=== PATIENT | female | born 1960 | race Caucasian/White ===

== ENCOUNTER 2019-09-18 07:55 | Outpatient (CLI) | payer OTHER, SELFPAY ==
--- NOTE | 2019-09-18 | EST_ITS ---
Patient Info Name: Cristine Armstrong Age: 59 years : 1960 Gender: Female Ht: 63 in Wt: 210 lbs BSA: 2.10 m2 Exam Date: 09/18/2019 9:27 AM Exam Location: [facility] Stress Patient Status: Outpatient Admit Date: 09/18/2019 Staff Ordering Physician: PHYSICIAN NOT ON STAFF, NONSTAFF Attending Provider: PHYSICIAN NOT ON STAFF, NONSTAFF Exercise Technologist: Krishna Cai, RDCS, RT Nurse: Sheeba Devlin ANP, ACNP-BC Exam Type: CA stress maria esther w NM Study Info A regadenoson stress test was performed. Summary 1. Normal sinus rhythm - normal ECG. 2. No ST segment changes noted following Lexiscan injection. 3. Myocardial perfusion imaging exam to be dictated by the Radiology Department. Protocol: Lexiscan Stress ECG Details Stage: REST Duration (min): 5 min : 56 sec HR (bpm): 89 SBP (mmHg): 153 DBP (mmHg): 100 Stage: REST Duration (min): 8 min : 53 sec HR (bpm): 81 SBP (mmHg): 153 DBP (mmHg): 100 Stage: STAGE 1 Duration (min): 0 min : 59 sec HR (bpm): 97 SBP (mmHg): 147 DBP (mmHg): 87 Stage: RECOVERY Duration (min): 1 min : 0 sec HR (bpm): 103 SBP (mmHg): 147 DBP (mmHg): 87 Stage: RECOVERY Duration (min): 2 min : 0 sec HR (bpm): 101 SBP (mmHg): 147 DBP (mmHg): 87 Stage: RECOVERY Duration (min): 3 min : 0 sec HR (bpm): 98 SBP (mmHg): 139 DBP (mmHg): 86 Stage: RECOVERY Duration (min): 4 min : 0 sec HR (bpm): 95 SBP (mmHg): 139 DBP (mmHg): 86 Stage: RECOVERY Duration (min): 5 min : 0 sec HR (bpm): 92 SBP (mmHg): 143 DBP (mmHg): 87 Stage: RECOVERY Duration (min): 6 min : 0 sec HR (bpm): 94 SBP (mmHg): 143 DBP (mmHg): 87 Stage: RECOVERY Duration (min): 7 min : 0 sec HR (bpm): --- SBP (mmHg): 143 DBP (mmHg): 87 Stage: RECOVERY Duration (min): 7 min : 24 sec HR (bpm): --- SBP (mmHg): 143 DBP (mmHg): 87 Rest HR: 81 bpm Peak HR: 103 bpm Rest Sys BP: 153 mmHg Peak Sys BP: 147 mmHg Max Pred HR: 162 bpm % Max Pred HR: 64 % Target HR: 138 bpm Max RPP: 15,141 bpm*mmHg BP Response: Normal blood pressure response Termination Reason: Completed protocol Cardiac Symptoms: Shortness of breath Total Time: 1 min : 0 sec Rest Smith BP: 100 mmHg Peak Smith BP: 87 mmHg Total Dose: 0.4 mg Resting ECG Normal sinus rhythm - normal ECG. Stress ECG No abnormal ST/T wave changes with exercise. Arrhythmias None. Report Signatures
--- NOTE | ~2019-09-18 | NM_ITS ---
EXAMINATION: NM maria esther stress w perfusion DATE: 09/18/2019 10:52 INDICATION: Precordial chest pain. TECHNIQUE: Rest images were obtained following intravenous administration of 10 mCi Tc99m tetrofosmin (Myoview). The patient was infused intravenously with Lexiscan (regadenoson). Then, 31.7 mCi Tc99m t etrofosmin (Myoview) was administered intravenously, and stress images were obtained. Data was recons tructed into short axis and horizontal and vertical long axis SPECT images. Gated SPECT images were a lso obtained. COMPARISON: Myocardial perfusion imaging 06/18/2014 FINDINGS: There is a small, mild, fixed perfusion defect involving mid inferior segment of left ventr icle, consistent with infarct. No reversible component to cysts ischemia. There is no segmental wall motion abnormality. Left ventricular ejection fraction measures >70%. IMPRESSION: 1. Small area of mild infarct involving mid inferior segment of left ventricle. 2. Normal left ventricular ejection fraction measuring >70%. Reviewed, dictated and finalized at location A. 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
== END 2019-09-18 07:56 | disposition home or self-care (01) ==
PROVIDERS: PCP Family Medicine
DX: R07.2 Precordial pain (principal); I21.9 Acute myocardial infarction, unspecified
CPT/HCPCS: 78452; 93017; A9502; J2785

== ENCOUNTER 2019-09-27 09:42 | Outpatient (CLI) | payer OTHER, SELFPAY ==
--- NOTE | ~2019-09-27 | MM_ITS ---
EXAMINATION: MM screening asa BI w chasity HISTORY: Screening mammogram TECHNIQUE: Craniocaudal and mediolateral oblique 3-D tomosynthesis images were obtained and synthetic 2-D images were generated. CAD analysis was submitted and interpreted. COMPARISON: 07/13/2018, 03/09/2016, 04/02/2014 bilateral digital screening mammogram examinations BREAST PARENCHYMAL COMPOSITION: The breasts are almost entirely fatty. FINDINGS: There is no evidence of suspicious mass, calcification, or architectural distortion to sugg est malignancy in either breast. There has been no suspicious interval change. IMPRESSION: 1. No mammographic evidence of malignancy. 2. Recommend routine screening mammography in one year. BI-RADS Category 1: Negative Reviewed, dictated and finalized at location A.
== END 2019-09-27 09:43 | disposition home or self-care (01) ==
LOC: ANHIMG 09:45
PROVIDERS: PCP Family Medicine; Visit Provider Advanced Practice Midwife
DX: Z12.31 Encounter for screening mammogram for malignant neoplasm of breast (principal)
CPT/HCPCS: 77063; 77067; 93923

== ENCOUNTER 2019-10-15 06:35 | Emergency (ER) | payer OTHER, SELFPAY ==
--- NOTE | ~2019-10-15 | XR_ITS ---
EXAMINATION: XR ribs RT 2V w CXR 2V DATE: 10/15/2019 07:20 INDICATION: Right-sided chest wall pain and tenderness to palpation post fall TECHNIQUE: A frontal inspiratory view of the chest and 3 views of the right ribs were obtained. COMPARISON: Chest radiograph dated 12/01/2018 FINDINGS: Suggestion of a nondisplaced fracture at the anterior right seventh rib with minimal overlying bulgin g of the pleura suggesting associated small chest wall hematoma. Calcified nodule at the lateral lef t midlung zone consistent with old granulomatous disease. Lungs remain otherwise clear with no focal airspace opacities, pulmonary edema, pleural effusion or pneumothorax. Heart size and mediastinal estrella houette are normal. Unchanged small left paracardial fat pad.. IMPRESSION: 1. Likely nondisplaced anterior right seventh rib fracture. Correlate for point tenderness at this lo cation. 2. No acute cardiopulmonary disease. Reviewed, dictated and finalized at location A. IMPRESSION: 1. Likely nondisplaced anterior right seventh rib fracture. Correlate for point tenderness at this location. 2. No acute cardiopulmonary disease.
[2019-10-15 06:37] VITALS: BP 152/101; PULSE 96; RESP 22; TEMP 37; O2SAT 98
[2019-10-15] MEDS: MORPHINE SULFATE 4 MG/ML INJ IV PUSH (06:53)
--- NOTE | 2019-10-15 07:03 | ED.ABDPAIN ---
HPI - Abdominal Pain General Chief Complaint: Abdominal Pain Stated Complaint: flank/back pain History of Present Illness HPI narrative: Patient is a 59-year-old female who presents the ER with right-sided flank pain. Ongoing for 1 week. Worse with different types of movement. She is attempted topical analgesics as well as oral pain medication without relief. Patient has had occasional nausea with this but no vomiting or diarrhea. Pain is worse with direct palpation over the right side of her chest wall. She is concerned she might have a kidney stone. Denies urinary frequency/urgency/dysuria. Prior to symptom onset patient does report she did have a fall where she had slipped and fallen onto the ground. No additional injuries related to that fall. Related Data Home Medications Medication Instructions Recorded Confirmed albuterol sulfate 10/15/19 albuterol sulfate INHALATION 10/15/19 alprazolam 10/15/19 amlodipine 10/15/19 furosemide 10/15/19 hydrocodone-acetaminophen tablet 10/15/19 isosorbide mononitrate mg PO 10/15/19 losartan 10/15/19 metoprolol succinate PO 10/15/19 omeprazole 10/15/19 potassium chloride meq PO 10/15/19 ranitidine HCl 10/15/19 ranitidine HCl 10/15/19 rosuvastatin mg 10/15/19 trazodone 10/15/19 Allergies Allergy/AdvReac Type Severity Reaction Status Date / Time haloperidol Allergy Unknown Other Verified 10/15/19 06:54 Penicillins Allergy Unknown Flushing Verified 10/15/19 06:54 risperidone Allergy Unknown MY MOUTH Verified 03/10/19 06:42 TIGHTENS UP -TD simvastatin Allergy Unknown Other Verified 03/10/19 06:42 codeine AdvReac Unknown NAUSEA AND Verified 03/10/19 06:42 VOMITING triazolam AdvReac Unknown N/V Verified 03/10/19 06:42 Wasp Allergy Unknown WASP Uncoded 03/10/19 06:42 STING- CLOSES MY THROAT Review of Systems Constitutional: Constitutional: Denies chills, Denies fever(s) and Denies weakness ENT: Denies nasal congestion and Denies sore throat Respiratory: Respiratory: Reports cough (Chronic cough that is unchanged and related to smoking.) and Denies wheezing Gastrointestinal: Gastrointestinal: Denies abdominal pain, Denies nausea and Denies vomiting Genitourinary: Genitourinary: Denies hematuria, Denies nocturia, Denies dysuria and Reports flank pain PMFSH Past Medical History Medical History (Updated 10/15/19 @ 08:21 by Riley Martinez MD) Anxiety Bipolar disorder COPD (chronic obstructive pulmonary disease) Coronary artery disease CVA (cerebral vascular accident) Diabetes type 2, controlled GERD (gastroesophageal reflux disease) Hyperlipidemia Macular degeneration Sleep apnea Surgical History Surgical History (Updated 10/15/19 @ 08:21 by Riley Martinez MD) H/O cardiac catheterization H/O section History of carpal tunnel release History of cholecystectomy History of colonoscopy History of esophagogastroduodenoscopy (EGD) History of left-sided carotid endarterectomy S/P insertion of iliac artery stent Social History Social History Smoking status: Smoker, status unknown Alcohol intake: never Gender identity (if verbalized by the patient): Female Exam Narrative: Exam Narrative: GENERAL: Uncomfortable-appearing, well-nourished, and in no acute distress. Tearful when laying down flat due to discomfort. HEAD: Normocephalic, atraumatic. ENT: Mucous membranes moist. CHEST: Clear to auscultation. No respiratory distress. Tender palpation in the right lateral chest wall in the midaxillary line. HEART: Regular rate and rhythm. Normal peripheral pulses. ABDOMEN: Soft, nontender, nondistended. EXTREMITIES: Normal range of motion. No edema. NEURO: Alert and oriented x3. Course Course Emergency Course: Patient informed of results. Discharge home. Patient has [place] she can take at home. Vital Signs Vital signs: Vital Sign
[2019-10-15 07:08] LABS: Basophils Absolute Auto 0.1 K/mm3 (0.0-0.1); Basophils Percent Auto 0.6 % (0.2-1.2); Eosinophils Absolute Auto 0.3 K/mm3 (0-0.3); Eosinophils Percent Auto 3.2 % (0-4.4); Hematocrit 44.9 % (37.0-47.0); Hemoglobin 14.9 g/dL (12.0-15.0); Immature Granulocyte Absolute 0.04 K/mm3 (0.00-0.031); Immature Granulocyte Percent A 0.4 % (0-0.5); Lymphocytes Absolute Auto 2.73 K/mm3 (0.9-3.2); Lymphocytes Percent Auto 29.5 % (18.3-44.2); Mean Corpuscular HGB Conc 33.2 g/dl (32-36); Mean Corpuscular Hemoglobin 28.8 pg (26-34); Mean Corpuscular Volume 86.8 fl (80-100); Mean Platelet Volume 10.9 fl (7.4-10.4); Monocytes Absolute Auto 0.7 K/mm3 (0.1-0.6); Monocytes Percent Auto 7.7 % (2.6-8.5); Neutrophils Absolute Auto 5.4 K/mm3 (1.3-6.7); Neutrophils Percent Auto 58.6 % (45.5-73.1); Platelet Count Result 208 k/mm3 (150-375); Red Blood Count 5.17 M/mm3 (4.2-5.4); Red Cell Distribution Width 13.2 % (11.5-14.5); White Blood Count 9.2 K/mm3 (4.5-10.0)
[2019-10-15 07:18] LABS: Add Urine Microscopic? YES; Appearance Urine Clear (Clear); Bacteria Urine Trace /hpf; Bilirubin Urine Negative (Negative); Blood Urine Negative (Negative); Color Urine Yellow (Yellow); Glucose Urine UA Negative (Negative); Ketones Urine Negative (Negative); Leukocyte Esterase Ur Trace LEU/UL (Negative); Mucus Urine Rare /lpf; Nitrate Urine Negative (Negative); Protein Urine 1+ mg/dL (Negative); RBC Urine 0-2 /hpf (0-2); Specific Grav Ur 1.015 (1.001-1.035); Squamous Epithelial Cell Urine Many /hpf (Few); Urobilinogen Urine Negative mg/dL (<2.0)
[2019-10-15 07:43] LABS: Alanine Aminotransferase 18 U/L (4-35); Albumin Level 4.2 g/dL (3.5-5.1); Alkaline Phosphatase 114 U/L (38-126); Aspartate Amino Transferase 23 U/L (14-36); Bilirubin,Total 0.4 mg/dL (0.2-1.3); Blood Urea Nitrogen 17 mg/dL (7-17); Calcium 8.9 mg/dL (8.4-10.2); Carbon Dioxide 23 mmol/L (22-30); Chloride 105 mmol/L (98-107); Estimated CRCL calculation 83 ml/min; Estimated Glomerular Filt Rate > 60; Glucose 152 mg/dL (65-105); Potassium 3.8 mmol/L (3.4-5.0); Sodium 138 mmol/L (137-145)
[2019-10-15 08:49] VITALS: BP 152/102; PULSE 89; RESP 16; O2SAT 98
== END 2019-10-15 08:50 | disposition home or self-care (01) ==
LOC: ANHED 08:10
PROVIDERS: Emergency Provider Emergency Medicine; PCP Family Medicine
DX: S22.31XA Fracture of one rib, right side, initial encounter for closed fracture (principal); W01.0XXA Fall on same level from slipping, tripping and stumbling without subsequent striking against object, initial encounter; F41.9 Anxiety disorder, unspecified; J44.9 Chronic obstructive pulmonary disease, unspecified; I25.10 Atherosclerotic heart disease of native coronary artery without angina pectoris; Z86.73 Personal history of transient ischemic attack (TIA), and cerebral infarction without residual deficits; E11.9 Type 2 diabetes mellitus without complications; K21.9 Gastro-esophageal reflux disease without esophagitis; E78.5 Hyperlipidemia, unspecified; G47.30 Sleep apnea, unspecified; H35.30 Unspecified macular degeneration
CPT/HCPCS: 36415; 71045; 71101; 80053; 81001; 85025; 87086; 96374; 99284; J2270

== ENCOUNTER 2020-01-31 11:15 | Emergency (ER) | payer OTHER, SELFPAY ==
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
[2020-01-31 11:23] VITALS: BP 130/93; PULSE 110; RESP 16; TEMP 36.7; O2SAT 98
[2020-01-31 11:44] VITALS: BP 130/93; PULSE 110; RESP 20; TEMP 36.7; O2SAT 99
[2020-01-31] MEDS: ACETAMINOPHEN 500 MG TABLET 1000 MG PO (12:43)
[2020-01-31 12:51] LABS: Add Urine Microscopic? YES; Appearance Urine Clear (Clear); Bacteria Urine Trace /hpf; Bilirubin Urine Negative (Negative); Blood Urine 2+ (Negative); Color Urine Yellow (Yellow); Glucose Urine UA 3+ mg/dL (Negative); Ketones Urine Trace mg/dL (Negative); Leukocyte Esterase Ur 1+ LEU/UL (Negative); Mucus Urine Few /lpf; Nitrate Urine Negative (Negative); Protein Urine 2+ mg/dL (Negative); RBC Urine 21-50 /hpf (0-2); Specific Grav Ur 1.025 (1.001-1.035); Squamous Epithelial Cell Urine Few /hpf (Few); Urobilinogen Urine Negative mg/dL (<2.0); WBC Urine 21-30 /hpf
[2020-01-31] MEDS: ORPHENADRINE CITRATE 100 MG TABLET.ER PO (12:53)
[2020-01-31] MEDS: KETOROLAC 30 MG/ML VIAL (*BKC) IV PUSH (12:55)
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
[2020-01-31 13:44] VITALS: TEMP 36.7
== END 2020-01-31 13:47 | disposition home or self-care (01) ==
PROVIDERS: Emergency Medicine Emergency Medical Services; Emergency Provider Emergency Medicine; PCP Family Medicine
DX: M51.16 Intervertebral disc disorders with radiculopathy, lumbar region (principal); N39.0 Urinary tract infection, site not specified; F41.9 Anxiety disorder, unspecified; F31.9 Bipolar disorder, unspecified; J44.9 Chronic obstructive pulmonary disease, unspecified; I25.10 Atherosclerotic heart disease of native coronary artery without angina pectoris; Z86.73 Personal history of transient ischemic attack (TIA), and cerebral infarction without residual deficits; K21.9 Gastro-esophageal reflux disease without esophagitis; E11.9 Type 2 diabetes mellitus without complications; E78.5 Hyperlipidemia, unspecified; H35.30 Unspecified macular degeneration; G47.30 Sleep apnea, unspecified
CPT/HCPCS: 72110; 81001; 87086; 87088; 96374; 99284; A9270; J1885

== ENCOUNTER 2020-05-14 14:20 | Emergency (ER) | payer OTHER, SELFPAY ==
[2020-05-14] VITALS (9 sets, daily range): BP systolic 139–161; BP diastolic 88–106; PULSE 76–108; RESP 12–22; TEMP 36.8–37.4; O2SAT 94–100
--- NOTE | ~2020-05-14 | CT_ITS ---
EXAMINATION: CT abdomen pelvis w con DATE: 05/14/2020 17:21 INDICATION: Abdominal pain, nausea and vomiting. History of diverticulitis. TECHNIQUE: Computed tomography (CT) of the abdomen and pelvis was performed with 100 cc Omnipaque 350 intravenous contrast. The dose-length product was 1270.13 mGy-cm. Automated exposure control and ite rative reconstruction technique were employed. COMPARISON: CT dated 03/10/2019 FINDINGS: Lingular atelectasis. Heart size is normal. No significant pleural or pericardial effusion. Fatty infiltration of the liver. Status post cholecystectomy. Calcified granulomas of the spleen. The re are accessory splenules. Status post cholecystectomy. There is atherosclerosis of the aorta. There is an endoluminal stent in the distal abdominal aorta extending into the iliac arteries. There are calcifications of the left adrenal gland with nodular thickening, likely related to chronic granulomatous disease. No free air. No lymphadenopathy. Colonic diverticulosis without evidence for diverticulitis. No acute osseous abnormality. IMPRESSION: 1. No acute abdominal abnormality. Reviewed, dictated and finalized at location A.
[2020-05-14 15:07] LABS: Basophils Absolute Auto 0.1 K/mm3 (0.0-0.1); Basophils Percent Auto 0.4 % (0.2-1.2); Eosinophils Absolute Auto 0.3 K/mm3 (0-0.3); Eosinophils Percent Auto 1.9 % (0-4.4); Hematocrit 46.5 % (37.0-47.0); Hemoglobin 15.9 g/dL (12.0-15.0); Immature Granulocyte Percent A 0.7 % (0-0.5); Lymphocytes Absolute Auto 2.58 K/mm3 (0.9-3.2); Lymphocytes Percent Auto 16.9 % (18.3-44.2); Mean Corpuscular HGB Conc 34.2 g/dl (32-36); Mean Corpuscular Volume 84.9 fl (80-100); Mean Platelet Volume 9.4 fl (7.4-10.4); Monocytes Percent Auto 6.2 % (2.6-8.5); Neutrophils Absolute Auto 11.3 K/mm3 (1.3-6.7); Neutrophils Percent Auto 73.9 % (45.5-73.1); Platelet Count Result 307 k/mm3 (150-375); Red Blood Count 5.48 M/mm3 (4.2-5.4); Red Cell Distribution Width 13.3 % (11.5-14.5); White Blood Count 15.3 K/mm3 (4.5-10.0)
[2020-05-14 15:17] LABS: Add Urine Microscopic? YES; Appearance Urine Cloudy (Clear); Bilirubin Urine Negative (Negative); Blood Urine Negative (Negative); Color Urine Yellow (Yellow); Glucose Urine UA Negative (Negative); Ketones Urine Trace mg/dL (Negative); Leukocyte Esterase Ur Negative LEU/UL (Negative); Mucus Urine Few /lpf; Nitrate Urine Negative (Negative); Protein Urine 2+ mg/dL (Negative); Specific Grav Ur 1.024 (1.001-1.035); Squamous Epithelial Cell Urine Moderate /hpf (Few); Urobilinogen Urine Negative mg/dL (<2.0)
[2020-05-14 15:18] LABS: Alanine Aminotransferase 21 U/L (4-35); Albumin Level 4.5 g/dL (3.5-5.1); Alkaline Phosphatase 113 U/L (38-126); Anion Gap 15 mmol/L (8-16); Aspartate Amino Transferase 30 U/L (14-36); Bilirubin,Total 0.7 mg/dL (0.2-1.3); Blood Urea Nitrogen 38 mg/dL (7-17); Calcium 9.4 mg/dL (8.4-10.2); Carbon Dioxide 23 mmol/L (22-30); Chloride 98 mmol/L (98-107); Estimated CRCL calculation 60 ml/min; Estimated Glomerular Filt Rate 57; Glucose 219 mg/dL (65-105); Lipase 81 U/L (23-300); Potassium 3.7 mmol/L (3.4-5.0); Sodium 136 mmol/L (137-145)
--- NOTE | 2020-05-14 15:56 | ED.ABDPAIN ---
HPI - Abdominal Pain General Chief Complaint: Abdominal Pain Stated Complaint: N/V Time Seen by Provider: 05/14/20 14:32 Source: patient Mode of arrival: EMS Limitations: no limitations History of Present Illness HPI narrative: 59-year-old female Numerous medical comorbidities including diabetes peripheral vascular disease history of diverticulitis COPD hypertension Complains of several days of nausea and vomiting then abdominal pain which is primarily located on the left side and has slowly worsened Has some occasional diarrhea as well which is nonbloody No fever No urinary symptoms She has had a previous cholecystectomy as well [facility] elicited complaint: abdominal pain Onset (ago): day(s) Severity: similar to previous episodes Related Data Home Medications Medication Instructions Recorded Confirmed albuterol sulfate 10/15/19 albuterol sulfate INHALATION 05/14/20 alprazolam 05/14/20 amlodipine 05/14/20 budesonide-formoterol [Symbicort] INHALATION 05/14/20 cromolyn drp 05/14/20 ergocalciferol (vitamin D2) 05/14/20 ezetimibe mg 05/14/20 fluoxetine mg 05/14/20 fluticasone propionate INTRANASAL 05/14/20 hydrocodone-acetaminophen tablet 05/14/20 hydrocortisone 05/14/20 isosorbide mononitrate mg PO 05/14/20 losartan 05/14/20 metformin mg 05/14/20 metoprolol succinate PO 05/14/20 omeprazole 05/14/20 ondansetron HCl 05/14/20 prednisone 05/14/20 rosuvastatin mg 05/14/20 trazodone 05/14/20 Allergies Allergy/AdvReac Type Severity Reaction Status Date / Time haloperidol Allergy Unknown Other Verified 05/14/20 15:07 Penicillins Allergy Unknown Flushing Verified 05/14/20 15:07 risperidone Allergy Unknown MY MOUTH Verified 05/14/20 15:07 TIGHTENS UP -TD simvastatin Allergy Unknown Other Verified 05/14/20 15:07 codeine AdvReac Unknown NAUSEA AND Verified 05/14/20 15:07 VOMITING triazolam AdvReac Unknown N/V Verified 05/14/20 15:07 Wasp Allergy Unknown WASP Uncoded 05/14/20 15:07 STING- CLOSES MY THROAT Review of Systems Review of Systems: All systems reviewed & are unremarkable except as noted in HPI and below Constitutional: Constitutional: Denies chills, Denies fatigue, Denies fever(s), Denies headache(s) and Denies weakness Eyes: Eyes: Denies change in vision and Denies other visual disturbances ENT: Denies headache(s), Denies epistaxis, Denies nasal congestion and Denies sore throat Cardiovascular: Cardiovascular: Denies chest pain, Denies leg edema, Denies palpitations and Denies dyspnea Respiratory: Respiratory: Denies cough, Denies dyspnea and Denies wheezing Gastrointestinal: Gastrointestinal: Reports abdominal pain, Reports diarrhea, Reports nausea and Reports vomiting Genitourinary: Genitourinary: Denies hematuria, Denies urinary frequency, Denies nocturia and Denies dysuria Musculoskeletal: Musculoskeletal: Denies deformity, Denies arthralgias, Denies joint swelling, Denies muscle weakness and Denies numbness Integumentary/Breasts: Skin/Breast: Denies rash, Denies unusual bruising and Denies wounds Neurologic: Denies Abnormal speech present, Denies headache(s), Denies focal weakness, Denies numbness and Denies weakness Psychiatric: Psychiatric: Reports no additional psychiatric complaints Endocrine: Endocrine: Denies fatigue and Denies palpitations Hematologic/Lymphatic: Hematologic/Lymphatic: Denies easy bleeding and Denies easy bruising Allergic/Immunologic: Allergic/Immunologic: Denies wheezing PMFSH Past Medical History Medical History (Updated 05/14/20 @ 19:31 by Abdirahman Pena MD) Anxiety Bipolar disorder COPD (chronic obstructive pulmonary disease) Coronary artery disease CVA (cerebral vascular accident) Diabetes type 2, controlled GERD (gastroesophageal reflux disease) Hyperlipidemia Macular degeneration Sleep apnea Surgical History Surgical History (Reviewed
[2020-05-14] MEDS: LACTATED RINGERS 1,000 ML 999 ML IV CONT ×2 (16:21→19:28)
[2020-05-14] MEDS: diphenhydrAMINE HCl INJ 50 MG/ML VIAL IV PUSH (16:23)
[2020-05-14] MEDS: PROCHLORPERAZINE EDISYLATE 10 MG/2 ML VIAL IV PUSH (16:24)
[2020-05-14] MEDS: MORPHINE SULFATE (*CRX) 4 MG/ML INJ IV PUSH (16:26)
[2020-05-14] MEDS: DICYCLOMINE HCL INJ 20 MG/2 ML VIAL IM (19:28)
--- NOTE | 2020-05-14 20:07 | PC.NURSE ---
Patient to be discharged once lactated ringer infuse.
== END 2020-05-14 20:45 | disposition home or self-care (01) ==
PROVIDERS: Emergency Provider Emergency Medicine; PCP Family Medicine
DX: R10.9 Unspecified abdominal pain (principal); R11.2 Nausea with vomiting, unspecified; R19.7 Diarrhea, unspecified; F41.9 Anxiety disorder, unspecified; F31.9 Bipolar disorder, unspecified; J44.9 Chronic obstructive pulmonary disease, unspecified; I25.10 Atherosclerotic heart disease of native coronary artery without angina pectoris; E11.9 Type 2 diabetes mellitus without complications; K21.9 Gastro-esophageal reflux disease without esophagitis; E78.5 Hyperlipidemia, unspecified; G47.30 Sleep apnea, unspecified; Z79.84 Long term (current) use of oral hypoglycemic drugs; I10 Essential (primary) hypertension
CPT/HCPCS: 36415; 74177; 80053; 81001; 83690; 85025; 96361; 96372; 96374; 96375; 99284; J0500; J0780; J1200; J2270; J7120; Q9967

== ENCOUNTER 2021-01-19 16:26 | Emergency (ER) | payer OTHER, SELFPAY ==
[2021-01-19 16:31] VITALS: BP 110/72; PULSE 87; RESP 18; O2SAT 98
--- NOTE | 2021-01-19 16:59 | ED.SKABFB ---
HPI - Skin/Abscess/Foreign Bdy General Chief complaint: Skin/Abscess/Foreign Body Stated complaint: Rash on Back Time Seen by Provider: 01/19/21 16:59 Source: patient and RN notes reviewed Mode of arrival: ambulatory Limitations: no limitations History of Present Illness HPI narrative: 60-year-old presents to the [facility] with complaints of multiple insect bites to her right arm, left lateral leg. Patient states she noticed it over the weekend had some of the same approximately 4 months ago. Areas are red, warm to touch. No fluctuance noted to any of the red areas noted. Denies fevers. Wanting to know what type of bug bit her. MD complaint: rash Related Data Home Medications Medication Instructions Recorded Confirmed albuterol sulfate 10/15/19 albuterol sulfate INHALATION 05/14/20 alprazolam 05/14/20 budesonide-formoterol [Symbicort] INHALATION 05/14/20 cromolyn drp 05/14/20 ergocalciferol (vitamin D2) 05/14/20 ezetimibe mg 05/14/20 fluoxetine mg 05/14/20 fluticasone propionate INTRANASAL 05/14/20 hydrocodone-acetaminophen tablet 05/14/20 hydrocortisone 05/14/20 isosorbide mononitrate mg PO 05/14/20 losartan 05/14/20 metformin mg 05/14/20 metoprolol succinate PO 05/14/20 omeprazole 05/14/20 nitroglycerin 0.4 mg sublingual 0.4 mg SUBLINGUAL Q5M PRN 07/27/20 tablet clopidogrel 01/19/21 evolocumab [Repatha SureClick] mg SUBCUT 01/19/21 Allergies Allergy/AdvReac Type Severity Reaction Status Date / Time haloperidol Allergy Unknown Other Verified 09/09/20 09:10 Penicillins Allergy Unknown Flushing Verified 09/09/20 09:10 risperidone Allergy Unknown MY MOUTH Verified 09/09/20 09:10 TIGHTENS UP -TD simvastatin Allergy Unknown Other Verified 09/09/20 09:10 codeine AdvReac Unknown NAUSEA AND Verified 09/09/20 09:10 VOMITING triazolam AdvReac Unknown N/V Verified 09/09/20 09:10 Wasp Allergy Unknown WASP Uncoded 05/14/20 15:07 STING- CLOSES MY THROAT Review of Systems Review of Systems: All systems reviewed & are unremarkable except as noted in HPI and below Constitutional: Constitutional: Reports no additional constitutional complaints, Denies chills and Denies fever(s) Eyes: Eyes: Reports no additional eye complaints ENT: Reports system reviewed and no additional complaints, except as documented and Denies sore throat Cardiovascular: Cardiovascular: Reports no additional cardiovascular complaints and Denies chest pain Respiratory: Respiratory: Reports no additional respiratory complaints, Denies cough and Denies dyspnea Musculoskeletal: Musculoskeletal: Reports no additional musculoskeletal complaints, Denies myalgias, Denies arthralgias and Denies joint swelling Integumentary/Breasts: Skin/Breast: Reports as per HPI, Reports pruritus, Reports erythema and Denies rash Comments: Multiple red raised insect bites to the right lateral arm, left lateral leg-calf area. Neurologic: Reports system reviewed and no additional complaints, except as documented Psychiatric: Psychiatric: Reports no additional psychiatric complaints Allergic/Immunologic: Allergic/Immunologic: Reports no additional allergic/immunologic complaints, Denies lip swelling, Denies throat swelling, Denies tongue swelling and Denies wheezing [facility] Past Medical History Medical History (Updated 01/22/21 @ 14:05 by Arlen Voss) Anxiety Bipolar disorder COPD (chronic obstructive pulmonary disease) Coronary artery disease CVA (cerebral vascular accident) Diabetes type 2, controlled GERD (gastroesophageal reflux disease) Hyperlipidemia Macular degeneration Sleep apnea Surgical History Surgical History H/O cardiac catheterization H/O section History of carpal tunnel release History of cholecystectomy History of colonoscopy History of esophagogastroduodenoscopy (EGD) History of left-sided carotid endarterectomy S/P
== END 2021-01-19 17:10 | disposition home or self-care (01) ==
PROVIDERS: Emergency Provider Nurse Practitioner; PCP Family Medicine
DX: L03.113 Cellulitis of right upper limb (principal); L03.116 Cellulitis of left lower limb; S40.861A Insect bite (nonvenomous) of right upper arm, initial encounter; S80.862A Insect bite (nonvenomous), left lower leg, initial encounter; W57.XXXA Bitten or stung by nonvenomous insect and other nonvenomous arthropods, initial encounter; J44.9 Chronic obstructive pulmonary disease, unspecified; I25.10 Atherosclerotic heart disease of native coronary artery without angina pectoris; Z86.73 Personal history of transient ischemic attack (TIA), and cerebral infarction without residual deficits; E11.9 Type 2 diabetes mellitus without complications; K21.9 Gastro-esophageal reflux disease without esophagitis; E78.5 Hyperlipidemia, unspecified; H35.30 Unspecified macular degeneration; Z95.820 Peripheral vascular angioplasty status with implants and grafts; F17.210 Nicotine dependence, cigarettes, uncomplicated
CPT/HCPCS: 99213; G0463

== ENCOUNTER 2021-01-22 16:43 | Outpatient (CLI) | payer OTHER, SELFPAY ==
--- NOTE | ~2021-01-22 | CT_ITS ---
EXAMINATION: CT lung screening DATE: 01/22/2021 17:45 INDICATION: History of tobacco dependence TECHNIQUE: Computed tomography (CT) of the chest was performed without intravenous contrast. The dose -length product was 211.05 mGy-cm. Automated exposure control and iterative reconstruction technique were employed. COMPARISON: None FINDINGS: No significant pleural or pericardial effusion. No thoracic lymphadenopathy. Mild atheroscl erosis of the aorta and coronary arteries. There are calcified granulomas of the liver and spleen. Mi ld thoracic spondylosis. No pneumothorax. No endobronchial lesions. Calcified granuloma left upper lo be laterally. Calcified hilar lymph nodes, consistent with chronic granulomatous disease. There is li ngular atelectasis/scarring. There is right lower lobe atelectasis. No suspicious pulmonary nodules o r masses. No significant bone or joint abnormality. IMPRESSION: 1. Lung-RADS category 1: Negative. Continue annual screening with noncontrast low-dose chest CT in 12 months. Reviewed, dictated and finalized at location A. IMPRESSION: 1. Lung-RADS category 1: Negative. Continue annual screening with noncontrast l ow-dose chest CT in 12 months.
== END 2021-01-22 16:44 | disposition home or self-care (01) ==
PROVIDERS: PCP Family Medicine; Visit Provider Family Medicine
DX: Z12.2 Encounter for screening for malignant neoplasm of respiratory organs (principal); Z87.891 Personal history of nicotine dependence
CPT/HCPCS: 71271

== ENCOUNTER 2021-01-26 12:46 | Emergency (ER) | payer OTHER, SELFPAY ==
[2021-01-26 12:52] VITALS: BP 149/88; PULSE 102; RESP 16; TEMP 36.3; O2SAT 100
[2021-01-26] MEDS: TETANUS,DIPHTHERIA,AC PERTUSSIS ADULT (0.5 ML) BOOSTRIX IM (14:11)
--- NOTE | 2021-01-26 14:16 | ED.GENADULT ---
HPI - General Adult General Chief complaint: Wound/Laceration Stated complaint: wounds Time Seen by Provider: 01/26/21 13:06 Source: patient and RN notes reviewed Mode of arrival: ambulatory Limitations: no limitations History of Present Illness HPI narrative: Patient is a 60-year-old female who presents to emergency department for wound to the upper back patient had a tick bite remove the tick but now has erythema and irritation of the back patient denies any fever chills nausea vomiting or other complaints did go to an urgent care was given topical cream but notes that she continues to have irritation on arrival patient in no distress resting comfortably in the room patient notes that her tetanus is not up-to-date Related Data Home Medications Medication Instructions Recorded Confirmed albuterol sulfate 10/15/19 01/25/21 albuterol sulfate INHALATION 05/14/20 01/25/21 alprazolam 05/14/20 01/25/21 budesonide-formoterol [Symbicort] INHALATION 05/14/20 01/25/21 cromolyn drp 05/14/20 01/25/21 ergocalciferol (vitamin D2) 05/14/20 01/25/21 ezetimibe mg 05/14/20 01/25/21 fluoxetine mg 05/14/20 01/25/21 fluticasone propionate INTRANASAL 05/14/20 01/25/21 hydrocodone-acetaminophen tablet 05/14/20 01/25/21 hydrocortisone 05/14/20 01/25/21 losartan 05/14/20 01/25/21 metoprolol succinate PO 05/14/20 01/25/21 nitroglycerin 0.4 mg sublingual 0.4 mg SUBLINGUAL Q5M PRN 07/27/20 01/25/21 tablet clopidogrel 01/19/21 01/25/21 evolocumab [Repatha SureClick] mg SUBCUT 01/19/21 01/25/21 Allergies Allergy/AdvReac Type Severity Reaction Status Date / Time haloperidol Allergy Unknown Other Verified 01/26/21 14:10 Penicillins Allergy Unknown Flushing Verified 01/26/21 14:10 risperidone Allergy Unknown MY MOUTH Verified 01/26/21 14:10 TIGHTENS UP -TD simvastatin Allergy Unknown Other Verified 01/26/21 14:10 codeine AdvReac Unknown NAUSEA AND Verified 01/26/21 14:10 VOMITING triazolam AdvReac Unknown N/V Verified 01/26/21 14:10 Wasp Allergy Unknown WASP Uncoded 01/26/21 14:10 STING- CLOSES MY THROAT Review of Systems Review of Systems: All systems reviewed & are unremarkable except as noted in HPI and below PMFSH Past Medical History Medical History Anxiety Bipolar disorder COPD (chronic obstructive pulmonary disease) Coronary artery disease CVA (cerebral vascular accident) Diabetes type 2, controlled GERD (gastroesophageal reflux disease) Hyperlipidemia Macular degeneration Sleep apnea Surgical History Surgical History H/O cardiac catheterization H/O section History of carpal tunnel release History of cholecystectomy History of colonoscopy History of esophagogastroduodenoscopy (EGD) History of left-sided carotid endarterectomy S/P insertion of iliac artery stent Family History Family History Sibling Diabetes mellitus Family history of malignant neoplasm Social History Social History Smoking status: Current every day smoker Tobacco type: cigarettes Second hand tobacco smoke exposure: No Alcohol intake: never Substance use: current Substance use type: marijuana Gender identity (if verbalized by the patient): Female Exam Narrative: Exam Narrative: GENERAL: Well-appearing, obese, and in no acute distress. HEAD: Normocephalic, atraumatic. EYES: PERRLA and EOMI. ENT: Nares clear, no rhinorrhea or epistaxis. Mucous membranes moist. CHEST: Clear to auscultation. No respiratory distress. No wheezes rales or rhonchi HEART: Regular rate and rhythm. No murmur heard. Normal peripheral pulses. EXTREMITIES: Normal range of motion. No edema. SKIN: Warm, dry, no rash. Patient with wound to the left mid upper back with central scabbing with slight
[2021-01-26 15:50] VITALS: BP 152/86; PULSE 96; RESP 20; TEMP 36.7; O2SAT 100
== END 2021-01-26 15:50 | disposition home or self-care (01) ==
PROVIDERS: Emergency Provider Emergency Medicine; PCP Family Medicine
DX: L03.312 Cellulitis of back [any part except buttock and flank] (principal); F17.210 Nicotine dependence, cigarettes, uncomplicated; F41.9 Anxiety disorder, unspecified; F31.9 Bipolar disorder, unspecified; J44.9 Chronic obstructive pulmonary disease, unspecified; I25.10 Atherosclerotic heart disease of native coronary artery without angina pectoris; E11.9 Type 2 diabetes mellitus without complications; E78.5 Hyperlipidemia, unspecified; Z23 Encounter for immunization
CPT/HCPCS: 90471; 90715; 99283

== ENCOUNTER 2021-03-03 11:58 | Emergency (ER) | payer OTHER, SELFPAY ==
[2021-03-03] VITALS (9 sets, daily range): BP systolic 105–144; BP diastolic 73–96; PULSE 94–105; RESP 11–28; TEMP 35.6–36.8; O2SAT 95–99
--- NOTE | ~2021-03-03 | CT_ITS ---
EXAMINATION: CTA chest PE protocol DATE: 03/03/2021 14:50 INDICATION: Chest pain and shortness of breath TECHNIQUE: Computed tomography (CT) pulmonary angiogram of the chest was performed with 100 mL Omnipa que-350 intravenous contrast. Additional 3D reconstructions utilizing coronal maximum intensity proje ction (MIP) were performed. Automated exposure control and iterative reconstruction technique were em ployed. The dose-length product was 874.98 mGy-cm. COMPARISON: None FINDINGS: Good contrast opacification of the pulmonary arteries. There is mild streak artifact from dense contr ast in the superior vena cava and right atrium. Minimal scattered respiratory motion artifact which d oes not significantly limit evaluation. No pulmonary motion. Diffuse mild bronchial wall thickening. Small region of tree-in-bud opacity in the posterior inferior left upper lobe consistent with endobro nchial spread of disease. A a few scattered small calcified pulmonary nodules, calcified left hilar l ymph nodes, multiple small splenic and a few small hepatic calcifications, all consistent with old gr anulomatous disease. No pulmonary edema, pleural effusion or pneumothorax. Heart size is normal. No p ericardial effusion. Thoracic aorta is normal in caliber with no dissection. No pathologically enlarg ed thoracic lymphadenopathy. 1.8 x 1.2 cm low-attenuation left adrenal adenoma. Cholecystectomy clips at the gallbladder fossa. Mild thoracic spondylosis. Moderate right glenohumeral osteoarthritis with prominent subarticular cystic change at the inferior glenoid. IMPRESSION: 1. No pulmonary motion. 2. Mild bronchial wall thickening with small region of tree-in-bud opacity in the left upper lobe con sistent with bronchitis and likely early pneumonia. Differential includes less likely aspiration or p ulmonary hemorrhage. Reviewed, dictated and finalized at location A. IMPRESSION: 1. No pulmonary motion. 2. Mild bronchial wall thickening with small region of tree-in-bud opacity in t he left upper lobe consistent with bronchitis and likely early pneumonia. Diffe rential includes less likely aspiration or pulmonary hemorrhage.
--- NOTE | ~2021-03-03 | XR_ITS ---
EXAMINATION: XR chest 2V 03/03/2021 13:10 INDICATION: Chest tightness. Shortness of breath. PROCEDURE: 2 view chest COMPARISON: Comparison to multiple prior studies sequentially, with oldest reviewed study dated 03/2019. FINDINGS: The lungs are clear. The cardiomediastinal silhouette is within normal limits. There are no pleural effusions. There is no pneumothorax suspected. Calcified granuloma left mid thorax later ally. IMPRESSION: 1: NO ACUTE CARDIOPULMONARY DISEASE. Reviewed, dictated and finalized at location A.
--- NOTE | 2021-03-03 12:03 | ECG_ITS ---
Measurements Intervals [place] Rate: 95 P: 69 AR: 130 QRS: 35 QRSD: 86 T: 20 QT: 338 QTc: 425 Interpretive Statements SINUS RHYTHM LOW QRS VOLTAGE IN PRECORDIAL LEADS BASELINE WANDER- II, III, V4-V6 BORDERLINE ECG Electronically Signed On 03-03-2021 13:12:35 CDT by Sonido Henry D.O.
[2021-03-03 13:24] LABS: Basophils Percent Auto 0.5 % (0.2-1.2); Eosinophils Absolute Auto 0.1 K/mm3 (0-0.3); Eosinophils Percent Auto 1.4 % (0-4.4); Hematocrit 40.9 % (37.0-47.0); Hemoglobin 13.7 g/dL (12.0-15.0); Immature Granulocyte Absolute 0.02 K/mm3 (0.00-0.031); Immature Granulocyte Percent A 0.3 % (0-0.5); Lymphocytes Percent Auto 14.9 % (18.3-44.2); Mean Corpuscular HGB Conc 33.5 g/dl (32-36); Mean Corpuscular Hemoglobin 28.6 pg (26-34); Mean Corpuscular Volume 85.4 fl (80-100); Mean Platelet Volume 9.5 fl (7.4-10.4); Monocytes Absolute Auto 0.7 K/mm3 (0.1-0.6); Monocytes Percent Auto 9.1 % (2.6-8.5); Neutrophils Absolute Auto 5.4 K/mm3 (1.3-6.7); Neutrophils Percent Auto 73.8 % (45.5-73.1); Platelet Count Result 175 k/mm3 (150-375); Red Blood Count 4.79 M/mm3 (4.2-5.4); Red Cell Distribution Width 13.1 % (11.5-14.5); White Blood Count 7.4 K/mm3 (4.5-10.0)
[2021-03-03] MEDS: predniSONE 20 MG TABLET 60 MG PO (13:26)
[2021-03-03 13:36] LABS: Anion Gap 8 mmol/L (8-16); Blood Urea Nitrogen 10 mg/dL (7-17); Calcium 9.2 mg/dL (8.4-10.2); Carbon Dioxide 24 mmol/L (22-30); Chloride 102 mmol/L (98-107); Estimated CRCL calculation 80 ml/min; Estimated Glomerular Filt Rate > 60; Glucose 169 mg/dL (65-110); Potassium 3.6 mmol/L (3.4-5.0); Sodium 134 mmol/L (137-145)
[2021-03-03] MEDS: ALBUTEROL SULFATE NEB 2.5 MG/0.5 ML INH 5 MG INHALATION (13:48)
[2021-03-03] MEDS: IPRATROPIUM BR 0.02% INH SOLN 0.5 MG/2.5 ML VIAL INHALATION (13:49)
--- NOTE | 2021-03-03 13:51 | ED.SOB ---
HPI - SOB/Dyspnea General Chief Complaint: Shortness of Breath/Dyspnea Stated Complaint: DIFF BREATHING Time Seen by Provider: 03/03/21 13:00 Source: patient, RN notes reviewed and old records reviewed Mode of arrival: ambulatory Limitations: no limitations History of Present Illness HPI Narrative: This is 60 year old female smoker with history of COPD, asthma, PAD who presents for evaluation of shortness of breath and cough. She reports having a nonproductive cough for 3 days. She also reports left chest wheezing and shortness of breath. She reports subjective fever and chills. She denies nausea or vomiting. She has intermittent left chest pain but denies having current pain. She is unsure what makes her chest pain worse. She has been using albuterol inhaler without relief of her symptoms. Related Data Home Medications Medication Instructions Recorded Confirmed albuterol sulfate 10/15/19 01/25/21 albuterol sulfate INHALATION 05/14/20 01/25/21 alprazolam 05/14/20 01/25/21 budesonide-formoterol [Symbicort] INHALATION 05/14/20 01/25/21 cromolyn drp 05/14/20 01/25/21 ergocalciferol (vitamin D2) 05/14/20 01/25/21 ezetimibe mg 05/14/20 01/25/21 fluoxetine mg 05/14/20 01/25/21 fluticasone propionate INTRANASAL 05/14/20 01/25/21 hydrocodone-acetaminophen tablet 05/14/20 01/25/21 hydrocortisone 05/14/20 01/25/21 losartan 05/14/20 01/25/21 metoprolol succinate PO 05/14/20 01/25/21 nitroglycerin 0.4 mg sublingual 0.4 mg SUBLINGUAL Q5M PRN 07/27/20 01/25/21 tablet clopidogrel 01/19/21 01/25/21 evolocumab [Repatha SureClick] mg SUBCUT 01/19/21 01/25/21 Allergies Allergy/AdvReac Type Severity Reaction Status Date / Time haloperidol Allergy Unknown Other Verified 03/03/21 14:44 Penicillins Allergy Unknown Flushing Verified 03/03/21 14:44 risperidone Allergy Unknown MY MOUTH Verified 03/03/21 14:44 TIGHTENS UP -TD simvastatin Allergy Unknown Other Verified 03/03/21 14:44 codeine AdvReac Unknown NAUSEA AND Verified 03/03/21 14:44 VOMITING triazolam AdvReac Unknown N/V Verified 03/03/21 14:44 Wasp Allergy Unknown WASP Uncoded 03/03/21 14:44 STING- CLOSES MY THROAT Review of Systems Review of Systems: All systems reviewed & are unremarkable except as noted in HPI and below PMFSH Past Medical History Medical History Anxiety Bipolar disorder COPD (chronic obstructive pulmonary disease) Coronary artery disease CVA (cerebral vascular accident) Diabetes type 2, controlled GERD (gastroesophageal reflux disease) Hyperlipidemia Macular degeneration Sleep apnea Surgical History Surgical History H/O cardiac catheterization H/O section History of carpal tunnel release History of cholecystectomy History of colonoscopy History of esophagogastroduodenoscopy (EGD) History of left-sided carotid endarterectomy S/P insertion of iliac artery stent Family History Family History Sibling Diabetes mellitus Family history of malignant neoplasm Social History Social History Smoking status: Current every day smoker Tobacco type: cigarettes Second hand tobacco smoke exposure: No Alcohol intake: never Substance use: current Substance use type: marijuana Gender identity (if verbalized by the patient): Female Exam Const: General: no acute distress and alert Nutritional Appearance: obese Orientation/consciousness: patient oriented x3 Eyes: EOM: EOMs intact bilaterally Resp: Effort & Inspection: normal respiratory effort, not labored, no retractions, not tachypneic and no use of accessory muscles Auscultation: wheezes expiratory wheezes and left upper Cardio: Rate: regular rate Rhythm: regular rhythm Heart sounds: no murmurs GI: GI Palp:
[2021-03-03 13:55] LABS: Alveolar/Arterial O2 Gradient 32.9 mmHg; Base Excess ABG -0.6 mEq/l (+/-2.0); Carboxyhemoglobin 1.2 % THb (0-2.0); Fractional Inspired Oxygen 21 %; Methemoglobin ABG 0.3 %THb (0-1.5); Oxygen Content ABG 18.6 %vol (16.0-22.0); Oxygen Saturation ABG 95.7 % (95.0-100.0); Oxyhemoglobin 93.5 % THb (90.0-100.0); PCO2 ABG 34.5 mmHg (35.0-45.0); PO2 ABG 75.5 mmHg (80.0-100.0); Total Hemoglobin 14.1 g/dL (12.0-18.0); pH ABG 7.441 (7.350-7.450)
[2021-03-03 13:56] LABS: Device ROOM AIR; Site Drawn RIGHT BRACHIAL
[2021-03-03 13:57] LABS: Alanine Aminotransferase 20 U/L (4-35); Albumin Level 4.3 g/dL (3.5-5.1); Alkaline Phosphatase 102 U/L (38-126); Aspartate Amino Transferase 27 U/L (14-36); Bilirubin,Total 0.3 mg/dL (0.2-1.3)
[2021-03-03 14:09] LABS: Troponin I < 0.012 ng/mL (0.000-0.034)
[2021-03-03 14:14] LABS: Prothrombin Time 12.6 Seconds (11.1-14.7)
[2021-03-03 14:15] LABS: Partial Thromboplastin Time 29.2 SECONDS (22.3-36.8)
[2021-03-03 14:17] LABS: D Dimer 0.71 ug/mL (<0.48)
--- NOTE | 2021-03-03 14:32 | PC.NURSE ---
Dr. Beatty notified pt requesting pain medication for left chest discomfort as well as cough medication.
[2021-03-03] MEDS: DOXYCYCLINE HYCLATE 100 MG TABLET PO (15:48)
[2021-03-03 16:15] LABS: Troponin I < 0.012 ng/mL (0.000-0.034)
== END 2021-03-03 17:06 | disposition home or self-care (01) ==
PROVIDERS: Emergency Provider General Practice; PCP Family Medicine
DX: J18.9 Pneumonia, unspecified organism (principal); J44.1 Chronic obstructive pulmonary disease with (acute) exacerbation; I25.10 Atherosclerotic heart disease of native coronary artery without angina pectoris; E11.9 Type 2 diabetes mellitus without complications; K21.9 Gastro-esophageal reflux disease without esophagitis; E78.5 Hyperlipidemia, unspecified; G47.30 Sleep apnea, unspecified; H35.30 Unspecified macular degeneration; F31.9 Bipolar disorder, unspecified; F41.9 Anxiety disorder, unspecified; Z86.73 Personal history of transient ischemic attack (TIA), and cerebral infarction without residual deficits; Z95.5 Presence of coronary angioplasty implant and graft; F17.210 Nicotine dependence, cigarettes, uncomplicated; R94.31 Abnormal electrocardiogram [ECG] [EKG]
CPT/HCPCS: 36415; 36600; 71046; 71275; 80048; 80076; 82375; 82805; 83050; 84484; 85025; 85380; 85610; 85730; 93005; 94640; 96365; 96367; 99284; A9270; J0131; J0696; J7512; Q9967

== ENCOUNTER → 2021-06-19 00:35 | Outpatient (CLI) | payer OTHER, SELFPAY ==
[2021-06-19 18:55] LABS: SARS-CoV-2 RNA PCR Negative
== END ==
PROVIDERS: PCP Family Medicine
DX: R68.89 Other general symptoms and signs (principal); Z20.822 Contact with and (suspected) exposure to COVID-19
CPT/HCPCS: C9803; U0003; U0005

== ENCOUNTER 2021-06-23 15:27 | Outpatient (CLI) | payer OTHER, SELFPAY ==
--- NOTE | ~2021-06-23 | MM_ITS ---
EXAMINATION: MM screening asa BI w chasity HISTORY: Screening TECHNIQUE: Craniocaudal and mediolateral oblique 3-D tomosynthesis images were obtained and synthetic 2-D images were generated. CAD analysis was submitted and interpreted. COMPARISON: Comparison to multiple prior studies sequentially, with oldest reviewed study dated 12/11. BREAST PARENCHYMAL COMPOSITION: There are scattered areas of fibroglandular density. FINDINGS: There is no evidence of suspicious mass, calcification, or architectural distortion to sugg est malignancy in either breast. There has been no suspicious interval change. IMPRESSION: 1. No mammographic evidence of malignancy. 2. Recommend routine screening mammography in one year. BI-RADS Category 1: Negative Reviewed, dictated and finalized at location A. 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
== END 2021-06-23 15:28 | disposition home or self-care (01) ==
LOC: ANHIMG 15:29
PROVIDERS: PCP Family Medicine; Visit Provider Advanced Practice Midwife
DX: Z12.31 Encounter for screening mammogram for malignant neoplasm of breast (principal)
CPT/HCPCS: 77063; 77067

== ENCOUNTER 2021-07-02 10:16 | Emergency (ER) | payer OTHER, SELFPAY ==
--- NOTE | ~2021-07-02 | XR_ITS ---
EXAMINATION: XR chest 1V portable INDICATION: Cough TECHNIQUE: Portable AP chest at 1231 hours COMPARISON: 03/03/2021 FINDINGS: The lungs are free of acute opacities. There is no pleural effusion or pneumothorax. The ca rdiomediastinal silhouette is normal. A calcified nodule of the left midlung zone is consistent with old granulomatous disease. IMPRESSION: 1. No acute cardiopulmonary abnormality. Reviewed, dictated and finalized at location A. S ANALYSIS MANAGER
[2021-07-02 10:19] VITALS: BP 163/86; PULSE 108; RESP 20; TEMP 36.2; O2SAT 99
[2021-07-02 11:37] VITALS: O2SAT 98
--- NOTE | 2021-07-02 12:17 | ED.GENADULT ---
HPI - General Adult General Chief complaint: Upper Respiratory Infection Stated complaint: I DONT FEEL GOOD I HAVE A COUGH X 1 MONTH Time Seen by Provider: 07/02/21 11:48 History of Present Illness HPI narrative: 60-year-old female with history of COPD presenting to the emergency department for evaluation of 1 month of persistent cough and not feeling well. Patient states she was seen in the beginning of June and started on Levaquin and prednisone for the same symptoms. Patient states she felt that the steroids did help. Patient states over the last 2 weeks she has continued to have persistent symptoms including generalized fatigue and cough. Patient is still a smoker. Patient is not on oxygen at home. Related Data Home Medications Medication Instructions Recorded Confirmed alprazolam 05/14/20 05/26/21 budesonide-formoterol [Symbicort] INHALATION 05/14/20 05/26/21 cromolyn 4 drp 05/14/20 05/26/21 ergocalciferol (vitamin D2) 1,250 mcg PO 05/14/20 05/26/21 ezetimibe 10 mg PO 05/14/20 05/26/21 fluticasone propionate 50 mcg INTRANASAL 05/14/20 05/26/21 hydrocodone-acetaminophen tablet 05/14/20 05/26/21 hydrocortisone 05/14/20 05/26/21 losartan 100 mg PO DAILY 05/14/20 05/26/21 metoprolol succinate 50 mg PO 05/14/20 05/26/21 nitroglycerin 0.4 mg sublingual 0.4 mg SUBLINGUAL Q5M PRN 07/27/20 05/26/21 tablet clopidogrel 75 mg PO 01/19/21 05/26/21 evolocumab [Repatha SureClick] mg SUBCUT 01/19/21 05/26/21 fluoxetine 40 mg capsule 60 mg PO DAILY cap 05/05/21 05/26/21 Allergies Allergy/AdvReac Type Severity Reaction Status Date / Time haloperidol Allergy Unknown Other Verified 07/02/21 11:33 Penicillins Allergy Unknown Flushing Verified 07/02/21 11:33 risperidone Allergy Unknown MY MOUTH Verified 07/02/21 11:33 TIGHTENS UP -TD simvastatin Allergy Unknown Other Verified 07/02/21 11:33 [id number] Reductase Allergy Other Verified 07/02/21 11:33 Inhibitor codeine AdvReac Unknown NAUSEA AND Verified 07/02/21 11:33 VOMITING triazolam AdvReac Unknown N/V Verified 07/02/21 11:33 Wasp Allergy Unknown WASP Uncoded 07/02/21 11:33 STING- CLOSES MY THROAT Review of Systems Review of Systems: CONSTITUTIONAL: Denies fever, chills, or sweats. Does report generalized fatigue EYES: Denies visual changes, redness, or discharge. ENT: Does report cough sore throat and congestion CARDIOVASCULAR: Denies chest pain, palpitations, or edema. RESPIRATORY: Cough. GASTROINTESTINAL: Denies abdominal pain, nausea, vomiting, or diarrhea. GENITOURINARY: Denies dysuria or hematuria. SKIN: Denies rash or itching. MUSCULOSKELETAL: Denies back pain, joint pain, or myalgia. NEUROLOGIC: Denies headache, numbness, or weakness. PSYCHIATRIC: Denies anxiety or depression. [facility] Past Medical History Medical History Anxiety Bipolar disorder COPD (chronic obstructive pulmonary disease) Coronary artery disease CVA (cerebral vascular accident) Diabetes type 2, controlled GERD (gastroesophageal reflux disease) Hyperlipidemia Macular degeneration Sleep apnea Surgical History Surgical History H/O cardiac catheterization H/O section History of carpal tunnel release History of cholecystectomy History of colonoscopy History of esophagogastroduodenoscopy (EGD) History of left-sided carotid endarterectomy S/P insertion of iliac artery stent Family History Family History Sibling Diabetes mellitus Family history of malignant neoplasm Social History Social History Smoking status: Current every day smoker Tobacco type: cigarettes Second hand tobacco smoke exposure: No Alcohol intake: never Substance use: current Substance use type: marijuana Gender identity (if verbalized by the alan
[2021-07-02 13:14] VITALS: BP 131/97; PULSE 65; RESP 18; O2SAT 96
[2021-07-05 20:16] LABS: SARS-CoV-2 RNA PCR Negative
== END 2021-07-02 13:39 | disposition home or self-care (01) ==
PROVIDERS: Emergency Provider Emergency Medicine; PCP Family Medicine
DX: R05.9 Cough, unspecified (principal); R09.81 Nasal congestion; Z20.822 Contact with and (suspected) exposure to COVID-19; I25.10 Atherosclerotic heart disease of native coronary artery without angina pectoris; J44.9 Chronic obstructive pulmonary disease, unspecified; Z86.73 Personal history of transient ischemic attack (TIA), and cerebral infarction without residual deficits; E11.9 Type 2 diabetes mellitus without complications; K21.9 Gastro-esophageal reflux disease without esophagitis; E78.5 Hyperlipidemia, unspecified; H35.30 Unspecified macular degeneration; G47.30 Sleep apnea, unspecified; F41.9 Anxiety disorder, unspecified; F31.9 Bipolar disorder, unspecified; F17.210 Nicotine dependence, cigarettes, uncomplicated
CPT/HCPCS: 71045; 99283; C9803; U0003; U0005

== ENCOUNTER 2021-09-14 12:39 | Emergency (ER) | payer OTHER, SELFPAY ==
--- NOTE | ~2021-09-14 | CT_ITS ---
EXAMINATION: CT abdomen pelvis w con DATE: 09/14/2021 17:52 INDICATION: Lower abdominal pain, pressure when voiding. Decreased urine output. Urinary tract infect ion. TECHNIQUE: Computed tomography (CT) of the abdomen and pelvis was performed with 100 CC Omnipaque 350 intravenous contrast. Automated exposure control and iterative reconstruction technique were employe d. Exam dose: 1090.06 mGy-cm total exam DLP. COMPARISON: 05/14/2020 CT abdomen pelvis FINDINGS: There is focal discoid atelectasis or scarring in the posterior lingular area. No infiltrat e or consolidation at the lung bases. Normal heart size. Coronary calcifications. No pericardial or p leural effusion. Diffuse hepatic steatosis. There is stable mild heterogeneous density of the liver since 05/14/2020. Status post cholecystectomy. No bile duct or pancreatic duct dilatation. No pancreatic mass lesion or calcification. Calcified splenic granulomas. Splenic size is within normal range. There are some adrenal calcifications. Probable small left adrenal adenoma, stable in appearance sinc e 05/14/2020. There is an enhancing mass along the posterolateral left urinary bladder including trigone area with at least partial obstruction of the distal left ureter and mildly prominent left hydroureteronephrosi s. 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 Urologic consultation and cystoscopy examinati on biopsy are recommended. The uterus and adnexal areas are unremarkable. There is extensive calcification of the abdominal aorta. There is aortic biiliac endovascular stent. No intraperitoneal or retroperitoneal or pelvic mass lesion or adenopathy or ascites. There is diverticulosis of the colon; no CT evidence of diverticulitis. No bowel obstruction, bowel w all thickening, pneumatosis or intraperitoneal free air. Healing fracture of the anterior aspect of the right sixth rib. IMPRESSION: Enhancing mass along the wall of the posterolateral aspect of the urinary bladder includ ing the trigone, suspicious for urothelial carcinoma, with at least partial obstruction of the left u reter and moderately prominent left hydroureteronephrosis Hepatic steatosis Status post cholecystectomy Stable left adrenal calcifications possible small adenoma Diverticulosis of the colon Healing anterior right sixth rib fracture Reviewed, dictated and finalized at [facility]. Reviewed, dictated and finalized at location A. ADING MACHINE OPERATOR IMPRESSION: Enhancing mass along the wall of the posterolateral aspect of the urinary bladder including the trigone, suspicious for urothelial carcinoma, wit h at least partial obstruction of the left ureter and moderately prominent left hydroureteronephrosis Hepatic steatosis Status post cholecystectomy Stable left adrenal calcifications possible small adenoma Diverticulosis of the colon Healing anterior right sixth rib fracture
[2021-09-14 12:49] VITALS: BP 100/87; PULSE 90; RESP 14; TEMP 36.2; O2SAT 98
[2021-09-14 14:35] VITALS: BP 123/76; PULSE 92; RESP 16; O2SAT 97
[2021-09-14 16:46] LABS: Basophils Absolute Auto 0.1 K/mm3 (0.0-0.1); Basophils Percent Auto 0.5 % (0.2-1.2); Eosinophils Absolute Auto 0.3 K/mm3 (0-0.3); Eosinophils Percent Auto 1.5 % (0-4.4); Hematocrit 48.1 % (37.0-47.0); Hemoglobin 15.6 g/dL (12.0-15.0); Immature Granulocyte Absolute 0.09 K/mm3 (0.00-0.031); Immature Granulocyte Percent A 0.5 % (0-0.5); Lymphocytes Absolute Auto 3.74 K/mm3 (0.9-3.2); Lymphocytes Percent Auto 21.4 % (18.3-44.2); Mean Corpuscular HGB Conc 32.4 g/dl (32-36); Mean Corpuscular Hemoglobin 28.8 pg (26-34); Mean Corpuscular Volume 88.9 fl (80-100); Mean Platelet Volume 9.6 fl (7.4-10.4); Monocytes Absolute Auto 1.1 K/mm3 (0.1-0.6); Monocytes Percent Auto 6.4 % (2.6-8.5); Neutrophils Absolute Auto 12.2 K/mm3 (1.3-6.7); Neutrophils Percent Auto 69.7 % (45.5-73.1); Platelet Count Result 281 k/mm3 (150-375); Red Blood Count 5.41 M/mm3 (4.2-5.4); Red Cell Distribution Width 13.2 % (11.5-14.5); White Blood Count 17.4 K/mm3 (4.5-10.0)
[2021-09-14 16:54] LABS: Alanine Aminotransferase 24 U/L (4-35); Albumin Level 4.1 g/dL (3.5-5.1); Alkaline Phosphatase 111 U/L (38-126); Anion Gap 9 mmol/L (8-16); Aspartate Amino Transferase 25 U/L (14-36); Bilirubin,Total 0.4 mg/dL (0.2-1.3); Blood Urea Nitrogen 26 mg/dL (7-17); Carbon Dioxide 22 mmol/L (22-30); Chloride 108 mmol/L (98-107); Estimated CRCL calculation 62 ml/min; Estimated Glomerular Filt Rate > 60; Glucose 156 mg/dL (65-110); Lipase 131 U/L (23-300); Potassium 4.2 mmol/L (3.4-5.0); Sodium 139 mmol/L (137-145)
[2021-09-14 16:59] LABS: Add Urine Microscopic? YES; Appearance Urine Cloudy (Clear); Bilirubin Urine Negative (Negative); Blood Urine 3+ (Negative); Color Urine Yellow (Yellow); Glucose Urine UA Negative (Negative); Ketones Urine Negative (Negative); Leukocyte Esterase Ur Trace LEU/UL (Negative); Mucus Urine Rare /lpf; Nitrate Urine Negative (Negative); Protein Urine 1+ mg/dL (Negative); RBC Urine >75 /hpf (0-2); Specific Grav Ur 1.019 (1.001-1.035); Squamous Epithelial Cell Urine Many /hpf (Few); Urobilinogen Urine Negative mg/dL (<2.0); WBC Urine 21-30 /hpf
--- NOTE | 2021-09-14 17:29 | ED.FEMALEGU ---
HPI - Female Genitourinary General Chief complaint: Urogenital-Female <Leslie Good PA-C - Last Filed: 09/14/21 20:43> Stated complaint: Urinary Pain and Nausea <Leslie Good PA-C - Last Filed: 09/14/21 20:43> Time Seen by Provider: 09/14/21 16:14 <Leslie Good PA-C - Last Filed: 09/14/21 20:43> Source: patient <SHEILA Chong Last Filed: 09/14/21 20:43> Mode of arrival: ambulatory <Leslie Good PA-C - Last Filed: 09/14/21 20:43> Limitations: no limitations <Leslie Good PA-C - Last Filed: 09/14/21 20:43> History of Present Illness HPI Narrative: This is a 61-year-old female that presents to the emergency department for dysuria. Ongoing over the last week and a half. She was started on doxycycline by her primary doctor for urinary tract infection with little relief. Reports ongoing nausea and chills. Also reports lower abdominal discomfort and left-sided abdominal discomfort. Denies fever, vomiting, or hematuria. <Leslie Good PA-C - Last Filed: 09/14/21 20:43> Related Data Home medications: Home Medications Medication Instructions Recorded Confirmed alprazolam 05/14/20 05/26/21 budesonide-formoterol [Symbicort] INHALATION 05/14/20 05/26/21 cromolyn 4 drp 05/14/20 05/26/21 ergocalciferol (vitamin D2) 1,250 mcg PO 05/14/20 05/26/21 ezetimibe 10 mg PO 05/14/20 05/26/21 fluticasone propionate 50 mcg INTRANASAL 05/14/20 05/26/21 hydrocodone-acetaminophen tablet 05/14/20 05/26/21 hydrocortisone 05/14/20 05/26/21 losartan 100 mg PO DAILY 05/14/20 05/26/21 metoprolol succinate 50 mg PO 05/14/20 05/26/21 nitroglycerin 0.4 mg sublingual 0.4 mg SUBLINGUAL Q5M PRN 07/27/20 05/26/21 tablet clopidogrel 75 mg PO 01/19/21 05/26/21 evolocumab [Repatha SureClick] mg SUBCUT 01/19/21 05/26/21 fluoxetine 40 mg capsule 60 mg PO DAILY cap 05/05/21 05/26/21 <Leslie Good PA-C - Last Filed: 09/14/21 20:43> Allergies/Adverse reactions: Allergies Allergy/AdvReac Type Severity Reaction Status Date / Time haloperidol Allergy Unknown Other Verified 07/02/21 11:33 Penicillins Allergy Unknown Flushing Verified 07/02/21 11:33 risperidone Allergy Unknown MY MOUTH Verified 07/02/21 11:33 TIGHTENS UP -TD simvastatin Allergy Unknown Other Verified 07/02/21 11:33 [id number]-PmT Reductase Allergy Other Verified 07/02/21 11:33 Inhibitor codeine AdvReac Unknown NAUSEA AND Verified 07/02/21 11:33 VOMITING triazolam AdvReac Unknown N/V Verified 07/02/21 11:33 Wasp Allergy Unknown WASP Uncoded 07/02/21 11:33 STING- CLOSES MY THROAT <Leslie Good PA-C - Last Filed: 09/14/21 20:43> Review of Systems Review of Systems: CONSTITUTIONAL: Denies fever GASTROINTESTINAL: Reports abdominal pain, nausea. Denies vomiting, or diarrhea. GENITOURINARY: Reports dysuria. Denies hematuria. <Leslie Good PA-C - Last Filed: 09/14/21 20:43> All systems reviewed & are unremarkable except as noted in HPI and below <Leslie Good PA-C - Last Filed: 09/14/21 20:43> [facility] Past Medical History Medical History: Medical History Anxiety Bipolar disorder COPD (chronic obstructive pulmonary disease) Coronary artery disease CVA (cerebral vascular accident) Diabetes type 2, controlled GERD (gastroesophageal reflux disease) Hyperlipidemia Macular degeneration Sleep apnea <Leslie Good PA-C - Last Filed: 09/14/21 20:43> Surgical History Surgical History: Surgical History H/O cardiac catheterization H/O section History of carpal tunnel release History of cholecystectomy History of colonoscopy History of esophagogastroduodenoscopy (EGD) History of left-sided carotid endarterectomy S/P insertion of iliac artery stent <Leslie Good PA-C - Last Filed: 09/14/21 20:43> Family History Family History
[2021-09-14] MEDS: ONDANSETRON INJ 4 MG/2 ML VIAL IV PUSH (17:35)
[2021-09-14] MEDS: SODIUM CHLORIDE 0.9% IV 1,000 ML 999 ML IV CONT (17:52)
[2021-09-14 21:12] VITALS: BP 126/67; PULSE 80; RESP 18; O2SAT 99
== END 2021-09-14 21:14 | disposition home or self-care (01) ==
PROVIDERS: Physician Assistant; Emergency Provider Emergency Medicine; PCP Nurse Practitioner Family
DX: N32.89 Other specified disorders of bladder (principal); N30.00 Acute cystitis without hematuria; J44.9 Chronic obstructive pulmonary disease, unspecified; I25.10 Atherosclerotic heart disease of native coronary artery without angina pectoris; E11.9 Type 2 diabetes mellitus without complications; E78.5 Hyperlipidemia, unspecified; H35.30 Unspecified macular degeneration; K21.9 Gastro-esophageal reflux disease without esophagitis; G47.30 Sleep apnea, unspecified; F31.9 Bipolar disorder, unspecified; F41.9 Anxiety disorder, unspecified; Z86.73 Personal history of transient ischemic attack (TIA), and cerebral infarction without residual deficits; F17.210 Nicotine dependence, cigarettes, uncomplicated; K76.0 Fatty (change of) liver, not elsewhere classified; K57.90 Diverticulosis of intestine, part unspecified, without perforation or abscess without bleeding
CPT/HCPCS: 36415; 51701; 74177; 80053; 81001; 83690; 85025; 87086; 87088; 96361; 96365; 96367; 96375; 99284; J0131; J0696; J2405; J7030; Q9967

== ENCOUNTER 2021-11-07 17:19 | Emergency (ER) | payer OTHER, SELFPAY ==
--- NOTE | ~2021-11-07 | CT_ITS ---
EXAMINATION: CT abdomen pelvis w con INDICATION: Abdominal pain TECHNIQUE: Computed tomographic images of the abdomen and pelvis were obtained after the administrati on of 100 cc of Omnipaque 350 intravenous contrast. The dose-length product (DLP) was 972.69 mGy-cm. Automated exposure control and iterative reconstruction technique were employed. COMPARISON: 09/14/2021 FINDINGS: Minimal dependent atelectasis is present in the lung bases. The heart size is normal. There is a small sliding hiatal hernia. The liver is diffusely low in attenuation when compared with the s pleen, consistent with hepatic steatosis. The gallbladder is surgically absent. There is mild enlarge ment of the common bile duct and central intrahepatic ducts which is likely due to post cholecystecto my state. Punctate calcifications in an otherwise normal spleen likely represent healed granulomatous disease. The pancreas and right adrenal gland are normal. Calcifications in the left adrenal gland a re consistent with prior trauma or infection. There is calcified atherosclerosis of the aorta and man y of the other arteries. There are stents in the distal abdominal aorta extending into the common david ac arteries. A left internal ureteral stent is in expected position. No pathologically enlarged abdom inal or pelvic lymph nodes are identified. The appendix is normal. Colonic diverticulosis is present without evidence of diverticulitis. There is mild lumbar spondylosis. IMPRESSION: 1. No CT correlate for the patient's symptoms. Reviewed, dictated and finalized at location F.
[2021-11-07 17:22] VITALS: BP 156/99; PULSE 98; RESP 20; TEMP 36.7; O2SAT 98
[2021-11-07 18:47] LABS: Basophils Absolute Auto 0.1 K/mm3 (0.0-0.1); Basophils Percent Auto 0.6 % (0.2-1.2); Eosinophils Absolute Auto 0.2 K/mm3 (0-0.3); Eosinophils Percent Auto 1.4 % (0-4.4); Hematocrit 43.9 % (37.0-47.0); Hemoglobin 14.7 g/dL (12.0-15.0); Immature Granulocyte Absolute 0.04 K/mm3 (0.00-0.031); Immature Granulocyte Percent A 0.3 % (0-0.5); Lymphocytes Absolute Auto 2.84 K/mm3 (0.9-3.2); Lymphocytes Percent Auto 23.4 % (18.3-44.2); Mean Corpuscular HGB Conc 33.5 g/dl (32-36); Mean Corpuscular Hemoglobin 28.3 pg (26-34); Mean Corpuscular Volume 84.6 fl (80-100); Mean Platelet Volume 9.5 fl (7.4-10.4); Monocytes Percent Auto 7.9 % (2.6-8.5); Neutrophils Absolute Auto 8.1 K/mm3 (1.3-6.7); Neutrophils Percent Auto 66.4 % (45.5-73.1); Platelet Count Result 228 k/mm3 (150-375); Red Blood Count 5.19 M/mm3 (4.2-5.4); Red Cell Distribution Width 12.8 % (11.5-14.5); White Blood Count 12.2 K/mm3 (4.5-10.0)
[2021-11-07 18:57] LABS: Alanine Aminotransferase 21 U/L (4-35); Albumin Level 4.5 g/dL (3.5-5.1); Alkaline Phosphatase 111 U/L (38-126); Anion Gap 9 mmol/L (8-16); Aspartate Amino Transferase 37 U/L (14-36); Bilirubin,Total 0.7 mg/dL (0.2-1.3); Blood Urea Nitrogen 15 mg/dL (7-17); Calcium 8.8 mg/dL (8.4-10.2); Carbon Dioxide 27 mmol/L (22-30); Chloride 98 mmol/L (98-107); Estimated CRCL calculation 69 ml/min; Estimated Glomerular Filt Rate > 60; Glucose 199 mg/dL (65-110); Lipase 57 U/L (23-300); Potassium 4.1 mmol/L (3.4-5.0); Sodium 134 mmol/L (137-145)
--- NOTE | 2021-11-07 19:00 | ED.NAVMDI ---
HPI - Nausea/Vomiting/Diarrhea General Chief complaint: Nausea/Vomiting/Diarrhea Stated complaint: nausea and vomiting x 4 days Time Seen by Provider: 11/07/21 18:54 Source: patient Mode of arrival: ambulatory Limitations: no limitations History of Present Illness HPI Narrative: Patient is a 61-year-old female complaining of nausea, vomiting accompanied by lower abdominal discomfort that started 4 days ago. Patient denies any chest pain, shortness of breath, diarrhea, urinary symptoms, fever or chills. Related Data Home Medications Medication Instructions Recorded Confirmed alprazolam 05/14/20 05/26/21 budesonide-formoterol [Symbicort] INHALATION 05/14/20 05/26/21 cromolyn 4 drp 05/14/20 05/26/21 ergocalciferol (vitamin D2) 1,250 mcg PO 05/14/20 05/26/21 ezetimibe 10 mg PO 05/14/20 05/26/21 fluticasone propionate 50 mcg INTRANASAL 05/14/20 05/26/21 hydrocodone-acetaminophen tablet 05/14/20 05/26/21 hydrocortisone 05/14/20 05/26/21 losartan 100 mg PO DAILY 05/14/20 05/26/21 metoprolol succinate 50 mg PO 05/14/20 05/26/21 nitroglycerin 0.4 mg sublingual 0.4 mg SUBLINGUAL Q5M PRN 07/27/20 05/26/21 tablet clopidogrel 75 mg PO 01/19/21 05/26/21 evolocumab [Repatha SureClick] mg SUBCUT 01/19/21 05/26/21 fluoxetine 40 mg capsule 60 mg PO DAILY cap 05/05/21 05/26/21 Allergies Allergy/AdvReac Type Severity Reaction Status Date / Time haloperidol Allergy Unknown Other Verified 07/02/21 11:33 Penicillins Allergy Unknown Flushing Verified 07/02/21 11:33 risperidone Allergy Unknown MY MOUTH Verified 07/02/21 11:33 TIGHTENS UP -TD simvastatin Allergy Unknown Other Verified 07/02/21 11:33 Mzrhlcz-[id number]-XpE Reductase Allergy Other Verified 07/02/21 11:33 Inhibitor codeine AdvReac Unknown NAUSEA AND Verified 07/02/21 11:33 VOMITING triazolam AdvReac Unknown N/V Verified 07/02/21 11:33 Wasp Allergy Unknown WASP Uncoded 07/02/21 11:33 STING- CLOSES MY THROAT Review of Systems Review of Systems: All systems reviewed & are unremarkable except as noted in HPI and below Constitutional: Constitutional: Denies body ache(s), Denies chills, Denies excessive sweating, Denies fatigue, Denies fever(s), Denies headache(s), Denies lethargy, Denies malaise, Denies weakness and Denies weight loss Eyes: Eyes: Denies blurry vision, Denies change in vision and Denies loss of vision ENT: Denies dizziness, Denies ear discharge, Denies headache(s), Denies lip swelling, Denies epistaxis, Denies nasal congestion, Denies neck pain, Denies throat swelling and Denies tongue swelling Cardiovascular: Cardiovascular: Denies chest pain, Denies chest pain at rest, Denies chest pain with activity, Denies diaphoresis, Denies rapid heart rate, Denies edema, Denies irregular heart rhythm, Denies lightheadedness, Denies palpitations, Denies dyspnea and Denies dyspnea on exertion Respiratory: Respiratory: Denies chest congestion, Denies cough, Denies hemoptysis, Denies dyspnea and Denies dyspnea on exertion Gastrointestinal: Gastrointestinal: Denies melena, Denies hematochezia, Denies diarrhea and Denies hematemesis Musculoskeletal: Musculoskeletal: Denies abnormal gait, Denies deformity, Denies joint swelling, Denies limited range of motion, Denies neck pain and Denies numbness Neurologic: Denies Abnormal speech present, Denies abnormal gait, Denies confusion, Denies dizziness, Denies headache(s), Denies focal weakness, Denies loss of vision, Denies numbness, Denies Other visual disturbances, Denies Sensory deficit (Neuro) and Denies weakness Psychiatric: Psychiatric: Denies confusion, Denies depression, Denies auditory hallucinations, Denies homicidal ideation and Denies suicidal ideation Endocrine: Endocrine: Denies cold intolerance, Denies excessive sweating, Denies fatigue, Denies heat intolerance and Denies palpitations Hematologic/Lymphatic: Hematologic/Lymphatic: Denies easy bleeding and Denies easy bruising Allergic/Immunologi
[2021-11-07 19:45] LABS: Add Urine Microscopic? YES; Appearance Urine Cloudy (Clear); Bilirubin Urine Negative (Negative); Blood Urine 3+ (Negative); Budding Yeast Urine Present /hpf; Color Urine Yellow (Yellow); Glucose Urine UA Negative (Negative); Ketones Urine Negative (Negative); Leukocyte Esterase Ur 2+ LEU/UL (Negative); Mucus Urine Rare /lpf; Nitrate Urine Negative (Negative); Protein Urine 2+ mg/dL (Negative); RBC Urine >75 /hpf (0-2); Specific Grav Ur 1.021 (1.001-1.035); Squamous Epithelial Cell Urine Occasional /hpf (Few); WBC Urine 51-75 /hpf
[2021-11-07 19:47] VITALS: BP 169/103; PULSE 93; RESP 11; O2SAT 97
[2021-11-07] MEDS: ONDANSETRON INJ 4 MG/2 ML VIAL IV PUSH (19:56)
[2021-11-07] MEDS: MORPHINE SULFATE (*CRX) 2 MG/ML INJ IV PUSH (19:56)
[2021-11-07 20:01] VITALS: BP 179/91; PULSE 94; RESP 20; O2SAT 96
[2021-11-07 20:30] VITALS: PULSE 99; RESP 27; O2SAT 98
== END 2021-11-07 21:31 | disposition home or self-care (01) ==
PROVIDERS: Emergency Medicine; Emergency Provider Emergency Medicine; PCP Nurse Practitioner Family
DX: N30.01 Acute cystitis with hematuria (principal); R11.2 Nausea with vomiting, unspecified; J44.9 Chronic obstructive pulmonary disease, unspecified; I25.10 Atherosclerotic heart disease of native coronary artery without angina pectoris; Z86.73 Personal history of transient ischemic attack (TIA), and cerebral infarction without residual deficits; E11.9 Type 2 diabetes mellitus without complications; K21.9 Gastro-esophageal reflux disease without esophagitis; E78.5 Hyperlipidemia, unspecified; G47.30 Sleep apnea, unspecified; H35.30 Unspecified macular degeneration; F41.9 Anxiety disorder, unspecified; F31.9 Bipolar disorder, unspecified; F17.210 Nicotine dependence, cigarettes, uncomplicated
CPT/HCPCS: 36415; 74177; 80053; 81001; 83690; 85025; 87086; 87088; 96365; 96375; 99284; J0696; J2270; J2405; Q9967

== ENCOUNTER 2022-02-23 19:23 | Observation (INO) | payer OTHER, SELFPAY ==
[2022-02-23] VITALS (10 sets, daily range): BP systolic 80–186; BP diastolic 40–99; PULSE 112–141; RESP 16–20; TEMP 36.7; O2SAT 96–99
--- NOTE | ~2022-02-23 | XR_ITS ---
EXAMINATION: XR chest 1V portable DATE: 02/25/2022 12:25 INDICATION: Chest pain. TECHNIQUE: A single frontal view of the chest was obtained. COMPARISON: Chest single view 02/24/2022 FINDINGS: A calcified left lung nodule is consistent with old granulomatous disease. No pleural effus ion or pneumothorax. The heart size is normal. There is a chronic sclerotic lesion in left humerus, l ikely an enchondroma or osteonecrosis. IMPRESSION: 1. No acute cardiopulmonary disease. Reviewed, dictated and finalized at location A.
--- NOTE | ~2022-02-23 | XR_ITS ---
EXAMINATION: XR chest 1V portable DATE: 02/24/2022 00:42 INDICATION: Wheezing. TECHNIQUE: A single frontal view of the chest was obtained. COMPARISON: Chest single view 07/02/2021, chest 2 views 03/03/2021, 12/01/18 FINDINGS: A calcified left lung nodule is consistent with old granulomatous disease. No pleural effus ion or pneumothorax. The heart size is normal. There is a chronic sclerotic lesion in proximal left h umerus, likely an enchondroma or osteonecrosis. IMPRESSION: 1. No acute cardiopulmonary disease. Reviewed, dictated and finalized at location A.
--- NOTE | ~2022-02-23 | CT_ITS ---
EXAMINATION: CT abdomen pelvis w con DATE: 02/23/2022 21:32 INDICATION: abdominal pain TECHNIQUE: Computed tomography (CT) of the abdomen and pelvis was performed with 100 mL Omnipaque-350 intravenous contrast. Automated exposure control and iterative reconstruction technique were employe d. The dose-length product was 1150.99 mGy-cm. COMPARISON: 11/07/2021. FINDINGS: Lower thorax: Bibasilar scar/atelectasis. Coronary and valvular calcifications. Liver: Hepatomegaly, with diffuse and focal deposition. Cyst or hemangioma near the liver tip. Biliary/Gallbladder: Gallbladder is absent. No bile duct dilation. Pancreas: No mass or duct dilation. Spleen: Normal. Adrenals:Chronic calcification of the left adrenal, left adrenal adenoma. Kidneys: No mass, stone, or hydronephrosis. GI tract: No small or large bowel dilation. Normal appendix. Distal esophageal and gastric wall edema . Diverticulosis without diverticulitis. Mesentery/Peritoneum: No ascites, mass, or free air. Retroperitoneum: No mass. Atherosclerotic abdominal aortic and/or arterial calcifications. Bilateral iliac stents. Pelvis: 1.4 cm exophytic hypodense lesion associated with the right ovary, otherwise the pelvic organ s are within normal limits. Soft Tissues: Soft tissues and body wall unremarkable. Bones: No acute osseous finding. IMPRESSION: No acute abdominal pelvic process detected. Persistent hepatomegaly and steatosis. New 1.4 cm hypoden se right ovarian lesion, possibly representing a cyst, but incompletely characterized. Consider nonem ergent, outpatient pelvic ultrasound for further evaluation. Reviewed, dictated and finalized at location K. IMPRESSION: No acute abdominal pelvic process detected. Persistent hepatomegaly and steatos is. New 1.4 cm hypodense right ovarian lesion, possibly representing a cyst, bu t incompletely characterized. Consider nonemergent, outpatient pelvic ultrasoun d for further evaluation.
--- NOTE | 2022-02-23 19:33 | ECG_ITS ---
Measurements Intervals [place] Rate: 141 P: ME: 0 QRS: 43 QRSD: 86 T: 34 QT: 305 QTc: 467 Interpretive Statements ATRIAL FIBRILLATION WITH RAPID VENTRICULAR RESPONSE NONSPECIFIC ST & T-WAVE ABNORMALITY, CONSIDER ISCHEMIA ABNORMAL RHYTHM ECG COMPARED TO ECG 03/03/2021 12:06:49 ATRIAL FIBRILLATION NOW PRESENT T-WAVE ABNORMALITY NOW PRESENT Electronically Signed On 02-24-2022 18:11:30 CDT by Frances Nuñez M.D.
--- NOTE | 2022-02-23 19:40 | ED.GENADULT ---
HPI - General Adult General Chief complaint: Nausea/Vomiting/Diarrhea Stated complaint: N/V; CP, SYNCOPE Time Seen by Provider: 02/23/22 19:25 History of Present Illness HPI narrative: 61-year-old female history of bladder cancer presented to the emergency department for evaluation of nausea vomiting and diarrhea with associated abdominal pain. Patient states on Monday she began developing the nausea vomiting and diarrhea. Patient describes epigastric and left lower abdominal pain with this. On arrival emergency room patient had a heart rate ranging from the 140s to 170s. Patient was found to be in atrial fibrillation. Patient denies any prior history of atrial fibrillation. Related Data Home Medications Medication Instructions Recorded Confirmed alprazolam 1 mg tablet 0.5 mg PO DAILY 05/14/20 02/24/22 budesonide-formoterol HFA 160 2 puff inhalation BID 05/14/20 02/24/22 mcg-4.5 mcg/actuation aerosol inhaler (Symbicort) cromolyn 4 % eye drops 1 drp EACH EYE TID 05/14/20 02/24/22 ergocalciferol (vitamin D2) 1,250 1,250 mcg PO WEEKLY 05/14/20 02/24/22 mcg (50,000 unit) capsule ezetimibe 10 mg tablet 10 mg PO DAILY 05/14/20 02/24/22 losartan 100 mg tablet 100 mg PO DAILY 05/14/20 02/24/22 metoprolol succinate 50 mg 50 mg PO DAILY 05/14/20 02/24/22 tablet,extended release 24 hr nitroglycerin 0.4 mg sublingual 0.4 mg sublingual Q5M PRN Chest 07/27/20 02/24/22 tablet Pain clopidogrel 75 mg tablet 75 mg PO DAILY 01/19/21 02/24/22 evolocumab 140 mg/mL subcutaneous 140 mg subcut DIRECTED 01/19/21 02/24/22 pen injector (Sheng Ceballos) fluoxetine 60 mg tablet 60 mg PO DAILY 11/19/21 02/24/22 acetaminophen 650 mg tablet 650 mg PO Q6H PRN Pain (Scale 02/24/22 02/24/22 Score 1-3) albuterol sulfate 2.5 mg/0.5 mL 2.5 mg inhalation Q4H PRN 02/24/22 02/24/22 solution for nebulization shortness of breath or wheezing albuterol sulfate 90 mcg/actuation 2 puff inhalation Q4H PRN 02/24/22 02/24/22 aerosol inhaler Shortness Of Breath Or Wheezing aspirin 325 mg tablet,delayed 325 mg PO DAILY 02/24/22 02/24/22 release cetirizine 10 mg tablet 10 mg PO DAILY PRN Allergy Symptoms 02/24/22 02/24/22 famotidine 40 mg tablet 40 mg PO DAILY 02/24/22 02/24/22 isosorbide mononitrate 60 mg 60 mg PO DAILY 02/24/22 02/24/22 tablet,extended release 24 hr metformin 500 mg tablet 500 mg PO BID 02/24/22 02/24/22 mirtazapine 7.5 mg tablet 7.5 mg PO QHS 02/24/22 02/24/22 qgbvfams-eoawbitxn-wsvhwnaz 3.5 1 drp EACH EYE Q4H 02/24/22 02/24/22 mg/mL-10,000 unit/mL-0.1% eye drops nicotine 21 mg/24 hr daily 1 patch transdermal DAILY 02/24/22 02/24/22 transdermal patch pantoprazole 40 mg tablet,delayed 40 mg PO DAILY 02/24/22 02/24/22 release polyethylene glycol 3350 17 225 g PO DAILY 02/24/22 02/24/22 gram/dose oral powder potassium chloride 10 mEq 10 meq PO DAILY 02/24/22 02/24/22 tablet,extended release tiotropium bromide 18 mcg capsule 1 cap inhalation DAILY 02/24/22 02/24/22 with inhalation device Allergies Allergy/AdvReac Type Severity Reaction Status Date / Time haloperidol Allergy Unknown Other Verified 07/02/21 11:33 Penicillins Allergy Unknown Flushing Verified 07/02/21 11:33 risperidone Allergy Unknown MY MOUTH Verified 07/02/21 11:33 TIGHTENS UP -TD simvastatin Allergy Unknown Other Verified 07/02/21 11:33 Kotgpsx-KSY-PgP Reductase Allergy Other Verified 07/02/21 11:33 Inhibitor codeine AdvReac Unknown NAUSEA AND Verified 07/02/21 11:33 VOMITING triazolam AdvReac Unknown N/V Verified 07/02/21 11:33 Wasp Allergy Unknown WASP Uncoded 07/02/21 11:33 STING- CLOSES MY THROAT Review of Systems Review of Systems: CONSTITUTIONAL: Denies fever, chills, or sweats. EYES: Denies visual changes, redness, or discharge. ENT: Denies rhinorrhea, congestion, sore throat, or otalgia. CARDIOVASCULAR: Rapid heart rate RESPIRATORY: Denies cough or dyspnea. GASTROINTESTINAL: See HPI GENITOU
[2022-02-23] MEDS: SODIUM CHLORIDE 0.9% IV 1,000 ML 999 ML IV CONT ×2 (19:42→21:07)
[2022-02-23] MEDS: HYDROmorphone HCL INJ (*CRX) 1 MG/ML SYR IV PUSH (19:42)
[2022-02-23] MEDS: ONDANSETRON INJ 4 MG/2 ML VIAL IV PUSH (19:43)
[2022-02-23] MEDS: dilTIAZem HCl INJ 25 MG/5 ML VIAL 10 MG IV PUSH (19:58)
[2022-02-23] MEDS: dilTIAZem 100 MG/100 ML 100 MG/100 ML BAG IV CONT (20:09)
[2022-02-23 20:53] LABS: Basophils Absolute Auto 0.1 K/mm3 (0.0-0.1); Basophils Percent Auto 0.5 % (0.2-1.2); Eosinophils Absolute Auto 0.3 K/mm3 (0-0.3); Eosinophils Percent Auto 1.9 % (0-4.4); Hematocrit 47.2 % (37.0-47.0); Hemoglobin 15.5 g/dL (12.0-15.0); Immature Granulocyte Absolute 0.06 K/mm3 (0.00-0.031); Immature Granulocyte Percent A 0.4 % (0-0.5); Lymphocytes Absolute Auto 3.12 K/mm3 (0.9-3.2); Lymphocytes Percent Auto 21.5 % (18.3-44.2); Mean Corpuscular HGB Conc 32.8 g/dl (32-36); Mean Corpuscular Hemoglobin 28.4 pg (26-34); Mean Corpuscular Volume 86.6 fl (80-100); Mean Platelet Volume 9.7 fl (7.4-10.4); Monocytes Absolute Auto 1.2 K/mm3 (0.1-0.6); Monocytes Percent Auto 8.4 % (2.6-8.5); Neutrophils Absolute Auto 9.8 K/mm3 (1.3-6.7); Neutrophils Percent Auto 67.3 % (45.5-73.1); Platelet Count Result 271 k/mm3 (150-375); Red Blood Count 5.45 M/mm3 (4.2-5.4); Red Cell Distribution Width 13.8 % (11.5-14.5); White Blood Count 14.5 K/mm3 (4.5-10.0)
[2022-02-23 21:02] LABS: Alanine Aminotransferase 18 U/L (6-35); Albumin Level 4.3 g/dL (3.5-5.1); Alkaline Phosphatase 106 U/L (38-126); Anion Gap 12 mmol/L (8-16); Aspartate Amino Transferase 26 U/L (14-36); Bilirubin,Total 0.4 mg/dL (0.2-1.3); Blood Urea Nitrogen 22 mg/dL (7-17); Carbon Dioxide 26 mmol/L (22-30); Chloride 96 mmol/L (98-107); Estimated CRCL calculation 46 ml/min; Estimated Glomerular Filt Rate 46; Glucose 260 mg/dL (65-110); Lipase 132 U/L (23-300); Potassium 3.7 mmol/L (3.4-5.0); Sodium 134 mmol/L (137-145)
[2022-02-23 21:03] LABS: Lactic Acid Reflex 3.2 mmol/L (0.7-2.0)
[2022-02-23 21:13] LABS: Appearance Urine Clear (Clear); Bilirubin Urine 1+ (Negative); Blood Urine Negative (Negative); Color Urine Yellow (Yellow); Glucose Urine UA Negative (Negative); Ketones Urine Trace mg/dL (Negative); Leukocyte Esterase Ur Negative LEU/UL (Negative); Nitrate Urine Negative (Negative); Protein Urine 2+ mg/dL (Negative); Urobilinogen Urine 0.2 mg/dL (<2.0); pH Urine 5.5 (5.0-9.0)
[2022-02-23 21:14] LABS: Troponin I 0.028 ng/mL (0.000-0.034)
[2022-02-23 21:23] LABS: Mucus Urine Moderate /lpf; RBC Urine 0-2 /hpf (0-2); Squamous Epithelial Cell Urine Occasional /hpf (Few)
[2022-02-23 21:25] LABS: Add Urine Microscopic? YES
--- NOTE | 2022-02-23 22:10 | PM.IMHP ---
H&P: HPI History of Present Illness Date/Time: 02/23/22 22:10 Chief Complaint: chest pain Narrative: This is a 61-year-old female with past medical history significant for COPD/ emphysema, patient is a current everyday smoker she states that she is down to 10 cigarettes daily, type 2 diabetes mellitus, gastroesophageal reflux disease, coronary artery disease, dyslipidemia, sleep apnea. Patient presents to the emergency room due to nausea and vomiting for the last 2 days tonight she had precordial chest pain nonradiating 7/10 in intensity it was a dull achy pain, has had some wheezing and shortness of breath, no leg swelling no pedal swelling, no lightheadedness, no fevers, no rigors, no chills however patient has a productive cough of yellowish to greenish sputum. patient denies any PND or orthopnea. preliminary workup was significant for electrocardiogram shows atrial fibrillation with rapid ventricular response. CT of abdomen and pelvis was reported as no significant abdominopelvic abnormality, bibasilar atelectasis. Patient was placed on Cardizem drip S been admitted for further evaluation, management and treatment. Review of Systems Review of Systems: Nausea, vomiting, chest pain, wheezing. Constitutional: Constitutional: Denies chills, Denies fever(s), Denies malaise, Denies night sweats, Reports poor appetite and Denies weakness Eyes: Eyes: Denies change in vision ENT: Denies dysphagia, Denies vertigo, Denies dizziness and Denies odynophagia Cardiovascular: Cardiovascular: Reports chest pain, Denies syncope, Denies pedal edema, Denies leg edema, Denies lightheadedness, Denies palpitations and Reports dyspnea Respiratory: Respiratory: Reports chest congestion, Reports cough, Reports excessive phlegm production and Reports wheezing Gastrointestinal: Gastrointestinal: Denies abdominal pain, Denies dyspepsia, Denies heartburn, Reports nausea and Reports vomiting Genitourinary: Genitourinary: Denies dysuria Musculoskeletal: Musculoskeletal: Denies back pain, Denies myalgias and Denies joint swelling Integumentary/Breasts: Skin/Breast: Denies rash Neurologic: Denies vertigo, Denies dizziness, Denies focal weakness and Denies Sensory deficit (Neuro) Psychiatric: Psychiatric: Reports no additional psychiatric complaints and Reports as per HPI Endocrine: Endocrine: Denies cold intolerance, Denies fatigue, Denies flushing, Denies heat intolerance, Denies polyphagia, Denies polydipsia and Denies palpitations Hematologic/Lymphatic: Hematologic/Lymphatic: Reports no additional hematologic/lymphatic complaints and Reports as per HPI Allergic/Immunologic: Allergic/Immunologic: Reports no additional allergic/immunologic complaints and Reports as per HPI PMFSH Past Medical History Medical History (Updated 02/24/22 @ 00:32 by Summer Coronel MD) Anxiety Bipolar disorder COPD (chronic obstructive pulmonary disease) Coronary artery disease CVA (cerebral vascular accident) Diabetes type 2, controlled GERD (gastroesophageal reflux disease) Hyperlipidemia Macular degeneration Sleep apnea Surgical History Surgical History H/O cardiac catheterization H/O section History of carpal tunnel release History of cholecystectomy History of colonoscopy History of esophagogastroduodenoscopy (EGD) History of left-sided carotid endarterectomy S/P insertion of iliac artery stent Family History Family History Sibling Diabetes mellitus Family history of malignant neoplasm Social History Social History Tobacco type: cigarettes Second hand tobacco smoke exposure: No Alcohol intake: never Substance use: current Substance use type: marijuana Gender identity (if verbalized by the patient): Female Meds Home Medications and Allergies Ho
[2022-02-23 23:14] LABS: SARS-CoV-2 RNA PCR Negative
[2022-02-23 23:51] LABS: Reflex Lactic Acid Yes or No Add Lactic
[2022-02-24] VITALS (17 sets, daily range): BP systolic 95–135; BP diastolic 54–96; PULSE 80–126; RESP 12–22; TEMP 36.1–36.9; O2SAT 98–99; BMI 35.2
--- NOTE | 2022-02-24 | ECHO_ITS ---
Patient Info Name: Cristine Armstrong Age: 61 years : 1960 Gender: Female Ht: 63 in Wt: 191 lbs BSA: 2.00 m2 HR: 84 bpm BP: 103 / 54 mmHg Heart Rhythm: Sinus Rhythm Exam Date: 02/24/2022 9:01 AM Exam Location: [facility] Pul[facility] Patient Status: Outpatient Admit Date: 02/23/2022 Staff Ordering Physician: Summer Coronel MD Crust Sorter: Krishna Cai, ISAAC, RT Attending Provider: Edward Ronquillo MD Referring Physician: Berna BROWN; Exam Type: CA echo doppler color flow Study Info Indications I48.1 - Persistent atrial fibrillation Complete two-dimensional, color flow and Doppler transthoracic echocardiogram is performed. Strain analysis performed. Summary 1. Complete two-dimensional, color flow and Doppler transthoracic echocardiogram is performed. 2. Normal left ventricular size and thickness with good contractility of all segments. Ejection fraction is 60%. Grade 2 diastolic dysfunction is present. 3. Global longitudinal strain is-13%, moderately decreased, consistent with a degree of systolic dysfunction. 4. Left atrial chamber dimension is mildly enlarged. 5. No significant valve disease. 6. Normal sinus rhythm. Left Ventricle Left ventricular chamber dimension is normal. Left ventricular systolic function is normal, estimated at 60-65%. There is no increased left ventricular wall thickness. Left ventricular septal wall motion is normal. The left ventricular diastolic function is grade II diastolic dysfunction. Global longitudinal strain is moderately elevated at -13 %. Right Ventricle Right ventricular chamber dimension is normal. Right ventricular systolic function is normal. Left Atria Left atrial chamber dimension is mildly enlarged. Right Atria Right atrial chamber dimension is normal. Aortic Valve The aortic valve is trileaflet. There is no aortic valve sclerosis. There is no aortic valve stenosis. There is no aortic valve regurgitation. Pulmonic Valve The pulmonic valve is normal. There is no pulmonic valve stenosis. There is no pulmonic regurgitation. Mitral Valve The mitral valve has normal leaflets. There is no mitral valve stenosis. There is no mitral valve regurgitation. Tricuspid Valve The tricuspid valve leaflets are normal. There is no significant tricuspid valve stenosis. There is trace tricuspid valve regurgitation. No pulmonary hypertension, estimated pulmonary arterial systolic pressure is Empty. Pericardium/Pleural The pericardium appears normal. There is no pericardial effusion. Inferior Vena Cava Normal inferior vena cava with >50% collapse upon inspiration consistent with Empty right atrial pressure, Empty. Aorta The aortic root size at the sinus of Valsalva is normal. The prox ascending aorta size is normal. Left Ventricular Outflow Tract Name Value Normal LVOT 2D LVOT Diameter 2.0 cm LVOT Doppler LVOT Peak Gradient 8 mmHg LVOT Mean Gradient 5 mmHg LVOT VTI 26 cm LVOT VTI/AV VTI Ratio 0.8
[2022-02-24] MEDS: SODIUM CHLORIDE 0.9% IV 1,000 ML 100 ML IV CONT ×3 (00:11→18:06)
[2022-02-24 00:25] LABS: Lactic Acid 2.2 mmol/L (0.7-2.0)
[2022-02-24 00:37] LABS: Troponin I 0.031 ng/mL (0.000-0.034)
--- NOTE | 2022-02-24 02:47 | ADMGEN ---
This patient, Cristine Armstrong, was admitted to IMU Room 214-01. Patient/family oriented to hospital policies and general routines including ID bracelet, bed and alarms, visiting hours, pain management, procedures, bathroom and other care routines, personal items, smoking policy, room service/diet, and visiting hours. Information on how to activate the Rapid Response Team has been discussed. Patient/Family are encouraged to report perceived risks to care and to ask questions if they do not understand what they are told or what they should do.
[2022-02-24] MEDS: ENOXAPARIN 100 MG/ML SYRINGE 86 MG SUB-Q ×2 (02:51→20:39)
--- NOTE | 2022-02-24 04:09 | PCRCNOTE ---
Pt does not wear her home CPAP and does not want to use ours here
--- NOTE | 2022-02-24 07:14 | ECG_ITS ---
Measurements Intervals [place] Rate: 87 P: 64 [place]: 140 QRS: 40 QRSD: 90 T: 38 QT: 386 QTc: 465 Interpretive Statements SINUS RHYTHM NONSPECIFIC T-WAVE ABNORMALITY COMPARED TO ECG 02/23/2022 19:43:04 SINUS RHYTHM HAS BEEN RESTORED Electronically Signed On 02-24-2022 18:25:44 CDT by Frances Nuñez M.D.
[2022-02-24 09:16] LABS: Glucose Point of Care 164 mg/dl (65-105)
--- NOTE | 2022-02-24 11:54 | PM.IMPN ---
Progress Note: A&P Assessment and Plan (1) COPD (chronic obstructive pulmonary disease): Code(s): J44.9 - Chronic obstructive pulmonary disease, unspecified Status: Acute (2) Diabetes type 2, controlled: Code(s): E11.9 - Type 2 diabetes mellitus without complications Status: Acute (3) Atrial fibrillation with rapid ventricular response: Code(s): I48.91 - Unspecified atrial fibrillation Status: Acute (4) GERD (gastroesophageal reflux disease): Code(s): K21.9 - Gastro-esophageal reflux disease without esophagitis Status: Acute (5) N&V (nausea and vomiting): Qualifiers: Vomiting type: unspecified Qualified Code(s): R11.2 - Nausea with vomiting, unspecified Code(s): R11.2 - Nausea with vomiting, unspecified Status: Acute Plan Nausea vomiting delete CT abdomen pelvis with no significant abdominal pelvic abnormality. Currently symptoms resolved with supportive treatment. Likely some IBS related Chest pain EKG with atrial fibrillation with rapid ventricular rate. Chest x-ray/CT with bibasilar atelectasis. Troponins negative echocardiogram ordered cardiology consult. COVID test negative Atrial fibrillation with rapid ventricular rate new onset started on Cardizem drip however led to hypotension and now stopped. Back to sinus rhythm now. Cardiology consult. Lovenox Lactic acidosis improving unclear etiology also has mild leukocytosis Nicotine dependence GERD Type 2 diabetes mellitus on metformin at home Accu-Cheks AC and HS. Coronary artery disease troponins negative she is on dual antiplatelet therapy at home. Sleep apnea Dyslipidemia on a will a Silvio have Hepatic steatosis 1.4 cm hypodense right ovarian lesion possibly a cyst but incompletely characterized. Outpatient pelvic ultrasound for evaluation needed Anxiety disorder History of CVA Hypertension Peripheral vascular disease next status post insertion of iliac artery stent and left-sided carotid endarterectomy COPD DVT prophylaxis Lovenox Code status full code Subjective Date/time seen: 02/24/22 11:54 Interval history: HPI:?This is a 61-year-old female with past medical history significant for COPD/ emphysema, patient is a current everyday smoker she states that she is down to 10 cigarettes daily, type 2 diabetes mellitus, gastroesophageal reflux disease, coronary artery disease, dyslipidemia, sleep apnea.? Patient presents to the emergency room due to nausea and vomiting for the last 2 days tonight she had precordial chest pain nonradiating 7/10 in intensity it was a dull achy pain, has had some wheezing and shortness of breath, no leg swelling no pedal swelling, no lightheadedness, no fevers, no rigors, no chills however patient has a productive cough of yellowish to greenish sputum. ? patient denies any PND or orthopnea. preliminary workup was significant for electrocardiogram shows atrial fibrillation with rapid ventricular response. CT of abdomen and pelvis was? reported as no significant abdominopelvic abnormality,? bibasilar atelectasis.? Patient was placed on Cardizem drip S been admitted for further evaluation, management and treatment. 02/24/2022 had several days of nausea vomiting and started having some precordial chest pain brought him to the she was found to be with RVR. Currently back to sinus rhythm. Denies any other complaints. Review of Systems Review of Systems: All systems reviewed & are unremarkable except as noted in HPI and below Exam Narrative: GENERAL: The patient is well developed, not in acute distress HEENT: Nonicteric sclerae, PERRLA, EOMI. Oropharynx clear. Moist mucous membranes. Conjunctivae appear well perfused. CHEST: Chest wall is nontender. HEART: Regular rate and rhythm without murmur, rubs, or gallops LUNGS: Clear to auscultation bilaterally. no respiratory distress ABDOMEN: Soft, positive bowel sounds, non-tender, no organomegaly. SKIN: No rash, no excessive
[2022-02-24 12:40] LABS: Glucose Point of Care 152 mg/dl (65-105)
[2022-02-24 13:05] LABS: Lactic Acid Reflex 1.5 mmol/L (0.7-2.0)
[2022-02-24] MEDS: ACETAMINOPHEN 325 MG TABLET 650 MG PO ×3 (13:06→23:49)
[2022-02-24] MEDS: ALPRAZolam (*CRX) 0.5 MG TABLET PO ×2 (13:08→22:08)
[2022-02-24] MEDS: FLUoxetine HCL 20 MG CAPSULE 60 MG PO (13:09)
[2022-02-24] MEDS: POTASSIUM CHLORIDE 10 MEQ TABLET.ER PO (13:10)
[2022-02-24] MEDS: ISOSORBIDE MONONITRATE 60 MG TAB.ER.24H PO (13:11)
[2022-02-24] MEDS: LORATADINE 10 MG TABLET PO (13:11)
[2022-02-24] MEDS: METOPROLOL SUCCINATE EXT REL 50 MG TABCR PO (13:11)
[2022-02-24] MEDS: CLOPIDOGREL BISULFATE 75 MG TABLET PO (13:12)
[2022-02-24] MEDS: EZETIMIBE 10 MG TABLET PO (13:12)
[2022-02-24] MEDS: ASPIRIN 325 MG ENTERIC TABLET PO (13:13)
[2022-02-24] MEDS: FAMOTIDINE 20 MG TABLET 40 MG PO (13:13)
[2022-02-24] MEDS: NICOTINE (*PBKC) 21 MG PATCH 1 PATCH TRANSDERM (13:15)
[2022-02-24] MEDS: PANTOPRAZOLE 40 MG TABLET PO (13:15)
[2022-02-24] MEDS: LOSARTAN POTASSIUM 100 MG TABLET PO (13:17)
--- NOTE | 2022-02-24 14:20 | PM.CNCAR ---
Assessment and Plan Assessment and plan (1) Atrial fibrillation with rapid ventricular response: Code(s): I48.91 - Unspecified atrial fibrillation <ANTOINE Schneider - Last Filed: 02/24/22 15:40> Status: Acute <ANTOINE Schneider - Last Filed: 02/24/22 15:40> Assessment and Plan: Found to be in atrial fibrillation by EKG in emergency department. Onset unknown. No known history of atrial fibrillation. Back in sinus rhythm at this point. Her [id number] score is at least 4, systemic anticoagulation would be indicated with recurrence of atrial fibrillation. Will continue to monitor on telemetry for now, if recurrence can consider adding DOAC and discontinuing ASA Can consider outpatient branch account manager Check TSH Check echo Encouraged compliance with CPAP <ANTOINE Schneider - Last Filed: 02/24/22 15:40> (2) Sleep apnea: Code(s): G47.30 - Sleep apnea, unspecified <ANTOINE Schneider - Last Filed: 02/24/22 15:40> Status: Acute <ANTOINE Schneider - Last Filed: 02/24/22 15:40> Assessment and Plan: Noncompliant with CPAP. Encouraged her to wear CPAP. <ANTOINE Schneider - Last Filed: 02/24/22 15:40> (3) Tobacco abuse: Code(s): Z72.0 - Tobacco use <ANTOINE Schneider - Last Filed: 02/24/22 15:40> Status: Acute <ANTOINE Schneider - Last Filed: 02/24/22 15:40> Assessment and Plan: Smoking cessation counseling performed. <ANTOINE Schneider - Last Filed: 02/24/22 15:40> Assessment and Plan: ADDENDUM: Patient seen and examined, chart reviewed. Nausea, vomiting and some diarrhea for 3 or 4 days, unable to keep food down, then the patient's chest felt to odd and she had some discomfort and came to the emergency room. She was found to be in AFib RVR. Has converted back to sinus rhythm w/ IV CArdizem. Tolerating p.o. fluids now. Patient carries a history of CAD but she is unaware of any CAD. Does have vascular disease with history of stroke, left carotid endarterectomy, and iliac stent. Also tobacco use, diabetes, hyperlipidemia and sleep apnea, intolerant to CPAP. Physical exam: General: Obese female, Sitting in bed, no distress SHEENT: Extraocular muscles intact Cardiac: Regular rate and rhythm, no murmurs or gallops Lungs: Scattered wheezes, no respiratory distress Abdomen: Soft and nontender Extremities: Mild lower extremity edema, pedal pulses intact Skin: No lesions noted. Musculoskeletal: No chest wall tenderness Neurologic: Alert and oriented, moved all extremities Psychiatric: Normal affect Labs: Troponin 0.028 and 0.031 EKG 02/24/2020 at 7:43 p.m.: AFib RVR rate 141, slight ST depression inferiorly and in V 3, V4, V5 and V6. EKG 02/25/2020 at 9:13 a.m.: NSR rate 87, nonspecific ST changes Both EKGs personally reviewed Echo pending 09/2019 Lexiscan: Small fixed inferior defect, EF greater than 70%, normal perfusion Impression: New onset AFib RVR, associated with some chest discomfort, no troponin spill. Occurring in the setting of illness and nausea and vomiting but patient has several risk factors for recurrence. Reviewed w/ pt; reviewed risk of embolic events. Vascular disease Diabetes Hyperlipidemia, intolerant to statin therapy. Takes Repatha. Possible CAD??? per EMR. Some CP and borderline EKG changes when in RVR, but trop basically OK and neg stress test 2019. Recommend: DC aspirin Add Xarelto 20 mg daily (GFR was 46 but usually runs higher; will recheck tomorrow as she may have been dehydrated.) Continue metoprolol, Repatha, Zetia, losartan etc. Discussed tobacco cessation, strongly advised Discussed REFUGIO and CPAP intolerance, and encouraged follow-up and treatment. 30 minutes were spent evaluating the patient, reviewing the chart, documentation etc. Onelia Nuñez MD . <Frances Nuñez MD - Last Filed: 02/24/22 17:27> History of Present Illness History of Prespraveen
[2022-02-24 17:46] LABS: Glucose Point of Care 152 mg/dl (65-105)
[2022-02-24] MEDS: NEOMYCIN/POLYMYXIN/DEXAMETH OP SUSP 5 ML BTL 1 DROP EACH EYE ×2 (18:05→20:39)
[2022-02-24] MEDS: metFORMIN HCL 500 MG TABLET PO (18:05)
[2022-02-24 20:31] LABS: Glucose Point of Care 169 mg/dl (65-105)
[2022-02-24] MEDS: MIRTAZAPINE 7.5 MG TABLET PO (20:38)
[2022-02-24] MEDS: FLUTICASONE/SALMETEROL 115-21 MCG INHALER 1 PUFF 2 PUFF INHALATION (23:04)
[2022-02-25] VITALS (13 sets, daily range): BP systolic 120–162; BP diastolic 60–93; PULSE 66–88; RESP 12–20; TEMP 35.9–36.8; O2SAT 95–99
--- NOTE | 2022-02-25 02:20 | PCRCNOTE ---
Pt refuses to wear cpap machine x's 2 tonight. She is always agreeable when asked earlier in the day but when RT services come to place pt on auto pap unit pt is not ready and feels anxious . She has not worn a unit in many years she states due to hers being broken. Advised pt on proper steps to get hers at home fixed. Order discontinued at this time due to pt compliance.
[2022-02-25] MEDS: SODIUM CHLORIDE 0.9% IV 1,000 ML 100 ML IV CONT (03:38)
[2022-02-25 05:03] LABS: Basophils Percent Auto 0.7 % (0.2-1.2); Eosinophils Absolute Auto 0.2 K/mm3 (0-0.3); Hematocrit 33.9 % (37.0-47.0); Immature Granulocyte Absolute 0.04 K/mm3 (0.00-0.031); Immature Granulocyte Percent A 0.7 % (0-0.5); Lymphocytes Absolute Auto 1.74 K/mm3 (0.9-3.2); Lymphocytes Percent Auto 31.4 % (18.3-44.2); Mean Corpuscular HGB Conc 32.4 g/dl (32-36); Mean Corpuscular Hemoglobin 28.7 pg (26-34); Mean Corpuscular Volume 88.5 fl (80-100); Mean Platelet Volume 9.6 fl (7.4-10.4); Monocytes Absolute Auto 0.5 K/mm3 (0.1-0.6); Neutrophils Percent Auto 54.2 % (45.5-73.1); Platelet Count Result 121 k/mm3 (150-375); Red Blood Count 3.83 M/mm3 (4.2-5.4); Red Cell Distribution Width 13.2 % (11.5-14.5); White Blood Count 5.6 K/mm3 (4.5-10.0)
[2022-02-25 05:21] LABS: Alanine Aminotransferase 14 U/L (6-35); Albumin Level 3.1 g/dL (3.5-5.1); Alkaline Phosphatase 78 U/L (38-126); Anion Gap 6 mmol/L (8-16); Aspartate Amino Transferase 18 U/L (14-36); Bilirubin,Total 0.1 mg/dL (0.2-1.3); Blood Urea Nitrogen 13 mg/dL (7-17); Calcium 7.7 mg/dL (8.4-10.2); Carbon Dioxide 25 mmol/L (22-30); Chloride 108 mmol/L (98-107); Estimated CRCL calculation 69 ml/min; Estimated Glomerular Filt Rate > 60; Glucose 134 mg/dL (65-110); Magnesium 1.5 mg/dL (1.6-2.3); Potassium 3.5 mmol/L (3.4-5.0); Sodium 139 mmol/L (137-145)
[2022-02-25 08:29] LABS: Glucose Point of Care 148 mg/dl (65-105)
[2022-02-25] MEDS: FLUoxetine HCL 20 MG CAPSULE 60 MG PO (08:50)
[2022-02-25] MEDS: MAGNESIUM SULF 2 GM/WATER 50ML 2 GM/50 ML BAG IVPB (08:50)
[2022-02-25] MEDS: METOPROLOL SUCCINATE EXT REL 50 MG TABCR PO (08:51)
[2022-02-25] MEDS: ISOSORBIDE MONONITRATE 60 MG TAB.ER.24H PO (08:51)
[2022-02-25] MEDS: metFORMIN HCL 500 MG TABLET PO ×2 (08:51→16:55)
[2022-02-25] MEDS: POTASSIUM CHLORIDE 10 MEQ TABLET.ER PO (08:51)
[2022-02-25] MEDS: CLOPIDOGREL BISULFATE 75 MG TABLET PO (08:51)
[2022-02-25] MEDS: FAMOTIDINE 20 MG TABLET 40 MG PO (08:51)
[2022-02-25] MEDS: EZETIMIBE 10 MG TABLET PO (08:52)
[2022-02-25] MEDS: NEOMYCIN/POLYMYXIN/DEXAMETH OP SUSP 5 ML BTL 1 DROP EACH EYE ×4 (08:52→20:19)
--- NOTE | 2022-02-25 08:53 | PM.PNCARD ---
Progress Note: A&P Assessment and Plan (1) Atrial fibrillation with rapid ventricular response: Code(s): I48.91 - Unspecified atrial fibrillation Status: Acute Assessment and Plan: Found to be in atrial fibrillation by EKG in emergency department. Onset unknown. No known history of atrial fibrillation. Back in sinus rhythm at this point. Her [id number] score is at least 4, systemic anticoagulation recommended. Will continue to monitor on telemetry Systemic a/c with Xarelto TSH normal Echo showed normal LV systolic function, grade II diastolic dysfunction. Encouraged compliance with CPAP Cardiology will sign off. Please do not hesitate to contact us with any questions. (2) Sleep apnea: Code(s): G47.30 - Sleep apnea, unspecified Status: Acute Assessment and Plan: Noncompliant with CPAP. Encouraged her to wear CPAP. (3) Tobacco abuse: Code(s): Z72.0 - Tobacco use Status: Acute Assessment and Plan: Smoking cessation counseling performed. Subjective Date/time seen: 02/25/22 08:53 Cardiology follow up for atrial fibrillation Complaining of some back and shoulder pain as well as some pain in the area of her ribs on the left side. Also complaining that she did not sleep well. No nausea this morning. Remains in sinus rhythm. Review of Systems Constitutional: Constitutional: Denies chills, Denies fever(s), Denies headache(s) and Denies malaise Eyes: Eyes: Denies change in vision ENT: Reports Normal hearing present, Denies dizziness, Denies headache(s) and Denies hearing loss Cardiovascular: Cardiovascular: Reports chest pain, Denies chest pain at rest, Denies chest pain with activity, Denies syncope, Reports pedal edema, Denies leg edema, Denies palpitations, Reports dyspnea and Reports dyspnea on exertion Respiratory: Respiratory: Denies cough, Reports dyspnea, Reports dyspnea on exertion and Denies wheezing Gastrointestinal: Gastrointestinal: Denies abdominal pain, Denies constipation and Denies diarrhea Genitourinary: Genitourinary: Denies hematuria and Denies dysuria Musculoskeletal: Musculoskeletal: Denies myalgias, Denies arthralgias and Denies muscle cramps Integumentary/Breasts: Skin/Breast: Denies wounds Neurologic: Reports Normal hearing present, Denies confusion, Denies dizziness, Denies syncope and Denies headache(s) Psychiatric: Psychiatric: Denies anxiety, Denies confusion and Denies depression Endocrine: Endocrine: Denies cold intolerance, Denies flushing, Denies heat intolerance and Denies palpitations Hematologic/Lymphatic: Hematologic/Lymphatic: Denies easy bleeding and Denies easy bruising Allergic/Immunologic: Allergic/Immunologic: Denies wheezing Exam Const: General: comfortable, no acute distress, alert and awake; No confusion Orientation/consciousness: patient oriented x3 and No confusion Other: Obese female resting comfortably in bed. HENMT: Head: normal to inspection Eyes: General: appearance normal, both eyes and all related structures Pupils: Equal, round and reactive pupils present Neck: Neck: normal visual inspection, supple and no JVD Carotids: normal carotid upstroke Other: L CEA scar noted Resp: Effort & Inspection: normal respiratory effort Auscultation: clear to auscultation bilaterally Cardio: Rate: regular rate Rhythm: regular rhythm Heart sounds: S1 normal heart sound present, S2 normal heart sound present and no murmurs Other: Distant heart sounds GI: Auscultation: normal bowel sounds Skin: General skin exam: normal color Neuro: General: patient oriented x3 and No confusion Cranial nerves: Yes Equal, round and reactive pupils present and Yes Normal hearing present Extrem: General: normal to inspection Other: No edema Psych: Appearance: grossly normal Mental Status: mental status grossly normal Objective Data Vital Signs Vital Signs: Vital Signs - 24 hr 02/24
[2022-02-25] MEDS: NICOTINE (*PBKC) 21 MG PATCH 1 PATCH TRANSDERM (08:54)
[2022-02-25] MEDS: ALPRAZolam (*CRX) 0.5 MG TABLET PO ×2 (09:04→20:27)
[2022-02-25] MEDS: ACETAMINOPHEN 325 MG TABLET 650 MG PO ×2 (09:04→20:27)
[2022-02-25] MEDS: UMECLIDINIUM BROMIDE 62.5 MCG ELLIPTA 1 PUFF INHALATION (09:30)
[2022-02-25] MEDS: FLUTICASONE/SALMETEROL 115-21 MCG INHALER 1 PUFF 2 PUFF INHALATION ×2 (09:30→20:40)
--- NOTE | 2022-02-25 11:15 | PM.IMPN ---
Progress Note: A&P Assessment and Plan (1) COPD (chronic obstructive pulmonary disease): Code(s): J44.9 - Chronic obstructive pulmonary disease, unspecified Status: Acute (2) Diabetes type 2, controlled: Code(s): E11.9 - Type 2 diabetes mellitus without complications Status: Acute (3) Atrial fibrillation with rapid ventricular response: Code(s): I48.91 - Unspecified atrial fibrillation Status: Acute (4) GERD (gastroesophageal reflux disease): Code(s): K21.9 - Gastro-esophageal reflux disease without esophagitis Status: Acute (5) N&V (nausea and vomiting): Qualifiers: Vomiting type: unspecified Qualified Code(s): R11.2 - Nausea with vomiting, unspecified Code(s): R11.2 - Nausea with vomiting, unspecified Status: Acute Plan #Nausea vomiting CT abdomen pelvis with no significant abdominal pelvic abnormality. Currently symptoms resolved with supportive treatment. Likely some IBS related #Chest pain EKG with atrial fibrillation with rapid ventricular rate. Chest x-ray/CT with bibasilar atelectasis. Troponins negative echocardiogram ordered cardiology consult. COVID test negative. Recheck chest x-ray today. Cardiology consult reviewed. Appreciate their recommendations. Echo 02/24/2022 EF 60% grade 2 diastolic dysfunction Atrial fibrillation with rapid ventricular rate new onset started on Cardizem drip however led to hypotension and now stopped. Back to sinus rhythm now. Cardiology consult. Lovenox Lactic acidosis improving unclear etiology also has mild leukocytosis. This has resolved likely related to dehydration. Nicotine dependence GERD Type 2 diabetes mellitus on metformin at home Accu-Cheks AC and HS. Coronary artery disease troponins negative she is on dual antiplatelet therapy at home. Sleep apnea Dyslipidemia Hepatic steatosis 1.4 cm hypodense right ovarian lesion possibly a cyst but incompletely characterized. Outpatient pelvic ultrasound for evaluation needed Thrombocytopenia worsened and today will recheck in the morning to ensure stability Anxiety disorder History of CVA Hypertension Peripheral vascular disease next status post insertion of iliac artery stent and left-sided carotid endarterectomy COPD DVT prophylaxis Lovenox Now switched to Eliquis aspirin has been stopped Code status full code Subjective Date/time seen: 02/25/22 11:15 Interval history: HPI:?This is a 61-year-old female with past medical history significant for COPD/ emphysema, patient is a current everyday smoker she states that she is down to 10 cigarettes daily, type 2 diabetes mellitus, gastroesophageal reflux disease, coronary artery disease, dyslipidemia, sleep apnea.? Patient presents to the emergency room due to nausea and vomiting for the last 2 days tonight she had precordial chest pain nonradiating 7/10 in intensity it was a dull achy pain, has had some wheezing and shortness of breath, no leg swelling no pedal swelling, no lightheadedness, no fevers, no rigors, no chills however patient has a productive cough of yellowish to greenish sputum. ? patient denies any PND or orthopnea. preliminary workup was significant for electrocardiogram shows atrial fibrillation with rapid ventricular response. CT of abdomen and pelvis was? reported as no significant abdominopelvic abnormality,? bibasilar atelectasis.? Patient was placed on Cardizem drip S been admitted for further evaluation, management and treatment. 02/24/2022 had several days of nausea vomiting and started having some precordial chest pain brought him to the she was found to be with RVR. Currently back to sinus rhythm. Denies any other complaints. 02/25/2022 not feeling so well. Has some pain in her left lateral side of the chest feel little short of breath. Remains in sinus rhythm on telemetry. Review of Systems Review of Systems: All systems reviewed & are unremarkable except as noted in HPI and bel
[2022-02-25 12:21] LABS: Glucose Point of Care 177 mg/dl (65-105)
[2022-02-25] MEDS: HYDROcodone/acetaminophen (*CRX) 10-325 MG TABLET 1 TAB PO (14:01)
--- NOTE | 2022-02-25 15:26 | PC.NURSE ---
This patient, Cristine Armstrong, was transferred to [facility] on 02/25/22 at 1526. Personal belongings sent with patient. Report given to Radha ART. Appropriate documentation sent with patient.
--- NOTE | 2022-02-25 15:30 | PC.NURSE ---
Received from [facility]/ via wheelchair.
[2022-02-25] MEDS: RIVAROXABAN 20 MG TABLET PO (16:55)
[2022-02-25 16:58] LABS: Glucose Point of Care 156 mg/dl (65-105)
[2022-02-25 20:52] LABS: Glucose Point of Care 164 mg/dl (65-105)
[2022-02-26] VITALS: BP 138/70; PULSE 81; RESP 18; TEMP 35.9; O2SAT 96
--- NOTE | 2022-02-26 02:45 | PCRCNOTE ---
RT FOUND CPAP MASK ON FLOOR AT 0235. RT ASKED PT IF SHE HAD REMOVED IT. PT STATED SHE REMOVED IT DUE TO NOT BEING ABLE TO TOLERATE. RT ADVISED PT TO CALL IF SHE CHANGED HER MIND. SHANNON URIBE RN INFORMED OF REMOVAL OF CPAP.
[2022-02-26 04:00] VITALS: BP 155/81; PULSE 82; RESP 20; TEMP 37; O2SAT 96
[2022-02-26] MEDS: HYDROcodone/acetaminophen (*CRX) 10-325 MG TABLET 1 TAB PO (04:50)
[2022-02-26] MEDS: NEOMYCIN/POLYMYXIN/DEXAMETH OP SUSP 5 ML BTL 1 DROP EACH EYE ×2 (04:51→09:08)
[2022-02-26 06:23] LABS: Basophils Absolute Auto 0.1 K/mm3 (0.0-0.1); Basophils Percent Auto 0.6 % (0.2-1.2); Eosinophils Absolute Auto 0.2 K/mm3 (0-0.3); Eosinophils Percent Auto 3.1 % (0-4.4); Hematocrit 36.2 % (37.0-47.0); Hemoglobin 11.7 g/dL (12.0-15.0); Immature Granulocyte Absolute 0.04 K/mm3 (0.00-0.031); Immature Granulocyte Percent A 0.5 % (0-0.5); Lymphocytes Absolute Auto 1.65 K/mm3 (0.9-3.2); Lymphocytes Percent Auto 21.1 % (18.3-44.2); Mean Corpuscular HGB Conc 32.3 g/dl (32-36); Mean Corpuscular Hemoglobin 28.5 pg (26-34); Mean Corpuscular Volume 88.3 fl (80-100); Mean Platelet Volume 10.1 fl (7.4-10.4); Monocytes Absolute Auto 0.6 K/mm3 (0.1-0.6); Monocytes Percent Auto 8.2 % (2.6-8.5); Neutrophils Absolute Auto 5.2 K/mm3 (1.3-6.7); Neutrophils Percent Auto 66.5 % (45.5-73.1); Platelet Count Result 155 k/mm3 (150-375); Red Cell Distribution Width 13.2 % (11.5-14.5); White Blood Count 7.8 K/mm3 (4.5-10.0)
[2022-02-26 06:35] LABS: Alanine Aminotransferase 14 U/L (6-35); Albumin Level 3.5 g/dL (3.5-5.1); Alkaline Phosphatase 74 U/L (38-126); Anion Gap 8 mmol/L (8-16); Aspartate Amino Transferase 23 U/L (14-36); Bilirubin,Total 0.4 mg/dL (0.2-1.3); Blood Urea Nitrogen 10 mg/dL (7-17); Calcium 8.6 mg/dL (8.4-10.2); Carbon Dioxide 23 mmol/L (22-30); Chloride 104 mmol/L (98-107); Estimated CRCL calculation 80 ml/min; Estimated Glomerular Filt Rate > 60; Glucose 143 mg/dL (65-110); Magnesium 1.9 mg/dL (1.6-2.3); Potassium 3.9 mmol/L (3.4-5.0); Sodium 135 mmol/L (137-145)
[2022-02-26 07:36] LABS: Glucose Point of Care 159 mg/dl (65-105)
[2022-02-26 08:00] VITALS: BP 174/105; PULSE 76; RESP 18; TEMP 35.8; O2SAT 99
--- NOTE | 2022-02-26 08:14 | PM.DS ---
DS: Admitting Diagnosis Discharge Date 02/26/2022 Admitting Diagnosis AFib RVR COPD Diabetes mellitus type 2 GERD DS: Discharge Diagnosis Discharge Diagnosis (1) COPD (chronic obstructive pulmonary disease): Code(s): J44.9 - Chronic obstructive pulmonary disease, unspecified Status: Acute (2) Diabetes type 2, controlled: Code(s): E11.9 - Type 2 diabetes mellitus without complications Status: Acute (3) Atrial fibrillation with rapid ventricular response: Code(s): I48.91 - Unspecified atrial fibrillation Status: Acute (4) GERD (gastroesophageal reflux disease): Code(s): K21.9 - Gastro-esophageal reflux disease without esophagitis Status: Acute (5) N&V (nausea and vomiting): Qualifiers: Vomiting type: unspecified Qualified Code(s): R11.2 - Nausea with vomiting, unspecified Code(s): R11.2 - Nausea with vomiting, unspecified Status: Acute Plan #Nausea vomiting CT abdomen pelvis with no significant abdominal pelvic abnormality. Currently symptoms resolved with supportive treatment. Likely some IBS related #Chest pain EKG with atrial fibrillation with rapid ventricular rate. Chest x-ray/CT with bibasilar atelectasis. Troponins negative echocardiogram ordered cardiology consult. COVID test negative. Recheck chest x-ray today. Cardiology consult reviewed. Appreciate their recommendations. Echo 02/24/2022 EF 60% grade 2 diastolic dysfunction Atrial fibrillation with rapid ventricular rate new onset started on Cardizem drip however led to hypotension and now stopped. Back to sinus rhythm now. Cardiology consult. Lovenox Lactic acidosis improving unclear etiology also has mild leukocytosis. This has resolved likely related to dehydration. Nicotine dependence GERD Type 2 diabetes mellitus on metformin at home Accu-Cheks AC and HS. Coronary artery disease troponins negative she is on dual antiplatelet therapy at home. Sleep apnea Dyslipidemia Hepatic steatosis 1.4 cm hypodense right ovarian lesion possibly a cyst but incompletely characterized. Outpatient pelvic ultrasound for evaluation needed Thrombocytopenia worsened and today will recheck in the morning to ensure stability Anxiety disorder History of CVA Hypertension Peripheral vascular disease next status post insertion of iliac artery stent and left-sided carotid endarterectomy COPD DVT prophylaxis Lovenox Now switched to Eliquis aspirin has been stopped Code status full code DS: Summary Hospital Course Reason for hospitalization: GERD AFib with RVR Diabetes mellitus type 2 COPD Hospital Course: patient id patient is a 61-year-old female with past medical history of COPD/emphysema, bipolar disorder, anxiety, diabetes mellitus type 2, controlled, hyperlipidemia, REFUGIO. She presented to [facility] due to intractable nausea and vomiting for 48 hours prior to admission. Patient reported pericardial chest pain nonradiating 7 and 10 in intensity with a dull achy pain that was associated with wheezing and shortness of breath. Patient denies any lower limb extremity edema her pedal swelling or redness noted any lightheadedness, headache fever, rigors, chills. However the patient does endorse a productive cough of yellowish or greenish sputum. Patient denies any orthopnea. Preliminary workup in the emergency department were as follows. WBC 14.5, hemoglobin 15.5, hematocrit 47.2, platelet 271, sodium 134, potassium 3.7, BUN 22, creatinine 1.2, glucose 260, negative troponin negative LFTs UA WNL. Patient was noted to be in AFib RVR and therefore admitted to IMU and started on Cardizem drip with Lovenox therapeutic. She was scheduled for an echocardiogram which revealed a grade 1 diastolic failure with an LVEF of 55%. Patient's nausea and vomiting subsided with supportive care. CT of the abdomen and pelvis did not reveal acute findings however did reveal a 1.4 cm cyst that shou
[2022-02-26] MEDS: FLUTICASONE/SALMETEROL 115-21 MCG INHALER 1 PUFF 2 PUFF INHALATION (08:28)
[2022-02-26 08:29] VITALS: PULSE 92; RESP 12
[2022-02-26] MEDS: EZETIMIBE 10 MG TABLET PO (09:04)
[2022-02-26] MEDS: CLOPIDOGREL BISULFATE 75 MG TABLET PO (09:04)
[2022-02-26] MEDS: FAMOTIDINE 20 MG TABLET 40 MG PO (09:05)
[2022-02-26] MEDS: FLUoxetine HCL 20 MG CAPSULE 60 MG PO (09:06)
[2022-02-26] MEDS: metFORMIN HCL 500 MG TABLET PO (09:07)
[2022-02-26] MEDS: ISOSORBIDE MONONITRATE 60 MG TAB.ER.24H PO (09:07)
[2022-02-26] MEDS: LOSARTAN POTASSIUM 100 MG TABLET PO (09:07)
[2022-02-26 09:08] VITALS: PULSE 76
[2022-02-26] MEDS: METOPROLOL SUCCINATE EXT REL 50 MG TABCR PO (09:08)
[2022-02-26] MEDS: NICOTINE (*PBKC) 21 MG PATCH 1 PATCH TRANSDERM (09:09)
[2022-02-26] MEDS: POTASSIUM CHLORIDE 10 MEQ TABLET.ER PO (09:10)
[2022-02-26] MEDS: PANTOPRAZOLE 40 MG TABLET PO (09:10)
== END 2022-02-26 12:08 | disposition home or self-care (01) ==
LOC: ANHED 22:17 → ANHIMU 02-24 02:22 → ANH2MED 02-25 15:27
PROVIDERS: Nurse Practitioner; Admitting Provider Internal Medicine; Emergency Provider Emergency Medicine; PCP Nurse Practitioner Family; Visit Provider Internal Medicine
DX: I48.91 Unspecified atrial fibrillation (principal); J44.9 Chronic obstructive pulmonary disease, unspecified; E11.9 Type 2 diabetes mellitus without complications; K21.9 Gastro-esophageal reflux disease without esophagitis; R11.2 Nausea with vomiting, unspecified; R19.7 Diarrhea, unspecified; R10.13 Epigastric pain; R10.32 Left lower quadrant pain; F41.9 Anxiety disorder, unspecified; F31.9 Bipolar disorder, unspecified; H35.30 Unspecified macular degeneration; G47.30 Sleep apnea, unspecified; G47.33 Obstructive sleep apnea (adult) (pediatric); Z99.89 Dependence on other enabling machines and devices; Z90.49 Acquired absence of other specified parts of digestive tract; F12.90 Cannabis use, unspecified, uncomplicated; R16.0 Hepatomegaly, not elsewhere classified; K76.0 Fatty (change of) liver, not elsewhere classified; N83.9 Noninflammatory disorder of ovary, fallopian tube and broad ligament, unspecified; R00.0 Tachycardia, unspecified; Z20.822 Contact with and (suspected) exposure to COVID-19; E78.5 Hyperlipidemia, unspecified; I73.9 Peripheral vascular disease, unspecified; I51.89 Other ill-defined heart diseases; R94.31 Abnormal electrocardiogram [ECG] [EKG]; Z95.828 Presence of other vascular implants and grafts; F17.210 Nicotine dependence, cigarettes, uncomplicated; Z86.73 Personal history of transient ischemic attack (TIA), and cerebral infarction without residual deficits; Z79.891 Long term (current) use of opiate analgesic; Z79.01 Long term (current) use of anticoagulants; Z79.51 Long term (current) use of inhaled steroids; Z79.02 Long term (current) use of antithrombotics/antiplatelets; Z79.82 Long term (current) use of aspirin; Z79.1 Long term (current) use of non-steroidal anti-inflammatories (NSAID); Z79.84 Long term (current) use of oral hypoglycemic drugs; Z79.899 Other long term (current) drug therapy; Z83.3 Family history of diabetes mellitus
CPT/HCPCS: 36415; 71045; 74177; 80053; 81001; 82948; 83605; 83690; 83735; 84443; 84484; 85025; 93005; 93306; 94640; 94660; 96360; 96361; 96365; 96366; 96372; 96374; 96375; 96376; 99285; A9270; C9803; G0378; G0379; J1170; J1650; J2405; J3475; J7030; Q9967; U0003; U0005

== ENCOUNTER 2022-03-17 13:20 | Emergency (ER) | payer OTHER, SELFPAY ==
--- NOTE | ~2022-03-17 | XR_ITS ---
EXAMINATION: XR chest 2V DATE: 03/17/2022 14:31 INDICATION: Shortness of breath and congestion TECHNIQUE: Frontal and lateral views of the chest are obtained COMPARISON: 02/25/2022 FINDINGS: The lungs are free of acute opacities. No pleural effusion or pneumothorax. The cardiomedia stinal silhouette is normal. There is moderate thoracic spondylosis. IMPRESSION: 1. No acute cardiopulmonary abnormality. Reviewed, dictated and finalized at location A.
[2022-03-17 13:49] VITALS: BP 122/74; PULSE 96; RESP 16; TEMP 36.6; O2SAT 97
--- NOTE | 2022-03-17 13:52 | ECG_ITS ---
Measurements Intervals [place] Rate: 92 P: 23 TN: 114 QRS: 27 QRSD: 93 T: 5 QT: 360 QTc: 446 Interpretive Statements SINUS RHYTHM WITH SHORT TN INTERVAL LOW QRS VOLTAGE IN PRECORDIAL LEADS [QRS DEFLECTION < 1.0 mV IN CHEST LEADS] NONSPECIFIC ST & T-WAVE ABNORMALITY- INFERIOR LEADS BASELINE ARTIFACT- I, II, AVR BORDERLINE ECG COMPARED TO ECG 02/24/2022 09:13:46 NO SIGNIFICANT CHANGES Electronically Signed On 03-17-2022 14:11:52 CDT by Soindo Henry D.O.
[2022-03-17 14:17] LABS: Basophils Percent Auto 0.3 % (0.2-1.2); Eosinophils Absolute Auto 0.2 K/mm3 (0-0.3); Eosinophils Percent Auto 1.7 % (0-4.4); Hematocrit 41.6 % (37.0-47.0); Hemoglobin 13.7 g/dL (12.0-15.0); Immature Granulocyte Percent A 0.7 % (0-0.5); Lymphocytes Absolute Auto 1.65 K/mm3 (0.9-3.2); Lymphocytes Percent Auto 11.6 % (18.3-44.2); Mean Corpuscular HGB Conc 32.9 g/dl (32-36); Mean Corpuscular Volume 87.9 fl (80-100); Mean Platelet Volume 9.7 fl (7.4-10.4); Monocytes Absolute Auto 1.2 K/mm3 (0.1-0.6); Monocytes Percent Auto 8.4 % (2.6-8.5); Neutrophils Percent Auto 77.3 % (45.5-73.1); Platelet Count Result 189 k/mm3 (150-375); Red Blood Count 4.73 M/mm3 (4.2-5.4); Red Cell Distribution Width 13.1 % (11.5-14.5); White Blood Count 14.2 K/mm3 (4.5-10.0)
[2022-03-17 14:26] LABS: Alanine Aminotransferase 16 U/L (6-35); Albumin Level 4.4 g/dL (3.5-5.1); Alkaline Phosphatase 119 U/L (38-126); Anion Gap 6 mmol/L (8-16); Aspartate Amino Transferase 20 U/L (14-36); Bilirubin,Total 0.5 mg/dL (0.2-1.3); Blood Urea Nitrogen 9 mg/dL (7-17); Calcium 8.6 mg/dL (8.4-10.2); Carbon Dioxide 26 mmol/L (22-30); Chloride 103 mmol/L (98-107); Estimated CRCL calculation 77 ml/min; Estimated Glomerular Filt Rate > 60; Glucose 196 mg/dL (65-110); Potassium 3.4 mmol/L (3.4-5.0); Sodium 135 mmol/L (137-145)
[2022-03-17 15:56] VITALS: BP 161/99; PULSE 95; RESP 18; O2SAT 96
[2022-03-17 15:58] VITALS: PULSE 98
--- NOTE | 2022-03-17 16:03 | ED.GENADULT ---
HPI - General Adult General Chief complaint: Shortness of Breath/Dyspnea Stated complaint: shortness of breath, ears hurt, coughing Time Seen by Provider: 03/17/22 15:52 History of Present Illness HPI narrative: 61-year-old female presenting the emergency department for evaluation of bilateral ear burning. Patient states left is worse than right. Patient does have a history of COPD, bladder cancer and chronic ear issues. Patient does have a tympanostomy tube still present in her left ear, this was placed approximately 8 to 10 years ago per patient. Patient does not have current ENT follow-up but states she is attempting to seek follow-up with [facility]. Patient states she has been having some increased cough but denies any current shortness of breath. Patient denies any chest pain. Patient denies any associated nausea vomiting diarrhea. Patient did take multiple COVID tests at home that were negative. Patient reports she did initially get vaccinated for COVID and has not yet had COVID. Related Data Home Medications Medication Instructions Recorded Confirmed alprazolam 1 mg tablet 0.5 mg PO DAILY 05/14/20 02/24/22 budesonide-formoterol HFA 160 2 puff inhalation BID 05/14/20 02/24/22 mcg-4.5 mcg/actuation aerosol inhaler (Symbicort) cromolyn 4 % eye drops 1 drp EACH EYE TID 05/14/20 02/24/22 ergocalciferol (vitamin D2) 1,250 1,250 mcg PO WEEKLY 05/14/20 02/24/22 mcg (50,000 unit) capsule ezetimibe 10 mg tablet 10 mg PO DAILY 05/14/20 02/24/22 losartan 100 mg tablet 100 mg PO DAILY 05/14/20 02/24/22 metoprolol succinate 50 mg 50 mg PO DAILY 05/14/20 02/24/22 tablet,extended release 24 hr nitroglycerin 0.4 mg sublingual 0.4 mg sublingual Q5M PRN Chest 07/27/20 02/24/22 tablet Pain clopidogrel 75 mg tablet 75 mg PO DAILY 01/19/21 02/24/22 evolocumab 140 mg/mL subcutaneous 140 mg subcut DIRECTED 01/19/21 02/24/22 pen injector (Sheng Ceballos) fluoxetine 60 mg tablet 60 mg PO DAILY 11/19/21 02/24/22 acetaminophen 650 mg tablet 650 mg PO Q6H PRN Pain (Scale 02/24/22 02/24/22 Score 1-3) albuterol sulfate 2.5 mg/0.5 mL 2.5 mg inhalation Q4H PRN 02/24/22 02/24/22 solution for nebulization shortness of breath or wheezing albuterol sulfate 90 mcg/actuation 2 puff inhalation Q4H PRN 02/24/22 02/24/22 aerosol inhaler Shortness Of Breath Or Wheezing cetirizine 10 mg tablet 10 mg PO DAILY PRN Allergy Symptoms 02/24/22 02/24/22 famotidine 40 mg tablet 40 mg PO DAILY 02/24/22 02/24/22 isosorbide mononitrate 60 mg 60 mg PO DAILY 02/24/22 02/24/22 tablet,extended release 24 hr metformin 500 mg tablet 500 mg PO BID 02/24/22 02/24/22 mirtazapine 7.5 mg tablet 7.5 mg PO QHS 02/24/22 02/24/22 [id number]-[id number]-lrzdxmec 3.5 1 drp EACH EYE Q4H 02/24/22 02/24/22 mg/mL-10,000 unit/mL-0.1% eye drops nicotine 21 mg/24 hr daily 1 patch transdermal DAILY 02/24/22 02/24/22 transdermal patch pantoprazole 40 mg tablet,delayed 40 mg PO DAILY 02/24/22 02/24/22 release polyethylene glycol 3350 17 225 g PO DAILY 02/24/22 02/24/22 gram/dose oral powder potassium chloride 10 mEq 10 meq PO DAILY 02/24/22 02/24/22 tablet,extended release tiotropium bromide 18 mcg capsule 1 cap inhalation DAILY 02/24/22 02/24/22 with inhalation device hydrocodone 10 mg-acetaminophen 1 tablet PO BID PRN Pain 02/25/22 02/25/22 325 mg tablet Allergies Allergy/AdvReac Type Severity Reaction Status Date / Time haloperidol Allergy Unknown Other Verified 03/17/22 15:58 Penicillins Allergy Unknown Flushing Verified 03/17/22 15:58 risperidone Allergy Unknown MY MOUTH Verified 03/17/22 15:58 TIGHTENS UP -TD simvastatin Allergy Unknown Other Verified 03/17/22 15:58 amoxicillin Allergy Confusion Verified 03/17/22 16:20 [id number]-TYQ-PzO Reductase Allergy Other Verified 03/17/22 15:58 Inhibitor codeine AdvReac Unknown NAUSEA AND Verified 03/17/22 15:58 VOMITING triazolam AdvReac Unknown N/V Verified 03/17/22 15:58 Wasp Allergy Unknown W
[2022-03-17] MEDS: ALBUTEROL SULFATE NEB 2.5 MG/3 ML INH 5 MG INHALATION (16:14)
[2022-03-17 16:15] VITALS: PULSE 89; RESP 13
[2022-03-17] MEDS: AZITHROMYCIN 250 MG TABLET 500 MG PO (16:16)
[2022-03-17] MEDS: AMOXICILLIN/CLAVULANATE K 875-125 MG TAB 1 TABLET PO (16:16)
[2022-03-17 16:23] VITALS: PULSE 93; RESP 14
[2022-03-17] MEDS: DOXYCYCLINE HYCLATE 100 MG TABLET PO (16:25)
[2022-03-17] MEDS: HYDROcodone/acetaminophen (*CRX) 5-325 MG TABLET 1 TAB PO (16:30)
[2022-03-17 17:59] VITALS: BP 119/60; PULSE 96; RESP 16; O2SAT 97
== END 2022-03-17 18:01 | disposition home or self-care (01) ==
LOC: ANHED 16:08
PROVIDERS: Emergency Medicine; Emergency Provider Emergency Medicine; PCP Nurse Practitioner Family
DX: H66.92 Otitis media, unspecified, left ear (principal); J44.1 Chronic obstructive pulmonary disease with (acute) exacerbation; I25.10 Atherosclerotic heart disease of native coronary artery without angina pectoris; E11.9 Type 2 diabetes mellitus without complications; E78.5 Hyperlipidemia, unspecified; G47.30 Sleep apnea, unspecified; H35.30 Unspecified macular degeneration; F41.9 Anxiety disorder, unspecified; F32.A Depression, unspecified; Z86.73 Personal history of transient ischemic attack (TIA), and cerebral infarction without residual deficits; Z79.84 Long term (current) use of oral hypoglycemic drugs; F17.210 Nicotine dependence, cigarettes, uncomplicated; H66.90 Otitis media, unspecified, unspecified ear; H72.91 Unspecified perforation of tympanic membrane, right ear
CPT/HCPCS: 36415; 71046; 80053; 85025; 93005; 94640; 99284; A9270

== ENCOUNTER 2022-09-05 11:41 | Observation (INO) | payer OTHER, SELFPAY ==
--- NOTE | ~2022-09-05 | CT_ITS ---
EXAMINATION: CT abdomen pelvis w con DATE: 09/05/2022 17:11 INDICATION: Generalized abdominal pain. Nausea and vomiting. TECHNIQUE: Computed tomography (CT) of the abdomen and pelvis was performed with 100 mL Omnipaque 350 intravenous contrast. Automated exposure control and iterative reconstruction technique were employe d. The dose-length product was 897.86 mGy-cm. COMPARISON: CT abdomen and pelvis 02/23/2022 FINDINGS: The visualized portions of the lung bases demonstrate mild atelectasis. No pleural effusion . The heart size is normal. There are coronary artery calcifications. No pericardial effusion. There is diffuse hepatic steatosis. There are changes of cholecystectomy. Calcifications in the spleen are consistent with old granulomatous disease. The pancreas is normal. There is dystrophic calcifications in the adrenal glands. There is chronic thickening of left adrenal gland, likely benign. The kidneys are normal. There are patent stents in the common iliac arteries. There is diverticulosis of the col on. There is mild fat stranding adjacent to the sigmoid colon, consistent with diverticulitis. There are no dilated loops of bowel. The appendix is normal. There are no pathologically enlarged lymph nod es. There is no free intraperitoneal fluid. There are old healed fractures of the right ribs. There i s moderate thoracic spondylosis and mild lumbar spondylosis. IMPRESSION: 1. Mild sigmoid diverticulitis. No perforation or abscess. Reviewed, dictated and finalized at location A. TERY KEEPER
--- NOTE | ~2022-09-05 | XR_ITS ---
EXAMINATION: XR chest 1V portable 09/06/2022 12:39 INDICATION: Chest pain PROCEDURE: AP portable chest COMPARISON: Comparison to multiple prior studies sequentially, with oldest reviewed study dated 06/16. FINDINGS: The lungs are clear. The cardiomediastinal silhouette is within normal limits. There are no pleural effusions. There is no pneumothorax suspected. There is calcified granuloma in the left mid thorax. IMPRESSION: 1: NO ACUTE CARDIOPULMONARY DISEASE. Reviewed, dictated and finalized at location L. OSIVE ORDNANCE DISPOSAL MANAGER
[2022-09-05 12:06] VITALS: BP 109/71; PULSE 90; RESP 16; TEMP 36.4; O2SAT 98
[2022-09-05 12:42] LABS: Appearance Urine Clear (Clear); Bilirubin Urine 2+ (Negative); Blood Urine 2+ (Negative); Color Urine Yellow (Yellow); Glucose Urine UA Trace mg/dL (Negative); Ketones Urine Negative (Negative); Leukocyte Esterase Ur Negative LEU/UL (Negative); Nitrate Urine Negative (Negative); Protein Urine 3+ mg/dL (Negative); Specific Grav Ur >= 1.030 (1.001-1.035); Urobilinogen Urine 0.2 mg/dL (<2.0); pH Urine 5.5 (5.0-9.0)
[2022-09-05 12:42] LABS: Basophils Percent Auto 0.3 % (0.2-1.2); Eosinophils Percent Auto 0.1 % (0-4.4); Hematocrit 42.2 % (37.0-47.0); Hemoglobin 14.4 g/dL (12.0-15.0); Immature Granulocyte Absolute 0.08 K/mm3 (0.00-0.031); Immature Granulocyte Percent A 0.6 % (0-0.5); Lymphocytes Absolute Auto 1.67 K/mm3 (0.9-3.2); Lymphocytes Percent Auto 12.3 % (18.3-44.2); Mean Corpuscular HGB Conc 34.1 g/dl (32-36); Mean Corpuscular Hemoglobin 28.8 pg (26-34); Mean Corpuscular Volume 84.4 fl (80-100); Mean Platelet Volume 9.4 fl (7.4-10.4); Monocytes Absolute Auto 0.7 K/mm3 (0.1-0.6); Monocytes Percent Auto 5.4 % (2.6-8.5); Neutrophils Absolute Auto 11.1 K/mm3 (1.3-6.7); Neutrophils Percent Auto 81.3 % (45.5-73.1); Platelet Count Result 235 k/mm3 (150-375); Red Cell Distribution Width 13.2 % (11.5-14.5); White Blood Count 13.6 K/mm3 (4.5-10.0)
[2022-09-05 12:48] LABS: Bacteria Urine Trace /hpf; Hyaline Casts Urine 30-49 /lpf; Mucus Urine Heavy /lpf; RBC Urine >75 /hpf (0-2); Squamous Epithelial Cell Urine Few /hpf (Few); WBC Urine >75 /hpf
[2022-09-05 12:50] LABS: Alanine Aminotransferase 22 U/L (6-35); Albumin Level 4.5 g/dL (3.5-5.1); Alkaline Phosphatase 104 U/L (38-126); Anion Gap 10 mmol/L (8-16); Aspartate Amino Transferase 22 U/L (14-36); Bilirubin,Total 0.7 mg/dL (0.2-1.3); Blood Urea Nitrogen 18 mg/dL (7-17); Calcium 8.7 mg/dL (8.4-10.2); Carbon Dioxide 22 mmol/L (22-30); Chloride 100 mmol/L (98-107); Estimated CRCL calculation 77 ml/min; Estimated Glomerular Filt Rate > 60; Glucose 236 mg/dL (65-110); Lipase 112 U/L (23-300); Potassium 3.7 mmol/L (3.4-5.0); Sodium 132 mmol/L (137-145)
[2022-09-05 13:41] LABS: Add Urine Microscopic? YES
--- NOTE | 2022-09-05 16:36 | ED.ABDPAIN ---
HPI - Abdominal Pain General Chief Complaint: Abdominal Pain Stated Complaint: abdominal pain Time Seen by Provider: 09/05/22 16:34 Source: patient and EMS Mode of arrival: EMS History of Present Illness HPI narrative: Patient is 62 years old white female came to the emergency room by ambulance from home complaining of nausea for the last 10 days, vomiting a lot since yesterday and today. Also complaining of left lower quadrant pain. History of diabetes, hypertension, hyperlipidemia, stroke, bilateral tubal ligation. Patient lives alone. Related Data Home Medications Medication Instructions Recorded Confirmed alprazolam 1 mg tablet 0.5 mg PO DAILY 05/14/20 08/29/22 budesonide-formoterol HFA 160 2 puff inhalation BID 05/14/20 08/29/22 mcg-4.5 mcg/actuation aerosol inhaler (Symbicort) cromolyn 4 % eye drops 1 drp EACH EYE TID 05/14/20 08/29/22 ergocalciferol (vitamin D2) 1,250 1,250 mcg PO WEEKLY 05/14/20 08/29/22 mcg (50,000 unit) capsule ezetimibe 10 mg tablet 10 mg PO DAILY 05/14/20 08/29/22 losartan 100 mg tablet 100 mg PO DAILY 05/14/20 08/29/22 metoprolol succinate 50 mg 50 mg PO DAILY 05/14/20 08/29/22 tablet,extended release 24 hr nitroglycerin 0.4 mg sublingual 0.4 mg sublingual Q5M PRN Chest 07/27/20 08/29/22 tablet Pain clopidogrel 75 mg tablet 75 mg PO DAILY 01/19/21 08/29/22 evolocumab 140 mg/mL subcutaneous 140 mg subcut DIRECTED 01/19/21 08/29/22 pen injector (hSeng Ceballos) fluoxetine 60 mg tablet 60 mg PO DAILY 11/19/21 08/29/22 albuterol sulfate 2.5 mg/0.5 mL 2.5 mg inhalation Q4H PRN 02/24/22 08/29/22 solution for nebulization shortness of breath or wheezing albuterol sulfate 90 mcg/actuation 2 puff inhalation Q4H PRN 02/24/22 08/29/22 aerosol inhaler Shortness Of Breath Or Wheezing cetirizine 10 mg tablet 10 mg PO DAILY PRN Allergy Symptoms 02/24/22 08/29/22 isosorbide mononitrate 60 mg 60 mg PO DAILY 02/24/22 08/29/22 tablet,extended release 24 hr metformin 500 mg tablet 500 mg PO BID 02/24/22 08/29/22 mirtazapine 7.5 mg tablet 7.5 mg PO QHS 02/24/22 08/29/22 fabgbacj-raufktzoc-bafudhab 3.5 1 drp EACH EYE Q4H 02/24/22 08/29/22 mg/mL-10,000 unit/mL-0.1% eye drops nicotine 21 mg/24 hr daily 1 patch transdermal DAILY 02/24/22 08/29/22 transdermal patch pantoprazole 40 mg tablet,delayed 40 mg PO DAILY 02/24/22 08/29/22 release polyethylene glycol 3350 17 225 g PO DAILY 02/24/22 08/29/22 gram/dose oral powder potassium chloride 10 mEq 10 meq PO DAILY 02/24/22 08/29/22 tablet,extended release tiotropium bromide 18 mcg capsule 1 cap inhalation DAILY 02/24/22 08/29/22 with inhalation device Allergies Allergy/AdvReac Type Severity Reaction Status Date / Time haloperidol Allergy Unknown Other Verified 08/29/22 09:04 Penicillins Allergy Unknown Flushing Verified 08/29/22 09:04 risperidone Allergy Unknown MY MOUTH Verified 08/29/22 09:04 TIGHTENS UP -TD simvastatin Allergy Unknown Other Verified 08/29/22 09:04 amoxicillin Allergy Confusion Verified 08/29/22 09:04 Peusspk-PWE-HqT Reductase Allergy Other Verified 08/29/22 09:04 Inhibitor codeine AdvReac Unknown NAUSEA AND Verified 08/29/22 09:04 VOMITING triazolam AdvReac Unknown N/V Verified 08/29/22 09:04 Wasp Allergy Unknown WASP Uncoded 03/17/22 15:58 STING- CLOSES MY THROAT Review of Systems Review of Systems: All systems reviewed & are unremarkable except as noted in HPI and below PMFSH Past Medical History Medical History Anxiety Bipolar disorder COPD (chronic obstructive pulmonary disease) Coronary artery disease CVA (cerebral vascular accident) Diabetes type 2, controlled GERD (gastroesophageal reflux disease) Hyperlipidemia Macular degeneration Sleep apnea Surgical History Surgical History H/O cardiac catheterization H/O section History of
[2022-09-05] MEDS: SODIUM CHLORIDE 0.9% IV 1,000 ML 999 ML IV CONT (16:49)
[2022-09-05] MEDS: ONDANSETRON INJ 4 MG/2 ML VIAL IV PUSH ×2 (18:20→21:44)
[2022-09-05] MEDS: metroNIDAZOLE 500 MG/ISO 100ML 500 MG/100 ML BAG 100 MG IVPB (18:42)
[2022-09-05] MEDS: HYDROmorphone HCL INJ (*CRX) 1 MG/ML SYR 0.5 MG IV PUSH (18:42)
[2022-09-05 18:43] VITALS: BP 110/82; PULSE 97; RESP 18; O2SAT 97
--- NOTE | 2022-09-05 19:45 | PM.IMHP ---
H&P: HPI History of Present Illness Date/Time: 09/05/22 19:45 Chief Complaint: Abdominal pain, nausea, and vomiting. Narrative: This is a 62-year-old female smoker with multiple medical problems including history of diverticulitis, GERD, bladder cancer, COPD, hypertension, hyperlipidemia, diabetes, peripheral arterial disease, and stroke who presented to the emergency department from home for evaluation of abdominal pain, nausea, and vomiting. Patient provides the following history. For the last 10 to 14 days she has had intermittent episodes of left lower quadrant discomfort and nausea. Over last 24 hours she has had multiple episodes of emesis and her left lower quadrant abdominal pain has intensified. The pain does not radiate and she has not noticed any significant aggravating or alleviating factors. She is unable to describe the pain accurately. Over the past 5 days she has also had diarrhea for which she has been taking Pepto-Bismol. She has not noticed any blood or mucus in the stool. She also denies fever, chills, and sweats. She was afebrile on arrival to the emergency department. Labs were significant for a WBC of 13.6, BUN 18, creatinine 0.70, normal LFTs. CT of the abdomen and pelvis showed mild diverticulitis with no abscess or perforation. She was treated with IV fluids, antiemetics, and analgesics in the ED but did not feel well enough to be discharged home and she is being admitted in this setting. Review of Systems Review of Systems: Twelve systems were reviewed. No cold or flu symptoms. No chest pain or shortness of breath. She had a cystoscopy done several weeks ago and she has had issues with intermittent nausea since that time. She is scheduled for another cystoscopy in the next couple of weeks to evaluate her bladder cancer. Except as documented, all other systems were reviewed and are negative. [facility] Past Medical History Medical History (Updated 09/06/22 @ 00:03 by Bobbi Garcia PA-C) Anxiety Bipolar disorder Bladder cancer Cerebrovascular accident Chronic obstructive pulmonary disease Coronary artery disease Gastroesophageal reflux disease Hyperlipidemia Hypertension Macular degeneration Obstructive sleep apnea Osteoarthritis Peripheral arterial disease Tobacco dependence Type 2 diabetes mellitus Surgical History Surgical History (Updated 09/06/22 @ 00:00 by Bobbi Garcia PA-C) History of cardiac catheterization History of carpal tunnel release History of section History of cholecystectomy History of colonoscopy History of esophagogastroduodenoscopy (EGD) History of left-sided carotid endarterectomy History of transurethral resection of bladder tumor (TURBT) History of vascular surgery Bilateral iliac stent. Family History Family History Sibling Diabetes mellitus Family history of malignant neoplasm Social History Social History (Updated 09/06/22 @ 00:01 by Bobbi Garcia PA-C) Social History: Surrogate medical decision maker: Fartun Narayanan (sister) or Christina Goodman (daughter). Code status: Full code. Smoking packs per day: 1 Smoking cigarettes per day: 20.0 Years smoked: 40 Smoking pack-years: 40.00 Smoking status: Current every day smoker Tobacco type: cigarettes Second hand tobacco smoke exposure: No Additional smoking assessment comments: pt. was smoking 3 packs a day and has cut down to half a pack daily Alcohol intake: never Substance use: current Substance use type: marijuana Lack of Transportation: No Lack of Food: Never True Current Housing: I Have Housing Concerned About Future Housing: No Difficulty Paying Gas/Electric Bills: No Difficulty Paying for Meds: No Currently Unemployed: No Education: High School Diploma/GED Difficulty w/ Childcare or Family Care: No Additional living arrangements comments: Lives alone in [place]. Additional occupation/
--- NOTE | 2022-09-05 19:47 | PC.NURSE ---
Pt. ambulatory to restroom, gait steady
[2022-09-05 20:10] VITALS: BP 123/55; PULSE 93; RESP 20; O2SAT 97
--- NOTE | 2022-09-05 21:10 | ADMGEN ---
This patient, Cristine Armstrong, was admitted to 2 Medical Room 254-01. Patient/family oriented to hospital policies and general routines including ID bracelet, bed and alarms, visiting hours, pain management, procedures, bathroom and other care routines, personal items, smoking policy, room service/diet, and visiting hours. Information on how to activate the Rapid Response Team has been discussed. Patient/Family are encouraged to report perceived risks to care and to ask questions if they do not understand what they are told or what they should do.
[2022-09-05 21:11] VITALS: BP 113/64; PULSE 87; RESP 14; TEMP 37.1; O2SAT 97
[2022-09-05 21:16] VITALS: BMI 34.7
[2022-09-05] MEDS: SODIUM CHLORIDE 0.9% IV 1,000 ML 125 ML IV CONT (21:42)
[2022-09-06] MEDS: HYDROmorphone HCL INJ (*CRX) 1 MG/ML SYR 0.5 MG IV PUSH ×3 (00:10→13:43)
[2022-09-06 00:16] LABS: Glucose Point of Care 140 mg/dl (65-105)
[2022-09-06] MEDS: metroNIDAZOLE 500 MG/ISO 100ML 500 MG/100 ML BAG 100 MG IVPB ×3 (02:34→18:19)
[2022-09-06] MEDS: ONDANSETRON INJ 4 MG/2 ML VIAL IV PUSH (05:04)
[2022-09-06 05:07] VITALS: BP 120/66; PULSE 74; RESP 14; TEMP 36.8; O2SAT 97
[2022-09-06 05:39] LABS: Hematocrit 39.6 % (37.0-47.0); Hemoglobin 13.2 g/dL (12.0-15.0); Mean Corpuscular HGB Conc 33.3 g/dl (32-36); Mean Corpuscular Hemoglobin 28.6 pg (26-34); Mean Corpuscular Volume 85.7 fl (80-100); Mean Platelet Volume 9.4 fl (7.4-10.4); Platelet Count Result 195 k/mm3 (150-375); Red Blood Count 4.62 M/mm3 (4.2-5.4); Red Cell Distribution Width 13.5 % (11.5-14.5); White Blood Count 10.2 K/mm3 (4.5-10.0)
[2022-09-06 05:54] LABS: Alanine Aminotransferase 18 U/L (6-35); Albumin Level 3.9 g/dL (3.5-5.1); Alkaline Phosphatase 84 U/L (38-126); Anion Gap 6 mmol/L (8-16); Aspartate Amino Transferase 21 U/L (14-36); Bilirubin,Total 0.6 mg/dL (0.2-1.3); Blood Urea Nitrogen 17 mg/dL (7-17); Calcium 8.1 mg/dL (8.4-10.2); Carbon Dioxide 23 mmol/L (22-30); Chloride 108 mmol/L (98-107); Estimated CRCL calculation 76 ml/min; Estimated Glomerular Filt Rate > 60; Glucose 126 mg/dL (65-110); Magnesium 1.8 mg/dL (1.6-2.3); Potassium 3.7 mmol/L (3.4-5.0); Sodium 137 mmol/L (137-145)
[2022-09-06 05:59] LABS: Hemoglobin A1C 7.9 % (<5.7)
[2022-09-06 08:33] LABS: Glucose Point of Care 137 mg/dl (65-105)
[2022-09-06] MEDS: EZETIMIBE 10 MG TABLET PO (08:34)
[2022-09-06] MEDS: LOSARTAN POTASSIUM 100 MG TABLET PO (08:34)
[2022-09-06] MEDS: CLOPIDOGREL BISULFATE 75 MG TABLET PO (08:34)
[2022-09-06] MEDS: MIRTAZAPINE 7.5 MG TABLET PO ×2 (08:34→21:27)
[2022-09-06] MEDS: FLUoxetine HCL 20 MG CAPSULE 60 MG PO (08:34)
[2022-09-06] MEDS: PANTOPRAZOLE 40 MG TABLET PO (08:34)
[2022-09-06] MEDS: NICOTINE (*PBKC) 21 MG PATCH 1 PATCH TRANSDERM (08:35)
[2022-09-06] MEDS: ALPRAZolam (*CRX) 0.5 MG TABLET PO ×2 (08:40→21:27)
[2022-09-06] MEDS: SODIUM CHLORIDE 0.9% IV 1,000 ML 100 ML IV CONT ×2 (08:41→23:52)
[2022-09-06 08:45] VITALS: PULSE 74; RESP 18
[2022-09-06 08:46] VITALS: O2SAT 96
[2022-09-06 11:32] LABS: Glucose Point of Care 119 mg/dl (65-105)
--- NOTE | 2022-09-06 11:45 | P.PNIM_ITS ---
Progress Note: A&P Assessment and Plan (1) Sigmoid diverticulitis: Code(s): K57.32 - Diverticulitis of large intestine without perforation or abscess without bleeding Status: Acute Assessment and Plan: * complaints of left lower quadrant pain, nausea, vomiting * CT shows mild sigmoid diverticulitis * continue Flagyl and Levaquin * Zofran on board * pain medicines on board * give 1 dose of Toradol 15 mg * Trend pain (2) Abnormal urinalysis: Code(s): R82.90 - Unspecified abnormal findings in urine Status: Acute Assessment and Plan: * UA did appear infectious * currently on Levaquin * await urine culture * adjust therapy to sensitivities (3) Bladder cancer: Code(s): C67.9 - Malignant neoplasm of bladder, unspecified Status: Acute Assessment and Plan: * stable at this time * continue with outpatient follow-up (4) Hypertension: Code(s): I10 - Essential (primary) hypertension Status: Acute Assessment and Plan: * current blood pressure 120/66 * continue home losartan 100 mg p.o. daily * trend blood pressure * adjust therapy as indicated (5) Type 2 diabetes mellitus: Code(s): E11.9 - Type 2 diabetes mellitus without complications Status: Acute Assessment and Plan: * current glucose 126 * A1c 7.9 * hold metformin for now * insulin sliding scale * Accu-Cheks AC and HS * hypoglycemia protocol * trend glucose and adjust therapy as indicated (6) Gastroesophageal reflux disease: Code(s): K21.9 - Gastro-esophageal reflux disease without esophagitis Status: Acute Assessment and Plan: * continue 40 mg Protonix (7) Tobacco dependence: Code(s): F17.200 - Nicotine dependence, unspecified, uncomplicated Status: Acute Assessment and Plan: * nicotine patch * smoking cessation education given for 6 minutes (8) Chronic obstructive pulmonary disease: Code(s): J44.9 - Chronic obstructive pulmonary disease, unspecified Status: Acute Assessment and Plan: * no evidence of exacerbation * continue albuterol, Symbicort * on room air * stable Plan complaints of chest pain will check a troponin, chest x-ray, EKG. Time Spent With Patient Time: 58 minutes Time with patient: Greater than 35 minutes Subjective Date/time seen: 09/06/22 12:03 Interval history: 09/06/22 1145 patient states that she still having a lot of pain expression left-sided goes down to her leg. She also stated that she has been having some nausea and she did have Zofran which did help. She also stated that she is having some chest pain and felt like an animal sent on her chest. Accompanied with shortness of breath. She denies any other issues including urinary issues, diarrhea constipation. 09/05/22? 19:45 This is a 62-year-old female smoker with multiple medical problems including history of diverticulitis, GERD, bladder cancer, COPD, hypertension, hyperlipidemia, diabetes, peripheral arterial disease, and stroke who presented to the emergency department from home for evaluation of abdominal pain, nausea, and vomiting. P
--- NOTE | 2022-09-06 11:45 | PM.IMPN ---
Progress Note: A&P Assessment and Plan (1) Sigmoid diverticulitis: Code(s): K57.32 - Diverticulitis of large intestine without perforation or abscess without bleeding Status: Acute Assessment and Plan: complaints of left lower quadrant pain, nausea, vomiting CT shows mild sigmoid diverticulitis continue Flagyl and Levaquin Zofran on board pain medicines on board give 1 dose of Toradol 15 mg Trend pain (2) Abnormal urinalysis: Code(s): R82.90 - Unspecified abnormal findings in urine Status: Acute Assessment and Plan: UA did appear infectious currently on Levaquin await urine culture adjust therapy to sensitivities (3) Bladder cancer: Code(s): C67.9 - Malignant neoplasm of bladder, unspecified Status: Acute Assessment and Plan: stable at this time continue with outpatient follow-up (4) Hypertension: Code(s): I10 - Essential (primary) hypertension Status: Acute Assessment and Plan: current blood pressure 120/66 continue home losartan 100 mg p.o. daily trend blood pressure adjust therapy as indicated (5) Type 2 diabetes mellitus: Code(s): E11.9 - Type 2 diabetes mellitus without complications Status: Acute Assessment and Plan: current glucose 126 A1c 7.9 hold metformin for now insulin sliding scale Accu-Cheks AC and HS hypoglycemia protocol trend glucose and adjust therapy as indicated (6) Gastroesophageal reflux disease: Code(s): K21.9 - Gastro-esophageal reflux disease without esophagitis Status: Acute Assessment and Plan: continue 40 mg Protonix (7) Tobacco dependence: Code(s): F17.200 - Nicotine dependence, unspecified, uncomplicated Status: Acute Assessment and Plan: nicotine patch smoking cessation education given for 6 minutes (8) Chronic obstructive pulmonary disease: Code(s): J44.9 - Chronic obstructive pulmonary disease, unspecified Status: Acute Assessment and Plan: no evidence of exacerbation continue albuterol, Symbicort on room air stable Plan complaints of chest pain will check a troponin, chest x-ray, EKG. Time Spent With Patient Time: 58 minutes Time with patient: Greater than 35 minutes Subjective Date/time seen: 09/06/22 12:03 Interval history: 09/06/22 1145 patient states that she still having a lot of pain expression left-sided goes down to her leg. She also stated that she has been having some nausea and she did have Zofran which did help. She also stated that she is having some chest pain and felt like an animal sent on her chest. Accompanied with shortness of breath. She denies any other issues including urinary issues, diarrhea constipation. 09/05/22? 19:45 This is a 62-year-old female smoker with multiple medical problems including history of diverticulitis, GERD, bladder cancer, COPD, hypertension, hyperlipidemia, diabetes, peripheral arterial disease, and stroke who presented to the emergency department from home for evaluation of abdominal pain, nausea, and vomiting. Patient provides the following history. For the last 10 to 14 days she has had intermittent episodes of left lower quadrant discomfort and nausea. Over last 24 hours she has had multiple episodes of emesis and her left lower quadrant abdominal pain has intensified. The pain does not radiate and she has not noticed any significant aggravating or alleviating factors. She is unable to describe the pain accurately. Over the past 5 days she has also had diarrhea for which she has been taking Pepto-Bismol. She has not noticed any blood or mucus in the stool. She also denies fever, chills, and sweats. She was afebrile on arrival to the emergency department. Labs were significant for a
--- NOTE | 2022-09-06 12:04 | ECG_ITS ---
Measurements Intervals [place] Rate: 71 P: 48 MI: 140 QRS: 46 QRSD: 94 T: 44 QT: 422 QTc: 461 Interpretive Statements SINUS RHYTHM NONSPECIFIC T-WAVE ABNORMALITY ABNORMAL ECG COMPARED TO ECG 03/17/2022 13:56:18 T-WAVE ABNORMALITY NOW PRESENT Electronically Signed On 09-06-2022 14:16:23 LOCKSTITCH FRONT [employer] SEWER by Chaparro Osullivan M.D.
[2022-09-06 12:33] LABS: Glucose Point of Care 133 mg/dl (65-105)
[2022-09-06 13:03] LABS: Troponin I < 0.012 ng/mL (0.000-0.034)
[2022-09-06] MEDS: KETOROLAC 15 MG/ML VIAL (*BKC) IV PUSH (14:00)
[2022-09-06 15:17] VITALS: BP 129/69; PULSE 68; RESP 18; TEMP 36.4; O2SAT 100
[2022-09-06 16:02] LABS: Troponin I < 0.012 ng/mL (0.000-0.034)
[2022-09-06 17:19] LABS: Glucose Point of Care 143 mg/dl (65-105)
[2022-09-06 19:58] VITALS: BP 133/77; PULSE 70; RESP 16; TEMP 37.1; O2SAT 98
[2022-09-06] MEDS: FLUTICASONE/SALMETEROL 115-21 MCG INHALER 1 PUFF 2 PUFF INHALATION (21:00)
[2022-09-06 21:02] VITALS: PULSE 77; RESP 18
[2022-09-06] MEDS: ACETAMINOPHEN 325 MG TABLET 650 MG PO (21:36)
[2022-09-06 22:12] LABS: Glucose Point of Care 125 mg/dl (65-105)
--- NOTE | 2022-09-07 | ECHO_ITS ---
Patient Info Name: Cristine Armstrong Age: 62 years : 1960 Gender: Female Ht: 63 in Wt: 194 lbs BSA: 2.02 m2 HR: 74 bpm BP: 120 / 66 mmHg Heart Rhythm: Sinus Rhythm Technical Quality: Fair Exam Date: 09/07/2022 7:47 AM Exam Location: [facility] Pulmonary Patient Status: Inpatient Admit Date: 09/05/2022 Staff Ordering Physician: Zurdo Ramsey Bankman: Iris Singh RDCS Attending Provider: Garett Sorto MD Referring Physician: Braulio FLOOD; Exam Type: CA echo doppler color flow Study Info Indications - edema R07.9 - Chest pain, unspecified Complete two-dimensional, color flow and Doppler transthoracic echocardiogram is performed. Strain analysis performed. Summary 1. Complete two-dimensional, color flow and Doppler transthoracic echocardiogram is performed. 2. Strain analysis performed. 3. Left ventricular chamber dimension is normal. 4. Left ventricular systolic function is normal, estimated at 65-70%. 5. There is mildly increased left ventricular wall thickness. 6. The left ventricular diastolic function is grade I diastolic dysfunction. 7. Global longitudinal strain is borderline at -17 %. 8. Left atrial chamber dimension is mildly enlarged. 9. There is mild aortic valve stenosis with a peak velocity of 200 cm/s, mean gradient of 8 mmHg, and aortic valve area of 1.9 cm2. 10. There is mild mitral valve regurgitation. 11. There is mild tricuspid valve regurgitation. Left Ventricle Left ventricular chamber dimension is normal. Left ventricular systolic function is normal, estimated at 65-70%. There is mildly increased left ventricular wall thickness. The left ventricular diastolic function is grade I diastolic dysfunction. Global longitudinal strain is borderline at -17 %. Right Ventricle Right ventricular chamber dimension is normal. Right ventricular systolic function is normal. Left Atria Left atrial chamber dimension is mildly enlarged. Right Atria Right atrial chamber dimension is normal. Atrial Septum Intact interatrial septum visualized by color flow imaging. Aortic Valve The aortic valve is probable trileaflet. There is mild aortic valve sclerosis. There is mild aortic valve stenosis with a peak velocity of 200 cm/s, mean gradient of 8 mmHg, and aortic valve area of 1.9 cm2. There is trace aortic valve regurgitation. Pulmonic Valve The pulmonic valve is normal. There is no pulmonic valve stenosis. There is trace pulmonic regurgitation. Mitral Valve There is no mitral valve stenosis. There is mild mitral valve regurgitation. The mitral valve annulus is mildly calcified. Tricuspid Valve The tricuspid valve leaflets are normal. There is no significant tricuspid valve stenosis. There is mild tricuspid valve regurgitation. No pulmonary hypertension, estimated pulmonary arterial systolic pressure is 33 mmHg. Pericardium/Pleural The pericardium appears normal. There is no pericardial effusion. Inferior Vena Cava Normal inferior vena cava with >50% collapse upon inspiration consistent with normal right atrial pressure, 10 mmHg. Aorta The aortic root size at the sinus of Valsalva is normal. The prox ascending aorta size is normal. Left Ventricular Outflow Tract Name Value Normal LVOT 2D ---
[2022-09-07] MEDS: metroNIDAZOLE 500 MG/ISO 100ML 500 MG/100 ML BAG 100 MG IVPB ×3 (02:24→18:43)
[2022-09-07 05:15] VITALS: BP 145/67; PULSE 88; RESP 14; TEMP 36.8; O2SAT 98
[2022-09-07 05:51] LABS: Basophils Percent Auto 0.5 % (0.2-1.2); Eosinophils Absolute Auto 0.1 K/mm3 (0-0.3); Eosinophils Percent Auto 2.4 % (0-4.4); Hematocrit 40.6 % (37.0-47.0); Hemoglobin 13.2 g/dL (12.0-15.0); Immature Granulocyte Absolute 0.02 K/mm3 (0.00-0.031); Immature Granulocyte Percent A 0.3 % (0-0.5); Lymphocytes Absolute Auto 1.51 K/mm3 (0.9-3.2); Lymphocytes Percent Auto 25.4 % (18.3-44.2); Mean Corpuscular HGB Conc 32.5 g/dl (32-36); Mean Corpuscular Hemoglobin 28.3 pg (26-34); Mean Corpuscular Volume 86.9 fl (80-100); Mean Platelet Volume 9.2 fl (7.4-10.4); Monocytes Absolute Auto 0.5 K/mm3 (0.1-0.6); Monocytes Percent Auto 7.7 % (2.6-8.5); Neutrophils Absolute Auto 3.8 K/mm3 (1.3-6.7); Neutrophils Percent Auto 63.7 % (45.5-73.1); Platelet Count Result 165 k/mm3 (150-375); Red Blood Count 4.67 M/mm3 (4.2-5.4); Red Cell Distribution Width 13.3 % (11.5-14.5); White Blood Count 5.9 K/mm3 (4.5-10.0)
[2022-09-07 06:16] LABS: Alanine Aminotransferase 19 U/L (6-35); Albumin Level 3.9 g/dL (3.5-5.1); Alkaline Phosphatase 88 U/L (38-126); Anion Gap 6 mmol/L (8-16); Aspartate Amino Transferase 21 U/L (14-36); Bilirubin,Total 0.5 mg/dL (0.2-1.3); Blood Urea Nitrogen 11 mg/dL (7-17); Carbon Dioxide 25 mmol/L (22-30); Chloride 109 mmol/L (98-107); Estimated CRCL calculation 77 ml/min; Estimated Glomerular Filt Rate > 60; Glucose 151 mg/dL (65-110); Magnesium 1.9 mg/dL (1.6-2.3); Potassium 3.7 mmol/L (3.4-5.0); Sodium 140 mmol/L (137-145)
[2022-09-07 08:22] LABS: Glucose Point of Care 180 mg/dl (65-105)
[2022-09-07] MEDS: ALPRAZolam (*CRX) 0.5 MG TABLET PO ×3 (09:07→21:43)
[2022-09-07] MEDS: CLOPIDOGREL BISULFATE 75 MG TABLET PO (09:07)
[2022-09-07] MEDS: FLUoxetine HCL 20 MG CAPSULE 60 MG PO (09:08)
[2022-09-07] MEDS: LOSARTAN POTASSIUM 100 MG TABLET PO (09:08)
[2022-09-07] MEDS: EZETIMIBE 10 MG TABLET PO (09:08)
[2022-09-07] MEDS: PANTOPRAZOLE 40 MG TABLET PO (09:08)
[2022-09-07] MEDS: ENOXAPARIN 40 MG/0.4 ML SYRINGE SUB-Q (09:08)
--- NOTE | 2022-09-07 09:15 | PM.IMPN ---
Progress Note: A&P Assessment and Plan (1) Sigmoid diverticulitis: Code(s): K57.32 - Diverticulitis of large intestine without perforation or abscess without bleeding Status: Acute Assessment and Plan: complaints of left lower quadrant pain, nausea, vomiting CT shows mild sigmoid diverticulitis continue Flagyl and Levaquin Zofran on board pain medicines on board Toradol 15 mg IV for pain Trend pain (2) Abnormal urinalysis: Code(s): R82.90 - Unspecified abnormal findings in urine Status: Acute Assessment and Plan: UA did appear infectious currently on Levaquin await urine culture adjust therapy to sensitivities (3) Bladder cancer: Code(s): C67.9 - Malignant neoplasm of bladder, unspecified Status: Acute Assessment and Plan: stable at this time continue with outpatient follow-up (4) Hypertension: Code(s): I10 - Essential (primary) hypertension Status: Acute Assessment and Plan: current blood pressure 145/67 continue home losartan 100 mg p.o. daily trend blood pressure adjust therapy as indicated (5) Type 2 diabetes mellitus: Code(s): E11.9 - Type 2 diabetes mellitus without complications Status: Acute Assessment and Plan: current glucose 151 A1c 7.9 hold metformin for now insulin sliding scale Accu-Cheks AC and HS hypoglycemia protocol trend glucose and adjust therapy as indicated (6) Gastroesophageal reflux disease: Code(s): K21.9 - Gastro-esophageal reflux disease without esophagitis Status: Acute Assessment and Plan: continue 40 mg Protonix (7) Tobacco dependence: Code(s): F17.200 - Nicotine dependence, unspecified, uncomplicated Status: Acute Assessment and Plan: nicotine patch smoking cessation education given for 6 minutes (8) Chronic obstructive pulmonary disease: Code(s): J44.9 - Chronic obstructive pulmonary disease, unspecified Status: Acute Assessment and Plan: no evidence of exacerbation continue albuterol, Symbicort on room air stable Plan Chest pain Trops negative EKG stable Most likely from cough and vomiting. Time Spent With Patient Time: 53 minutes Time with patient: Greater than 35 minutes Subjective Date/time seen: 09/07/22 09:25 Interval history: 09/07/22 0915 Patient is doing ok today. She stated that she is feeling better. She also stated that she feels hungry, and would like to advance diet. She did state that she is still having some left side pain, which she stated is moving more midline. She did state that she is having some slowness with walking. Will get PT/OT. 09/06/22 1145 patient states that she still having a lot of pain expression left-sided goes down to her leg. She also stated that she has been having some nausea and she did have Zofran which did help. She also stated that she is having some chest pain and felt like an animal sent on her chest. Accompanied with shortness of breath. She denies any other issues including urinary issues, diarrhea constipation. 09/05/22? 19:45 This is a 62-year-old female smoker with multiple medical problems including history of diverticulitis, GERD, bladder cancer, COPD, hypertension, hyperlipidemia, diabetes, peripheral arterial disease, and stroke who presented to the emergency department from home for evaluation of abdominal pain, nausea, and vomiting. Patient provides the following history. For the last 10 to 14 days she has had intermittent episodes of left lower quadrant discomfort and nausea. Over last 24 hours she has had multiple episodes of emesis and her left lower quadrant abdominal pain has intensified. The pain does not radiate and she has not noticed any significant aggravatin
--- NOTE | 2022-09-07 09:15 | P.PNIM_ITS ---
Progress Note: A&P Assessment and Plan (1) Sigmoid diverticulitis: Code(s): K57.32 - Diverticulitis of large intestine without perforation or abscess without bleeding Status: Acute Assessment and Plan: * complaints of left lower quadrant pain, nausea, vomiting * CT shows mild sigmoid diverticulitis * continue Flagyl and Levaquin * Zofran on board * pain medicines on board * Toradol 15 mg IV for pain * Trend pain (2) Abnormal urinalysis: Code(s): R82.90 - Unspecified abnormal findings in urine Status: Acute Assessment and Plan: * UA did appear infectious * currently on Levaquin * await urine culture * adjust therapy to sensitivities (3) Bladder cancer: Code(s): C67.9 - Malignant neoplasm of bladder, unspecified Status: Acute Assessment and Plan: * stable at this time * continue with outpatient follow-up (4) Hypertension: Code(s): I10 - Essential (primary) hypertension Status: Acute Assessment and Plan: * current blood pressure 145/67 * continue home losartan 100 mg p.o. daily * trend blood pressure * adjust therapy as indicated (5) Type 2 diabetes mellitus: Code(s): E11.9 - Type 2 diabetes mellitus without complications Status: Acute Assessment and Plan: * current glucose 151 * A1c 7.9 * hold metformin for now * insulin sliding scale * Accu-Cheks AC and HS * hypoglycemia protocol * trend glucose and adjust therapy as indicated (6) Gastroesophageal reflux disease: Code(s): K21.9 - Gastro-esophageal reflux disease without esophagitis Status: Acute Assessment and Plan: * continue 40 mg Protonix (7) Tobacco dependence: Code(s): F17.200 - Nicotine dependence, unspecified, uncomplicated Status: Acute Assessment and Plan: * nicotine patch * smoking cessation education given for 6 minutes (8) Chronic obstructive pulmonary disease: Code(s): J44.9 - Chronic obstructive pulmonary disease, unspecified Status: Acute Assessment and Plan: * no evidence of exacerbation * continue albuterol, Symbicort * on room air * stable Plan Chest pain Trops negative EKG stable Most likely from cough and vomiting. Time Spent With Patient Time: 53 minutes Time with patient: Greater than 35 minutes Subjective Date/time seen: 09/07/22 09:25 Interval history: 09/07/2215 Patient is doing ok today. She stated that she is feeling better. She also stated that she feels hungry, and would like to advance diet. She did state that she is still having some left side pain, which she stated is moving more midline. She did state that she is having some slowness with walking. Will get PT/OT. 09/06/22 1162 patient states that she still having a lot of pain expression left-sided goes down to her leg. She also stated that she has been having some nausea and she did have Zofran which did help. She also stated that she is having some chest pain and felt like an animal sent on her chest. Accompanied with shortness of breath. She denies any other issues including urinary issues, diarrhea
[2022-09-07 10:06] VITALS: PULSE 63; RESP 18; O2SAT 98
[2022-09-07] MEDS: FLUTICASONE/SALMETEROL 115-21 MCG INHALER 1 PUFF 2 PUFF INHALATION ×2 (10:06→20:30)
[2022-09-07] MEDS: ALBUTEROL SULFATE (*SP) AEROSOL 1 PUFF 2 PUFF INHALATION ×2 (10:18→20:30)
[2022-09-07 10:20] VITALS: PULSE 86; RESP 18
[2022-09-07] MEDS: ACETAMINOPHEN 325 MG TABLET 650 MG PO (11:28)
[2022-09-07 11:46] LABS: Glucose Point of Care 239 mg/dl (65-105)
[2022-09-07] MEDS: INSULIN ASPART (*BKC) 100 UNITS/ML SUB-Q (12:18)
[2022-09-07 12:25] LABS: Glucose Point of Care 206 mg/dl (65-105)
--- NOTE | 2022-09-07 14:53 | PCOTNOTE ---
Attempted to see pt. for occupational therapy evaluation. Per nursing, pt. is Independent in room. Spoke with hospitalist, Christopher Ramsey, who agreed to cancel orders for evaluation. Nursing aware.
[2022-09-07 14:54] VITALS: BP 127/61; PULSE 88; RESP 18; TEMP 36.8; O2SAT 99
[2022-09-07 17:18] LABS: Glucose Point of Care 133 mg/dl (65-105)
[2022-09-07 19:45] VITALS: BP 162/84; PULSE 86; RESP 16; TEMP 37; O2SAT 98
[2022-09-07 20:30] VITALS: PULSE 77; O2SAT 97
[2022-09-07] MEDS: MIRTAZAPINE 7.5 MG TABLET PO (21:23)
[2022-09-07 21:55] LABS: Glucose Point of Care 193 mg/dl (65-105)
[2022-09-08] MEDS: metroNIDAZOLE 500 MG/ISO 100ML 500 MG/100 ML BAG 100 MG IVPB (03:03)
[2022-09-08] MEDS: ACETAMINOPHEN 325 MG TABLET 650 MG PO (03:10)
[2022-09-08 04:59] VITALS: BP 144/79; PULSE 65; RESP 18; TEMP 36.6; O2SAT 99
[2022-09-08 06:01] LABS: Basophils Percent Auto 0.6 % (0.2-1.2); Eosinophils Absolute Auto 0.2 K/mm3 (0-0.3); Eosinophils Percent Auto 2.7 % (0-4.4); Hematocrit 36.9 % (37.0-47.0); Hemoglobin 12.4 g/dL (12.0-15.0); Immature Granulocyte Absolute 0.03 K/mm3 (0.00-0.031); Immature Granulocyte Percent A 0.4 % (0-0.5); Lymphocytes Absolute Auto 1.48 K/mm3 (0.9-3.2); Mean Corpuscular HGB Conc 33.6 g/dl (32-36); Mean Corpuscular Hemoglobin 28.2 pg (26-34); Mean Corpuscular Volume 83.9 fl (80-100); Mean Platelet Volume 9.6 fl (7.4-10.4); Monocytes Absolute Auto 0.6 K/mm3 (0.1-0.6); Monocytes Percent Auto 9.1 % (2.6-8.5); Neutrophils Absolute Auto 4.7 K/mm3 (1.3-6.7); Neutrophils Percent Auto 66.2 % (45.5-73.1); Platelet Count Result 169 k/mm3 (150-375); White Blood Count 7.1 K/mm3 (4.5-10.0)
[2022-09-08 06:13] LABS: Alanine Aminotransferase 19 U/L (6-35); Albumin Level 3.6 g/dL (3.5-5.1); Alkaline Phosphatase 78 U/L (38-126); Anion Gap 6 mmol/L (8-16); Aspartate Amino Transferase 21 U/L (14-36); Bilirubin,Total 0.5 mg/dL (0.2-1.3); Blood Urea Nitrogen 9 mg/dL (7-17); Calcium 8.2 mg/dL (8.4-10.2); Carbon Dioxide 25 mmol/L (22-30); Chloride 105 mmol/L (98-107); Estimated CRCL calculation 68 ml/min; Estimated Glomerular Filt Rate > 60; Glucose 161 mg/dL (65-110); Magnesium 1.7 mg/dL (1.6-2.3); Potassium 3.3 mmol/L (3.4-5.0); Sodium 136 mmol/L (137-145)
[2022-09-08 08:20] LABS: Glucose Point of Care 160 mg/dl (65-105)
[2022-09-08] MEDS: FLUTICASONE/SALMETEROL 115-21 MCG INHALER 1 PUFF 2 PUFF INHALATION (09:00)
[2022-09-08] MEDS: ALPRAZolam (*CRX) 0.5 MG TABLET PO (09:31)
[2022-09-08] MEDS: CLOPIDOGREL BISULFATE 75 MG TABLET PO (09:31)
[2022-09-08] MEDS: ENOXAPARIN 40 MG/0.4 ML SYRINGE SUB-Q (09:31)
[2022-09-08] MEDS: EZETIMIBE 10 MG TABLET PO (09:32)
[2022-09-08] MEDS: FLUoxetine HCL 20 MG CAPSULE 60 MG PO (09:32)
[2022-09-08] MEDS: NICOTINE (*PBKC) 21 MG PATCH 1 PATCH TRANSDERM (09:32)
[2022-09-08] MEDS: LOSARTAN POTASSIUM 100 MG TABLET PO (09:32)
[2022-09-08] MEDS: MAGNESIUM SULF 4 GM/WATER100ML 4 GM/100 ML BAG IVPB (09:33)
[2022-09-08] MEDS: PANTOPRAZOLE 40 MG TABLET PO (09:33)
--- NOTE | 2022-09-08 11:00 | P.DS_ITS ---
DS: Admitting Diagnosis Discharge Date 09/08/22 1100 Admitting Diagnosis Acute sigmoid diverticulitis DS: Discharge Diagnosis Discharge Diagnosis (1) Sigmoid diverticulitis: Code(s): K57.32 - Diverticulitis of large intestine without perforation or abscess without bleeding Status: Acute Assessment and Plan: * complaints of left lower quadrant pain, nausea, vomiting * CT shows mild sigmoid diverticulitis * continue Flagyl and Levaquin * Zofran on board * pain medicines on board * Toradol 15 mg IV for pain * Trend pain (2) Abnormal urinalysis: Code(s): R82.90 - Unspecified abnormal findings in urine Status: Acute Assessment and Plan: * UA did appear infectious * currently on Levaquin * Urine culture showed contamination * adjust therapy to sensitivities (3) Bladder cancer: Code(s): C67.9 - Malignant neoplasm of bladder, unspecified Status: Acute Assessment and Plan: * stable at this time * continue with outpatient follow-up (4) Hypertension: Code(s): I10 - Essential (primary) hypertension Status: Acute Assessment and Plan: * current blood pressure 144/79 * continue home losartan 100 mg p.o. daily * trend blood pressure * adjust therapy as indicated (5) Type 2 diabetes mellitus: Code(s): E11.9 - Type 2 diabetes mellitus without complications Status: Acute Assessment and Plan: * current glucose 161 * A1c 7.9 * hold metformin for now * insulin sliding scale * Accu-Cheks AC and HS * hypoglycemia protocol * trend glucose and adjust therapy as indicated (6) Gastroesophageal reflux disease: Code(s): K21.9 - Gastro-esophageal reflux disease without esophagitis Status: Acute Assessment and Plan: * continue 40 mg Protonix (7) Tobacco dependence: Code(s): F17.200 - Nicotine dependence, unspecified, uncomplicated Status: Acute Assessment and Plan: * nicotine patch * smoking cessation education given for 6 minutes (8) Chronic obstructive pulmonary disease: Code(s): J44.9 - Chronic obstructive pulmonary disease, unspecified Status: Acute Assessment and Plan: * no evidence of exacerbation * continue albuterol, Symbicort * on room air * stable Plan Chest pain Trops negative EKG stable Most likely from cough and vomiting. DS: Summary Hospital Course Hospital Course: Patient is 62-year-old female with a past medical history diverticulitis, GERD, bladder cancer, COPD, hypertension, hyperlipidemia, diabetes who presented to the ED with complaints of abdominal pain, nausea and vomiting. Patient stated for the last 10-14 days prior to admission she was having intermittent episodes of left lower quadrant pain and nausea. Patient also had multiple episodes of emesis. Upon arrival to the ED CT showed diverticulitis with no abscess or perforation. Patient was given IV fluids and started on IV antibiotics. Pain medications has also been ordered. Toradol was added for further comfort. UA did appear infectious however came back contaminated. Blood pressure has been stable along with her glu
--- NOTE | 2022-09-08 11:00 | PM.DS ---
DS: Admitting Diagnosis Discharge Date 09/08/22 1100 Admitting Diagnosis Acute sigmoid diverticulitis DS: Discharge Diagnosis Discharge Diagnosis (1) Sigmoid diverticulitis: Code(s): K57.32 - Diverticulitis of large intestine without perforation or abscess without bleeding Status: Acute Assessment and Plan: complaints of left lower quadrant pain, nausea, vomiting CT shows mild sigmoid diverticulitis continue Flagyl and Levaquin Zofran on board pain medicines on board Toradol 15 mg IV for pain Trend pain (2) Abnormal urinalysis: Code(s): R82.90 - Unspecified abnormal findings in urine Status: Acute Assessment and Plan: UA did appear infectious currently on Levaquin Urine culture showed contamination adjust therapy to sensitivities (3) Bladder cancer: Code(s): C67.9 - Malignant neoplasm of bladder, unspecified Status: Acute Assessment and Plan: stable at this time continue with outpatient follow-up (4) Hypertension: Code(s): I10 - Essential (primary) hypertension Status: Acute Assessment and Plan: current blood pressure 144/79 continue home losartan 100 mg p.o. daily trend blood pressure adjust therapy as indicated (5) Type 2 diabetes mellitus: Code(s): E11.9 - Type 2 diabetes mellitus without complications Status: Acute Assessment and Plan: current glucose 161 A1c 7.9 hold metformin for now insulin sliding scale Accu-Cheks AC and HS hypoglycemia protocol trend glucose and adjust therapy as indicated (6) Gastroesophageal reflux disease: Code(s): K21.9 - Gastro-esophageal reflux disease without esophagitis Status: Acute Assessment and Plan: continue 40 mg Protonix (7) Tobacco dependence: Code(s): F17.200 - Nicotine dependence, unspecified, uncomplicated Status: Acute Assessment and Plan: nicotine patch smoking cessation education given for 6 minutes (8) Chronic obstructive pulmonary disease: Code(s): J44.9 - Chronic obstructive pulmonary disease, unspecified Status: Acute Assessment and Plan: no evidence of exacerbation continue albuterol, Symbicort on room air stable Plan Chest pain Trops negative EKG stable Most likely from cough and vomiting. DS: Summary Hospital Course Hospital Course: Patient is 62-year-old female with a past medical history diverticulitis, GERD, bladder cancer, COPD, hypertension, hyperlipidemia, diabetes who presented to the ED with complaints of abdominal pain, nausea and vomiting. Patient stated for the last 10-14 days prior to admission she was having intermittent episodes of left lower quadrant pain and nausea. Patient also had multiple episodes of emesis. Upon arrival to the ED CT showed diverticulitis with no abscess or perforation. Patient was given IV fluids and started on IV antibiotics. Pain medications has also been ordered. Toradol was added for further comfort. UA did appear infectious however came back contaminated. Blood pressure has been stable along with her glucose. Patient has been able to tolerate a low-fiber diet. She currently denies any current chest pain, shortness a breath, nausea, vomiting, diarrhea or constipation. Patient still does have some residual pain however patient states tolerable. Patient is stable for discharge per labs vital signs of this time. Status at Discharge Functional status at discharge: independent ambulation Overall status at discharge: patient is progressing back to baseline Time Spent with Patient Time attestation: Total time spent providing and/or coordinating discharge services: 52 minutes Time spent: Greater than 30 minutes Specific discharge activities: Diagnostic testing, chart
[2022-09-08 11:59] LABS: Glucose Point of Care 178 mg/dl (65-105)
== END 2022-09-08 12:49 | disposition home or self-care (01) ==
LOC: ANHED 18:28 → ANH2MED 20:39
PROVIDERS: Emergency Medicine; Nurse Practitioner; Physician Assistant; Admitting Provider Internal Medicine; Emergency Provider Emergency Medicine; PCP Nurse Practitioner Family; Visit Provider Chiropractor
DX: K57.32 Diverticulitis of large intestine without perforation or abscess without bleeding (principal); R82.90 Unspecified abnormal findings in urine; C67.9 Malignant neoplasm of bladder, unspecified; I10 Essential (primary) hypertension; E11.9 Type 2 diabetes mellitus without complications; K21.9 Gastro-esophageal reflux disease without esophagitis; J44.9 Chronic obstructive pulmonary disease, unspecified; E78.5 Hyperlipidemia, unspecified; F41.9 Anxiety disorder, unspecified; F31.9 Bipolar disorder, unspecified; I73.9 Peripheral vascular disease, unspecified; R94.31 Abnormal electrocardiogram [ECG] [EKG]; Z95.820 Peripheral vascular angioplasty status with implants and grafts; I25.10 Atherosclerotic heart disease of native coronary artery without angina pectoris; I08.1 Rheumatic disorders of both mitral and tricuspid valves; H35.30 Unspecified macular degeneration; G47.30 Sleep apnea, unspecified; F17.210 Nicotine dependence, cigarettes, uncomplicated; F12.90 Cannabis use, unspecified, uncomplicated; Z85.51 Personal history of malignant neoplasm of bladder; Z86.73 Personal history of transient ischemic attack (TIA), and cerebral infarction without residual deficits; Z98.51 Tubal ligation status; Z79.51 Long term (current) use of inhaled steroids; Z79.02 Long term (current) use of antithrombotics/antiplatelets; Z79.84 Long term (current) use of oral hypoglycemic drugs; Z79.899 Other long term (current) drug therapy
CPT/HCPCS: 36415; 71045; 74177; 80053; 81001; 82948; 83036; 83690; 83735; 84484; 85025; 85027; 87086; 87088; 93005; 93306; 94640; 96361; 96365; 96366; 96367; 96375; 96376; 99285; A9270; G0378; G0379; J0131; J1170; J1650; J1815; J1885; J1956; J2405; J3475; J7030; Q9967

== ENCOUNTER 2022-10-20 14:05 | Emergency (ER) | payer OTHER, SELFPAY ==
[2022-10-20] VITALS (19 sets, daily range): BP systolic 106–139; BP diastolic 61–95; PULSE 75–98; RESP 12–24; TEMP 36.6–37.8; O2SAT 90–100
--- NOTE | ~2022-10-20 | CT_ITS ---
EXAMINATION: CTA chest PE abdomen pel DATE: 10/20/2022 18:18 INDICATION: Dyspnea. Left-sided abdominal pain. TECHNIQUE: Computed tomography (CT) of the chest, abdomen, and pelvis was performed with 100 CC Omnip aque 350 intravenous contrast. Automated exposure control and iterative reconstruction technique were employed. Exam dose: 1543.81 mGy-cm total exam DLP. COMPARISON: September 06, 2022 portal AP chest September 05, 2022 CT abdomen pelvis FINDINGS: CHEST CT: There is no evidence of pulmonary embolism. Atherosclerotic change of the thoracic aorta. No thoracic aortic aneurysm or dissection is detected. Normal heart size. There is coronary artery calcification. No pericardial or pleural effusion. Approximately 7.5 mm opacity in the posteromedial left lung base, left lower lobe, not present on Aug, therefore likely benign. There are a few focal subtle left lower lobe infiltrates.. T here is nonspecific mild prominence of the interlobular septa of the lungs which may be chronic inter stitial changes versus interstitial pneumonitis. ABDOMEN/PELVIS CT: Status post cholecystectomy. There is an area of ill-defined diminished attenuation of liver parenchyma in the lower aspect of the medial segment of the left hepatic lobe, likely focal fatty infiltration. The spleen measures upper limits normal size. There are calcified splenic granulomas. No pancreatic mass lesion, calcification or ductal dilatation. Several small left adrenal calcifications. Small lipoma or adenoma myelolipoma of the right adrenal g land. The kidneys are unremarkable. No urinary tract calculus or hydroureteronephrosis. The urinary bladder is evacuated and not optimally evaluated as result. The uterus and adnexal areas are unremarkable. There is atherosclerotic calcification of the abdominal aorta but no aneurysm. There are bilateral il iac artery stents. No intraperitoneal or retroperitoneal or pelvic mass lesion or adenopathy or ascites. Diverticulosis of the colon. There is some focal pericolic fat stranding and thickening of the adjacent left anterior pararenal an d lateroconal fascia, consistent with mild uncomplicated diverticulitis at the proximal descending co carlos manuel. No bowel obstruction or intraperitoneal free air. No suspicious osteolytic or osteoblastic lesions. IMPRESSION: Minimal left lower lobe infiltrate No evidence of pulmonary embolism Mild uncomplicated proximal descending colon diverticulitis Status post cholecystectomy Borderline splenic size Hepatic steatosis Reviewed, dictated and finalized at [facility]. Reviewed, dictated and finalized at [facility].
--- NOTE | ~2022-10-20 | XR_ITS ---
XR chest 1V DATE: 10/20/2022 18:20 INDICATION: Cough, shortness of breath TECHNIQUE: AP chest COMPARISON: 09/06/2022 portable AP chest FINDINGS: Normal heart size. No hilar or mediastinal enlargement. No pulmonary infiltrate or consolid ation. The costophrenic angle appears slightly blunted. Slight pleural effusions are not excluded. Probable benign chondroid lesion or infarct of proximal left humeral shaft. IMPRESSION: No active cardiopulmonary disease Reviewed, dictated and finalized at [facility].
[2022-10-20 15:01] LABS: Basophils Absolute Auto 0.1 K/mm3 (0.0-0.1); Basophils Percent Auto 0.4 % (0.2-1.2); Eosinophils Absolute Auto 0.3 K/mm3 (0-0.3); Eosinophils Percent Auto 2.8 % (0-4.4); Hematocrit 42.1 % (37.0-47.0); Hemoglobin 14.2 g/dL (12.0-15.0); Immature Granulocyte Absolute 0.03 K/mm3 (0.00-0.031); Immature Granulocyte Percent A 0.3 % (0-0.5); Lymphocytes Absolute Auto 2.58 K/mm3 (0.9-3.2); Lymphocytes Percent Auto 22.9 % (18.3-44.2); Mean Corpuscular HGB Conc 33.7 g/dl (32-36); Mean Corpuscular Hemoglobin 28.7 pg (26-34); Mean Corpuscular Volume 85.2 fl (80-100); Mean Platelet Volume 9.5 fl (7.4-10.4); Monocytes Absolute Auto 1.3 K/mm3 (0.1-0.6); Monocytes Percent Auto 11.4 % (2.6-8.5); Neutrophils Percent Auto 62.2 % (45.5-73.1); Platelet Count Result 241 k/mm3 (150-375); Red Blood Count 4.94 M/mm3 (4.2-5.4); Red Cell Distribution Width 13.6 % (11.5-14.5); White Blood Count 11.3 K/mm3 (4.5-10.0)
[2022-10-20 15:12] LABS: Alanine Aminotransferase 17 U/L (6-35); Albumin Level 4.3 g/dL (3.5-5.1); Alkaline Phosphatase 111 U/L (38-126); Anion Gap 7 mmol/L (8-16); Aspartate Amino Transferase 18 U/L (14-36); Bilirubin,Total 0.7 mg/dL (0.2-1.3); Blood Urea Nitrogen 19 mg/dL (7-17); Carbon Dioxide 27 mmol/L (22-30); Chloride 107 mmol/L (98-107); Estimated Glomerular Filt Rate 50; Glucose 165 mg/dL (65-110); Lipase 81 U/L (23-300); Potassium 3.7 mmol/L (3.4-5.0); Sodium 141 mmol/L (137-145)
[2022-10-20 15:15] LABS: Appearance Urine Cloudy (Clear); Bilirubin Urine 2+ (Negative); Blood Urine 2+ (Negative); Color Urine Yellow (Yellow); Glucose Urine UA Negative (Negative); Ketones Urine 1+ mg/dL (Negative); Leukocyte Esterase Ur 1+ LEU/UL (Negative); Nitrate Urine Negative (Negative); Protein Urine 3+ mg/dL (Negative); Specific Grav Ur >= 1.030 (1.001-1.035); pH Urine 5.5 (5.0-9.0)
[2022-10-20 15:20] LABS: Add Urine Microscopic? YES
[2022-10-20 15:21] LABS: Bacteria Urine Trace /hpf; Mucus Urine Present /lpf; Squamous Epithelial Cell Urine Few /hpf (Few)
--- NOTE | 2022-10-20 17:50 | ECG_ITS ---
Measurements Intervals [place] Rate: 78 P: 64 WV: 128 QRS: 23 QRSD: 89 T: 12 QT: 387 QTc: 442 Interpretive Statements SINUS RHYTHM WITH SINUS ARRHYTHMIA WITHIN NORMAL LIMITS COMPARED TO ECG 09/06/2022 12:14:17 SINUS ARRHYTHMIA NOW PRESENT Electronically Signed On 10-21-2022 7:47:47 CDT by Nilay Mancuso M.D.
--- NOTE | 2022-10-20 18:01 | ED.ABDPAIN ---
HPI - Abdominal Pain General Chief Complaint: Abdominal Pain Stated Complaint: abd pain Time Seen by Provider: 10/20/22 17:30 History of Present Illness HPI narrative: 62-year-old female with a history of bladder cancer, hypertension, PAD, type 2 diabetes, COPD, chronic ear issues diverticulitis reports for left lower quadrant pain for 5 days and nausea since she had her bladder scraped by Dr. Ramirez at [facility] urology on 09/19. Reports taking Zofran yesterday for nausea. Pt was hospitalized for diverticulitis on 09/05/2022, states today's pain feels like her pain which had diverticulitis last time. Patient also reporting shortness of breath that is unchanged from baseline and a cough that developed the past 3 days, and bilateral ear pain for 4 days. 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 Last apt with ENT was ~4 months ago per patient. Denies using nebulizer treatments at home for COPD. Patient denies fever, chills, chest pain, back pain, new urinary complaints or hematuria. States she always feels a constant pressure in her bladder since she was diagnosed with bladder cancer and had a stent placed. Patient denies history of CHF, lower extremity edema. Chart review reveals last echo on 09/07/22 with LV EF of 72%. Reports she has not been eating much this past month due to loss of appetite and nausea. Related Data Home Medications Medication Instructions Recorded Confirmed alprazolam 1 mg tablet 0.5 mg PO TID 05/14/20 09/06/22 budesonide-formoterol HFA 160 2 puff inhalation BID 05/14/20 09/05/22 mcg-4.5 mcg/actuation aerosol inhaler (Symbicort) cromolyn 4 % eye drops 1 drp EACH EYE TID 05/14/20 09/05/22 ergocalciferol (vitamin D2) 1,250 1,250 mcg PO WEEKLY 05/14/20 09/05/22 mcg (50,000 unit) capsule ezetimibe 10 mg tablet 10 mg PO DAILY 05/14/20 09/05/22 losartan 100 mg tablet 100 mg PO DAILY 05/14/20 09/05/22 nitroglycerin 0.4 mg sublingual 0.4 mg sublingual Q5M PRN Chest 07/27/20 09/05/22 tablet Pain clopidogrel 75 mg tablet 75 mg PO DAILY 01/19/21 09/05/22 evolocumab 140 mg/mL subcutaneous 140 mg subcut DIRECTED 01/19/21 09/05/22 pen injector (Sheng Ceballos) fluoxetine 60 mg tablet 60 mg PO DAILY 11/19/21 09/05/22 albuterol sulfate 2.5 mg/0.5 mL 2.5 mg inhalation Q4H PRN 02/24/22 09/05/22 solution for nebulization shortness of breath or wheezing albuterol sulfate 90 mcg/actuation 2 puff inhalation Q4H PRN 02/24/22 09/05/22 aerosol inhaler Shortness Of Breath Or Wheezing cetirizine 10 mg tablet 10 mg PO DAILY PRN Allergy Symptoms 02/24/22 09/05/22 metformin 500 mg tablet 500 mg PO BID 02/24/22 09/05/22 mirtazapine 7.5 mg tablet 7.5 mg PO QHS PRN Insomnia 02/24/22 09/05/22 nicotine 21 mg/24 hr daily 1 patch transdermal DAILY 02/24/22 09/05/22 transdermal patch pantoprazole 40 mg tablet,delayed 40 mg PO DAILY 02/24/22 09/05/22 release polyethylene glycol 3350 17 225 g PO DAILY 02/24/22 09/05/22 gram/dose oral powder Allergies Allergy/AdvReac Type Severity Reaction Status Date / Time haloperidol Allergy Unknown Other Verified 09/05/22 21:27 Penicillins Allergy Unknown Flushing Verified 09/05/22 21:27 risperidone Allergy Unknown MY MOUTH Verified 09/05/22 21:27 TIGHTENS UP -TD simvastatin Allergy Unknown Other Verified 09/05/22 21:27 amoxicillin Allergy Confusion Verified 09/05/22 21:27 Mvuzput-BUY-BcT Reductase Allergy Other Verified 09/05/22 21:27 Inhibitor codeine AdvReac Unknown NAUSEA AND Verified 09/05/22 21:27 VOMITING triazolam AdvReac Unknown N/V Verified 09/05/22 21:27 Wasp Allergy Unknown WASP Uncoded 03/17/22 15:58 STING- CLOSES MY THROAT Review of Systems Review of Systems: CONSTITUTIONAL: Denies fever, chills EYES: Denies visual changes, redness, or discharge. ENT: Denies rhinorrhea, congestion, sore throat, or otalgia. CARDIOVASCULAR: Denies chest pain, palpitations, or edema. R
[2022-10-20] MEDS: MORPHINE SULFATE (*CRX) 4 MG/ML INJ IV PUSH (18:25)
[2022-10-20] MEDS: SODIUM CHLORIDE 0.9% IV 1,000 ML 999 ML IV CONT (18:25)
[2022-10-20] MEDS: ONDANSETRON INJ 4 MG/2 ML VIAL IV PUSH (18:26)
[2022-10-20] MEDS: methylPREDNISolone SOD SUCC 125 MG VIAL IV PUSH (18:26)
[2022-10-20] MEDS: ALBUTEROL SULFATE NEB 2.5 MG/3 ML INH 5 MG INHALATION (18:30)
[2022-10-20] MEDS: IPRATROPIUM BR 0.02% INH SOLN 0.5 MG/2.5 ML VIAL INHALATION (18:30)
[2022-10-20 19:20] LABS: Lactic Acid Reflex 1.3 mmol/L (0.7-2.0)
[2022-10-20 19:41] LABS: Influenza A QL RT-PCR Negative (Negative); Influenza B QL RT-PCR Negative (Negative); SARS-CoV-2 RNA PCR Negative
[2022-10-20 19:51] LABS: NT Pro B Type Natriuretic Pept 479 pg/mL (19.9-100); Troponin I < 0.012 ng/mL (0.000-0.034)
[2022-10-20] MEDS: HYDROmorphone HCL INJ (*CRX) 1 MG/ML SYR 0.5 MG IV PUSH (20:18)
[2022-10-20] MEDS: AMOXICILLIN/CLAVULANATE K 875-125 MG TAB 1 TABLET PO (22:08)
== END 2022-10-20 23:08 | disposition home or self-care (01) ==
PROVIDERS: Emergency Medicine; Physician Assistant; Emergency Provider Emergency Medicine; PCP Nurse Practitioner Family
DX: K57.32 Diverticulitis of large intestine without perforation or abscess without bleeding (principal); J44.1 Chronic obstructive pulmonary disease with (acute) exacerbation; N39.0 Urinary tract infection, site not specified; K76.0 Fatty (change of) liver, not elsewhere classified; H66.90 Otitis media, unspecified, unspecified ear; E11.51 Type 2 diabetes mellitus with diabetic peripheral angiopathy without gangrene; I73.9 Peripheral vascular disease, unspecified; I10 Essential (primary) hypertension; I25.10 Atherosclerotic heart disease of native coronary artery without angina pectoris; E78.5 Hyperlipidemia, unspecified; G47.33 Obstructive sleep apnea (adult) (pediatric); K21.9 Gastro-esophageal reflux disease without esophagitis; M19.90 Unspecified osteoarthritis, unspecified site; H35.30 Unspecified macular degeneration; F41.9 Anxiety disorder, unspecified; F31.9 Bipolar disorder, unspecified; F17.210 Nicotine dependence, cigarettes, uncomplicated; Z86.73 Personal history of transient ischemic attack (TIA), and cerebral infarction without residual deficits; Z85.51 Personal history of malignant neoplasm of bladder; Z79.84 Long term (current) use of oral hypoglycemic drugs
CPT/HCPCS: 36415; 71045; 71275; 74177; 80053; 81001; 83605; 83690; 83880; 84484; 85025; 87636; 93005; 94640; 96361; 96365; 96375; 99284; A9270; J0131; J1170; J2270; J2405; J2930; J7030; Q9967

== ENCOUNTER 2023-02-11 13:28 | Emergency (ER) | payer OTHER, SELFPAY ==
--- NOTE | ~2023-02-11 | CT_ITS ---
EXAMINATION: CT abdomen pelvis w con DATE: 02/11/2023 15:16 INDICATION: abd pain, n/v; h/o diverticulitis TECHNIQUE: Computed tomography (CT) of the abdomen and pelvis was performed with 100 mL Omnipaque-350 intravenous contrast. Automated exposure control and iterative reconstruction technique were employe d. The dose-length product was 702.50 mGy-cm. COMPARISON: 10/20/2022. FINDINGS: Lower thorax: Minimal bibasilar scarring. Liver: Hepatomegaly. Steatosis. Stable right lobe hypodensities, likely hemangiomas. Biliary/Gallbladder: Gallbladder is absent. No bile duct dilation. Pancreas: No mass or duct dilation. Spleen: Granulomatous calcifications. Adrenals: Right adrenal myelolipoma. Left adrenal calcifications. Kidneys: No mass, stone, or hydronephrosis. GI tract: Mild distal esophageal and gastric wall edema. No small or large bowel dilation. Normal gary endix. Mild diverticulosis without diverticulitis. Mesentery/Peritoneum: No ascites, mass, or free air. Retroperitoneum: No mass. Atherosclerotic abdominal aortic and/or arterial calcifications. Bilateral common iliac stents. Pelvis: Pelvic organs are within normal limits. Soft Tissues: Soft tissues and body wall unremarkable. Bones: No acute osseous finding. IMPRESSION: Mild esophagitis/gastritis. Otherwise, acute abdominopelvic process detected. Reviewed, dictated and finalized at location K.
--- NOTE | ~2023-02-11 | XR_ITS ---
EXAMINATION: XR chest 1V portable Exam Date/Time: 02/11/2023 14:55 CDT HISTORY: Left sided chest pain, nausea x a few days. Comparison: 10/20/2022. RESULT: Lines, tubes, and devices: None. Lungs and pleura: Linear scar/atelectasis in the right lower lung. Peripheral, left midlung granulom a. Cardiomediastinal silhouette: Stable. Other: No acute osseous or upper abdominal finding. IMPRESSION: No acute cardiopulmonary process. Reviewed, dictated and finalized at location K.
[2023-02-11 13:38] VITALS: BP 110/78; PULSE 116; RESP 16; TEMP 36.4; O2SAT 100
[2023-02-11 14:32] LABS: Basophils Absolute Auto 0.1 K/mm3 (0.0-0.1); Basophils Percent Auto 0.4 % (0.2-1.2); Eosinophils Absolute Auto 0.2 K/mm3 (0-0.3); Eosinophils Percent Auto 1.6 % (0-4.4); Hematocrit 45.7 % (37.0-47.0); Hemoglobin 15.6 g/dL (12.0-15.0); Immature Granulocyte Absolute 0.05 K/mm3 (0.00-0.031); Immature Granulocyte Percent A 0.4 % (0-0.5); Lymphocytes Absolute Auto 2.35 K/mm3 (0.9-3.2); Lymphocytes Percent Auto 19.1 % (18.3-44.2); Mean Corpuscular HGB Conc 34.1 g/dl (32-36); Mean Corpuscular Hemoglobin 28.3 pg (26-34); Mean Corpuscular Volume 82.8 fl (80-100); Mean Platelet Volume 9.3 fl (7.4-10.4); Monocytes Absolute Auto 1.1 K/mm3 (0.1-0.6); Monocytes Percent Auto 8.5 % (2.6-8.5); Neutrophils Absolute Auto 8.6 K/mm3 (1.3-6.7); Platelet Count Result 291 k/mm3 (150-375); Red Blood Count 5.52 M/mm3 (4.2-5.4); White Blood Count 12.3 K/mm3 (4.5-10.0)
--- NOTE | 2023-02-11 14:36 | ECG_ITS ---
Measurements Intervals [place] Rate: 76 P: 42 NE: 122 QRS: 33 QRSD: 93 T: 36 QT: 403 QTc: 455 Interpretive Statements SINUS RHYTHM WITH SINUS ARRHYTHMIA MINIMAL Q WAVES- HIGH LATERAL LEADS BASELINE ARTIFACT- I, III, AVL BORDERLINE ECG COMPARED TO ECG 10/20/2022 18:35:27 NO SIGNIFICANT CHANGES Electronically Signed On 02-11-2023 17:32:57 CDT by Sonido Henry D.O.
[2023-02-11 14:41] LABS: Alanine Aminotransferase 43 U/L (6-35); Albumin Level 4.6 g/dL (3.5-5.1); Alkaline Phosphatase 125 U/L (38-126); Anion Gap 9 mmol/L (8-16); Aspartate Amino Transferase 29 U/L (14-36); Bilirubin,Total 0.8 mg/dL (0.2-1.3); Blood Urea Nitrogen 23 mg/dL (7-17); Calcium 8.8 mg/dL (8.4-10.2); Carbon Dioxide 26 mmol/L (22-30); Chloride 98 mmol/L (98-107); Estimated CRCL calculation 71 ml/min; Estimated Glomerular Filt Rate > 60; Glucose 153 mg/dL (65-110); Lipase 103 U/L (23-300); Sodium 133 mmol/L (137-145)
[2023-02-11 14:49] VITALS: BP 108/76; PULSE 93; RESP 16; O2SAT 99
[2023-02-11] MEDS: LACTATED RINGERS 1,000 ML 999 ML IV CONT (14:58)
[2023-02-11] MEDS: MORPHINE SULFATE (*CRX) 4 MG/ML INJ IV PUSH (14:58)
[2023-02-11] MEDS: METOCLOPRAMIDE HCL INJ 10 MG/2 ML VIAL IV PUSH (14:59)
[2023-02-11] MEDS: diphenhydrAMINE HCl INJ 50 MG/ML VIAL 25 MG IV PUSH (14:59)
[2023-02-11 15:26] LABS: Appearance Urine Clear (Clear); Bacteria Urine None Seen /hpf; Bilirubin Urine Negative (Negative); Blood Urine 1+ (Negative); Color Urine Yellow (Yellow); Glucose Urine UA 1+ mg/dL (Negative); Ketones Urine Negative (Negative); Leukocyte Esterase Ur Negative LEU/UL (Negative); Nitrate Urine Negative (Negative); Non Pathogenic Casts 0-2; Protein Urine 2+ mg/dL (Negative); Squamous Epithelial Cell Urine Few /hpf (Few)
[2023-02-11 15:29] LABS: Add Urine Microscopic? YES
--- NOTE | 2023-02-11 15:58 | ED.NAVMDI ---
HPI - Nausea/Vomiting/Diarrhea General Chief complaint: Nausea/Vomiting/Diarrhea Stated complaint: n/v Time Seen by Provider: 02/11/23 14:36 History of Present Illness HPI Narrative: 62-year-old female presenting with nausea, vomiting, diarrhea, she also has some vague epigastric abdominal discomfort, she has been having trouble keeping anything down but she was able to keep some Pedialyte down earlier today. She has a history of diverticulitis and was worried about this however she states that she does not have anywhere near the amount of pain she has with diverticulitis Related Data Home Medications Medication Instructions Recorded Confirmed alprazolam 1 mg tablet 0.5 mg PO TID 05/14/20 09/06/22 budesonide-formoterol HFA 160 2 puff inhalation BID 05/14/20 09/05/22 mcg-4.5 mcg/actuation aerosol inhaler (Symbicort) cromolyn 4 % eye drops 1 drp EACH EYE TID 05/14/20 09/05/22 ergocalciferol (vitamin D2) 1,250 1,250 mcg PO WEEKLY 05/14/20 09/05/22 mcg (50,000 unit) capsule ezetimibe 10 mg tablet 10 mg PO DAILY 05/14/20 09/05/22 losartan 100 mg tablet 100 mg PO DAILY 05/14/20 09/05/22 nitroglycerin 0.4 mg sublingual 0.4 mg sublingual Q5M PRN Chest 07/27/20 09/05/22 tablet Pain clopidogrel 75 mg tablet 75 mg PO DAILY 01/19/21 09/05/22 evolocumab 140 mg/mL subcutaneous 140 mg subcut DIRECTED 01/19/21 09/05/22 pen injector (Sheng Ceballos) fluoxetine 60 mg tablet 60 mg PO DAILY 11/19/21 09/05/22 albuterol sulfate 2.5 mg/0.5 mL 2.5 mg inhalation Q4H PRN 02/24/22 09/05/22 solution for nebulization shortness of breath or wheezing albuterol sulfate 90 mcg/actuation 2 puff inhalation Q4H PRN 02/24/22 09/05/22 aerosol inhaler Shortness Of Breath Or Wheezing cetirizine 10 mg tablet 10 mg PO DAILY PRN Allergy Symptoms 02/24/22 09/05/22 metformin 500 mg tablet 500 mg PO BID 02/24/22 09/05/22 mirtazapine 7.5 mg tablet 7.5 mg PO QHS PRN Insomnia 02/24/22 09/05/22 nicotine 21 mg/24 hr daily 1 patch transdermal DAILY 02/24/22 09/05/22 transdermal patch pantoprazole 40 mg tablet,delayed 40 mg PO DAILY 02/24/22 09/05/22 release polyethylene glycol 3350 17 225 g PO DAILY 02/24/22 09/05/22 gram/dose oral powder Allergies Allergy/AdvReac Type Severity Reaction Status Date / Time haloperidol Allergy Unknown Other Verified 02/11/23 14:52 risperidone Allergy Unknown MY MOUTH Verified 02/11/23 14:52 TIGHTENS UP -TD simvastatin Allergy Unknown Other Verified 02/11/23 14:52 [id number] Reductase Allergy Other Verified 02/11/23 14:52 Inhibitor codeine AdvReac Unknown NAUSEA AND Verified 02/11/23 14:52 VOMITING triazolam AdvReac Unknown N/V Verified 02/11/23 14:52 Wasp Allergy Unknown WASP Uncoded 02/11/23 14:52 STING- CLOSES MY THROAT Review of Systems Review of Systems: CONST: No fever. HEENT: No sore throat C/V: No chest pain RESP: No cough GI: Reports abdominal pain, nausea, vomiting : No dysuria. M/S: Some left shoulder pain SKIN: No rash. NEURO: [No headache or focal numbness or weakness] PSYCH: [No depression] [facility] Past Medical History Medical History Anxiety Bipolar disorder Bladder cancer Cerebrovascular accident Chronic obstructive pulmonary disease Coronary artery disease Gastroesophageal reflux disease Hyperlipidemia Hypertension Macular degeneration Obstructive sleep apnea Osteoarthritis Peripheral arterial disease Tobacco dependence Type 2 diabetes mellitus Surgical History Surgical History History of cardiac catheterization History of carpal tunnel release History of section History of cholecystectomy History of colonoscopy History of esophagogastroduodenoscopy (EGD) History of left-sided carotid endarterectomy History of transurethral resection of bladder tumor (TURBT) History of vascular surgery Bilateral iliac s
[2023-02-11 16:09] LABS: Troponin I < 0.012 ng/mL (0.000-0.034)
[2023-02-11] MEDS: PANTOPRAZOLE SODIUM IV 40 MG VIAL IV PUSH (16:40)
--- NOTE | 2023-02-11 17:25 | PC.NURSE ---
Tolerated crackers and clear soda without vomiting.
== END 2023-02-11 17:27 | disposition home or self-care (01) ==
PROVIDERS: Emergency Provider Emergency Medicine; PCP Nurse Practitioner Family
DX: E86.0 Dehydration (principal); R11.2 Nausea with vomiting, unspecified; R10.13 Epigastric pain; J44.9 Chronic obstructive pulmonary disease, unspecified; I25.10 Atherosclerotic heart disease of native coronary artery without angina pectoris; E78.5 Hyperlipidemia, unspecified; E11.51 Type 2 diabetes mellitus with diabetic peripheral angiopathy without gangrene; I73.9 Peripheral vascular disease, unspecified; H35.30 Unspecified macular degeneration; G47.33 Obstructive sleep apnea (adult) (pediatric); M19.90 Unspecified osteoarthritis, unspecified site; K21.9 Gastro-esophageal reflux disease without esophagitis; F41.9 Anxiety disorder, unspecified; F31.9 Bipolar disorder, unspecified; F17.210 Nicotine dependence, cigarettes, uncomplicated; Z85.51 Personal history of malignant neoplasm of bladder; Z86.73 Personal history of transient ischemic attack (TIA), and cerebral infarction without residual deficits; Z90.49 Acquired absence of other specified parts of digestive tract; Z79.84 Long term (current) use of oral hypoglycemic drugs; R94.31 Abnormal electrocardiogram [ECG] [EKG]; K20.90 Esophagitis, unspecified without bleeding; K29.70 Gastritis, unspecified, without bleeding
CPT/HCPCS: 36415; 71045; 74177; 80053; 81001; 83690; 84484; 85025; 87077; 87086; 87186; 93005; 96361; 96374; 96375; 99284; C9113; J1200; J2270; J2765; J7120; Q9967

== ENCOUNTER 2023-03-30 11:43 | Emergency (ER) | payer OTHER, SELFPAY ==
--- NOTE | 2023-03-30 11:47 | ED.URI ---
HPI - URI/Sore Throat General Chief Complaint: Upper Respiratory Infection Stated Complaint: hard time breathing Time Seen by Provider: 03/30/23 11:47 Source: patient Mode of arrival: ambulatory Limitations: no limitations History of Present Illness HPI Narrative: Patient is a 62-year-old female who presents with 10 days of congestion, cough and ear pain. Patient denies any fever, chills, nausea, vomiting, diarrhea. Patient states she has tried everything [id number] with no relief. Patient states she was given amoxicillin 03/06 for sinus infection. Patient states last time she had similar symptoms she required steroids. Patient also reports she is out of her inhaler. Did not test for COVID at home. Related Data Home Medications Medication Instructions Recorded Confirmed alprazolam 1 mg tablet 0.5 mg PO TID 05/14/20 03/30/23 budesonide-formoterol HFA 160 2 puff inhalation BID 05/14/20 03/30/23 mcg-4.5 mcg/actuation aerosol inhaler (Symbicort) cromolyn 4 % eye drops 1 drp EACH EYE TID 05/14/20 03/30/23 ergocalciferol (vitamin D2) 1,250 1,250 mcg PO WEEKLY 05/14/20 03/30/23 mcg (50,000 unit) capsule ezetimibe 10 mg tablet 10 mg PO DAILY 05/14/20 03/30/23 losartan 100 mg tablet 100 mg PO DAILY 05/14/20 03/30/23 nitroglycerin 0.4 mg sublingual 0.4 mg sublingual Q5M PRN Chest 07/27/20 03/30/23 tablet Pain clopidogrel 75 mg tablet 75 mg PO DAILY 01/19/21 03/30/23 evolocumab 140 mg/mL subcutaneous 140 mg subcut DIRECTED 01/19/21 03/30/23 pen injector (Sheng Ceballos) fluoxetine 60 mg tablet 60 mg PO DAILY 11/19/21 03/30/23 albuterol sulfate 2.5 mg/0.5 mL 2.5 mg inhalation Q4H PRN 02/24/22 03/30/23 solution for nebulization shortness of breath or wheezing albuterol sulfate 90 mcg/actuation 2 puff inhalation Q4H PRN 02/24/22 09/05/22 aerosol inhaler Shortness Of Breath Or Wheezing cetirizine 10 mg tablet 10 mg PO DAILY PRN Allergy Symptoms 02/24/22 03/30/23 metformin 500 mg tablet 500 mg PO BID 02/24/22 03/30/23 nicotine 21 mg/24 hr daily 1 patch transdermal DAILY 02/24/22 09/05/22 transdermal patch Allergies Allergy/AdvReac Type Severity Reaction Status Date / Time haloperidol Allergy Unknown Other Verified 03/30/23 11:59 risperidone Allergy Unknown MY MOUTH Verified 03/30/23 11:59 TIGHTENS UP -TD simvastatin Allergy Unknown Other Verified 03/30/23 11:59 [id number] Reductase Allergy Other Verified 03/30/23 11:59 Inhibitor codeine AdvReac Unknown NAUSEA AND Verified 03/30/23 11:59 VOMITING triazolam AdvReac Unknown N/V Verified 03/30/23 11:59 Wasp Allergy Unknown WASP Uncoded 03/30/23 11:59 STING- CLOSES MY THROAT Review of Systems Review of Systems: All systems reviewed & are unremarkable except as noted in HPI and below Constitutional: Constitutional: Denies body ache(s), Denies chills, Denies fatigue, Denies fever(s), Denies headache(s), Denies malaise and Denies weakness Eyes: Eyes: Denies blurry vision, Denies itchy eyes and Denies loss of vision ENT: Reports otalgia, Denies headache(s), Reports nasal congestion, Denies sinus pain and Denies sore throat Cardiovascular: Cardiovascular: Denies chest pain, Denies irregular heart rhythm and Denies dyspnea Respiratory: Respiratory: Reports cough and Denies dyspnea Gastrointestinal: Gastrointestinal: Denies abdominal pain, Denies diarrhea, Denies nausea and Denies vomiting Musculoskeletal: Musculoskeletal: Denies back pain, Denies myalgias and Denies arthralgias Integumentary/Breasts: Skin/Breast: Denies pruritus and Denies rash Neurologic: Denies headache(s), Denies loss of vision and Denies weakness Psychiatric: Psychiatric: Reports no additional psychiatric complaints Endocrine: Endocrine: Denies fatigue Allergic/Immunologic: Allergic/Immunologic: Denies itchy eyes PMFSH Past Medical History Medical History Anxiety Bipolar disorder
[2023-03-30 11:53] VITALS: BP 110/83; PULSE 97; RESP 20; TEMP 36.2; O2SAT 96
[2023-03-30 12:02] VITALS: BP 110/83; PULSE 97; RESP 20; TEMP 36.2; O2SAT 96
== END 2023-03-30 12:21 | disposition home or self-care (01) ==
PROVIDERS: Emergency Provider Nurse Practitioner Family; PCP Nurse Practitioner Family
DX: J32.9 Chronic sinusitis, unspecified (principal); J40 Bronchitis, not specified as acute or chronic; F17.210 Nicotine dependence, cigarettes, uncomplicated; F12.90 Cannabis use, unspecified, uncomplicated; J44.9 Chronic obstructive pulmonary disease, unspecified; I25.10 Atherosclerotic heart disease of native coronary artery without angina pectoris; K21.9 Gastro-esophageal reflux disease without esophagitis; E78.5 Hyperlipidemia, unspecified; I10 Essential (primary) hypertension; H35.30 Unspecified macular degeneration; M19.90 Unspecified osteoarthritis, unspecified site; E11.9 Type 2 diabetes mellitus without complications; F41.9 Anxiety disorder, unspecified; Z79.84 Long term (current) use of oral hypoglycemic drugs; Z86.73 Personal history of transient ischemic attack (TIA), and cerebral infarction without residual deficits; I73.9 Peripheral vascular disease, unspecified
CPT/HCPCS: 99213; G0463

== ENCOUNTER 2023-04-08 02:30 | Inpatient (IN) | payer OTHER, SELFPAY ==
[2023-04-08] VITALS (45 sets, daily range): BP systolic 105–149; BP diastolic 59–103; PULSE 69–157; RESP 10–33; TEMP 35.7–37.2; O2SAT 92–99; BMI 30.1
--- NOTE | ~2023-04-08 | XR_ITS ---
EXAMINATION: XR chest 2V 04/08/2023 03:09 INDICATION: Shortness of breath. Nausea. Left-sided chest pain. PROCEDURE: 2 view chest COMPARISON: Comparison to multiple prior studies sequentially, with oldest reviewed study dated 07/2021. FINDINGS: The lungs are clear. The cardiomediastinal silhouette is within normal limits. There are no pleural effusions. There is no pneumothorax suspected. There is a calcified granuloma left mid t horax. IMPRESSION: 1: NO ACUTE CARDIOPULMONARY DISEASE. Reviewed, dictated and finalized at location A.
--- NOTE | ~2023-04-08 | CT_ITS ---
EXAMINATION: CT abdomen pelvis w con DATE: 04/08/2023 04:37 INDICATION: Left lower quadrant pain TECHNIQUE: Computed tomography (CT) of the abdomen and pelvis was performed with 100 cc Omnipaque 350 intravenous contrast. The dose-length product was 910.76 mGy-cm. Automated exposure control and iter ative reconstruction technique were employed. COMPARISON: CT dated 02/11/2023. FINDINGS: Lung bases are unremarkable. Heart size normal. No significant pleural or pericardial effus ion. Status post cholecystectomy. There are calcified granulomas of the spleen. Status post cholecyst ectomy with expected prominence of the common bile duct. There is atherosclerosis of the aorta withou t evidence for aneurysm. There is an endovascular stent of the distal abdominal aorta extending into the iliac arteries. No free air or free fluid. Nonobstructive bowel pattern. Colonic diverticulosis w ithout evidence for diverticulitis. There is mild lower thoracic and lumbar spondylosis. No acute oss eous abnormality. No abnormal pelvic masses or fluid collections. No lymphadenopathy. Mild prominence of the distal aspect of the left ureter with urothelial enhancement. Cannot exclude ascending urinar y tract infection. Fatty infiltration of the liver. Calcified granulomas of the spleen. The pancreas, and kidneys are unremarkable. There is bilateral adrenal calcifications, possibly chronic granulomat ous disease. Nodular thickening of the left adrenal gland unchanged, likely due to adenomatous change . IMPRESSION: 1. Mild prominence of the distal aspect of the left ureter with urothelial enhancement. Cannot exclud e ascending urinary tract infection. Reviewed, dictated and finalized at location A. IMPRESSION: 1. Mild prominence of the distal aspect of the left ureter with urothelial enha ncement. Cannot exclude ascending urinary tract infection.
--- NOTE | ~2023-04-08 | XR_ITS ---
EXAMINATION: XR chest 1V portable 04/09/2023 10:57 INDICATION: Shortness of breath. Loss of voice. PROCEDURE: AP portable chest COMPARISON: 04/08/2023 FINDINGS: The lungs are clear. Calcified granuloma left mid thorax. The cardiomediastinal silhouette is within normal limits. There are no pleural effusions. There is no pneumothorax suspected. IMPRESSION: 1: NO ACUTE CARDIOPULMONARY DISEASE. Reviewed, dictated and finalized at location A.
--- NOTE | 2023-04-08 02:38 | ECG_ITS ---
Measurements Intervals [place] Rate: 145 P: MO: 0 QRS: -17 QRSD: 95 T: 178 QT: 302 QTc: 470 Interpretive Statements ATRIAL FIBRILLATION WITH RAPID VENTRICULAR RESPONSE DELAYED PRECORDIAL R/S TRANSITION BORDERLINE ST-T WAVE ABNORMALITY- ANTERAOLATERAL LEADS BASELINE ARTIFACT- I, AVR, AVL ABNORMAL ECG COMPARED TO ECG 02/11/2023 15:23:46 ATRIAL FIBRILLATION NOW PRESENT Electronically Signed On 04-08-2023 7:42:59 CDT by Sonido Henry D.O.
--- NOTE | 2023-04-08 02:46 | ED.ABDPAIN ---
HPI - Abdominal Pain General Chief Complaint: Abdominal Pain Stated Complaint: cp, nausea/vomiting Time Seen by Provider: 04/08/23 02:46 Source: patient and EMS Limitations: no limitations History of Present Illness HPI narrative: Patient is a 62-year-old female present to the emergency department by EMS with multiple complaints. Patient states she has had 1 week of nasal congestion, shortness of breath, and a mild cough and then approximately 4 days ago she developed nausea and vomiting which she has been experiencing approximate 20 episodes of watery and stomach like contents of emesis daily in addition she then developed diarrhea over the past 2 days which has been watery and has had approximately 10 episodes per day in addition she also developed left lower quadrant abdominal pain over the past approximately 2 days that feels like her history of diverticulitis. Patient has not tried anything for the pain. Patient denies any sick contacts. Patient denies fever. Patient denies chest pain, history of blood clots, unilateral lower extremity swelling, melena, hematochezia, dysuria, hematuria, urinary frequency, urinary urgency, numbness, weakness, sore throat, rash. Patient denies any recent antibiotic use. Patient denies any recent hospitalizations. Patient admits to a history of atrial fibrillation 1 time in the past in August which resolved and she is not in any anticoagulation. Patient midst to a history of stents in her bilateral lower extremities for peripheral arterial disease and she is on Plavix. Patient denies any recent injuries. Patient denies any recent travel. Patient denies anything rapidly getting worse tonight prompting evaluation for other things having gotten better. Related Data Home Medications Medication Instructions Recorded Confirmed alprazolam 1 mg tablet 0.5 mg PO TID 05/14/20 03/30/23 budesonide-formoterol HFA 160 2 puff inhalation BID 05/14/20 03/30/23 mcg-4.5 mcg/actuation aerosol inhaler (Symbicort) cromolyn 4 % eye drops 1 drp EACH EYE TID 05/14/20 03/30/23 ergocalciferol (vitamin D2) 1,250 1,250 mcg PO WEEKLY 05/14/20 03/30/23 mcg (50,000 unit) capsule ezetimibe 10 mg tablet 10 mg PO DAILY 05/14/20 03/30/23 losartan 100 mg tablet 100 mg PO DAILY 05/14/20 03/30/23 nitroglycerin 0.4 mg sublingual 0.4 mg sublingual Q5M PRN Chest 07/27/20 03/30/23 tablet Pain clopidogrel 75 mg tablet 75 mg PO DAILY 01/19/21 03/30/23 evolocumab 140 mg/mL subcutaneous 140 mg subcut DIRECTED 01/19/21 03/30/23 pen injector (Sheng Ceballos) fluoxetine 60 mg tablet 60 mg PO DAILY 11/19/21 03/30/23 albuterol sulfate 2.5 mg/0.5 mL 2.5 mg inhalation Q4H PRN 02/24/22 03/30/23 solution for nebulization shortness of breath or wheezing albuterol sulfate 90 mcg/actuation 2 puff inhalation Q4H PRN 02/24/22 09/05/22 aerosol inhaler Shortness Of Breath Or Wheezing cetirizine 10 mg tablet 10 mg PO DAILY PRN Allergy Symptoms 02/24/22 03/30/23 metformin 500 mg tablet 500 mg PO BID 02/24/22 03/30/23 nicotine 21 mg/24 hr daily 1 patch transdermal DAILY 02/24/22 09/05/22 transdermal patch Allergies Allergy/AdvReac Type Severity Reaction Status Date / Time haloperidol Allergy Unknown Other Verified 04/08/23 02:40 risperidone Allergy Unknown MY MOUTH Verified 04/08/23 02:40 TIGHTENS UP -TD simvastatin Allergy Unknown Other Verified 04/08/23 02:40 Jzkjpmp-JKV-JfG Reductase Allergy Other Verified 04/08/23 02:40 Inhibitor codeine AdvReac Unknown NAUSEA AND Verified 04/08/23 02:40 VOMITING triazolam AdvReac Unknown N/V Verified 04/08/23 02:40 Wasp Allergy Unknown WASP Uncoded 03/30/23 11:59 STING- CLOSES MY THROAT Review of Systems Review of Systems: A 10 system review of systems was completed on the patient and is negative except for what is stated in the HPI. Nursing and ancillary documentation was reviewed. [facility] Past Medical History Medical History (Reviewed 03/30/23
--- NOTE | 2023-04-08 02:46 | PC.NURSE ---
Per EDP Dr. Guillermo pt to continue to recieve bolus of lactated ringers from EMS at a rate of 999mls/ hour. This RN verbal order read back the order with EDP Dr. Guillermo to confirm.
--- NOTE | 2023-04-08 02:51 | ECG_ITS ---
Measurements Intervals [place] Rate: 147 P: DC: 0 QRS: 17 QRSD: 88 T: 218 QT: 263 QTc: 412 Interpretive Statements ATRIAL FIBRILLATION WITH RAPID VENTRICULAR RESPONSE ST-T WAVE ABNORMALITY IN ANTERAOLAT/INF LEADS- CONSIDER ISCHEMIA ABNORMAL ECG COMPARED TO ECG 04/08/2023 02:44:12 ST-T WAVE ABNORMALITY NOW PRESENT Electronically Signed On 04-08-2023 7:42:13 CDT by Sonido Henry D.O.
[2023-04-08] MEDS: ASPIRIN 325 MG TABLET PO (03:17)
[2023-04-08] MEDS: MORPHINE SULFATE (*CRX) 4 MG/ML INJ IV PUSH (03:17)
[2023-04-08] MEDS: ONDANSETRON INJ 4 MG/2 ML VIAL IV PUSH ×2 (03:17→07:06)
[2023-04-08 03:48] LABS: Basophils Absolute Auto 0.1 K/mm3 (0.0-0.1); Basophils Percent Auto 0.5 % (0.2-1.2); Eosinophils Absolute Auto 0.2 K/mm3 (0-0.3); Eosinophils Percent Auto 1.3 % (0-4.4); Hematocrit 49.1 % (37.0-47.0); Hemoglobin 16.7 g/dL (12.0-15.0); Immature Granulocyte Absolute 0.14 K/mm3 (0.00-0.031); Immature Granulocyte Percent A 0.8 % (0-0.5); Lymphocytes Absolute Auto 3.49 K/mm3 (0.9-3.2); Lymphocytes Percent Auto 19.9 % (18.3-44.2); Mean Corpuscular Hemoglobin 28.6 pg (26-34); Mean Corpuscular Volume 84.2 fl (80-100); Mean Platelet Volume 9.4 fl (7.4-10.4); Monocytes Absolute Auto 1.8 K/mm3 (0.1-0.6); Neutrophils Absolute Auto 11.9 K/mm3 (1.3-6.7); Neutrophils Percent Auto 67.5 % (45.5-73.1); Platelet Count Result 301 k/mm3 (150-375); Red Blood Count 5.83 M/mm3 (4.2-5.4); Red Cell Distribution Width 13.5 % (11.5-14.5); White Blood Count 17.6 K/mm3 (4.5-10.0)
[2023-04-08 03:59] LABS: INR 1.1; Prothrombin Time 14.5 Seconds (11.1-14.7)
[2023-04-08 04:00] LABS: Ethanol < 10 mg/dL (<10); Lactic Acid Reflex 2.3 mmol/L (0.7-2.0); Partial Thromboplastin Time 25.1 SECONDS (22.3-36.8)
[2023-04-08 04:02] LABS: Alanine Aminotransferase 44 U/L (6-35); Albumin Level 4.1 g/dL (3.5-5.1); Alkaline Phosphatase 102 U/L (38-126); Anion Gap 13 mmol/L (8-16); Aspartate Amino Transferase 30 U/L (14-36); Bilirubin,Total 1.2 mg/dL (0.2-1.3); Blood Urea Nitrogen 33 mg/dL (7-17); CRP 1.2 mg/dL (<1.0); Calcium 8.9 mg/dL (8.4-10.2); Carbon Dioxide 20 mmol/L (22-30); Chloride 99 mmol/L (98-107); Estimated CRCL calculation 27 ml/min; Estimated Glomerular Filt Rate 42; Glucose 192 mg/dL (65-110); Lipase 146 U/L (23-300); Potassium 3.3 mmol/L (3.4-5.0); Sodium 132 mmol/L (137-145)
[2023-04-08 04:08] LABS: NT Pro B Type Natriuretic Pept 960 pg/mL (19.9-100)
[2023-04-08 04:10] LABS: Troponin I 0.053 ng/mL (0.000-0.034)
[2023-04-08 04:19] LABS: SPREG INTERNAL CONTROL Positive; Serum Qual hCG Negative
[2023-04-08 04:24] LABS: Influenza A QL RT-PCR Negative (Negative); Influenza B QL RT-PCR Negative (Negative); SARS-CoV-2 RNA PCR Negative (Negative)
[2023-04-08 04:45] LABS: D Dimer 0.43 ug/mL (<0.48)
[2023-04-08 04:50] LABS: Appearance Urine Clear (Clear); Bacteria Urine None Seen /hpf; Bilirubin Urine Negative (Negative); Blood Urine Negative (Negative); Color Urine Yellow (Yellow); Glucose Urine UA Negative (Negative); Ketones Urine Negative (Negative); Leukocyte Esterase Ur Negative LEU/UL (Negative); Nitrate Urine Negative (Negative); Non Pathogenic Casts 0-2; Protein Urine Trace mg/dL (Negative); RBC Urine 0-2 /hpf (0-2); Specific Grav Ur 1.024 (1.001-1.035); Squamous Epithelial Cell Urine None seen /hpf (Few); Urobilinogen Urine 0.2 mg/dL (<2.0); WBC Urine 0-5 /hpf
[2023-04-08 04:54] LABS: Add Urine Microscopic? YES
[2023-04-08 05:01] LABS: Amphetamine Screen Urine Negative (Negative); Barbiturate Screen Urine Negative (Negative); Benzodiazepines Screen Urine Positive (Negative); Cannabinoid Screen Urine Positive (Negative); Cocaine Screen Urine Negative (Negative); Methadone Screen Urine Negative (Negative); Opiate Screen Urine Positive (Negative); Phencyclidine Screen Urine Negative (Negative)
[2023-04-08] MEDS: PIPERACILLN/TAZ 3.375GM/NS50ML 3.375 GM/50 ML BAG IVPB ×3 (05:45→17:37)
[2023-04-08] MEDS: dilTIAZem HCl INJ 25 MG/5 ML VIAL 10 MG IV PUSH (05:45)
[2023-04-08] MEDS: dilTIAZem 100 MG/100 ML 100 MG/100 ML BAG IV CONT (06:22)
[2023-04-08 06:45] LABS: Reflex Lactic Acid Yes or No Add Lactic
[2023-04-08 07:21] LABS: Lactic Acid 2.1 mmol/L (0.7-2.0)
[2023-04-08 07:36] LABS: Troponin I 0.043 ng/mL (0.000-0.034)
[2023-04-08] MEDS: LACTATED RINGERS 1,000 ML 125 ML IV CONT ×2 (07:53→17:36)
[2023-04-08] MEDS: ACETAMINOPHEN ELIXIR 325 MG/10.15 ML UDC 650 MG PO (08:11)
[2023-04-08 08:58] LABS: Glucose Point of Care 187 mg/dl (65-105)
[2023-04-08 10:42] LABS: Troponin I 0.041 ng/mL (0.000-0.034)
[2023-04-08] MEDS: MORPHINE SULFATE (*CRX) 2 MG/ML INJ IV PUSH ×2 (10:47→21:35)
--- NOTE | 2023-04-08 12:18 | PM.IMHP ---
H&P: HPI History of Present Illness Date/Time: 04/08/23 12:18 Chief Complaint: sob Narrative: 62-year-old female with history of GERD, hyperlipidemia, hypertension, COPD, heart disease, diabetes among other comorbidities is presenting with 1 week history of cough, shortness of breath, runny nose as well as some abdominal discomfort, diarrhea nausea. Appetite has been decreased. In the ER, she was found to have AFib with RVR. She seemed to improve with diltiazem and eventually converted to normal sinus rhythm. She denies any chest pain, fevers or chills. She denies sick contacts, recent travel. Review of Systems Review of Systems: 12 point review of systems was assessed and was negative except as noted in the HPI PMFSH Past Medical History Medical History Anxiety Bipolar disorder Bladder cancer Cerebrovascular accident Chronic obstructive pulmonary disease Coronary artery disease Gastroesophageal reflux disease Hyperlipidemia Hypertension Macular degeneration Obstructive sleep apnea Osteoarthritis Peripheral arterial disease Tobacco dependence Type 2 diabetes mellitus Surgical History Surgical History History of cardiac catheterization History of carpal tunnel release History of section History of cholecystectomy History of colonoscopy History of esophagogastroduodenoscopy (EGD) History of left-sided carotid endarterectomy History of transurethral resection of bladder tumor (TURBT) History of vascular surgery Bilateral iliac stent. Family History Family History Sibling Diabetes mellitus Family history of malignant neoplasm Social History Social History Social History: Surrogate medical decision maker: Fartun Narayanan (sister) or Christina Goodman (daughter). Code status: Full code. Smoking packs per day: 1 Smoking cigarettes per day: 20.0 Years smoked: 40 Smoking pack-years: 40.00 Smoking status: Former smoker Tobacco type: cigarettes Second hand tobacco smoke exposure: No Additional smoking assessment comments: pt. was smoking 3 packs a day and has cut down to half a pack daily Alcohol intake: never Substance use: current Substance use type: marijuana Lack of Transportation: No Lack of Food: Never True Current Housing: I Have Housing Concerned About Future Housing: No Difficulty Paying Gas/Electric Bills: No Difficulty Paying for Meds: No Currently Unemployed: No Education: High School Diploma/GED Difficulty w/ Childcare or Family Care: No Additional living arrangements comments: Lives alone in [place]. 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 Spiritual care concerns: No Meds Home Medications and Allergies Home Medications Medication Instructions Recorded Confirmed Type alprazolam 1 mg tablet 0.5 mg PO TID 05/14/20 04/08/23 History losartan 100 mg tablet 100 mg PO DAILY 05/14/20 04/08/23 History clopidogrel 75 mg tablet 75 mg PO DAILY 01/19/21 04/08/23 History evolocumab 140 mg/mL subcutaneous 140 mg subcut DIRECTED 01/19/21 04/08/23 History pen injector (Sheng Ceballos) fluoxetine 60 mg tablet 60 mg PO DAILY 11/19/21 04/08/23 History cetirizine 10 mg tablet 10 mg PO DAILY 02/24/22 04/08/23 History albuterol sulfate 90 mcg/actuation 2 puff inhalation QID PRN 03/30/23 04/08/23 Rx aerosol inhaler shortness of breath or wheezing #6.7 grams inhalational spacing device #1 ea 03/30/23 04/08/23 Rx (Aerochamber MV spacer) celecoxib 200 mg capsule 200 mg PO DAILY 04/08/23 04/08/23 History metoprolol succinate 25 mg 25 mg PO DAILY 04/08/23 04/08/23 History tablet,extended release 24 hr trazodone 50 mg tablet 50 mg PO HS PRN Insomnia 04/08/23 04/08/23 History All
[2023-04-08 13:34] LABS: Glucose Point of Care 140 mg/dl (65-105)
[2023-04-08] MEDS: PANTOPRAZOLE 40 MG TABLET PO (16:15)
[2023-04-08 16:32] LABS: Glucose Point of Care 145 mg/dl (65-105)
--- NOTE | 2023-04-08 17:12 | PM.CNCAR ---
Assessment and Plan Assessment and plan (1) Atrial fibrillation with rapid ventricular response: Code(s): I48.91 - Unspecified atrial fibrillation Status: Acute Assessment and Plan: Patient presented with AFib with RVR and a previously documented history of paroxysmal atrial fibrillation. She was not on systemic anticoagulation for unclear reasons. CHADS2 Vasc score 5 placing patient at high risk for recurrent embolic stroke secondary to atrial fibrillation. Systemic anticoagulation strongly advised. Will initiate Eliquis 5 mg twice daily. Monitor for bleeding. Follow H&H. Will down titrate diltiazem infusion and transition to oral metoprolol 50 mg twice daily. Will give dose now and 30 minutes later discontinue diltiazem. Watch for bleeding with concomitant Clopidogrel 75 mg daily. (2) Elevated troponin: Code(s): R77.8 - Other specified abnormalities of plasma proteins Status: Acute Assessment and Plan: Downward trending in setting of acute kidney injury, AFib with RVR, nausea, vomiting, and diarrhea most likely type 2 infarction not secondary to acute coronary syndrome. However, cannot exclude underlying CAD given documented history of peripheral arterial disease and multiple risk factors. Recommend ischemic evaluation once patient is further recovered either prior to discharge or close follow-up as an outpatient for ischemic testing with Lexiscan nuclear stress test. Repeat 2D echocardiogram to assess LV size/function, wall motion abnormalities, valve pathology pulmonary pressures. Recommendation to follow after review. Patient is intolerant to statins. Continue clopidogrel 75 mg daily. It appears patient was previously taking Repatha. (3) Peripheral arterial disease: Code(s): I73.9 - Peripheral vascular disease, unspecified Status: Acute Assessment and Plan: Stable. Continue clopidogrel 75 mg daily. Patient apparently was on Repatha as an outpatient as she is intolerant to statins. Check lipid panel. Follow-up with vascular surgery as outpatient. (4) Acute kidney injury: Code(s): N17.9 - Acute kidney failure, unspecified Status: Acute Assessment and Plan: Appears secondary to intravascular volume depletion in setting of AFib with RVR, possible infection, nausea, vomiting, and diarrhea. IV fluid support. Repeat BMP. (5) Hypokalemia: Code(s): E87.6 - Hypokalemia Status: Acute Assessment and Plan: Replete potassium. Will give 20 mEq p.o. x1. Check in a.m.. (6) Sepsis: Code(s): A41.9 - Sepsis, unspecified organism Status: Acute Assessment and Plan: Continue management per primary service. Antibiotics per Medicine. (7) Hypertension associated with type 2 diabetes mellitus: Code(s): E11.59 - Type 2 diabetes mellitus with other circulatory complications; I15.2 - Hypertension secondary to endocrine disorders Status: Acute Assessment and Plan: Stable. No acute issues at this time. Resume losartan once renal function has improved and BP permits. (8) History of CVA (cerebrovascular accident): Code(s): Z86.73 - Personal history of transient ischemic attack (TIA), and cerebral infarction without residual deficits Status: Acute Assessment and Plan: Patient history remote stroke get with paroxysmal atrial fibrillation she is not currently on anticoagulation placing her at high risk for recurrent stroke. Systemic anticoagulation strongly advised unless contraindicated. Statin therapy advised although she is intolerant. She apparently was on Repatha. (9) Statin myopathy: Code(s): G72.0 - Drug-induced myopathy; T46.6X5A - Adverse effect of antihyperlipidemic and antiarteriosclerotic drugs, initial encounter Status: Acute Assessment and Plan: As above. (10) COPD (chronic obstructive pulmonary disease): Code(s): J44.9 - Chronic obstructive pulmonary disease, u
[2023-04-08] MEDS: PROMETHAZINE HCL 25 MG/ML AMPUL 12.5 MG IV PUSH ×2 (17:37→23:50)
[2023-04-08 20:33] LABS: Glucose Point of Care 126 mg/dl (65-105)
[2023-04-08] MEDS: APIXABAN 5 MG TABLET PO (21:32)
[2023-04-08] MEDS: METOPROLOL TARTRATE 50 MG TAB PO (21:33)
[2023-04-08] MEDS: POTASSIUM CHLORIDE 20 MEQ ER TABLET PO (21:54)
[2023-04-09] VITALS (24 sets, daily range): BP systolic 107–171; BP diastolic 58–89; PULSE 68–101; RESP 18–20; TEMP 35.8–36.6; O2SAT 96–100
[2023-04-09] MEDS: PIPERACILLN/TAZ 3.375GM/NS50ML 3.375 GM/50 ML BAG IVPB ×5 (00:04→23:17)
[2023-04-09] MEDS: LACTATED RINGERS 1,000 ML 125 ML IV CONT ×3 (00:55→18:06)
[2023-04-09] MEDS: ALBUTEROL SULFATE NEB 2.5 MG/3 ML INH INHALATION ×2 (01:01→12:11)
[2023-04-09] MEDS: IPRATROPIUM BR 0.02% INH SOLN 0.5 MG/2.5 ML VIAL INHALATION ×2 (01:02→12:11)
[2023-04-09 05:02] LABS: Basophils Absolute Auto 0.1 K/mm3 (0.0-0.1); Basophils Percent Auto 0.5 % (0.2-1.2); Eosinophils Absolute Auto 0.2 K/mm3 (0-0.3); Eosinophils Percent Auto 1.8 % (0-4.4); Hemoglobin 13.2 g/dL (12.0-15.0); Immature Granulocyte Absolute 0.04 K/mm3 (0.00-0.031); Immature Granulocyte Percent A 0.4 % (0-0.5); Lymphocytes Percent Auto 20.8 % (18.3-44.2); Mean Corpuscular HGB Conc 33.8 g/dl (32-36); Mean Corpuscular Hemoglobin 28.7 pg (26-34); Mean Corpuscular Volume 84.8 fl (80-100); Mean Platelet Volume 9.6 fl (7.4-10.4); Monocytes Absolute Auto 0.9 K/mm3 (0.1-0.6); Monocytes Percent Auto 8.2 % (2.6-8.5); Neutrophils Absolute Auto 7.6 K/mm3 (1.3-6.7); Neutrophils Percent Auto 68.3 % (45.5-73.1); Platelet Count Result 185 k/mm3 (150-375); Red Cell Distribution Width 13.2 % (11.5-14.5); White Blood Count 11.1 K/mm3 (4.5-10.0)
[2023-04-09 05:24] LABS: Alanine Aminotransferase 54 U/L (6-35); Albumin Level 3.5 g/dL (3.5-5.1); Alkaline Phosphatase 97 U/L (38-126); Anion Gap 5 mmol/L (8-16); Aspartate Amino Transferase 37 U/L (14-36); Bilirubin,Total 0.8 mg/dL (0.2-1.3); Blood Urea Nitrogen 16 mg/dL (7-17); Calcium 8.2 mg/dL (8.4-10.2); Carbon Dioxide 25 mmol/L (22-30); Chloride 102 mmol/L (98-107); Estimated CRCL calculation 66 ml/min; Estimated Glomerular Filt Rate > 60; Glucose 144 mg/dL (65-110); Potassium 3.5 mmol/L (3.4-5.0); Sodium 132 mmol/L (137-145)
[2023-04-09 08:17] LABS: Glucose Point of Care 155 mg/dl (65-105)
[2023-04-09] MEDS: PANTOPRAZOLE 40 MG TABLET PO (08:40)
[2023-04-09] MEDS: METOPROLOL TARTRATE 50 MG TAB PO ×2 (08:40→22:14)
[2023-04-09] MEDS: MORPHINE SULFATE (*CRX) 2 MG/ML INJ IV PUSH ×2 (08:40→22:10)
[2023-04-09] MEDS: APIXABAN 5 MG TABLET PO ×2 (08:40→22:14)
[2023-04-09] MEDS: PROMETHAZINE HCL 25 MG/ML AMPUL 12.5 MG IV PUSH ×2 (08:41→22:03)
[2023-04-09 12:22] LABS: Glucose Point of Care 179 mg/dl (65-105)
--- NOTE | 2023-04-09 14:57 | PM.IMPN ---
Progress Note: A&P Assessment and Plan (1) COPD (chronic obstructive pulmonary disease): Code(s): J44.9 - Chronic obstructive pulmonary disease, unspecified Status: Acute Assessment and Plan: Stable, does not appear to be in acute exacerbation Continue home medications, nebs scheduled due to persistent wheezing, patient feels at baseline (2) GERD (gastroesophageal reflux disease): Code(s): K21.9 - Gastro-esophageal reflux disease without esophagitis Status: Acute Assessment and Plan: Protonix daily (3) Atrial fibrillation with rapid ventricular response: Code(s): I48.91 - Unspecified atrial fibrillation Status: Acute Assessment and Plan: Appreciate cardiology consultation, converted on diltiazem drip, now in sinus Started on metoprolol and Eliquis, monitor (4) Obstructive sleep apnea: Code(s): G47.33 - Obstructive sleep apnea (adult) (pediatric) Status: Acute Assessment and Plan: CPAP as needed (5) Type 2 diabetes mellitus: Code(s): E11.9 - Type 2 diabetes mellitus without complications Status: Acute Assessment and Plan: Accu-Cheks, sliding scale insulin, A1c Blood glucose reviewed 04/09 (6) Acute kidney injury: Code(s): N17.9 - Acute kidney failure, unspecified Status: Acute Assessment and Plan: Gentle IV fluid hydration, monitor (7) Hypertension associated with type 2 diabetes mellitus: Code(s): E11.59 - Type 2 diabetes mellitus with other circulatory complications; I15.2 - Hypertension secondary to endocrine disorders Status: Acute Assessment and Plan: Blood pressures reviewed 04/09 Continue home antihypertensives Plan DVT prophylaxis with Eliquis GI prophylaxis not indicated Code status full code Subjective Date/time seen: 04/09/23 14:57 Interval history: No overnight events noted. No chest pain or shortness of breath. No nausea, vomiting or diarrhea. No fevers or chills. Review of Systems Review of Systems: 12 point review of systems was assessed and was negative except as noted in the HPI Exam Narrative: General: No acute distress, alert and oriented per baseline HEENT: Atraumatic, normocephalic, mucous membranes moist CV: RRR, S1, S2, no m Lungs: Scattered wheezes, diminished at bases Abdomen: Soft, nontender, nondistended Extremities: Normal to inspection Skin: No rashes noted, no lesions or wounds seen Psych: Euthymic, normal affect Objective Data Vital Signs Vital Signs: Vital Signs - 24 hr 04/08/23 16:13 04/08/23 16:00 04/08/23 16:00 Temperature 97.8 F Pulse Rate 83 90 Respiratory Rate 20 Blood Pressure 149/77 H Pulse Oximetry 99 99 Oxygen Delivery Nasal Cannula Oxygen Flow Rate 2 04/08/23 19:06 04/08/23 18:00 04/08/23 21:33 Temperature 97.2 F L Pulse Rate 73 78 72 Respiratory Rate 20 Blood Pressure 120/70 Pulse Oximetry 96 Oxygen Delivery Oxygen Flow Rate 04/08/23 23:48 04/08/23 22:00 04/08/23 20:00 Temperature 99.0 F Pulse Rate 69 85 Respiratory Rate 18 Blood Pressure 115/69 Pulse Oximetry 97 96 Oxygen Delivery Room Air Oxygen Flow Rate 04/09/23 00:00 04/09/23 01:04 04/09/23 01:05 Temperature Pulse Rate 68 Respiratory Rate 18 Blood Pressure Pulse Oximetry 97 97 Oxygen Delivery Room Air Room Air Oxygen Flow Rate 04/09/23 00:00 04/09/23 01:18 04/09/23 02:00 Temperature Pulse Rate 68 69 79 Respiratory Rate 18 Blood Pressure Pulse Oximetry Oxygen Delivery Oxygen Flow Rate 04/09/23 04:00 04/09/23 04:00 04/09/23 04:00 Temperature 97.6 F Pulse Rate 83 79 Respiratory Rate 18 Blood Pressure 171/80 H Pulse Oximetry 96 96 Oxygen Delivery Room Air Oxygen Flow Rate 04/09/23 06:00 04/09/23 07:42 04/09/23 08:40 Temperature 96.5 F L Pulse Rate 72 81 74 Respiratory Rate 20
[2023-04-09] MEDS: ACETAMINOPHEN 325 MG TABLET 650 MG PO (15:19)
[2023-04-09] MEDS: ALPRAZolam (*CRX) 0.5 MG TABLET PO (15:19)
[2023-04-09] MEDS: ONDANSETRON INJ 4 MG/2 ML VIAL IV PUSH (15:20)
--- NOTE | 2023-04-09 15:53 | PM.PNCARD ---
Progress Note: A&P Assessment and Plan (1) Atrial fibrillation with rapid ventricular response: Code(s): I48.91 - Unspecified atrial fibrillation Status: Acute Assessment and Plan: Patient presented with AFib with RVR and a previously documented history of paroxysmal atrial fibrillation. She was not on systemic anticoagulation for unclear reasons. CHADS2 Vasc score 5 placing patient at high risk for recurrent embolic stroke secondary to atrial fibrillation. Systemic anticoagulation strongly advised. Continue eliquis 5 mg twice daily. Monitor for bleeding. Follow H&H. Hemoglobin has declined from 16.713.2 but no bleeding clinically. She is likely hemoconcentration initially with delusional effect secondary to IV fluids as opposed to blood loss anemia. Will continue to follow H&H. Continue metoprolol 50 mg twice daily. She was successfully weaned off diltiazem. Continue telemetry. Currently maintaining sinus rhythm. Watch for bleeding with concomitant Clopidogrel 75 mg daily given history of peripheral arterial disease. (2) Elevated troponin: Code(s): R77.8 - Other specified abnormalities of plasma proteins Status: Acute Assessment and Plan: Downward trending in setting of acute kidney injury, AFib with RVR, nausea, vomiting, and diarrhea most likely type 2 infarction not secondary to acute coronary syndrome. However, cannot exclude underlying CAD given documented history of peripheral arterial disease and multiple risk factors. Repeat 2D echocardiogram to assess LV size/function, wall motion abnormalities, valve pathology pulmonary pressures is pending. Recommendation to follow after review. Patient is intolerant to statins. Continue clopidogrel 75 mg daily. It appears patient was previously taking Repatha. Recommend ischemic evaluation once patient is further recovered either prior to discharge or close follow-up as an outpatient for ischemic testing with Lexiscan nuclear stress test. No anginal symptoms. (3) Peripheral arterial disease: Code(s): I73.9 - Peripheral vascular disease, unspecified Status: Acute Assessment and Plan: Stable. Continue clopidogrel 75 mg daily. Patient apparently was on Repatha as an outpatient as she is intolerant to statins. Check lipid panel. Follow-up with vascular surgery as outpatient. (4) Acute kidney injury: Code(s): N17.9 - Acute kidney failure, unspecified Status: Acute Assessment and Plan: Appears secondary to intravascular volume depletion in setting of AFib with RVR, possible infection, nausea, vomiting, and diarrhea. IV fluid support. Repeat BMP. (5) Hypokalemia: Code(s): E87.6 - Hypokalemia Status: Acute Assessment and Plan: Potassium stable 3.5. Continue to monitor closely. Hyponatremia 132 stable. (6) Sepsis: Code(s): A41.9 - Sepsis, unspecified organism Status: Acute Assessment and Plan: Continue management per primary service. Antibiotics per Medicine. Patient continues to complain of diarrhea, shortness of breath, wheezing, cough, nausea vomiting. (7) Hypertension associated with type 2 diabetes mellitus: Code(s): E11.59 - Type 2 diabetes mellitus with other circulatory complications; I15.2 - Hypertension secondary to endocrine disorders Status: Acute Assessment and Plan: Stable. No acute issues at this time. Resume losartan once renal function has improved and BP permits. (8) History of CVA (cerebrovascular accident): Code(s): Z86.73 - Personal history of transient ischemic attack (TIA), and cerebral infarction without residual deficits Status: Acute Assessment and Plan: Patient reports a history remote stroke prior to documented history of paroxysmal atrial fibrillation. Nonetheless, she presented without systemic anticoagulation placing her at high risk for recurrent stroke. Systemic anticoagulation strongly advised unle
[2023-04-09 16:54] LABS: Glucose Point of Care 136 mg/dl (65-105)
[2023-04-09] MEDS: traZODone HCL 50 MG TABLET PO (22:15)
[2023-04-09 22:36] LABS: Glucose Point of Care 160 mg/dl (65-105)
[2023-04-10] VITALS (16 sets, daily range): BP systolic 126–176; BP diastolic 67–89; PULSE 70–91; RESP 16–20; TEMP 35.8–37.2; O2SAT 95–99; BMI 30.9
[2023-04-10] MEDS: LACTATED RINGERS 1,000 ML 125 ML IV CONT ×3 (03:35→17:10)
[2023-04-10] MEDS: ACETAMINOPHEN 325 MG TABLET 650 MG PO ×2 (04:31→08:28)
[2023-04-10 05:09] LABS: Basophils Absolute Auto 0.1 K/mm3 (0.0-0.1); Basophils Percent Auto 0.5 % (0.2-1.2); Eosinophils Absolute Auto 0.2 K/mm3 (0-0.3); Eosinophils Percent Auto 1.9 % (0-4.4); Hematocrit 36.2 % (37.0-47.0); Hemoglobin 12.4 g/dL (12.0-15.0); Immature Granulocyte Absolute 0.04 K/mm3 (0.00-0.031); Immature Granulocyte Percent A 0.4 % (0-0.5); Lymphocytes Absolute Auto 2.07 K/mm3 (0.9-3.2); Lymphocytes Percent Auto 20.3 % (18.3-44.2); Mean Corpuscular HGB Conc 34.3 g/dl (32-36); Mean Corpuscular Hemoglobin 28.4 pg (26-34); Mean Corpuscular Volume 82.8 fl (80-100); Mean Platelet Volume 9.3 fl (7.4-10.4); Monocytes Percent Auto 9.3 % (2.6-8.5); Neutrophils Absolute Auto 6.9 K/mm3 (1.3-6.7); Neutrophils Percent Auto 67.6 % (45.5-73.1); Platelet Count Result 164 k/mm3 (150-375); Red Blood Count 4.37 M/mm3 (4.2-5.4); Red Cell Distribution Width 12.6 % (11.5-14.5); White Blood Count 10.2 K/mm3 (4.5-10.0)
[2023-04-10 05:26] LABS: Alanine Aminotransferase 36 U/L (6-35); Albumin Level 3.5 g/dL (3.5-5.1); Alkaline Phosphatase 91 U/L (38-126); Anion Gap 7 mmol/L (8-16); Aspartate Amino Transferase 20 U/L (14-36); Bilirubin,Total 0.7 mg/dL (0.2-1.3); Blood Urea Nitrogen 7 mg/dL (7-17); Carbon Dioxide 28 mmol/L (22-30); Chloride 96 mmol/L (98-107); Estimated CRCL calculation 76 ml/min; Estimated Glomerular Filt Rate > 60; Glucose 132 mg/dL (65-110); Potassium 2.9 mmol/L (3.4-5.0); Sodium 131 mmol/L (137-145)
[2023-04-10] MEDS: PIPERACILLN/TAZ 3.375GM/NS50ML 3.375 GM/50 ML BAG IVPB ×3 (06:02→17:09)
[2023-04-10 07:34] LABS: Hemoglobin A1C 6.3 % (<5.7)
[2023-04-10] MEDS: METOPROLOL TARTRATE 50 MG TAB PO ×2 (08:19→21:24)
[2023-04-10] MEDS: ALPRAZolam (*CRX) 0.5 MG TABLET PO ×3 (08:20→17:09)
[2023-04-10] MEDS: LORATADINE 10 MG TABLET PO (08:20)
[2023-04-10] MEDS: FLUoxetine HCL 20 MG CAPSULE 60 MG PO (08:20)
[2023-04-10] MEDS: LOSARTAN POTASSIUM 100 MG TABLET PO (08:20)
[2023-04-10] MEDS: PANTOPRAZOLE 40 MG TABLET PO (08:20)
[2023-04-10] MEDS: APIXABAN 5 MG TABLET PO ×2 (08:20→21:24)
[2023-04-10] MEDS: PROMETHAZINE HCL 25 MG/ML AMPUL 12.5 MG IV PUSH (08:20)
[2023-04-10] MEDS: CLOPIDOGREL BISULFATE 75 MG TABLET PO (08:20)
[2023-04-10 09:15] LABS: Glucose Point of Care 151 mg/dl (65-105)
[2023-04-10] MEDS: IPRATROPIUM BR 0.02% INH SOLN 0.5 MG/2.5 ML VIAL INHALATION (09:45)
[2023-04-10] MEDS: ALBUTEROL SULFATE NEB 2.5 MG/3 ML INH INHALATION (09:45)
--- NOTE | 2023-04-10 11:05 | PM.IMPN ---
Progress Note: A&P Assessment and Plan (1) Atrial fibrillation with rapid ventricular response: Code(s): I48.91 - Unspecified atrial fibrillation Status: Acute Assessment and Plan: Appreciate cardiology consultation, converted on diltiazem drip, now in sinus Started on metoprolol and Eliquis, monitor Intolerant of statins, repatha outpatient (2) Acute kidney injury: Code(s): N17.9 - Acute kidney failure, unspecified Status: Acute Assessment and Plan: Resolved (3) COPD (chronic obstructive pulmonary disease): Code(s): J44.9 - Chronic obstructive pulmonary disease, unspecified Status: Acute Assessment and Plan: Stable, does not appear to be in acute exacerbation Continue home medications, nebs scheduled due to persistent wheezing, patient feels at baseline (4) GERD (gastroesophageal reflux disease): Code(s): K21.9 - Gastro-esophageal reflux disease without esophagitis Status: Acute Assessment and Plan: Protonix daily (5) Obstructive sleep apnea: Code(s): G47.33 - Obstructive sleep apnea (adult) (pediatric) Status: Acute Assessment and Plan: CPAP as needed (6) Type 2 diabetes mellitus: Code(s): E11.9 - Type 2 diabetes mellitus without complications Status: Acute Assessment and Plan: Accu-Cheks, sliding scale insulin, A1c 6.3 Blood glucose reviewed 04/10 (7) Hypertension associated with type 2 diabetes mellitus: Code(s): E11.59 - Type 2 diabetes mellitus with other circulatory complications; I15.2 - Hypertension secondary to endocrine disorders Status: Acute Assessment and Plan: Blood pressures reviewed 04/10 Continue home antihypertensives (8) Hypokalemia: Code(s): E87.6 - Hypokalemia Status: Acute Assessment and Plan: Replete and recheck (9) Gastroenteritis: Code(s): K52.9 - Noninfective gastroenteritis and colitis, unspecified Status: Acute Assessment and Plan: Worsening, consult GI, concern for underlying IBD vs infectious colitis? Stool studies, FOBT pending Plan DVT prophylaxis with Eliquis GI prophylaxis not indicated Code status full code Subjective Date/time seen: 04/10/23 11:05 Interval history: 62-year-old female with history of COPD, heart disease, diabetes among other comorbidities is presenting with shortness of breath, chest pain, nausea, vomiting and diarrhea and currently being treated for AFib with RVR as well as suspected acute viral gastroenteritis. No overnight events noted. No chest pain or shortness of breath. No fevers or chills. C/o worsening diarrhea and weakness. Decreased appetite. Review of Systems Review of Systems: 12 point review of systems was assessed and was negative except as noted in the HPI Exam Narrative: General: No acute distress, alert and oriented per baseline HEENT: Atraumatic, normocephalic, mucous membranes moist CV: RRR, S1, S2, no m Lungs: Scattered wheezes, diminished at bases Abdomen: Soft, mildly tender, hyperactive BS Extremities: Normal to inspection Skin: No rashes noted, no lesions or wounds seen Psych: Euthymic, normal affect Objective Data Vital Signs Vital Signs: Vital Signs - 24 hr 04/09/23 12:10 04/09/23 12:10 04/09/23 12:05 Temperature 96.7 F L Pulse Rate 72 73 Respiratory Rate 20 18 Blood Pressure 164/70 H Pulse Oximetry 100 96 Oxygen Delivery Room Air 04/09/23 12:00 04/09/23 12:00 04/09/23 14:00 Temperature Pulse Rate 76 72 Respiratory Rate Blood Pressure Pulse Oximetry Oxygen Delivery Room Air 04/09/23 15:28 04/09/23 16:00 04/09/23 16:00 Temperature 96.9 F L Pulse Rate 78 76 Respiratory Rate 20 Blood Pressure 164/77 H Pulse Oximetry 98 Oxygen Delivery Room Air 04/09/23 18:00 04/09/23 21:35 04/09/23 22:14 Temperature 97.8 F Pulse Rate 92
[2023-04-10 11:58] LABS: Glucose Point of Care 136 mg/dl (65-105)
[2023-04-10] MEDS: ONDANSETRON INJ 4 MG/2 ML VIAL IV PUSH (12:17)
[2023-04-10] MEDS: POTASSIUM CHLORIDE 20 MEQ ER TABLET 80 MEQ PO (12:17)
[2023-04-10] MEDS: POTASSIUM CHLORIDE INJ 40 MEQ in SODIUM CHLORIDE 0.9% IV 500 ML 130 MEQ IVPB (13:31)
[2023-04-10] MEDS: oxyCODONE/ACETAMINOPHEN (*CRX) 5-325 MG TABLET 1 TABLET PO ×2 (13:31→19:27)
--- NOTE | 2023-04-10 15:36 | WPDGICN ---
Assessment and Plan Assessment and plan (1) Diarrhea: Code(s): R19.7 - Diarrhea, unspecified Status: Acute Assessment and Plan: Diarrhea for which I was consulted apparently became noticeable today. I would recommended conservative management initially. She may benefit from Kaopectate. If symptoms persist stool culture should be obtained. She very likely has diarrhea based on some of her medications. (2) Gastroparesis: Code(s): K31.84 - Gastroparesis Status: Acute Assessment and Plan: Patient was previously identified as having gastroparesis as noted in a note from previous senior technical program manager in 2019. She does have diabetes and this quite likely is a factor in her nausea. At that time was given or recur trial of Reglan. Is uncertain if this would be of any benefit. Certainly stopping marijuana use would be of Benefit. Anti-reflux measures are encouraged. (3) N&V (nausea and vomiting): Qualifiers: Vomiting type: unspecified Qualified Code(s): R11.2 - Nausea with vomiting, unspecified Code(s): R11.2 - Nausea with vomiting, unspecified Status: Acute Assessment and Plan: patient reports having had nausea vomiting for more than 5 years. Previously felt have gastroparesis and marijuana associated nausea. Stopping marijuana trial of antacids such as pantoprazole is encouraged. Perhaps an elective follow-up EGD when her cardiac status is more stable may be of benefit. If necessary promotility agent could be used intermittently. I would defer this given her recent cardiac issues in new medications. (4) Type 2 diabetes mellitus: Code(s): E11.9 - Type 2 diabetes mellitus without complications Status: Acute Assessment and Plan: Control of diabetes likely will help her nausea. (5) History of colon polyps: Code(s): Z86.010 - Personal history of colonic polyps Status: Acute Assessment and Plan: Patient apparently had colon polyps in 2019. Would anticipate follow-up colonoscopy in 2023. (6) Atrial fibrillation: Code(s): I48.91 - Unspecified atrial fibrillation Status: Acute Assessment and Plan: New diagnosis of atrial fibrillation currently followed by Cardiology. GI Consult Note Consult date/time: 04/10/23 15:36 Reason for consult: Diarrhea HPI: Cristine Armstrong is a 62 year old female I am asked to see at the request of the hospitalist service because of diarrhea. Patient states that she has had mild loose stools for several days but today was more watery. Denies any bleeding. She denies any specific abdominal pain. Apparently a CT scan of the abdomen was performed found to be unremarkable. No stool cultures are available for review a present. Patient reports her main problem is nausea vomiting that been present for more than 5 years. Patient previously followed by Dr. Abdirahman Newman For diabetic gastroparesis and marijuana associated emesis. Patient apparently went to the emergency room because of a sinus infection that has been present for perhaps 11 days. She had some sinus drainage. In the ER was found to have atrial fibrillation. She was placed on anticoagulation apparently has converted to sinus rhythm. She may also have underlying urinary tract infection is on broad-spectrum antibiotics. Medical records reflect that she has a history of diabetes, GE reflux and COPD. Family history noncontributory. Patient is alert comfortable at rest. She states diarrhea somewhat noticeable today but other days have not been real problem. The emesis she states has been ongoing for many years. Most recent EGD apparently was in 2019. Additionally at year she was found to have benign colon polyps. Review of Systems Review of Systems: Review of systems noncontributory. [facility] Past Medical History Medical History Anxiety Bipolar disord
[2023-04-10 16:49] LABS: Glucose Point of Care 163 mg/dl (65-105)
--- NOTE | 2023-04-10 16:53 | PC.NURSE ---
This patient, Cristine Armstrong, was transferred to [ [id number]] on 04/10/23 at 1630. Personal belongings sent with patient. Report given to [RUBENS Bailey @ [id number] ]. Appropriate documentation sent with patient.
--- NOTE | 2023-04-10 16:55 | PC.NURSE ---
patient to the floor from IMU, received report from Yadria ART. patient in bed, denies pain. fluids running
[2023-04-10] MEDS: METOCLOPRAMIDE HCL INJ 10 MG/2 ML VIAL IV PUSH (17:09)
[2023-04-10] MEDS: SIMETHICONE 125 MG CHEW TAB PO ×2 (17:09→21:24)
[2023-04-10 22:09] LABS: Glucose Point of Care 151 mg/dl (65-105)
[2023-04-11] VITALS (11 sets, daily range): BP systolic 144–179; BP diastolic 80–96; PULSE 72–93; RESP 16–20; TEMP 36.2; O2SAT 97–99
--- NOTE | 2023-04-11 | ECHO_ITS ---
Patient Info Name: Cristine Armstrong Age: 62 years : 1960 Gender: Female Ht: 64 in Wt: 175 lbs BSA: 1.92 m2 HR: 84 bpm BP: 157 / 96 mmHg Heart Rhythm: Sinus Rhythm Technical Quality: Fair Exam Date: 04/11/2023 12:36 PM Exam Location: [facility] Pulmonary Exam Room: [facility] Patient Status: Inpatient Admit Date: 04/08/2023 Staff Ordering Physician: Main Barnes MD Used [employer] Yard Worker: Hillary Shoemaker RDCS Attending Provider: Pablo Ball MD Referring Physician: Cameron AKINS; Exam Type: CA echo doppler color flow Study Info Indications - ELEVATED TROPONINS AFIB RVR Complete two-dimensional, color flow and Doppler transthoracic echocardiogram is performed. Summary 1. Complete two-dimensional, color flow and Doppler transthoracic echocardiogram is performed. 2. Left ventricular chamber dimension is normal. 3. Left ventricular systolic function is normal, estimated at 60-65%. 4. The left ventricular diastolic function is grade I diastolic dysfunction. 5. Right ventricular systolic function is normal. 6. There is mild mitral valve regurgitation. 7. There is mild tricuspid valve regurgitation. Left Ventricle Left ventricular chamber dimension is normal. Left ventricular systolic function is normal, estimated at 60-65%. There is no increased left ventricular wall thickness. The left ventricular diastolic function is grade I diastolic dysfunction. Right Ventricle Right ventricular chamber dimension is normal. Right ventricular systolic function is normal. Left Atria Left atrial chamber dimension is normal. Right Atria Right atrial chamber dimension is normal. Atrial Septum Intact interatrial septum visualized by color flow imaging. Aortic Valve The aortic valve is not well visualized. There is no aortic valve stenosis. There is no aortic valve regurgitation. There is mild aortic valve calcification. Pulmonic Valve The pulmonic valve is not well visualized. Mitral Valve There is mild mitral valve regurgitation. The mitral valve annulus is mildly calcified. Tricuspid Valve There is mild tricuspid valve regurgitation. Pericardium/Pleural The pericardium appears epicardial fat pad. There is trivial pericardial effusion. Inferior Vena Cava Normal inferior vena cava with >50% collapse upon inspiration consistent with normal right atrial pressure, 3 mmHg. Aorta The aortic root size at the sinus of Valsalva is normal. Left Ventricular Outflow Tract Name Value Normal LVOT 2D LVOT Diameter 2.0 cm LVOT Doppler LVOT Peak Gradient 6 mmHg LVOT Mean Gradient 4 mmHg LVOT VTI 25 cm LVOT VTI/AV VTI Ratio 0.7 LVOT Stroke Volume 75 ml LVOT CO 17.0 l/min LVOT CI 8.8 l/min/m2 Pulmonic Valve Name Value Normal RVOT Doppler RVOT
[2023-04-11] MEDS: PIPERACILLN/TAZ 3.375GM/NS50ML 3.375 GM/50 ML BAG IVPB ×5 (00:10→23:53)
[2023-04-11] MEDS: LACTATED RINGERS 1,000 ML 125 ML IV CONT ×3 (00:11→23:57)
[2023-04-11] MEDS: METOCLOPRAMIDE HCL INJ 10 MG/2 ML VIAL IV PUSH ×5 (00:12→23:53)
[2023-04-11] MEDS: ACETAMINOPHEN 325 MG TABLET 650 MG PO (05:39)
[2023-04-11] MEDS: oxyCODONE/ACETAMINOPHEN (*CRX) 5-325 MG TABLET 1 TABLET PO ×3 (06:25→18:46)
[2023-04-11 06:36] LABS: Basophils Absolute Auto 0.1 K/mm3 (0.0-0.1); Basophils Percent Auto 0.6 % (0.2-1.2); Eosinophils Absolute Auto 0.2 K/mm3 (0-0.3); Eosinophils Percent Auto 2.4 % (0-4.4); Hematocrit 40.3 % (37.0-47.0); Hemoglobin 13.7 g/dL (12.0-15.0); Immature Granulocyte Absolute 0.04 K/mm3 (0.00-0.031); Immature Granulocyte Percent A 0.4 % (0-0.5); Lymphocytes Absolute Auto 2.14 K/mm3 (0.9-3.2); Lymphocytes Percent Auto 22.5 % (18.3-44.2); Mean Corpuscular Hemoglobin 28.5 pg (26-34); Mean Platelet Volume 9.7 fl (7.4-10.4); Monocytes Absolute Auto 0.8 K/mm3 (0.1-0.6); Monocytes Percent Auto 8.5 % (2.6-8.5); Neutrophils Absolute Auto 6.2 K/mm3 (1.3-6.7); Neutrophils Percent Auto 65.6 % (45.5-73.1); Platelet Count Result 198 k/mm3 (150-375); Red Cell Distribution Width 12.9 % (11.5-14.5); White Blood Count 9.5 K/mm3 (4.5-10.0)
[2023-04-11 06:45] LABS: Alanine Aminotransferase 30 U/L (6-35); Alkaline Phosphatase 90 U/L (38-126); Anion Gap 8 mmol/L (8-16); Aspartate Amino Transferase 22 U/L (14-36); Bilirubin,Total 0.8 mg/dL (0.2-1.3); Blood Urea Nitrogen 6 mg/dL (7-17); Calcium 8.5 mg/dL (8.4-10.2); Carbon Dioxide 30 mmol/L (22-30); Chloride 95 mmol/L (98-107); Estimated CRCL calculation 76 ml/min; Estimated Glomerular Filt Rate > 60; Glucose 148 mg/dL (65-110); Potassium 3.4 mmol/L (3.4-5.0); Sodium 133 mmol/L (137-145)
--- NOTE | 2023-04-11 08:02 | WPDGIPROGNO ---
Progress Note: A&P Assessment and Plan (1) Diarrhea: Code(s): R19.7 - Diarrhea, unspecified Status: Acute Assessment and Plan: Diarrhea resolved. Plan to advance diet if diarrhea recurs stool cultures may be beneficial. No additional workup anticipated at this time. (2) Gastroparesis: Code(s): K31.84 - Gastroparesis Status: Acute Assessment and Plan: Patient known to have gastroparesis. Guffey to be on the basis of diabetes. Intermittent use of Reglan may be beneficial. Strict control of diabetic glucose encouraged. (3) N&V (nausea and vomiting): Qualifiers: Vomiting type: unspecified Qualified Code(s): R11.2 - Nausea with vomiting, unspecified Code(s): R11.2 - Nausea with vomiting, unspecified Status: Acute Assessment and Plan: Patient with intermittent nausea vomiting. She states her use of marijuana has decreased dramatically. Recommend continuing PPI trial. [place] diet. (4) Type 2 diabetes mellitus: Code(s): E11.9 - Type 2 diabetes mellitus without complications Status: Acute (5) History of colon polyps: Code(s): Z86.010 - Personal history of colonic polyps Status: Acute Assessment and Plan: Patient is recent colonoscopy 2018. Anticipate follow-up colonoscopy 2023. Plan Patient currently improved. Will plan to see only intermittently . Subjective Date/time seen: 04/11/23 08:02 Interval history: Patient alert more comfortable this morning. Patient reports no further diarrhea overnight. She also reports nausea has improved with implementation or Reglan. Feels quite improved this morning. Review of Systems Review of Systems: Review of systems noncontributory. Exam Narrative: Physical exam reveals patient be alert comfortable at rest. Vital signs stable. Lungs are clear. Heart without murmur. Abdomen bowel sounds present soft nontender with no organomegaly. Objective Data Vital Signs Vital Signs: Vital Signs - 24 hr 04/10/23 08:19 04/10/23 09:45 04/10/23 09:45 Temperature Pulse Rate 77 81 81 Respiratory Rate 18 18 Blood Pressure Pulse Oximetry 95 Oxygen Delivery Room Air 04/10/23 09:54 04/10/23 10:00 04/10/23 11:27 Temperature 96.6 F L Pulse Rate 78 70 74 Respiratory Rate 18 18 Blood Pressure 176/87 H Pulse Oximetry 97 Oxygen Delivery 04/10/23 12:00 04/10/23 15:30 04/10/23 16:56 Temperature 97.0 F L Pulse Rate 80 80 Respiratory Rate 20 Blood Pressure 126/84 Pulse Oximetry 97 Oxygen Delivery Room Air 04/10/23 16:50 04/10/23 21:24 04/10/23 21:45 Temperature 98.9 F 96.4 F L Pulse Rate 89 91 87 Respiratory Rate 18 16 Blood Pressure 173/89 H 126/67 Pulse Oximetry 99 97 Oxygen Delivery 04/11/23 00:00 04/11/23 04:00 04/11/23 06:35 Temperature 97.2 F L Pulse Rate 76 75 84 Respiratory Rate 20 Blood Pressure 157/96 H Pulse Oximetry 99 Oxygen Delivery Intake/Output Intake/Output: Intake & Output 04/08/23 04/09/23 04/10/23 04/11/23 23:59 23:59 23:59 23:59 Intake Total 3886.7 3910 4210 1450 Output Total 1300 1100 3800 1650 Balance 2586.7 2810 410 -200 Meds/Results Medications: Active Medications Generic Name Dose Route Start Last Admin Trade Name Freq PRN Reason Stop Dose Admin Acetaminophen 650 mg 04/09/23 15:00 04/11/23 05:39 Acetaminophen 325 Mg Tablet PO 650 mg Q4H PRN Administration Mild Pain (1-3) or Fever Albuterol 2.5 mg 04/09/23 00:28 04/10/23 09:45 Albuterol Sulfate Neb 2.5 Mg/3 Ml Inh INHALATION 2.5 mg Q6HRT PRN Administration Shortness Of Breath Alprazolam 0.5 mg 04/09/23 17:00 04/10/23 17:09 Alprazolam (*Crx) 0.5 Mg Tablet PO 0.5 mg TID JEREMY Administration Apixaban 5 mg 04/08/23 21:00 04/10/23 21:24 Apixaban 5 Mg Tablet PO 5 mg Q12HR JEREMY Administration Clopidogrel Bisulfate 75 mg 04/10/23 09:00 04/10
[2023-04-11 08:09] LABS: Glucose Point of Care 153 mg/dl (65-105)
[2023-04-11] MEDS: PANTOPRAZOLE 40 MG TABLET PO (08:54)
[2023-04-11] MEDS: LOSARTAN POTASSIUM 100 MG TABLET PO (08:54)
[2023-04-11] MEDS: ALPRAZolam (*CRX) 0.5 MG TABLET PO ×3 (08:54→17:34)
[2023-04-11] MEDS: METOPROLOL TARTRATE 50 MG TAB PO ×2 (08:54→20:18)
[2023-04-11] MEDS: FLUoxetine HCL 20 MG CAPSULE 60 MG PO (08:54)
[2023-04-11] MEDS: APIXABAN 5 MG TABLET PO ×2 (08:55→20:18)
[2023-04-11] MEDS: SIMETHICONE 125 MG CHEW TAB PO ×4 (08:55→20:19)
[2023-04-11] MEDS: LORATADINE 10 MG TABLET PO (08:55)
[2023-04-11] MEDS: CLOPIDOGREL BISULFATE 75 MG TABLET PO (09:01)
[2023-04-11 10:37] LABS: IFOB Positive Control Positive; Immunochemical Fecal Occult Bl Positive (N)
[2023-04-11 11:24] LABS: Toxigenic C. Diff POSITIVE (NEGATIVE)
[2023-04-11 11:59] LABS: Glucose Point of Care 92 mg/dl (65-105)
--- NOTE | 2023-04-11 15:41 | PM.IMPN ---
Progress Note: A&P Assessment and Plan (1) Gastroenteritis: Code(s): K52.9 - Noninfective gastroenteritis and colitis, unspecified Status: Acute Assessment and Plan: Worsening, consult GI, concern for underlying IBD vs infectious colitis? Stool studies, FOBT positive cdif positive, started on dificid for a 10 day course 04/11 (2) Atrial fibrillation with rapid ventricular response: Code(s): I48.91 - Unspecified atrial fibrillation Status: Acute Assessment and Plan: Appreciate cardiology consultation, converted on diltiazem drip, now in sinus Started on metoprolol and Eliquis, monitor Intolerant of statins, repatha outpatient (3) Acute kidney injury: Code(s): N17.9 - Acute kidney failure, unspecified Status: Acute Assessment and Plan: Resolved (4) COPD (chronic obstructive pulmonary disease): Code(s): J44.9 - Chronic obstructive pulmonary disease, unspecified Status: Acute Assessment and Plan: Stable, does not appear to be in acute exacerbation Continue home medications, nebs scheduled due to persistent wheezing, patient feels at baseline (5) GERD (gastroesophageal reflux disease): Code(s): K21.9 - Gastro-esophageal reflux disease without esophagitis Status: Acute Assessment and Plan: Protonix daily (6) Obstructive sleep apnea: Code(s): G47.33 - Obstructive sleep apnea (adult) (pediatric) Status: Acute Assessment and Plan: CPAP as needed (7) Type 2 diabetes mellitus: Code(s): E11.9 - Type 2 diabetes mellitus without complications Status: Acute Assessment and Plan: Accu-Cheks, sliding scale insulin, A1c 6.3 Blood glucose reviewed 04/11 (8) Hypertension associated with type 2 diabetes mellitus: Code(s): E11.59 - Type 2 diabetes mellitus with other circulatory complications; I15.2 - Hypertension secondary to endocrine disorders Status: Acute Assessment and Plan: Blood pressures reviewed 04/11 Continue home antihypertensives (9) Hypokalemia: Code(s): E87.6 - Hypokalemia Status: Acute Assessment and Plan: Replete and recheck Plan DVT prophylaxis with Eliquis GI prophylaxis not indicated Code status full code Subjective Date/time seen: 04/11/23 15:41 Interval history: 62-year-old female with history of COPD, heart disease, diabetes among other comorbidities is presenting with shortness of breath, chest pain, nausea, vomiting and diarrhea and currently being treated for AFib with RVR as well as suspected acute viral gastroenteritis. No overnight events noted. No chest pain or shortness of breath. No fevers or chills. Patient states her diarrhea is much improved but continues. Review of Systems Review of Systems: 12 point review of systems was assessed and was negative except as noted in the HPI Exam Narrative: General: No acute distress, alert and oriented per baseline HEENT: Atraumatic, normocephalic, mucous membranes moist CV: RRR, S1, S2, no m Lungs: Scattered wheezes, diminished at bases Abdomen: Soft, mildly tender, hyperactive BS Extremities: Normal to inspection Skin: No rashes noted, no lesions or wounds seen Psych: Euthymic, normal affect Objective Data Vital Signs Vital Signs: Vital Signs - 24 hr 04/10/23 16:56 04/10/23 16:50 04/10/23 21:24 Temperature 98.9 F Pulse Rate 89 91 Respiratory Rate 18 Blood Pressure 173/89 H Pulse Oximetry 99 Oxygen Delivery Room Air 04/10/23 21:45 04/11/23 00:00 04/11/23 04:00 Temperature 96.4 F L Pulse Rate 87 76 75 Respiratory Rate 16 Blood Pressure 126/67 Pulse Oximetry 97 Oxygen Delivery 04/11/23 06:35 04/11/23 08:54 04/11/23 08:00 Temperature 97.2 F L Pulse Rate 84 84 93 Respiratory Rate 20 Blood Pressure 157/96 H Pulse Oximetry 99 Oxygen Delivery 04/11/23 08:00 Tem
[2023-04-11 16:44] LABS: Glucose Point of Care 133 mg/dl (65-105)
[2023-04-11] MEDS: FIDAXOMICIN 200 MG TABLET PO ×2 (17:34→20:18)
[2023-04-11] MEDS: traZODone HCL 50 MG TABLET PO (20:26)
[2023-04-11 21:24] LABS: Glucose Point of Care 170 mg/dl (65-105)
[2023-04-12] VITALS (11 sets, daily range): BP systolic 96–202; BP diastolic 73–120; PULSE 77–90; RESP 18–20; TEMP 35.7–36.3; O2SAT 96–98
[2023-04-12] MEDS: ACETAMINOPHEN 325 MG TABLET 650 MG PO ×2 (00:07→05:51)
[2023-04-12] MEDS: PIPERACILLN/TAZ 3.375GM/NS50ML 3.375 GM/50 ML BAG IVPB ×2 (05:23→12:39)
[2023-04-12] MEDS: METOCLOPRAMIDE HCL INJ 10 MG/2 ML VIAL IV PUSH (05:24)
[2023-04-12] MEDS: LOSARTAN POTASSIUM 100 MG TABLET PO (05:51)
[2023-04-12] MEDS: METOPROLOL TARTRATE 50 MG TAB PO (05:51)
[2023-04-12] MEDS: hydrALAZINE HCL 20 MG/ML VIAL 10 MG IV PUSH (06:36)
[2023-04-12 06:44] LABS: Basophils Absolute Auto 0.1 K/mm3 (0.0-0.1); Basophils Percent Auto 0.7 % (0.2-1.2); Eosinophils Absolute Auto 0.3 K/mm3 (0-0.3); Eosinophils Percent Auto 3.6 % (0-4.4); Hematocrit 34.3 % (37.0-47.0); Hemoglobin 11.3 g/dL (12.0-15.0); Immature Granulocyte Absolute 0.02 K/mm3 (0.00-0.031); Immature Granulocyte Percent A 0.3 % (0-0.5); Lymphocytes Absolute Auto 1.77 K/mm3 (0.9-3.2); Lymphocytes Percent Auto 24.6 % (18.3-44.2); Mean Corpuscular HGB Conc 32.9 g/dl (32-36); Mean Corpuscular Hemoglobin 28.6 pg (26-34); Mean Corpuscular Volume 86.8 fl (80-100); Mean Platelet Volume 9.6 fl (7.4-10.4); Monocytes Absolute Auto 0.5 K/mm3 (0.1-0.6); Monocytes Percent Auto 7.5 % (2.6-8.5); Neutrophils Absolute Auto 4.6 K/mm3 (1.3-6.7); Neutrophils Percent Auto 63.3 % (45.5-73.1); Platelet Count Result 167 k/mm3 (150-375); Red Blood Count 3.95 M/mm3 (4.2-5.4); Red Cell Distribution Width 12.7 % (11.5-14.5); White Blood Count 7.2 K/mm3 (4.5-10.0)
[2023-04-12 06:55] LABS: Alanine Aminotransferase 16 U/L (6-35); Albumin Level 2.3 g/dL (3.5-5.1); Alkaline Phosphatase 47 U/L (38-126); Anion Gap 11 mmol/L (8-16); Aspartate Amino Transferase 15 U/L (14-36); Bilirubin,Total 0.5 mg/dL (0.2-1.3); Blood Urea Nitrogen 6 mg/dL (7-17); Calcium 7.3 mg/dL (8.4-10.2); Carbon Dioxide 17 mmol/L (22-30); Chloride 100 mmol/L (98-107); Estimated CRCL calculation 125 ml/min; Estimated Glomerular Filt Rate > 60; Glucose 100 mg/dL (65-110); Potassium 3.8 mmol/L (3.4-5.0); Sodium 128 mmol/L (137-145)
[2023-04-12 07:50] LABS: Glucose Point of Care 168 mg/dl (65-105)
--- NOTE | 2023-04-12 07:56 | WPDGIPROGNO ---
Progress Note: A&P Assessment and Plan (1) C. difficile diarrhea: Code(s): A04.72 - Enterocolitis due to Clostridium difficile, not specified as recurrent Status: Acute Assessment and Plan: Patient's diarrhea has resolved. Stool confirms infection with C difficile. Patient currently being treated with Dificid. Suggested 10 day course. Occult blood in stool likely on the basis of infection. Currently hemoglobin stable. No need to proceed with colonoscopy at this time. (2) History of colon polyps: Code(s): Z86.010 - Personal history of colonic polyps Status: Acute Assessment and Plan: Patient does have a history of colon polyps in 2019. Suggest follow-up colonoscopy at 5 year intervals. Anticipate colonoscopy in 2023, this next year. (3) Atrial fibrillation: Code(s): I48.91 - Unspecified atrial fibrillation Status: Acute (4) Gastroparesis: Code(s): K31.84 - Gastroparesis Status: Acute Assessment and Plan: Patient with episodic nausea vomiting. Melvin to be secondary to diabetic gastroparesis. She has had vomiting that may have been related to marijuana use in the past as well. Currently this is resolved with symptomatic treatment. Subjective Date/time seen: 04/12/23 07:56 Interval history: Patient reports diarrhea was better today and continues to be improved today. Stools are soft and not runny. Stool cultures yesterday confirmed C difficile infection patient has already been placed on Dificid. Suggest 10 day course be completed. Patient noted to have Hemoccult-positive stools but patient denies any obvious blood in stools. Likely this is secondary to her C diff infection. Hemoglobin stable. Patient denies any obvious blood in stools. nausea vomiting have also resolved. Review of Systems Review of Systems: Review of systems noncontributory. Exam Narrative: Physical exam reveals patient be alert comfortable at rest. HEENT exam reveals no icterus. Lungs are clear. Heart without murmur. Abdomen bowel sounds are present soft nontender with no organomegaly. Objective Data Vital Signs Vital Signs: Vital Signs - 24 hr 04/11/23 08:54 04/11/23 08:00 04/11/23 08:00 Temperature Pulse Rate 84 93 Respiratory Rate Blood Pressure Pulse Oximetry Oxygen Delivery Room Air 04/11/23 12:00 04/11/23 16:00 04/11/23 20:18 Temperature Pulse Rate 79 72 86 Respiratory Rate Blood Pressure Pulse Oximetry Oxygen Delivery 04/11/23 20:18 04/11/23 20:15 04/11/23 21:15 Temperature 97.1 F L Pulse Rate 79 85 78 Respiratory Rate 16 20 Blood Pressure 179/93 H 144/80 H Pulse Oximetry 98 Oxygen Delivery 04/12/23 00:00 04/11/23 23:05 04/12/23 04:00 Temperature Pulse Rate 82 77 Respiratory Rate Blood Pressure Pulse Oximetry 97 Oxygen Delivery Room Air 04/12/23 05:51 04/12/23 05:45 04/12/23 06:35 Temperature 96.3 F L Pulse Rate 81 81 Respiratory Rate 18 Blood Pressure 200/120 H 202/106 H Pulse Oximetry 96 Oxygen Delivery 04/12/23 07:18 Temperature Pulse Rate Respiratory Rate Blood Pressure 178/98 H Pulse Oximetry Oxygen Delivery Intake/Output Intake/Output: Intake & Output 04/09/23 04/10/23 04/11/23 04/12/23 23:59 23:59 23:59 23:59 Intake Total 3910 4210 4746 100 Output Total 1100 3800 2350 1250 Balance 2810 410 1576 -1150 Meds/Results Medications: Active Medications Generic Name Dose Route Start Last Admin Trade Name Freq PRN Reason Stop Dose Admin Acetaminophen 650 mg 04/09/23 15:00 04/12/23 05:51 Acetaminophen 325 Mg Tablet PO 650 mg Q4H PRN Administration Mild Pain (1-3) or Fever Albuterol 2.5 mg 04/09/23 00:28 04/10/23 09:45 Albuterol Sulfate Neb 2.5 Mg/3 Ml Inh INHALATION 2.5 mg Q6HRT PRN Administration Shortness Of Breath Alprazolam 0.5 mg 04/09/23 17:00 04/11/23 17:34
[2023-04-12] MEDS: IPRATROPIUM BR 0.02% INH SOLN 0.5 MG/2.5 ML VIAL INHALATION (08:23)
[2023-04-12] MEDS: PANTOPRAZOLE 40 MG TABLET PO (08:23)
[2023-04-12] MEDS: APIXABAN 5 MG TABLET PO (08:23)
[2023-04-12] MEDS: LORATADINE 10 MG TABLET PO (08:23)
[2023-04-12] MEDS: FLUoxetine HCL 20 MG CAPSULE 60 MG PO (08:23)
[2023-04-12] MEDS: ALBUTEROL SULFATE NEB 2.5 MG/3 ML INH INHALATION (08:23)
[2023-04-12] MEDS: ALPRAZolam (*CRX) 0.5 MG TABLET PO ×2 (08:23→12:39)
[2023-04-12] MEDS: CLOPIDOGREL BISULFATE 75 MG TABLET PO (08:23)
[2023-04-12] MEDS: FIDAXOMICIN 200 MG TABLET PO (08:24)
[2023-04-12] MEDS: SIMETHICONE 125 MG CHEW TAB PO ×2 (08:24→12:39)
[2023-04-12] MEDS: oxyCODONE/ACETAMINOPHEN (*CRX) 5-325 MG TABLET 1 TABLET PO (08:24)
[2023-04-12] MEDS: ONDANSETRON INJ 4 MG/2 ML VIAL IV PUSH (08:58)
[2023-04-12 10:11] LABS: Anion Gap 10 mmol/L (8-16); Blood Urea Nitrogen 11 mg/dL (7-17); Calcium 9.2 mg/dL (8.4-10.2); Carbon Dioxide 24 mmol/L (22-30); Chloride 97 mmol/L (98-107); Estimated CRCL calculation 76 ml/min; Estimated Glomerular Filt Rate > 60; Glucose 200 mg/dL (65-110); Potassium 3.9 mmol/L (3.4-5.0); Sodium 131 mmol/L (137-145)
[2023-04-12 11:33] LABS: Glucose Point of Care 132 mg/dl (65-105)
--- NOTE | 2023-04-12 14:30 | PM.DS ---
DS: Admitting Diagnosis Discharge Date 04/12/23 Admitting Diagnosis Short of breath DS: Discharge Diagnosis Discharge Diagnosis (1) C. difficile diarrhea: Code(s): A04.72 - Enterocolitis due to Clostridium difficile, not specified as recurrent Status: Acute (2) Gastroenteritis: Code(s): K52.9 - Noninfective gastroenteritis and colitis, unspecified Status: Acute (3) Atrial fibrillation with rapid ventricular response: Code(s): I48.91 - Unspecified atrial fibrillation Status: Acute (4) Acute kidney injury: Code(s): N17.9 - Acute kidney failure, unspecified Status: Acute (5) COPD (chronic obstructive pulmonary disease): Code(s): J44.9 - Chronic obstructive pulmonary disease, unspecified Status: Acute (6) GERD (gastroesophageal reflux disease): Code(s): K21.9 - Gastro-esophageal reflux disease without esophagitis Status: Acute (7) Obstructive sleep apnea: Code(s): G47.33 - Obstructive sleep apnea (adult) (pediatric) Status: Acute (8) Type 2 diabetes mellitus: Code(s): E11.9 - Type 2 diabetes mellitus without complications Status: Acute (9) Hypertension associated with type 2 diabetes mellitus: Code(s): E11.59 - Type 2 diabetes mellitus with other circulatory complications; I15.2 - Hypertension secondary to endocrine disorders Status: Acute (10) Hypokalemia: Code(s): E87.6 - Hypokalemia Status: Acute DS: Summary Hospital Course Reason for hospitalization: 62-year-old female with hypertension, COPD and diabetes here for cough, shortness of breath, diarrhea and abdominal pain. Please see H&P for details. Hospital Course: Patient was tachycardic on admission. EKG showed AFib with RVR and borderline ST T wave changes. She was treated appropriately with diltiazem in emergency room and converted to normal sinus rhythm. Echocardiogram showed EF of 60-65% and grade 1 diastolic dysfunction. Showed normal RV systolic function. She had mild valvular disease. CHADS2 Vasc score 5. TSH normal. Cardiology consulted and appreciate their input. She has a history of paroxysmal AFib. She was supposed to be on anticoagulation but but not currently on anticoagulation on admission. Blood cultures collected and she started on IV antibiotics. Blood culture remained negative. Chest x-ray was clear. CT of the abdomen and pelvis showed mild prominence of the distal aspect of the left ureter but no other acute findings. Urinalysis was clear. Urine drug screen was positive for opioids, benzodiazepines and cannabinoids. Stool was guaiac positive. Patient was having diarrhea. Stool studies were sent. C diff did return positive and felt present on admission. She was started on Dificid. GI consulted and appreciate their input. Shows mildly low this has been noted D-dimer is normal. White count was 17K and trended down to normal. She completed 5 days of IV antibiotics. Her diarrhea has improved. She started on anticoagulation for her AFib. She overall did well was able be discharged home on 04/12/2023. Status at Discharge Cognitive/behavioral status at discharge: stable Time Spent with Patient Time attestation: Total time spent providing and/or coordinating discharge services: 35 minutes Time spent: Greater than 30 minutes Exam Narrative: AF 96.3 96/73 82 20 96% ra Gen - NARD Chest - CTA bilaterally, nml RR CV - RRR S1/S2 Abd - Soft, NT/ND, Positive BS Ext - No pedal edema Psych - Nml mood and affect Skin - Warm and dry DS: Data Data Completed and Pending Labs on day of discharge: Labs from last 24 hours 04/12/23 04/12/23 04/12/23 11:25 09:39 07:47 WBC RBC Hgb Hct MCV MCH MCHC RDW Plt Count MPV Immature Gran % (Auto) Neut % (Auto) Lymph % (Auto) Steele % (Auto) Eos % (Auto) Baso % (Auto) Lymph # (Auto) Steele
--- NOTE | 2023-04-12 15:27 | PC.NURSE ---
iv out, patients ride here, all d/c papers gone over, meds explained, denies any questions. out by wheelchair to private car.
--- NOTE | 2023-04-14 06:43 | PC.NURSE ---
Stool culture is negative. Dr. Macario hoffman.
--- NOTE | 2023-04-20 08:53 | PC.NURSE ---
Stool Ova and Parasites are negative. Dr. Macario hoffman.
== END 2023-04-12 15:22 | disposition home or self-care (01) | DRG 201 ==
LOC: ANHED 06:51 → ANHIMU 08:40 → ANH3MEDSUR 04-10 16:37
PROVIDERS: Student in an Organized Health Care Education/Training Program; Admitting Provider Family Medicine; Emergency Provider Student in an Organized Health Care Education/Training Program; Visit Provider Internal Medicine
DX: I48.0 Paroxysmal atrial fibrillation (principal); I21.A1 Myocardial infarction type 2; N17.9 Acute kidney failure, unspecified; A04.72 Enterocolitis due to Clostridium difficile, not specified as recurrent; K31.84 Gastroparesis; E11.51 Type 2 diabetes mellitus with diabetic peripheral angiopathy without gangrene; E11.43 Type 2 diabetes mellitus with diabetic autonomic (poly)neuropathy; J44.9 Chronic obstructive pulmonary disease, unspecified; I10 Essential (primary) hypertension; I25.10 Atherosclerotic heart disease of native coronary artery without angina pectoris; E87.6 Hypokalemia; E78.5 Hyperlipidemia, unspecified; K21.9 Gastro-esophageal reflux disease without esophagitis; K57.30 Diverticulosis of large intestine without perforation or abscess without bleeding; G47.33 Obstructive sleep apnea (adult) (pediatric); H35.30 Unspecified macular degeneration; F31.9 Bipolar disorder, unspecified; F41.9 Anxiety disorder, unspecified; F17.210 Nicotine dependence, cigarettes, uncomplicated; F12.90 Cannabis use, unspecified, uncomplicated; Z20.822 Contact with and (suspected) exposure to COVID-19; Z95.820 Peripheral vascular angioplasty status with implants and grafts; Z79.02 Long term (current) use of antithrombotics/antiplatelets; Z86.73 Personal history of transient ischemic attack (TIA), and cerebral infarction without residual deficits; Z85.51 Personal history of malignant neoplasm of bladder; Z86.010 Personal history of colon polyps
CPT/HCPCS: 36415; 71045; 71046; 74177; 80048; 80053; 80307; 81001; 82274; 82948; 83036; 83605; 83690; 83735; 83880; 84443; 84484; 84703; 85025; 85380; 85610; 85730; 86140; 86850; 86900; 86901; 87040; 87045; 87177; 87209; 87269; 87272; 87427; 87449; 87493; 87636; 89055; 93005; 93306; 94640; 96361; 96365; 96367; 96375; 99285; A9270; J0360; J2270; J2405; J2543; J2550; J2765; J3480; J7040; J7120; Q9967

== ENCOUNTER 2023-05-10 10:56 | Emergency (ER) | payer OTHER, SELFPAY ==
[2023-05-10] VITALS (12 sets, daily range): BP systolic 136–158; BP diastolic 96–112; PULSE 103–141; RESP 12–25; TEMP 36.3–36.8; O2SAT 97
--- NOTE | ~2023-05-10 | XR_ITS ---
Portable chest x-ray Comparison: 04/09/2023 Clinical History: Atrial fibrillation Findings: Calcified left midlung granuloma is present. Lungs are otherwise clear. Cardiomediastinal silhouette is stable. 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 Impression: No acute abnormality. Reviewed, dictated and finalized at [facility]. Impression: No acute abnormality.
--- NOTE | 2023-05-10 11:00 | ECG_ITS ---
Measurements Intervals [place] Rate: 141 P: FL: 0 QRS: 33 QRSD: 83 T: 43 QT: 294 QTc: 452 Interpretive Statements ATRIAL FIBRILLATION WITH RAPID VENTRICULAR RESPONSE NONSPECIFIC ST & T-WAVE ABNORMALITY ABNORMAL RHYTHM ECG COMPARED TO ECG 04/08/2023 03:16:[address] DEPRESSION IS LESS PRONOUNCED Electronically Signed On 05-10-2023 11:23:50 CDT by Frances Nuñez M.D.
[2023-05-10 11:27] LABS: Basophils Percent Auto 0.4 % (0.2-1.2); Eosinophils Absolute Auto 0.2 K/mm3 (0-0.3); Eosinophils Percent Auto 2.1 % (0-4.4); Hematocrit 41.5 % (37.0-47.0); Hemoglobin 13.3 g/dL (12.0-15.0); Immature Granulocyte Absolute 0.03 K/mm3 (0.00-0.031); Immature Granulocyte Percent A 0.3 % (0-0.5); Lymphocytes Absolute Auto 2.33 K/mm3 (0.9-3.2); Lymphocytes Percent Auto 24.8 % (18.3-44.2); Mean Corpuscular Hemoglobin 28.2 pg (26-34); Mean Corpuscular Volume 87.9 fl (80-100); Mean Platelet Volume 9.8 fl (7.4-10.4); Monocytes Absolute Auto 0.8 K/mm3 (0.1-0.6); Monocytes Percent Auto 8.5 % (2.6-8.5); Neutrophils Percent Auto 63.9 % (45.5-73.1); Platelet Count Result 225 k/mm3 (150-375); Red Blood Count 4.72 M/mm3 (4.2-5.4); Red Cell Distribution Width 13.9 % (11.5-14.5); White Blood Count 9.4 K/mm3 (4.5-10.0)
[2023-05-10] MEDS: LACTATED RINGERS 1,000 ML 999 ML IV CONT (11:31)
[2023-05-10] MEDS: METOPROLOL TARTRATE INJ 5 MG/5 ML VIAL IV PUSH (11:31)
[2023-05-10] MEDS: METOPROLOL TARTRATE 50 MG TAB 25 MG PO (11:31)
[2023-05-10] MEDS: MORPHINE SULFATE (*CRX) 2 MG/ML INJ IV PUSH (11:32)
[2023-05-10 11:47] LABS: Anion Gap 9 mmol/L (8-16); Blood Urea Nitrogen 12 mg/dL (7-17); Calcium 9.2 mg/dL (8.4-10.2); Carbon Dioxide 22 mmol/L (22-30); Chloride 107 mmol/L (98-107); Estimated CRCL calculation 74 ml/min; Estimated Glomerular Filt Rate > 60; Glucose 156 mg/dL (65-110); Potassium 3.7 mmol/L (3.4-5.0); Sodium 138 mmol/L (137-145)
[2023-05-10 11:54] LABS: NT Pro B Type Natriuretic Pept 211 pg/mL (19.9-100); Troponin I < 0.012 ng/mL (0.000-0.034)
[2023-05-10] MEDS: APIXABAN 5 MG TABLET PO (12:08)
--- NOTE | 2023-05-10 12:27 | PC.NURSE ---
another dose of lopressor iv and po were ordered. talked to provider and they verbal ordered to hold meds due to hr staying around 100. meds not administered.
--- NOTE | 2023-05-10 12:35 | ED.ARRPALP ---
HPI - Arrhythmia/Palpitations General Chief Complaint: Arrhythmia/Palpitations Stated Complaint: increased HR Time Seen by Provider: 05/10/23 11:12 History of Present Illness HPI narrative: Patient sent from cardiology stress test for elevated heart rate; she had not taken her usual medications including metoprolol as instructed and then noticed that her heart rate was quite high, they gave her some water and when it was still high sent her to the ER. Related Data Home Medications Medication Instructions Recorded Confirmed losartan 100 mg tablet 100 mg PO DAILY 05/14/20 04/27/23 clopidogrel 75 mg tablet 75 mg PO DAILY 01/19/21 04/27/23 evolocumab 140 mg/mL subcutaneous 140 mg subcut DIRECTED 01/19/21 04/27/23 pen injector (Sheng Ceballos) trazodone 50 mg tablet 50 mg PO HS PRN Insomnia 04/08/23 04/27/23 fluoxetine 60 mg tablet 20 mg PO DAILY 04/27/23 04/27/23 lorazepam 0.5 mg tablet 0.5 mg PO TID PRN 04/27/23 04/27/23 metformin 500 mg tablet 500 mg PO BID 04/27/23 04/27/23 Allergies Allergy/AdvReac Type Severity Reaction Status Date / Time haloperidol Allergy Unknown Other Verified 04/27/23 09:26 risperidone Allergy Unknown MY MOUTH Verified 04/27/23 09:26 TIGHTENS UP -TD simvastatin Allergy Unknown Other Verified 04/27/23 09:26 [id number] Reductase Allergy Other Verified 04/27/23 09:26 Inhibitor codeine AdvReac Unknown NAUSEA AND Verified 04/27/23 09:26 VOMITING triazolam AdvReac Unknown N/V Verified 04/27/23 09:26 Wasp Allergy Unknown WASP Uncoded 04/27/23 09:26 STING- CLOSES MY THROAT Review of Systems Review of Systems: CONST: No fever. HEENT: No sore throat C/V: No chest pain RESP: No cough GI: No nausea or vomiting : No dysuria. M/S: Chronic back and knee pain SKIN: No rash. NEURO: [No headache or focal numbness or weakness] PSYCH: [No depression] PMFSH Past Medical History Medical History (Updated 05/10/23 @ 12:34 by Alejandra Eddy MD) Anxiety Bipolar disorder Bladder cancer Blood in stool Cerebrovascular accident Chronic obstructive pulmonary disease Coronary artery disease Dysphagia Gastroesophageal reflux disease History of diverticulitis Hyperlipidemia Hypertension Macular degeneration Obstructive sleep apnea Osteoarthritis Peripheral arterial disease Tobacco dependence Type 2 diabetes mellitus Surgical History Surgical History History of cardiac catheterization History of carpal tunnel release History of section History of cholecystectomy History of colonoscopy History of esophagogastroduodenoscopy (EGD) History of left-sided carotid endarterectomy History of transurethral resection of bladder tumor (TURBT) History of vascular surgery Bilateral iliac stent. Family History Family History Sibling Diabetes mellitus Family history of malignant neoplasm Social History Social History Social History: Surrogate medical decision maker: Fartun Narayanan (sister) or Christina Goodman (daughter). Code status: Full code. Smoking packs per day: 1 Smoking cigarettes per day: 20.0 Years smoked: 40 Smoking pack-years: 40.00 Smoking status: Former smoker Tobacco type: cigarettes Second hand tobacco smoke exposure: No Additional smoking assessment comments: pt. was smoking 3 packs a day and has cut down to half a pack daily Alcohol intake: never Substance use: current Substance use type: marijuana Lack of Transportation: No Lack of Food: Never True Current Housing: I Have Housing Concerned About Future Housing: No Difficulty Paying Gas/Electric Bills: No Difficulty Paying for Meds: No Currently Unemployed: No Education: High School Diploma/GED Difficulty w/ Childcare or Family Care: No Additional living arrangem
== END 2023-05-10 13:00 | disposition home or self-care (01) ==
PROVIDERS: Emergency Provider Emergency Medicine; PCP Family Medicine
DX: I48.91 Unspecified atrial fibrillation (principal); J44.9 Chronic obstructive pulmonary disease, unspecified; I25.10 Atherosclerotic heart disease of native coronary artery without angina pectoris; I10 Essential (primary) hypertension; E78.5 Hyperlipidemia, unspecified; E11.51 Type 2 diabetes mellitus with diabetic peripheral angiopathy without gangrene; I73.9 Peripheral vascular disease, unspecified; H35.30 Unspecified macular degeneration; G47.33 Obstructive sleep apnea (adult) (pediatric); M19.90 Unspecified osteoarthritis, unspecified site; K21.9 Gastro-esophageal reflux disease without esophagitis; F41.9 Anxiety disorder, unspecified; F31.9 Bipolar disorder, unspecified; F17.210 Nicotine dependence, cigarettes, uncomplicated; Z86.73 Personal history of transient ischemic attack (TIA), and cerebral infarction without residual deficits; Z90.49 Acquired absence of other specified parts of digestive tract; Z79.01 Long term (current) use of anticoagulants; Z79.84 Long term (current) use of oral hypoglycemic drugs; R94.31 Abnormal electrocardiogram [ECG] [EKG]
CPT/HCPCS: 36415; 71045; 80048; 83880; 84484; 85025; 93005; 96361; 96374; 96375; 99284; A9270; J2270; J7120

== ENCOUNTER 2023-05-20 12:11 | Emergency (ER) | payer OTHER, SELFPAY ==
[2023-05-20 12:45] VITALS: BP 136/90; PULSE 85; RESP 20; TEMP 36.8
--- NOTE | 2023-05-20 13:14 | ED.WOUNDLAC ---
HPI - Wound/Laceration General Chief Complaint: Wound/Laceration Stated Complaint: left arm bleeding Time Seen by Provider: 05/20/23 12:45 Source: patient Mode of arrival: ambulatory Limitations: no limitations History of Present Illness HPI narrative: Cristine is a 62-year-old female patient presenting to the clinic today with complaints of bleeding to her left arm. She reports that she cut her left arm last night. States she is on blood thinners and she cannot get bleeding to stop. Is currently taking Plavix-history of AFib Related Data Home Medications Medication Instructions Recorded Confirmed losartan 100 mg tablet 100 mg PO DAILY 05/14/20 05/20/23 clopidogrel 75 mg tablet 75 mg PO DAILY 01/19/21 05/20/23 evolocumab 140 mg/mL subcutaneous 140 mg subcut DIRECTED 01/19/21 05/20/23 pen injector (Sheng Ceballos) trazodone 50 mg tablet 50 mg PO HS PRN Insomnia 04/08/23 05/20/23 fluoxetine 60 mg tablet 20 mg PO DAILY 04/27/23 05/20/23 lorazepam 0.5 mg tablet 0.5 mg PO TID 04/27/23 05/20/23 metformin 500 mg tablet 500 mg PO BID 04/27/23 05/20/23 Allergies Allergy/AdvReac Type Severity Reaction Status Date / Time haloperidol Allergy Unknown Other Verified 05/20/23 12:27 risperidone Allergy Unknown MY MOUTH Verified 05/20/23 12:27 TIGHTENS UP -TD simvastatin Allergy Unknown Other Verified 05/20/23 12:27 Vmeoyyj-[id number]-PjV Reductase Allergy Other Verified 05/20/23 12:27 Inhibitor codeine AdvReac Unknown NAUSEA AND Verified 05/20/23 12:27 VOMITING triazolam AdvReac Unknown N/V Verified 05/20/23 12:27 Wasp Allergy Unknown WASP Uncoded 05/20/23 12:27 STING- CLOSES MY THROAT Review of Systems Review of Systems: Pertinent positives per HPI. Patient denies any fever, chills, rash, headache, visual changes, dizziness, cough, runny nose, sore throat, shortness of breath, chest pain, palpitations, nausea, vomiting, diarrhea, constipation, abdominal pain, or any urinary issues. PMFSH Past Medical History Medical History Anxiety Bipolar disorder Bladder cancer Blood in stool Cerebrovascular accident Chronic obstructive pulmonary disease Coronary artery disease Dysphagia Gastroesophageal reflux disease History of diverticulitis Hyperlipidemia Hypertension Macular degeneration Obstructive sleep apnea Osteoarthritis Peripheral arterial disease Tobacco dependence Type 2 diabetes mellitus Surgical History Surgical History History of cardiac catheterization History of carpal tunnel release History of section History of cholecystectomy History of colonoscopy History of esophagogastroduodenoscopy (EGD) History of left-sided carotid endarterectomy History of transurethral resection of bladder tumor (TURBT) History of vascular surgery Bilateral iliac stent. Family History Family History Sibling Diabetes mellitus Family history of malignant neoplasm Social History Social History Social History: Surrogate medical decision maker: Fartun Narayanan (sister) or Christina Goodman (daughter). Code status: Full code. Smoking packs per day: 1 Smoking cigarettes per day: 20.0 Years smoked: 40 Smoking pack-years: 40.00 Smoking status: Former smoker Tobacco type: cigarettes Second hand tobacco smoke exposure: No Additional smoking assessment comments: pt. was smoking 3 packs a day and has cut down to half a pack daily Alcohol intake: never Substance use: current Substance use type: marijuana Lack of Transportation: No Lack of Food: Never True Current Housing: I Have Housing Concerned About Future Housing: No Difficulty Paying Gas/Electric Bills: No Difficulty Paying for Meds: No Currently Unemployed: No Educati
== END 2023-05-20 13:34 | disposition home or self-care (01) ==
PROVIDERS: Emergency Provider Nurse Practitioner Family; PCP Family Medicine
DX: S41.112A Laceration without foreign body of left upper arm, initial encounter (principal); W45.8XXA Other foreign body or object entering through skin, initial encounter; I48.91 Unspecified atrial fibrillation; Z79.01 Long term (current) use of anticoagulants; Z86.73 Personal history of transient ischemic attack (TIA), and cerebral infarction without residual deficits; J44.9 Chronic obstructive pulmonary disease, unspecified; I25.10 Atherosclerotic heart disease of native coronary artery without angina pectoris; K21.9 Gastro-esophageal reflux disease without esophagitis; E78.5 Hyperlipidemia, unspecified; I10 Essential (primary) hypertension; H35.30 Unspecified macular degeneration; M19.90 Unspecified osteoarthritis, unspecified site; I73.9 Peripheral vascular disease, unspecified; E11.9 Type 2 diabetes mellitus without complications; Z79.84 Long term (current) use of oral hypoglycemic drugs; Z87.891 Personal history of nicotine dependence; F12.90 Cannabis use, unspecified, uncomplicated; Z85.51 Personal history of malignant neoplasm of bladder; F41.9 Anxiety disorder, unspecified
CPT/HCPCS: 99213; G0463

== ENCOUNTER 2023-06-02 00:17 | Day surgery (SDC) | payer OTHER, SELFPAY ==
[2023-05-25 10:28] VITALS: BMI 32.5
--- NOTE | 2023-05-31 10:32 | SUR.PREOP ---
Patient called regarding upcoming procedure. Reviewed preop instructions, appointment times, and procedure prep.
[2023-06-02 09:53] VITALS: BP 122/97; PULSE 79; RESP 18; TEMP 36.1; O2SAT 98
[2023-06-02 10:13] LABS: Glucose Point of Care 144 mg/dl (65-105)
[2023-06-02] MEDS: LACTATED RINGERS 1,000 ML 150 ML IV CONT (10:15)
--- NOTE | 2023-06-02 10:15 | WPDANESEPPF ---
Anes - Initial Pre Proc Eval Procedure: Operation Date: 06/02/23 11:00 Proposed Procedures p Esophagogastroduodenoscopy & Colonoscopy - Gokul Bautista MD Date/Time: 06/02/23 10:15 Surgeon: Gokul Bautista MD Pre Op Diagnosis: dysphagia unspecified, HX colon polyps, melena Patient Data Age: 62 Gender: F Height: 1.6 m Weight: 78.4 kg Last Vital Signs Temp 97 F L 06/02/23 09:53 Pulse 79 06/02/23 09:53 Resp 18 06/02/23 09:53 BP 122/97 H 06/02/23 09:53 Pulse Ox 98 06/02/23 09:53 O2 Del Method Room Air 06/02/23 09:53 Allergies Allergy/AdvReac Type Severity Reaction Status Date / Time haloperidol Allergy Unknown Other Verified 05/29/23 10:56 risperidone Allergy Unknown MY MOUTH Verified 05/29/23 10:56 TIGHTENS UP -TD simvastatin Allergy Unknown Other Verified 05/29/23 10:56 [id number]-[id number]-XzS Reductase Allergy Other Verified 05/29/23 10:56 Inhibitor codeine AdvReac Unknown NAUSEA AND Verified 05/29/23 10:56 VOMITING triazolam AdvReac Unknown N/V Verified 05/29/23 10:56 Wasp Allergy Unknown WASP Uncoded 05/29/23 10:56 STING- CLOSES MY THROAT Home Medications Medication Instructions Recorded Confirmed Type losartan 100 mg tablet 100 mg PO DAILY 05/14/20 05/25/23 History clopidogrel 75 mg tablet 75 mg PO DAILY 01/19/21 06/02/23 History albuterol sulfate 90 mcg/actuation 2 puff inhalation QID PRN 03/30/23 05/25/23 Rx aerosol inhaler shortness of breath or wheezing #6.7 grams inhalational spacing device #1 ea 03/30/23 05/25/23 Rx (Aerochamber MV spacer) trazodone 50 mg tablet 50 mg PO HS PRN Insomnia 04/08/23 05/25/23 History apixaban 5 mg tablet (Eliquis) 5 mg PO Q12HR #60 tabs 04/12/23 06/02/23 Rx metoprolol tartrate 50 mg tablet 50 mg PO Q12HR #60 tabs 04/12/23 05/25/23 Rx fluoxetine 60 mg tablet 20 mg PO DAILY 04/27/23 05/25/23 History lorazepam 0.5 mg tablet 0.5 mg PO TID 04/27/23 05/25/23 History metformin 500 mg tablet 500 mg PO BID 04/27/23 05/25/23 History metoclopramide HCl 10 mg tablet 10 mg PO BID PRN nausea and 04/27/23 05/25/23 Rx (Reglan) vomiting #60 tabs ezetimibe 10 mg tablet 10 mg PO DAILY 05/25/23 05/25/23 History Laboratory Tests 06/02/23 10:04 POC Capillary Glucose 144 H mg/dl (65-105) Patient hx anesthesia problems: none Family hx anesthesia problems: none Results Review: All pre-operative results and documents have been reviewed as part of the pre-operative evaluation. [facility] Past Medical History Medical History Anxiety Bipolar disorder Bladder cancer Blood in stool Cerebrovascular accident Chronic obstructive pulmonary disease Coronary artery disease Dysphagia Gastroesophageal reflux disease History of diverticulitis Hyperlipidemia Hypertension Macular degeneration Obstructive sleep apnea Osteoarthritis Peripheral arterial disease Tobacco dependence Type 2 diabetes mellitus Surgical History Surgical History History of cardiac catheterization History of carpal tunnel release History of section History of cholecystectomy History of colonoscopy History of esophagogastroduodenoscopy (EGD) History of left-sided carotid endarterectomy History of transurethral resection of bladder tumor (TURBT) History of vascular surgery Bilateral iliac stent. Family History Family History Sibling Diabetes mellitus Family history of malignant neoplasm Social History Social History Social History: Surrogate medical decision maker: Fartun Narayanan (sister) or Christina Rex (daughter). Code status: Full code. Smoking packs per day: 1 Smoking cigarettes per day: 20.0 Years smoked: 40 Smoking pack-years: 40.00 Smoking status:
--- NOTE | 2023-06-02 10:16 | PM.HPGS ---
History of Present Illness History of Present Illness Consent: Risks, benefits, and alternatives have been discussed and questions answered. Patient agrees to proceed with procedure. Chief complaint: dysphagia unspecified, HX colon polyps, melena Narrative: Cristine Armstrong is a 62 year old female here for egd and colonoscopy, she was in the hospital several week ago with n/v, diarrhea with + c diff, found to have FOBT but stable h/h. Treated with dificid then vancomycin (insurance wouldn't pay for dificid after she left). History of gastroparesis (had abnormal GES) using reglan at least every morning otherwise will get nauseous, last colonoscopy 4 years ago with polyp. Review of Systems Constitutional: Constitutional: Denies headache(s) and Denies weakness Eyes: Eyes: Denies blurry vision ENT: Reports Normal hearing present, Denies headache(s) and Denies neck pain Cardiovascular: Cardiovascular: Denies chest pain and Denies dyspnea Respiratory: Respiratory: Denies dyspnea Gastrointestinal: Gastrointestinal: Reports no additional gastrointestinal complaints Genitourinary: Genitourinary: Denies dysuria Musculoskeletal: Musculoskeletal: Denies neck pain Integumentary/Breasts: Skin/Breast: Denies dry skin Neurologic: Reports Normal hearing present, Denies headache(s) and Denies weakness Psychiatric: Psychiatric: Denies anxiety Endocrine: Endocrine: Denies change in body appearance Hematologic/Lymphatic: Hematologic/Lymphatic: Denies easy bleeding Allergic/Immunologic: Allergic/Immunologic: Denies urticaria PMFSH Past Medical History Medical History Anxiety Bipolar disorder Bladder cancer Blood in stool Cerebrovascular accident Chronic obstructive pulmonary disease Coronary artery disease Dysphagia Gastroesophageal reflux disease History of diverticulitis Hyperlipidemia Hypertension Macular degeneration Obstructive sleep apnea Osteoarthritis Peripheral arterial disease Tobacco dependence Type 2 diabetes mellitus Surgical History Surgical History History of cardiac catheterization History of carpal tunnel release History of section History of cholecystectomy History of colonoscopy History of esophagogastroduodenoscopy (EGD) History of left-sided carotid endarterectomy History of transurethral resection of bladder tumor (TURBT) History of vascular surgery Bilateral iliac stent. Family History Family History Sibling Diabetes mellitus Family history of malignant neoplasm Social History Social History Social History: Surrogate medical decision maker: Fartuntana Narayanan (sister) or Christina Goodman (daughter). Code status: Full code. Smoking packs per day: 1 Smoking cigarettes per day: 20.0 Years smoked: 40 Smoking pack-years: 40.00 Smoking status: Current every day smoker Tobacco type: cigarettes Second hand tobacco smoke exposure: No Additional smoking assessment comments: pt. was smoking 3 packs a day and has cut down to half a pack daily Alcohol intake: never Substance use: current Substance use type: marijuana Last use: 05/24/23 Lack of Transportation: No Lack of Food: Never True Current Housing: I Have Housing Concerned About Future Housing: No Difficulty Paying Gas/Electric Bills: No Difficulty Paying for Meds: No Currently Unemployed: No Education: High School Diploma/GED Difficulty w/ Childcare or Family Care: No Living arrangements: alone Additional living arrangements comments: Lives alone in [place]. 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 Spiritual care concerns: No Meds Home Medications and Allergies Home Medications Medication Instructions Recorded Co
--- NOTE | 2023-06-02 10:34 | SUR.OPER ---
egd ended at 1029 and colonoscopy started at 1034
[2023-06-02 10:48] VITALS: BP 117/60; PULSE 80; RESP 18; O2SAT 98
[2023-06-02 10:58] VITALS: BP 125/91; PULSE 87; RESP 18; O2SAT 100
[2023-06-02 11:08] VITALS: BP 138/78; PULSE 75; RESP 18; O2SAT 100
== END 2023-06-02 11:18 | disposition home or self-care (01) ==
PROVIDERS: PCP Family Medicine; Visit Provider Internal Medicine Gastroenterology
PROC: 0DJ08ZZ Inspection of Upper Intestinal Tract, Via Natural or Artificial Opening Endoscopic (ICD-10-PCS; CPT 43235; principal; 2023-06-02 11:00)
DX: K57.30 Diverticulosis of large intestine without perforation or abscess without bleeding (principal); D12.3 Benign neoplasm of transverse colon; D12.0 Benign neoplasm of cecum; D12.4 Benign neoplasm of descending colon; K63.5 Polyp of colon; K64.8 Other hemorrhoids; K29.70 Gastritis, unspecified, without bleeding; K31.84 Gastroparesis; F41.9 Anxiety disorder, unspecified; F31.9 Bipolar disorder, unspecified; J44.9 Chronic obstructive pulmonary disease, unspecified; K21.9 Gastro-esophageal reflux disease without esophagitis; E78.5 Hyperlipidemia, unspecified; I10 Essential (primary) hypertension; G47.33 Obstructive sleep apnea (adult) (pediatric); E11.9 Type 2 diabetes mellitus without complications; F17.210 Nicotine dependence, cigarettes, uncomplicated; F12.90 Cannabis use, unspecified, uncomplicated; Z98.61 Coronary angioplasty status; Z90.49 Acquired absence of other specified parts of digestive tract; Z95.820 Peripheral vascular angioplasty status with implants and grafts; Z79.51 Long term (current) use of inhaled steroids; Z79.01 Long term (current) use of anticoagulants; Z79.84 Long term (current) use of oral hypoglycemic drugs; Z79.02 Long term (current) use of antithrombotics/antiplatelets; Z86.010 Personal history of colon polyps; Z87.19 Personal history of other diseases of the digestive system; Z85.51 Personal history of malignant neoplasm of bladder; Z86.79 Personal history of other diseases of the circulatory system; Z80.9 Family history of malignant neoplasm, unspecified
CPT/HCPCS: 43239; 45385; 82948; 88305; J2704; J7120

== ENCOUNTER 2023-06-26 06:34 | Inpatient (IN) | payer OTHER, SELFPAY ==
[2023-06-26] VITALS (25 sets, daily range): BP systolic 111–162; BP diastolic 65–122; PULSE 72–154; RESP 12–19; TEMP 36.1–37.1; O2SAT 96–100; BMI 31.4
--- NOTE | ~2023-06-26 | CT_ITS ---
Non-contrast CT scan of the Abdomen and Pelvis Clinical indication: Flank pain Technique: 2.5 mm axial scans were obtained through the abdomen and pelvis without intravenous or or al contrast. Dose reduction technique was used on this scan by utilizing automated exposure control a nd iterative reconstruction technique. The dose-length product (DLP) was 986.45 mGy-cm. COMPARISON: 04/08/2023 Findings: Images through the lung bases reveal no abnormalities. There is mild left hydroureteronephrosis, but no stone evident at this time. Questionable minimal rig ht hydronephrosis. The liver, spleen, pancreas, and adrenals appear normal. Cholecystectomy clips are present. There are atherosclerotic calcifications of the aorta. There is no evidence of bowel obstruction. There is minimal inflammatory change adjacent to the sigmo id colon, with underlying mild diverticulosis. No abscess or free air. Images through the pelvis were performed. There is no evidence of ascites or lymphadenopathy. Urinary bladder unremarkable. No adnexal mass seen. No ascites. Impression: Very mild acute sigmoid diverticulitis. No abscess or free air. No bowel obstruction. Mild left hydronephrosis, and questionable minimal right hydronephrosis. No stones seen at this time. Consider recently passed stone. Reviewed, dictated and finalized at location . LIFT SUPERVISOR Impression: Very mild acute sigmoid diverticulitis. No abscess or free air. No bowel obstru ction. Mild left hydronephrosis, and questionable minimal right hydronephrosis. No sto susana seen at this time. Consider recently passed stone.
--- NOTE | 2023-06-26 06:41 | ECG_ITS ---
Measurements Intervals [place] Rate: 155 P: [place]: 0 QRS: 59 QRSD: 94 T: 88 QT: 241 QTc: 387 Interpretive Statements ATRIAL FIBRILLATION WITH RAPID VENTRICULAR RESPONSE NONSPECIFIC ST & T-WAVE ABNORMALITY ABNORMAL RHYTHM ECG COMPARED TO ECG 05/10/2023 11:04:47 NO SIGNIFICANT CHANGES Electronically Signed On 06-26-2023 12:46:32 NITRATE OPERATOR by Chaparro Osullivan M.D.
[2023-06-26] MEDS: METOPROLOL TARTRATE INJ 5 MG/5 ML VIAL IV PUSH ×2 (06:54→07:57)
[2023-06-26] MEDS: SODIUM CHLORIDE 0.9% IV 2,000 ML 999 ML IV CONT (06:54)
[2023-06-26 07:03] LABS: Basophils Absolute Auto 0.1 K/mm3 (0.0-0.1); Basophils Percent Auto 0.4 % (0.2-1.2); Eosinophils Absolute Auto 0.1 K/mm3 (0-0.3); Eosinophils Percent Auto 0.7 % (0-4.4); Hematocrit 46.5 % (37.0-47.0); Hemoglobin 15.4 g/dL (12.0-15.0); Immature Granulocyte Absolute 0.05 K/mm3 (0.00-0.031); Immature Granulocyte Percent A 0.4 % (0-0.5); Lymphocytes Absolute Auto 1.82 K/mm3 (0.9-3.2); Lymphocytes Percent Auto 15.5 % (18.3-44.2); Mean Corpuscular HGB Conc 33.1 g/dl (32-36); Mean Corpuscular Hemoglobin 26.8 pg (26-34); Mean Platelet Volume 10.1 fl (7.4-10.4); Monocytes Absolute Auto 0.6 K/mm3 (0.1-0.6); Monocytes Percent Auto 4.8 % (2.6-8.5); Neutrophils Absolute Auto 9.2 K/mm3 (1.3-6.7); Neutrophils Percent Auto 78.2 % (45.5-73.1); Platelet Count Result 330 k/mm3 (150-375); Red Blood Count 5.74 M/mm3 (4.2-5.4); Red Cell Distribution Width 13.3 % (11.5-14.5); White Blood Count 11.8 K/mm3 (4.5-10.0)
[2023-06-26 07:14] LABS: Alanine Aminotransferase 19 U/L (6-35); Albumin Level 4.7 g/dL (3.5-5.1); Alkaline Phosphatase 152 U/L (38-126); Anion Gap 11 mmol/L (8-16); Aspartate Amino Transferase 22 U/L (14-36); Bilirubin,Total 0.6 mg/dL (0.2-1.3); Blood Urea Nitrogen 30 mg/dL (7-17); Carbon Dioxide 24 mmol/L (22-30); Chloride 101 mmol/L (98-107); Estimated CRCL calculation 44 ml/min; Estimated Glomerular Filt Rate 46; Glucose 193 mg/dL (65-110); Lipase 110 U/L (23-300); Potassium 3.9 mmol/L (3.4-5.0); Sodium 136 mmol/L (137-145)
[2023-06-26 07:25] LABS: Troponin I < 0.012 ng/mL (0.000-0.034)
[2023-06-26] MEDS: MORPHINE SULFATE (*CRX) 4 MG/ML INJ IV PUSH (07:29)
[2023-06-26] MEDS: ONDANSETRON INJ 4 MG/2 ML VIAL IV PUSH ×3 (07:29→12:01)
--- NOTE | 2023-06-26 07:48 | ED.NAVMDI ---
HPI - Nausea/Vomiting/Diarrhea General Chief complaint: Nausea/Vomiting/Diarrhea Stated complaint: N/V, Chest & Abd pain Time Seen by Provider: 06/26/23 07:03 History of Present Illness HPI Narrative: Patient is a 62-year-old female who presents ER with multiple complaints. Her main complaint is nausea and vomiting that began over the last 3 days. Began after she started an oral antibiotic for urinary tract infection. Patient has known bladder cancer. She has a known left ureteral obstruction that was seen on the CT scan 3 days ago. She is going to be scheduled for an outpatient procedure. She reports she has some left-sided abdominal cramping with radiation into flank. This been for couple of weeks. She has no chemotherapy or radiation. No fevers or chills. No alleviating factors for the vomiting. Related Data Home Medications Medication Instructions Recorded Confirmed losartan 100 mg tablet 100 mg PO DAILY 05/14/20 06/26/23 clopidogrel 75 mg tablet 75 mg PO DAILY 01/19/21 06/26/23 trazodone 50 mg tablet 50 mg PO HS PRN Insomnia 04/08/23 06/26/23 fluoxetine 60 mg tablet 20 mg PO DAILY 04/27/23 06/26/23 lorazepam 0.5 mg tablet 0.5 mg PO TID 04/27/23 06/26/23 metformin 500 mg tablet 500 mg PO BID 04/27/23 06/26/23 ezetimibe 10 mg tablet 10 mg PO DAILY 05/25/23 06/26/23 budesonide-formoterol HFA 160 See Rx Instructions .Route .COMPLEX 06/26/23 06/26/23 mcg-4.5 mcg/actuation aerosol inhaler (Symbicort) cyclobenzaprine 10 mg tablet 10 mg PO PRN muscle spasm 06/26/23 06/26/23 ergocalciferol (vitamin D2) 1,250 50,000 unit PO WEEKLY 06/26/23 06/26/23 mcg (50,000 unit) capsule sulfamethoxazole 800 1 tablet PO QAM AND QHS 06/26/23 06/26/23 mg-trimethoprim 160 mg tablet Allergies Allergy/AdvReac Type Severity Reaction Status Date / Time haloperidol Allergy Unknown Other Verified 06/26/23 13:30 risperidone Allergy Unknown MY MOUTH Verified 06/26/23 13:30 TIGHTENS UP -TD simvastatin Allergy Unknown Other Verified 06/26/23 13:30 Tqfflzh-[id number]-JoI Reductase Allergy Other Verified 06/26/23 13:30 Inhibitor codeine AdvReac Unknown NAUSEA AND Verified 06/26/23 13:30 VOMITING triazolam AdvReac Unknown N/V Verified 06/26/23 13:30 Wasp Allergy Unknown WASP Uncoded 06/26/23 13:30 STING- CLOSES MY THROAT Review of Systems Review of Systems: All systems reviewed & are unremarkable except as noted in HPI and below Constitutional: Constitutional: Denies chills, Denies fatigue and Denies fever(s) ENT: Reports system reviewed and no additional complaints, except as documented Cardiovascular: Cardiovascular: Reports no additional cardiovascular complaints Respiratory: Respiratory: Reports no additional respiratory complaints Gastrointestinal: Gastrointestinal: Reports abdominal pain, Denies diarrhea, Reports nausea and Reports vomiting Genitourinary: Genitourinary: Reports nocturia, Reports dysuria and Reports flank pain Musculoskeletal: Musculoskeletal: Reports no additional musculoskeletal complaints PMFSH Past Medical History Medical History Anxiety Bipolar disorder Bladder cancer Blood in stool Cerebrovascular accident Chronic obstructive pulmonary disease Coronary artery disease Dysphagia Gastroesophageal reflux disease History of diverticulitis Hyperlipidemia Hypertension Macular degeneration Obstructive sleep apnea Osteoarthritis Peripheral arterial disease Tobacco dependence Type 2 diabetes mellitus Surgical History Surgical History History of cardiac catheterization History of carpal tunnel release History of section History of cholecystectomy History of colonoscopy History of esophagogastroduodenoscopy (EGD) History of left-sided carotid endarterectomy History of transurethral resection of bladder tumor (TURBT) History of vascular surgery Binu
[2023-06-26 07:51] LABS: Appearance Urine Clear (Clear); Bacteria Urine None Seen /hpf; Bilirubin Urine Negative (Negative); Blood Urine 3+ (Negative); Color Urine Yellow (Yellow); Glucose Urine UA 1+ mg/dL (Negative); Ketones Urine 1+ mg/dL (Negative); Leukocyte Esterase Ur Trace LEU/UL (Negative); Need Manual Microscopic Reviewed; Nitrate Urine Negative (Negative); Non Pathogenic Casts 0-2; Protein Urine 2+ mg/dL (Negative); RBC Urine >100 /hpf (0-2); Specific Grav Ur 1.018 (1.001-1.035); Squamous Epithelial Cell Urine Few /hpf (Few); Urobilinogen Urine 0.2 mg/dL (<2.0); WBC Urine 21-50 /hpf; pH Urine 6.5 (5.0-9.0)
[2023-06-26 07:53] LABS: Add Urine Microscopic? YES
[2023-06-26] MEDS: PROMETHAZINE HCL 25 MG/ML AMPUL 12.5 MG IV PUSH (08:20)
[2023-06-26] MEDS: dilTIAZem 100 MG/100 ML 100 MG/100 ML BAG IV CONT (09:38)
--- NOTE | 2023-06-26 10:12 | ECG_ITS ---
Measurements Intervals [place] Rate: 106 P: [place]: 0 QRS: 50 QRSD: 89 T: 47 QT: 352 QTc: 469 Interpretive Statements ATRIAL FIBRILLATION WITH RAPID VENTRICULAR RESPONSE MODERATE ST DEPRESSION [0.05+ mV ST DEPRESSION] ABNORMAL ECG COMPARED TO ECG 06/26/2023 06:46:02 ST (T WAVE) DEVIATION NOW PRESENT Electronically Signed On 06-26-2023 12:49:30 FIRST OFFICER by Chaparro Osullivan M.D.
[2023-06-26] MEDS: metroNIDAZOLE 500 MG/ISO 100ML 500 MG/100 ML BAG 100 MG IVPB ×2 (10:25→17:43)
[2023-06-26 10:48] LABS: Troponin I < 0.012 ng/mL (0.000-0.034)
[2023-06-26] MEDS: HYDROcodone/acetaminophen (*CRX) 5-325 MG TABLET 1 TAB PO (12:01)
--- NOTE | 2023-06-26 12:43 | WPDURCON ---
Assessment and Plan Assessment and plan (1) Hydronephrosis, left: Code(s): N13.30 - Unspecified hydronephrosis Status: Acute (2) Uncontrolled atrial fibrillation: Code(s): I48.91 - Unspecified atrial fibrillation Status: Acute (3) History of bladder cancer: Code(s): Z85.51 - Personal history of malignant neoplasm of bladder Status: Acute Plan she is being admitted to the hospitalist service for atrial fibrillation with rapid ventricular response and hypertension I reviewed her urinalysis. Is not remarkable for infection. I reviewed her CT scan. There is mild left hydronephrosis. etiology is unknown. Her creatinine is slightly elevated over baseline. Etiology also unknown. I would recommend hydrating her overnight. Recheck creatinine in the morning. If improves may pursue Lasix renal scan. If does not improve could also pursue left ureteral stent. mild left hydronephrosis could be multifactorial. It could be due to inflammation from diverticulitis. to be chronic in nature due to her history of bladder cancer with repeated transurethrally resection of bladder tumor. could also be nonobstructive in nature. please optimize her medically from a cardiovascular standpoint. Please make NPO after midnight in case a procedure is required. Urology Consult Note HPI Date Seen: 06/26/23 Requesting Physician: Pablo Ball MD Primary Care Provider: Adelaida McculloughMD Consult Narrative Narrative: Cristine Armstrong is a 62 year old female With your bladder cancer. SHe was previously seen at [facility] She is now follows with Julio Ramirez at [facility]. she has had multiple transurethral resections and bladder biopsies. she had Cystoscopy on Monday with her normal urology. She was told she had some redness in her bladder and they were setting up a bladder biopsy. She also had an imaging study which showed possible blockage of the kidney . a procedure is being scheduled for that. She was also started on Bactrim for an abnormal urinalysis. She presents the emergency room here at [facility] today with a 3 day history of nausea vomiting and bilateral lower back pain radiating to the groin. she also has left lower quadrant pain. Imaging study was done here which shows mild sigmoid diverticulitis. It also shows mild left hydronephrosis. Creatinine is 1.2. Previous creatinine is 0.7. She has no dysuria or visible blood in the urine. She has no fevers. She is in atrial fibrillation with rapid ventricular response. Her monitor shows a heart rate currently 134 beats per minute. Her blood pressure is 154/114. I reviewed her CT scan here. I viewed her urinalysis. It is not remarkable for infection [facility] Past Medical History Medical History Anxiety Bipolar disorder Bladder cancer Blood in stool Cerebrovascular accident Chronic obstructive pulmonary disease Coronary artery disease Dysphagia Gastroesophageal reflux disease History of diverticulitis Hyperlipidemia Hypertension Macular degeneration Obstructive sleep apnea Osteoarthritis Peripheral arterial disease Tobacco dependence Type 2 diabetes mellitus Surgical History Surgical History History of cardiac catheterization History of carpal tunnel release History of section History of cholecystectomy History of colonoscopy History of esophagogastroduodenoscopy (EGD) History of left-sided carotid endarterectomy History of transurethral resection of bladder tumor (TURBT) History of vascular surgery Bilateral iliac stent. Family History Family History Sibling Diabetes mellitus Family history of malignant neoplasm Social History Social History Social History: Surrogate me
--- NOTE | 2023-06-26 12:54 | PM.IMHP ---
H&P: HPI History of Present Illness Date/Time: 06/26/23 13:45 Chief Complaint: Abdominal pain. Narrative: This is a pleasant 62-year-old female smoker with history of diverticulitis, bladder cancer, gastroesophageal reflux disease, chronic obstructive pulmonary disease, paroxysmal atrial fibrillation, hypertension, hyperlipidemia, peripheral arterial disease, and type 2 diabetes mellitus who presented to the emergency department via EMS from home for evaluation of abdominal pains. The patient provides the following history. She was recently treated for a urinary tract infection and she had a cystoscopy this past Monday with her urologist, Dr. Julio Ramirez at [facility], which according to the patient showed an area of redness in the bladder for which she is supposed to have a bladder biopsy upcoming. She was also told that there may be some sort of blockage but she cannot provide specifics. Since that procedure she has noticed a decrease in urine output and she continues to have dysuria when she is able to urinate. She also endorses pain in the left flank radiating to the left groin in addition to nausea and vomiting. She had a normal bowel movement yesterday and she denies having notice blood or mucus in the stool. She has not had fever, chills, or sweats. She has not noticed blood in the urine. In the ED: She was afebrile on arrival. Blood pressures have been running high, likely due to pain. She was found to be in atrial fibrillation with rapid ventricular response of which she was asymptomatic. Labs were significant for a WBC count of 11.8, hemoglobin 15.4, BUN 30, creatinine 1.20, glucose 193, troponin less than 0.012. UA showed 2+ protein, 1+ glucose, 1+ ketones, 3+ blood, trace leukocyte esterase, greater than 100 RBC, and [address] of the abdomen pelvis showed very mild acute sigmoid diverticulitis and mild left hydronephrosis with questionable minimal right hydronephrosis. She received a g of ceftriaxone was started on a diltiazem drip and she is being admitted in this setting for further treatment and evaluation. Review of Systems Constitutional: Comments: Twelve systems were reviewed and are negative except for as per HPI. [facility] Past Medical History Medical History (Updated 06/26/23 @ 21:35 by Bobbi Garcia PA-C) Anxiety Bipolar disorder Bladder cancer Cerebrovascular accident Chronic obstructive pulmonary disease Coronary artery disease Gastroesophageal reflux disease History of diverticulitis Hyperlipidemia Hypertension Macular degeneration Obstructive sleep apnea Osteoarthritis Paroxysmal atrial fibrillation Peripheral arterial disease Tobacco dependence Type 2 diabetes mellitus Surgical History Surgical History History of cardiac catheterization History of carpal tunnel release History of section History of cholecystectomy History of colonoscopy History of esophagogastroduodenoscopy (EGD) History of left-sided carotid endarterectomy History of transurethral resection of bladder tumor (TURBT) History of vascular surgery Bilateral iliac stent. Family History Family History Sibling Diabetes mellitus Family history of malignant neoplasm Social History Social History Social History: Surrogate medical decision maker: Fartun Narayanan (sister) or Christina Goodman (daughter). Code status: Full code. Smoking packs per day: 1.5 Smoking cigarettes per day: 30.0 Years smoked: 50 Smoking pack-years: 75.00 Smoking status: Current every day smoker Tobacco type: cigarettes Second hand tobacco smoke exposure: No Additional smoking assessment comments: pt. was smoking 3 packs a day and has cut down to half a pack daily Alcohol intake: never Substance use: current Substance use type: marijuana Last use:
--- NOTE | 2023-06-26 13:04 | ADMGEN ---
This patient, Cristine Armstrong, was admitted to IMU Room 200-01 @ 1300. Patient/ oriented to hospital policies and general routines including ID bracelet, bed and alarms, visiting hours, pain management, procedures, bathroom and other care routines, personal items, smoking policy, room service/diet, and visiting hours. Information on how to activate the Rapid Response Team has been discussed. Patient encouraged to report perceived risks to care and to ask questions if they do not understand what they are told or what they should do.
--- NOTE | 2023-06-26 14:24 | PM.CNCAR ---
Assessment and Plan Assessment and plan (1) Atrial fibrillation with RVR: Code(s): I48.91 - Unspecified atrial fibrillation Status: Acute Plan This is a 62-year-old lady with a history of hypertension COPD and paroxysmal atrial fibrillation she also has peripheral vascular disease. She came into the hospital with some abdominal and flank pain. She was in AFib with her RVR on arrival and has been placed back on IV diltiazem. When I was in the room seeing the patient she was in AFib with heart rate in the 90s. As I dictate this note her telemetry shows that she has already converted to sinus rhythm with a heart rate of 85. I am going to transition her beta-julia from metoprolol to sotalol for more aggressive antiarrhythmic treatment. We will continue her systemic anticoagulation with apixaban. Will follow her with very with the hospital for couple of days while she is initiated on sotalol treatment. Hopefully this will be more effective at maintaining sinus rhythm. Nilay Mancuso MD [facility] History of Present Illness History of Present Illness Consult date/time: 06/26/23 14:24 Reason For Visit: Afib RVR/KARINA/Diverticulitis Narrative: This is a 62-year-old woman I am seeing at the request of the hospitalist because of atrial fibrillation. The patient is unknown to me but was recently seen by my service including Dr. Barnes recently a couple of months ago with atrial fibrillation. The patient has came to the hospital with a variety of complaints this morning including some abdominal and flank pain as well as sense of tachycardia/palpitations. The patient was seen in March of this year with atrial fib with RVR she was treated with intravenous diltiazem and shortly thereafter converted to sinus rhythm. She was placed on metoprolol by my partner and scheduled for follow-up. She has had atrial fibrillation documented between then and today she was in the emergency room last month with an episode of atrial fib she was treated with intravenous metoprolol her heart rate was in the low 100s and she was discharged for outpatient follow-up. The patient had a recent outpatient endoscopy and I believe she was in atrial fib with controlled rate at that time as well. She was seen in the emergency room this morning her AFib heart rate was quite rapid with heart rates between 150 and 160 she was not hemodynamically embarrassed by any of this. She did have a follow-up stress test recently in our office apparently a nuclear Lexiscan study which did not show any evidence of ischemia and she demonstrated again good left ventricular systolic function. She does have was the substrate for atrial fib longstanding hypertension as well as ongoing cigarette smoking and COPD. In addition to the metoprolol she is systemically anticoagulated with apixaban. She does have a history of peripheral vascular disease with lower extremity stenting for procedure done elsewhere records of that are not available to me at the time of this dictation. Review of Systems Constitutional: Constitutional: Reports no additional constitutional complaints Eyes: Eyes: Reports no additional eye complaints ENT: Reports system reviewed and no additional complaints, except as documented Cardiovascular: Cardiovascular: Reports palpitations Respiratory: Respiratory: Reports dyspnea Gastrointestinal: Gastrointestinal: Reports nausea Genitourinary: Genitourinary: Reports flank pain Musculoskeletal: Musculoskeletal: Reports no additional musculoskeletal complaints Integumentary/Breasts: Skin/Breast: Reports system reviewed and no additional complaints, except as docu Neurologic: Reports system reviewed and no additional complaints, except as documented Endocrine: Endocrine: Reports no additional endocrine complaints Hematologic/Lymphatic: Hematologic/Lymphatic: Reports no additional hematologic/lymphatic complaints Allergic/Immunologic: Allergic/Immunologic: Rep
--- NOTE | 2023-06-26 14:30 | ECG_ITS ---
Measurements Intervals [place] Rate: 85 P: 69 PA: 137 QRS: 38 QRSD: 90 T: 38 QT: 358 QTc: 427 Interpretive Statements SINUS RHYTHM MINOR ST SEGMENT ABNORMALITY BORDERLINE ECG COMPARED TO ECG 06/26/2023 10:18:34 SINUS RHYTHM REPLACES ATRIAL FIBRILLATION Electronically Signed On 06-26-2023 15:00:52 FLEET MAINTENANCE FOREMAN by Nilay Mancuso M.D.
[2023-06-26] MEDS: LOSARTAN POTASSIUM 100 MG TABLET PO (15:58)
[2023-06-26] MEDS: PANTOPRAZOLE SODIUM IV 40 MG VIAL IV PUSH (21:07)
[2023-06-26] MEDS: APIXABAN 5 MG TABLET PO (21:07)
[2023-06-26] MEDS: SOTALOL HCL 80 MG TABLET PO (21:07)
[2023-06-26] MEDS: HYDROmorphone HCL INJ (*CRX) 1 MG/ML SYR 0.5 MG IV PUSH (21:08)
--- NOTE | 2023-06-26 23:00 | ECG_ITS ---
Measurements Intervals [place] Rate: 68 P: 54 [place]: 145 QRS: 42 QRSD: 109 T: 19 QT: 424 QTc: 453 Interpretive Statements SINUS RHYTHM NONSPECIFIC ST AND T-WAVE ABNORMALITY ABNORMAL ECG COMPARED TO ECG 06/26/2023 14:41:07 T-WAVE ABNORMALITY NOW PRESENT Electronically Signed On 06-27-2023 16:56:19 WAREHOUSE GUARD by Chaparro Osullivan M.D.
[2023-06-27] VITALS (20 sets, daily range): BP systolic 103–118; BP diastolic 47–73; PULSE 52–86; RESP 12–18; TEMP 36.2–36.8; O2SAT 95–98
[2023-06-27] MEDS: SODIUM CHLORIDE 0.9% IV 1,000 ML 100 ML IV CONT ×3 (00:08→20:38)
[2023-06-27] MEDS: HYDROcodone/acetaminophen (*CRX) 5-325 MG TABLET 1 TAB PO ×4 (00:11→20:37)
[2023-06-27] MEDS: metroNIDAZOLE 500 MG/ISO 100ML 500 MG/100 ML BAG 100 MG IVPB ×3 (01:31→17:10)
[2023-06-27 05:40] LABS: Hematocrit 41.4 % (37.0-47.0); Hemoglobin 13.5 g/dL (12.0-15.0); Mean Corpuscular HGB Conc 32.6 g/dl (32-36); Mean Corpuscular Hemoglobin 27.3 pg (26-34); Mean Corpuscular Volume 83.8 fl (80-100); Mean Platelet Volume 9.9 fl (7.4-10.4); Platelet Count Result 286 k/mm3 (150-375); Red Blood Count 4.94 M/mm3 (4.2-5.4); Red Cell Distribution Width 13.3 % (11.5-14.5); White Blood Count 9.7 K/mm3 (4.5-10.0)
[2023-06-27 05:51] LABS: Anion Gap 8 mmol/L (8-16); Blood Urea Nitrogen 20 mg/dL (7-17); Calcium 8.9 mg/dL (8.4-10.2); Carbon Dioxide 23 mmol/L (22-30); Chloride 107 mmol/L (98-107); Estimated CRCL calculation 58 ml/min; Estimated Glomerular Filt Rate > 60; Glucose 105 mg/dL (65-110); Magnesium 1.9 mg/dL (1.6-2.3); Potassium 3.9 mmol/L (3.4-5.0); Sodium 138 mmol/L (137-145)
[2023-06-27] MEDS: ACETAMINOPHEN 325 MG TABLET 650 MG PO (06:55)
[2023-06-27 08:55] LABS: Glucose Point of Care 128 mg/dl (65-105)
[2023-06-27] MEDS: EZETIMIBE 10 MG TABLET PO (08:56)
[2023-06-27] MEDS: SOTALOL HCL 80 MG TABLET PO ×2 (08:56→20:37)
[2023-06-27] MEDS: PANTOPRAZOLE 40 MG TABLET PO (08:56)
[2023-06-27] MEDS: LOSARTAN POTASSIUM 100 MG TABLET PO (08:57)
[2023-06-27] MEDS: FLUoxetine HCL 20 MG CAPSULE PO (08:57)
[2023-06-27] MEDS: APIXABAN 5 MG TABLET PO ×2 (08:57→20:38)
[2023-06-27] MEDS: LORazepam (*CRX) 0.5 MG TABLET PO ×3 (08:57→17:09)
[2023-06-27] MEDS: MORPHINE SULFATE (*CRX) 4 MG/ML INJ IV PUSH ×2 (11:13→17:09)
[2023-06-27 12:11] LABS: Glucose Point of Care 130 mg/dl (65-105)
--- NOTE | 2023-06-27 12:25 | WPDUROPN2 ---
Progress Note: A&P Assessment and Plan (1) History of bladder cancer: Code(s): Z85.51 - Personal history of malignant neoplasm of bladder Status: Acute Assessment and Plan: Cristine has a history of bladder carcinoma. She is currently seeing Dr. Ramirez in [place] and is scheduled for a tumor resection with possible left stent possible nephrostomy tube placement in July. She is encouraged to keep that scheduled appointment for management of her bladder cancer. (2) Hydronephrosis, left: Code(s): N13.30 - Unspecified hydronephrosis Status: Acute Assessment and Plan: This was mild on CT scan in her creatinine function has now improved. She denies any left flank pain. At this point time will hold off any further in the intervention. Will defer further management to her primary urologist. (3) KARINA (acute kidney injury): Code(s): N17.9 - Acute kidney failure, unspecified Status: Acute Assessment and Plan: Kidney function has improved with hydration. No further intervention urologically at this time. Patient can be discharged home when medically stable from my standpoint. Subjective Subjective Date/Time Seen: 06/27/23 12:25 Principal diagnosis: Arrhythmia, mild left hydro, renal insufficiency Interval history: Cristine was feeling better today. Her creatinine level has improved to normal at 0.9. She has this nonspecific left lower quadrant discomfort. Review of Systems Review of Systems: All systems reviewed & are unremarkable except as noted in HPI and below Exam Const: General: cooperative Resp: Effort & Inspection: normal respiratory effort Objective Data Vital Signs Vital Signs: Vital Signs - 24 hr 06/26/23 12:31 06/26/23 12:48 06/26/23 13:19 Temperature 36.8 C Pulse Rate 106 H 107 H 120 H Respiratory Rate 19 17 18 Blood Pressure 138/112 H 128/101 H Pulse Oximetry 99 99 96 Oxygen Delivery 06/26/23 13:20 06/26/23 13:57 06/26/23 15:47 Temperature 37.1 C Pulse Rate 119 H 77 Respiratory Rate 12 Blood Pressure 157/94 H 162/75 H Pulse Oximetry 100 Oxygen Delivery 06/26/23 14:30 06/26/23 16:50 06/26/23 18:00 Temperature Pulse Rate 82 81 91 Respiratory Rate Blood Pressure Pulse Oximetry Oxygen Delivery 06/26/23 20:39 06/26/23 21:07 06/26/23 20:00 Temperature 36.1 C L Pulse Rate 98 90 102 H Respiratory Rate 12 Blood Pressure 115/68 Pulse Oximetry 96 Oxygen Delivery 06/26/23 20:00 06/26/23 22:00 06/26/23 23:49 Temperature 36.2 C L Pulse Rate 102 H 72 73 Respiratory Rate 12 12 Blood Pressure 111/65 Pulse Oximetry 96 97 Oxygen Delivery Room Air 06/27/23 00:00 06/27/23 00:00 06/27/23 02:00 Temperature Pulse Rate 71 71 68 Respiratory Rate 12 Blood Pressure Pulse Oximetry 97 Oxygen Delivery Room Air 06/27/23 04:00 06/27/23 04:00 06/27/23 04:00 Temperature 36.3 C L Pulse Rate 64 64 74 Respiratory Rate 12 12 Blood Pressure 117/67 Pulse Oximetry 97 97 Oxygen Delivery Room Air 06/27/23 06:00 06/27/23 08:00 06/27/23 08:56 Temperature 36.4 C L Pulse Rate 72 66 73 Respiratory Rate 14 Blood Pressure 118/73 Pulse Oximetry 98 Oxygen Delivery 06/27/23 12:00 06/26/23 13:17 Temperature 36.7 C Pulse Rate 76 107 H Respiratory Rate 14 17 Blood Pressure 105/47 L Pulse Oximetry 95 Oxygen Delivery Intake/Output Intake/Output: Intake & Output 06/24/23 06/25/23 06/26/23 06/27/23 23:59 23:59 23:59 23:59 Intake Total 2500 1600 Output Total 450 Balance 2500 1150 Meds/Results Medications: Active Medications Generic Name Dose Route Start Last Admin Trade Name Alexsandra PRN Reason Stop Dose Admin Acetaminophen 650 mg 06/26/23 10:19 06/27/23 06:55 Acetaminophen 325 Mg Tablet PO 650 mg Q4H PRN Administration Mild Pain (1-3) or Fever Hydrocodone Bitart/Acetaminophen 1 tab 06/26/23 10:19 06/27
[2023-06-27] MEDS: oxyBUTYnin CHLORIDE 5 MG TABLET PO ×2 (12:50→17:09)
--- NOTE | 2023-06-27 14:52 | ECG_ITS ---
Measurements Intervals [place] Rate: 48 P: 48 GA: 136 QRS: 23 QRSD: 94 T: 0 QT: 441 QTc: 397 Interpretive Statements SINUS BRADYCARDIA NONSPECIFIC T-WAVE ABNORMALITY ABNORMAL ECG COMPARED TO ECG 06/26/2023 22:58:57 SINUS BRADYCARDIA NOW PRESENT Electronically Signed On 06-28-2023 10:32:57 [employer]ES [employer]PRESENT[employer]IVE [employer] by Chaparro Osullivan M.D.
--- NOTE | 2023-06-27 14:54 | PM.PNCARD ---
Progress Note: A&P Assessment and Plan (1) Atrial fibrillation with RVR: Code(s): I48.91 - Unspecified atrial fibrillation Status: Acute Assessment and Plan: History of paroxysmal atrial fibrillation presenting with AF RVR. She has converted to sinus rhythm on sotalol Rec'd second dose of sotalol this morning QTc stable thus far Monitor daily BMP and Mag (goals K+ 4.0, Mag 2.0) Continue telemetry EKG 2 hours post sotalol administration until sotalol loading is complete Will follow peripherally monitoring EKG and telemetry while she remains hospitalized Continue a/c with Eliquis Outpatient follow up with Dr. Barnes Subjective Date/time seen: 06/27/23 14:54 Interval history: Cardiology follow up for atrial fibrillation Complaining of pelvic pain. In sinus rhythm on telemetry. No chest pain, shortness of breath, palpitations. Review of Systems Constitutional: Constitutional: Reports no additional constitutional complaints Eyes: Eyes: Reports no additional eye complaints ENT: Reports system reviewed and no additional complaints, except as documented Cardiovascular: Cardiovascular: Reports palpitations and Reports dyspnea Respiratory: Respiratory: Reports dyspnea Gastrointestinal: Gastrointestinal: Reports nausea Genitourinary: Genitourinary: Reports flank pain Musculoskeletal: Musculoskeletal: Reports no additional musculoskeletal complaints Integumentary/Breasts: Skin/Breast: Reports system reviewed and no additional complaints, except as docu Neurologic: Reports system reviewed and no additional complaints, except as documented Endocrine: Endocrine: Reports no additional endocrine complaints and Reports palpitations Hematologic/Lymphatic: Hematologic/Lymphatic: Reports no additional hematologic/lymphatic complaints Allergic/Immunologic: Allergic/Immunologic: Reports no additional allergic/immunologic complaints Exam Const: General: comfortable Nutritional Appearance: overweight Orientation/consciousness: patient oriented x3 HENMT: Mouth: Yes moist mucous membranes Eyes: Sclera: sclerae normal Neck: Neck: supple and no JVD Resp: Effort & Inspection: normal respiratory effort Auscultation: clear to auscultation bilaterally Cardio: Rate: regular rate Rhythm: regular rhythm GI: Auscultation: normal bowel sounds Skin: General skin exam: normal color Neuro: Other: Alert and oriented x3 Extrem: Other: No edema, good distal pulses Objective Data Vital Signs Vital Signs: Vital Signs - 24 hr 06/26/23 15:47 06/26/23 16:50 06/26/23 18:00 Temperature 37.1 C Pulse Rate 77 81 91 Respiratory Rate 12 Blood Pressure 162/75 H Pulse Oximetry 100 Oxygen Delivery 06/26/23 20:39 06/26/23 21:07 06/26/23 20:00 Temperature 36.1 C L Pulse Rate 98 90 102 H Respiratory Rate 12 Blood Pressure 115/68 Pulse Oximetry 96 Oxygen Delivery 06/26/23 20:00 06/26/23 22:00 06/26/23 23:49 Temperature 36.2 C L Pulse Rate 102 H 72 73 Respiratory Rate 12 12 Blood Pressure 111/65 Pulse Oximetry 96 97 Oxygen Delivery Room Air 06/27/23 00:00 06/27/23 00:00 06/27/23 02:00 Temperature Pulse Rate 71 71 68 Respiratory Rate 12 Blood Pressure Pulse Oximetry 97 Oxygen Delivery Room Air 06/27/23 04:00 06/27/23 04:00 06/27/23 04:00 Temperature 36.3 C L Pulse Rate 64 64 74 Respiratory Rate 12 12 Blood Pressure 117/67 Pulse Oximetry 97 97 Oxygen Delivery Room Air 06/27/23 06:00 06/27/23 08:00 06/27/23 08:56 Temperature 36.4 C L Pulse Rate 72 66 73 Respiratory Rate 14 Blood Pressure 118/73 Pulse Oximetry 98 Oxygen Delivery 06/27/23 12:00 06/27/23 08:00 06/27/23 08:00 Temperature 36.7 C Pulse Rate 76 59 L 59 L Respiratory Rate 14 14 Blood Pressure 105/47 L Pulse Oximetry 95 95 Oxygen Delivery Room Air 06/27/23 10:00 06/27/23 12:00 06/27/23 12:00 Temperature
--- NOTE | 2023-06-27 15:13 | PCCCNOTE ---
On 06/27/23, the student, [Honey Malhotra ], provided care and completed [facility] documentation on this patient. I have reviewed the student's documentation and agree with the findings.
[2023-06-27 16:46] LABS: Glucose Point of Care 123 mg/dl (65-105)
--- NOTE | 2023-06-27 18:51 | PM.IMPN ---
Progress Note: A&P Assessment and Plan (1) Atrial fibrillation with rapid ventricular response: Code(s): I48.91 - Unspecified atrial fibrillation Status: Acute Assessment and Plan: Converted to normal sinus rhythm on diltiazem drip. Cardiology consulted and they recommend transitioning from metoprolol to sotalol. Patient loaded on sotalol today Follow-up closely as per Cardiology Patient restarted on apixaban as urology do not intend to do cystoscopy (2) Acute kidney injury: Code(s): N17.9 - Acute kidney failure, unspecified Status: Acute Assessment and Plan: Baseline creatinine is around 0.70. Likely due to a combination of factors (dehydration, possible obstruction, Bactrim). Continue judicious IV fluid rehydration. Avoid nephrotoxic agents and renally dose all medications. (3) Diverticulitis: Code(s): K57.92 - Diverticulitis of intestine, part unspecified, without perforation or abscess without bleeding Status: Acute Assessment and Plan: CT scan shows mild acute sigmoid diverticulitis. Continue metronidazole and ceftriaxone. (4) Hydronephrosis, left: Code(s): N13.30 - Unspecified hydronephrosis Status: Acute Assessment and Plan: Cystoscopy this past Monday which showed possible obstruction. May also be due to inflammation from diverticulitis as well. Urology consulted, do not plan to do any intervention during this visit She has a planned nephrostomy tube placement next month (5) Type 2 diabetes mellitus: Code(s): E11.9 - Type 2 diabetes mellitus without complications Status: Acute Assessment and Plan: Recent hemoglobin A1c was 6.3%. Hold metformin. Initiate sliding scale insulin, Accu-Cheks, and hypoglycemic protocol. (6) Chronic obstructive pulmonary disease: Code(s): J44.9 - Chronic obstructive pulmonary disease, unspecified Status: Acute Assessment and Plan: No acute issues. Continue maintenance inhalers. Plan ? Patient seen and examined at bedside during my morning rounds ? Collaborated with patient's nurse at the bedside in detail and addressed all concerns ? Labs, electrolytes, radiology, investigations and test results reviewed ? Consult/Nursing/Ancilliary notes on the chart reviewed and appreciated ? Spoke with patient/family at the bedside and answered all the questions that they had Repeat labs in a.m. Electrolyte replacement as per protocol. Patient will be monitored very closely on the floor. Further recommendations as per the hospital course. Time Spent With Patient Time with patient: 25 - 35 minutes Subjective Date/time seen: 06/27/23 18:51 Interval history: Patient lying in bed, complains of left-sided abdominal pain off and on. Seen and evaluated by planer off bearer and urologist Review of Systems Review of Systems: 14 systems were reviewed with pertinent positives and negatives per HPI. Except as documented in the HPI/progress notes, all other systems were reviewed and are negative. All systems reviewed & are unremarkable except as noted in HPI and below Exam Narrative: General: Mildly ill-appearing female sitting up in bed. Weight: 80.5 kg. BMI: 31.4. HEENT: PERRL, EOMI. Sclera anicteric. Tacky mucous membranes. Neck: Supple. Respiratory: Lungs are clear to auscultation bilaterally. Cardiovascular: Irregularly irregular rate and rhythm. Gastrointestinal: Abdomen is soft and nondistended with positive bowel sounds. She is tender to palpation in the left flank and left mid to lower quadrant. No guarding or rebound tenderness. Skin: Warm and dry. Scattered bruising on the upper extremities. Extremities: No cyanosis, clubbing, or edema. Neurological: Alert. Cranial nerves 2-12 are grossly intact.No gross focal deficits to casual conversation. Psychiatric: Pleasant and cooperative with normal mood and affect. Judgment and insight intact.
[2023-06-27 20:18] LABS: Glucose Point of Care 115 mg/dl (65-105)
[2023-06-27] MEDS: traZODone HCL 50 MG TABLET PO (20:37)
--- NOTE | 2023-06-27 23:00 | ECG_ITS ---
Measurements Intervals [place] Rate: 51 P: 24 MT: 142 QRS: 40 QRSD: 94 T: 5 QT: 468 QTc: 431 Interpretive Statements SINUS BRADYCARDIA WITH OCCASIONAL SUPRAVENTRICULAR PREMATURE COMPLEXES NONSPECIFIC T-WAVE ABNORMALITY ABNORMAL ECG COMPARED TO ECG 06/27/2023 15:00:41 NO SIGNIFICANT CHANGES Electronically Signed On 06-28-2023 10:37:24 HEAD [employer]TER by Chaparro Osullivan M.D.
[2023-06-28] VITALS (18 sets, daily range): BP systolic 123–140; BP diastolic 68–82; PULSE 48–85; RESP 16–18; TEMP 36.1–37; O2SAT 97–100
[2023-06-28] MEDS: MORPHINE SULFATE (*CRX) 4 MG/ML INJ IV PUSH (00:31)
[2023-06-28] MEDS: metroNIDAZOLE 500 MG/ISO 100ML 500 MG/100 ML BAG 100 MG IVPB ×3 (01:15→16:39)
[2023-06-28 05:31] LABS: Basophils Absolute Auto 0.1 K/mm3 (0.0-0.1); Basophils Percent Auto 0.8 % (0.2-1.2); Eosinophils Absolute Auto 0.3 K/mm3 (0-0.3); Hematocrit 37.8 % (37.0-47.0); Hemoglobin 11.8 g/dL (12.0-15.0); Immature Granulocyte Absolute 0.01 K/mm3 (0.00-0.031); Immature Granulocyte Percent A 0.2 % (0-0.5); Lymphocytes Absolute Auto 2.19 K/mm3 (0.9-3.2); Lymphocytes Percent Auto 33.3 % (18.3-44.2); Mean Corpuscular HGB Conc 31.2 g/dl (32-36); Mean Corpuscular Volume 86.5 fl (80-100); Mean Platelet Volume 9.9 fl (7.4-10.4); Monocytes Absolute Auto 0.5 K/mm3 (0.1-0.6); Monocytes Percent Auto 8.1 % (2.6-8.5); Neutrophils Absolute Auto 3.5 K/mm3 (1.3-6.7); Neutrophils Percent Auto 53.6 % (45.5-73.1); Platelet Count Result 193 k/mm3 (150-375); Red Blood Count 4.37 M/mm3 (4.2-5.4); Red Cell Distribution Width 13.3 % (11.5-14.5); White Blood Count 6.6 K/mm3 (4.5-10.0)
[2023-06-28 05:45] LABS: Anion Gap 5 mmol/L (8-16); Blood Urea Nitrogen 17 mg/dL (7-17); Calcium 8.5 mg/dL (8.4-10.2); Carbon Dioxide 23 mmol/L (22-30); Chloride 108 mmol/L (98-107); Estimated CRCL calculation 65 ml/min; Estimated Glomerular Filt Rate > 60; Glucose 101 mg/dL (65-110); Phosphorus 3.7 mg/dL (2.5-4.5); Potassium 3.8 mmol/L (3.4-5.0); Sodium 136 mmol/L (137-145)
[2023-06-28] MEDS: SODIUM CHLORIDE 0.9% IV 1,000 ML 100 ML IV CONT (07:41)
[2023-06-28] MEDS: oxyBUTYnin CHLORIDE 5 MG TABLET PO ×3 (08:30→16:31)
[2023-06-28] MEDS: APIXABAN 5 MG TABLET PO ×2 (08:30→20:31)
[2023-06-28] MEDS: FLUoxetine HCL 20 MG CAPSULE PO (08:30)
[2023-06-28] MEDS: LORazepam (*CRX) 0.5 MG TABLET PO ×3 (08:30→16:32)
[2023-06-28] MEDS: SOTALOL HCL 80 MG TABLET PO ×2 (08:30→20:31)
[2023-06-28] MEDS: METOCLOPRAMIDE HCL 10 MG TABLET PO (08:30)
[2023-06-28] MEDS: PANTOPRAZOLE 40 MG TABLET PO (08:31)
[2023-06-28] MEDS: EZETIMIBE 10 MG TABLET PO (08:34)
[2023-06-28] MEDS: LOSARTAN POTASSIUM 100 MG TABLET PO (08:34)
[2023-06-28 09:24] LABS: Glucose Point of Care 121 mg/dl (65-105)
[2023-06-28] MEDS: HYDROcodone/acetaminophen (*CRX) 5-325 MG TABLET 1 TAB PO ×2 (09:41→20:32)
[2023-06-28 09:53] LABS: Magnesium 1.8 mg/dL (1.6-2.3)
--- NOTE | 2023-06-28 10:30 | ECG_ITS ---
Measurements Intervals [place] Rate: 63 P: 60 [place]: 164 QRS: 26 QRSD: 110 T: 7 QT: 438 QTc: 452 Interpretive Statements SINUS RHYTHM WITH SINUS ARRHYTHMIA POSSIBLE LATERAL MYOCARDIAL INFARCTION , PROBABLY OLD [30 ms Q WAVE IN I/aVL/V5/V6] ABNORMAL ECG COMPARED TO ECG 06/27/2023 23:05:23 SINUS RHYTHM NOW PRESENT SINUS ARRHYTHMIA NOW PRESENT Electronically Signed On 06-28-2023 16:17:55 [employer] by Chaparro Osullivan M.D.
[2023-06-28] MEDS: POTASSIUM CHLORIDE 20 MEQ ER TABLET 40 MEQ PO (11:35)
--- NOTE | 2023-06-28 11:50 | PCCCNOTE ---
On 06/28/23, the student, [Honey Malhotra ], provided care and completed [facility] documentation on this patient. I have reviewed the student's documentation and agree with the findings.
[2023-06-28 12:29] LABS: Glucose Point of Care 109 mg/dl (65-105)
--- NOTE | 2023-06-28 12:52 | PM.PNCARD ---
Progress Note: A&P Assessment and Plan (1) Atrial fibrillation with RVR: Code(s): I48.91 - Unspecified atrial fibrillation Status: Acute Assessment and Plan: History of paroxysmal atrial fibrillation presenting with AF RVR. She has converted to sinus rhythm on sotalol Will be receiving her 5th dose of Sotalol this evening. Anticipate possible discharge tomorrow. QTc stable thus far Monitor daily BMP and Mag (goals K+ 4.0, Mag 2.0) Continue telemetry EKG 2 hours post sotalol administration until sotalol loading is complete Will follow peripherally monitoring EKG and telemetry while she remains hospitalized Continue a/c with Eliquis Outpatient follow up with Dr. Barnes Subjective Date/time seen: 06/28/23 12:52 Interval history: Cardiology follow up for atrial fibrillation In sinus rhythm on telemetry. No chest pain, shortness of breath, palpitations. Reports lower abdominal/pelvic pain. Exam Const: General: comfortable and no acute distress HENMT: Mouth: Yes moist mucous membranes Eyes: General: appearance normal, both eyes and all related structures Sclera: sclerae normal Neck: Neck: supple Resp: Effort & Inspection: normal respiratory effort Cardio: Rate: regular rate Rhythm: regular rhythm Skin: General skin exam: normal color Neuro: Speech: normal speech Psych: Mental Status: mental status grossly normal Affect: normal affect Objective Data Vital Signs Vital Signs: Vital Signs - 24 hr 06/27/23 15:52 06/27/23 14:00 06/27/23 15:55 Temperature 36.8 C Pulse Rate 52 L 55 L 52 L Respiratory Rate 16 16 Blood Pressure 112/69 Pulse Oximetry 98 98 Oxygen Delivery Room Air 06/27/23 16:34 06/27/23 16:52 06/27/23 17:58 Temperature Pulse Rate 59 L 86 62 Respiratory Rate Blood Pressure Pulse Oximetry Oxygen Delivery 06/27/23 19:15 06/27/23 20:37 06/27/23 20:00 Temperature 36.2 C L Pulse Rate 64 78 82 Respiratory Rate 16 Blood Pressure 103/64 Pulse Oximetry 97 Oxygen Delivery 06/27/23 20:00 06/27/23 21:36 06/27/23 23:32 Temperature Pulse Rate 82 54 L 52 L Respiratory Rate 16 Blood Pressure Pulse Oximetry 97 Oxygen Delivery Room Air 06/27/23 23:32 06/27/23 23:08 06/28/23 01:10 Temperature 36.3 C L Pulse Rate 52 L 60 54 L Respiratory Rate 16 18 Blood Pressure 108/56 L Pulse Oximetry 97 98 Oxygen Delivery Room Air 06/28/23 04:01 06/28/23 04:00 06/28/23 04:00 Temperature 37.0 C Pulse Rate 61 82 82 Respiratory Rate 18 18 Blood Pressure 127/70 Pulse Oximetry 98 98 Oxygen Delivery Room Air 06/28/23 05:42 06/28/23 07:57 06/28/23 08:30 Temperature 36.3 C L Pulse Rate 48 L 63 63 Respiratory Rate 16 Blood Pressure 140/82 Pulse Oximetry 98 Oxygen Delivery 06/28/23 08:00 06/28/23 08:00 06/28/23 10:00 Temperature Pulse Rate 58 L 51 L Respiratory Rate Blood Pressure Pulse Oximetry 98 Oxygen Delivery Room Air 06/28/23 11:34 06/28/23 12:00 06/28/23 12:00 Temperature 36.4 C L Pulse Rate 74 71 Respiratory Rate 16 Blood Pressure 132/68 Pulse Oximetry 97 97 Oxygen Delivery Room Air Intake/Output Intake/Output: Intake & Output 06/25/23 06/26/23 06/27/23 06/28/23 23:59 23:59 23:59 23:59 Intake Total 2500 3450 2190 Output Total 450 800 Balance 2500 3000 1390 Meds/Results Medications: Active Medications Generic Name Dose Route Start Last Admin Trade Name Freq PRN Reason Stop Dose Admin Acetaminophen 650 mg 06/26/23 10:19 06/27/23 06:55 Acetaminophen 325 Mg Tablet PO 650 mg Q4H PRN Administration Mild Pain (1-3) or Fever Hydrocodone Bitart/Acetaminophen 1 tab 06/26/23 10:19 06/28/23 09:41 Hydrocodone/Acetaminophen (*Crx) 5-325 Mg Tablet PO 1 tab Q4H PRN Administration Pain Rated 4-6 Albuterol 2 puff 06/26/23 21:49 Albuterol Sulfate (*Sp) Aerosol 1 Puff INHALATION Q
[2023-06-28] MEDS: ACETAMINOPHEN 325 MG TABLET 650 MG PO (16:35)
--- NOTE | 2023-06-28 17:15 | PM.IMPN ---
Progress Note: A&P Assessment and Plan (1) Atrial fibrillation with rapid ventricular response: Code(s): I48.91 - Unspecified atrial fibrillation Status: Acute Assessment and Plan: Converted to normal sinus rhythm on diltiazem drip. Cardiology consulted and they recommend transitioning from metoprolol to sotalol. Patient currently being loaded on sotalol with close tele monitoring Currently received 4 doses of sotalol, 5th one is due tonight Follow-up closely as per Cardiology Patient restarted on apixaban as urology do not intend to do cystoscopy DC planning home in a.m. if cleared by Cardiology Patient given oral potassium and magnesium supplementations as they are 3.8 and 1.8 respectively with the goals of 4 and 2 (2) Acute kidney injury: Code(s): N17.9 - Acute kidney failure, unspecified Status: Acute Assessment and Plan: Baseline creatinine is around 0.70. Likely due to a combination of factors (dehydration, possible obstruction, Bactrim). Continued on judicious IV fluid rehydration. Avoid nephrotoxic agents and renally dose all medications Renal functions are now at baseline DC IV fluids (3) Diverticulitis: Code(s): K57.92 - Diverticulitis of intestine, part unspecified, without perforation or abscess without bleeding Status: Acute Assessment and Plan: CT scan shows mild acute sigmoid diverticulitis. Continue metronidazole and ceftriaxone. (4) Hydronephrosis, left: Code(s): N13.30 - Unspecified hydronephrosis Status: Acute Assessment and Plan: Cystoscopy this past Monday which showed possible obstruction. May also be due to inflammation from diverticulitis as well. Urology consulted, do not plan to do any intervention during this visit She has a planned nephrostomy tube placement next month (5) Type 2 diabetes mellitus: Code(s): E11.9 - Type 2 diabetes mellitus without complications Status: Acute Assessment and Plan: Recent hemoglobin A1c was 6.3%. Hold metformin. Initiate sliding scale insulin, Accu-Cheks, and hypoglycemic protocol. (6) Chronic obstructive pulmonary disease: Code(s): J44.9 - Chronic obstructive pulmonary disease, unspecified Status: Acute Assessment and Plan: No acute issues. Continue maintenance inhalers. Plan DC patient home in a.m. with cleared by Cardiology on oral antibiotics for diverticulitis. ? Patient seen and examined at bedside during my morning rounds ? Collaborated with patient's nurse at the bedside in detail and addressed all concerns ? Labs, electrolytes, radiology, investigations and test results reviewed ? Consult/Nursing/Ancilliary notes on the chart reviewed and appreciated ? Spoke with patient/family at the bedside and answered all the questions that they had Repeat labs in a.m. Electrolyte replacement as per protocol. Patient will be monitored very closely on the floor. Further recommendations as per the hospital course. I am signing off. Patient's medical care will be taken over by my covering hospitalist attending in am. Time Spent With Patient Time with patient: 25 - 35 minutes Subjective Date/time seen: 06/28/23 17:15 Interval history: Patient seen and evaluated at bedside. Complains of [id number] generalized aches and pains. She wants to go home. Review of Systems Review of Systems: 14 systems were reviewed with pertinent positives and negatives per HPI. Except as documented in the HPI/progress notes, all other systems were reviewed and are negative. All systems reviewed & are unremarkable except as noted in HPI and below Exam Narrative: General: Mildly ill-appearing female sitting up in bed. Weight: 80.5 kg. BMI: 31.4. HEENT: PERRL, EOMI. Sclera anicteric. Tacky mucous membranes. Neck: Supple. Respiratory: Lungs are clear to auscultation bilaterally. Cardiovascular: Irregularly irregular
[2023-06-28] MEDS: MAGNESIUM OXIDE 400 MG TABLET PO (18:00)
[2023-06-28 18:47] LABS: Glucose Point of Care 160 mg/dl (65-105)
[2023-06-28] MEDS: traZODone HCL 50 MG TABLET PO (20:31)
[2023-06-28 20:54] LABS: Glucose Point of Care 206 mg/dl (65-105)
--- NOTE | 2023-06-28 23:00 | ECG_ITS ---
Measurements Intervals [place] Rate: 57 P: 24 [place]: 129 QRS: 10 QRSD: 94 T: 1 QT: 427 QTc: 419 Interpretive Statements SINUS BRADYCARDIA CANNOT RULE OUT LATERAL INFARCTION ABNORMAL ECG COMPARED TO ECG 06/28/2023 10:54:31 SINUS BRADYCARDIA NOW PRESENT Electronically Signed On 06-29-2023 13:57:32 PROGRAM WRITER by Chaparro Osullivan M.D.
[2023-06-29] VITALS (11 sets, daily range): BP systolic 101–153; BP diastolic 57–88; PULSE 62–79; RESP 18–20; TEMP 36.1–36.5; O2SAT 99–100
[2023-06-29] MEDS: metroNIDAZOLE 500 MG/ISO 100ML 500 MG/100 ML BAG 100 MG IVPB ×2 (02:04→09:09)
[2023-06-29 05:34] LABS: Basophils Absolute Auto 0.1 K/mm3 (0.0-0.1); Basophils Percent Auto 0.8 % (0.2-1.2); Eosinophils Absolute Auto 0.2 K/mm3 (0-0.3); Eosinophils Percent Auto 3.3 % (0-4.4); Hematocrit 37.4 % (37.0-47.0); Hemoglobin 12.2 g/dL (12.0-15.0); Immature Granulocyte Absolute 0.02 K/mm3 (0.00-0.031); Immature Granulocyte Percent A 0.3 % (0-0.5); Lymphocytes Absolute Auto 2.12 K/mm3 (0.9-3.2); Lymphocytes Percent Auto 32.8 % (18.3-44.2); Mean Corpuscular HGB Conc 32.6 g/dl (32-36); Mean Corpuscular Hemoglobin 27.4 pg (26-34); Mean Corpuscular Volume 83.9 fl (80-100); Mean Platelet Volume 9.9 fl (7.4-10.4); Monocytes Absolute Auto 0.6 K/mm3 (0.1-0.6); Neutrophils Absolute Auto 3.5 K/mm3 (1.3-6.7); Neutrophils Percent Auto 53.8 % (45.5-73.1); Platelet Count Result 202 k/mm3 (150-375); Red Blood Count 4.46 M/mm3 (4.2-5.4); White Blood Count 6.5 K/mm3 (4.5-10.0)
[2023-06-29 06:25] LABS: Anion Gap 6 mmol/L (8-16); Blood Urea Nitrogen 11 mg/dL (7-17); Calcium 8.6 mg/dL (8.4-10.2); Carbon Dioxide 23 mmol/L (22-30); Chloride 108 mmol/L (98-107); Estimated CRCL calculation 65 ml/min; Estimated Glomerular Filt Rate > 60; Glucose 114 mg/dL (65-110); Magnesium 1.8 mg/dL (1.6-2.3); Potassium 3.7 mmol/L (3.4-5.0); Sodium 137 mmol/L (137-145)
[2023-06-29] MEDS: oxyBUTYnin CHLORIDE 5 MG TABLET PO ×2 (08:34→12:49)
[2023-06-29] MEDS: MAGNESIUM OXIDE 400 MG TABLET PO (08:34)
[2023-06-29] MEDS: SOTALOL HCL 80 MG TABLET PO (08:36)
[2023-06-29] MEDS: LOSARTAN POTASSIUM 100 MG TABLET PO (08:37)
[2023-06-29] MEDS: PANTOPRAZOLE 40 MG TABLET PO (08:37)
[2023-06-29] MEDS: LORazepam (*CRX) 0.5 MG TABLET PO ×2 (08:37→12:49)
[2023-06-29] MEDS: EZETIMIBE 10 MG TABLET PO (08:37)
[2023-06-29] MEDS: APIXABAN 5 MG TABLET PO (08:37)
[2023-06-29] MEDS: FLUoxetine HCL 20 MG CAPSULE PO (08:38)
[2023-06-29 09:13] LABS: Glucose Point of Care 142 mg/dl (65-105)
--- NOTE | 2023-06-29 09:47 | PM.PNCARD ---
Progress Note: A&P Assessment and Plan (1) Atrial fibrillation with RVR: Code(s): I48.91 - Unspecified atrial fibrillation Status: Acute Assessment and Plan: History of paroxysmal atrial fibrillation presenting with AF RVR. She has converted to sinus rhythm on sotalol Sotalol load complete, QTc stable. Remains in sinus rhythm [facility] follow up with Dr. Cameron BRASWELL for discharge today from a cardiac perspective. Subjective Date/time seen: 06/29/23 09:47 Interval history: Cardiology follow up for atrial fibrillation In sinus rhythm on telemetry. No chest pain, shortness of breath, palpitations. Reports lower abdominal/pelvic pain. Date of service 06/29/23: She feels well today. Still having some pelvic pain but improved with oxybutynin. Remains in sinus rhythm. Review of Systems Constitutional: Constitutional: Reports no additional constitutional complaints Eyes: Eyes: Reports no additional eye complaints ENT: Reports system reviewed and no additional complaints, except as documented Cardiovascular: Cardiovascular: Reports palpitations and Reports dyspnea Respiratory: Respiratory: Reports dyspnea Gastrointestinal: Gastrointestinal: Reports nausea Genitourinary: Genitourinary: Reports flank pain Musculoskeletal: Musculoskeletal: Reports no additional musculoskeletal complaints Integumentary/Breasts: Skin/Breast: Reports system reviewed and no additional complaints, except as docu Neurologic: Reports system reviewed and no additional complaints, except as documented Endocrine: Endocrine: Reports no additional endocrine complaints and Reports palpitations Hematologic/Lymphatic: Hematologic/Lymphatic: Reports no additional hematologic/lymphatic complaints Allergic/Immunologic: Allergic/Immunologic: Reports no additional allergic/immunologic complaints Exam Const: General: comfortable, no acute distress and overweight Nutritional Appearance: overweight Orientation/consciousness: patient oriented x3 Other: Pleasant somewhat overweight lady otherwise comfortable cooperative no distress at this time has IV diltiazem running atrial fibrillation heart rate is currently 90. HENMT: Mouth: Yes moist mucous membranes Eyes: General: appearance normal, both eyes and all related structures Sclera: sclerae normal Neck: Neck: supple and no JVD Resp: Effort & Inspection: normal respiratory effort Auscultation: clear to auscultation bilaterally Cardio: Rate: regular rate Rhythm: regular rhythm and abnormal rhythm irregularly irregular GI: Auscultation: normal bowel sounds Urinary Catheter: Urinary Catheter: patent and draining Skin: General skin exam: normal color Neuro: General: patient oriented x3 Speech: normal speech Other: Alert and oriented x3 Extrem: Other: No edema, good distal pulses Psych: Mental Status: mental status grossly normal Affect: normal affect Objective Data Vital Signs Vital Signs: Vital Signs - 24 hr 06/28/23 10:00 06/28/23 11:34 06/28/23 12:00 Temperature 36.4 C L Pulse Rate 51 L 74 Respiratory Rate 16 Blood Pressure 132/68 Pulse Oximetry 97 97 Oxygen Delivery Room Air 06/28/23 12:00 06/28/23 14:00 06/28/23 16:00 Temperature 36.6 C Pulse Rate 71 75 67 Respiratory Rate 18 Blood Pressure 123/80 Pulse Oximetry 100 Oxygen Delivery 06/28/23 16:00 06/28/23 16:00 06/28/23 18:00 Temperature Pulse Rate 85 65 Respiratory Rate Blood Pressure Pulse Oximetry Oxygen Delivery Room Air 06/28/23 19:38 06/28/23 20:31 06/28/23 20:00 Temperature 36.1 C L Pulse Rate 66 74 63 Respiratory Rate 18 Blood Pressure 135/74 Pulse Oximetry 99 Oxygen Delivery 06/28/23 20:00 06/28/23 21:36 06/28/23 23:08 Temperature Pulse Rate 63 70 72 Respiratory Rate 18 Blood Pressure Pulse Oximetry 99 Oxygen Delivery Room Air 06/28/23
--- NOTE | 2023-06-29 10:25 | P.PNIM_ITS ---
Progress Note: A&P Assessment and Plan (1) Paroxysmal atrial fibrillation: Code(s): I48.0 - Paroxysmal atrial fibrillation Status: Acute (2) KARINA (acute kidney injury): Code(s): N17.9 - Acute kidney failure, unspecified Status: Acute (3) Diverticulitis: Code(s): K57.92 - Diverticulitis of intestine, part unspecified, without perforation or abscess without bleeding Status: Acute (4) Atrial fibrillation with RVR: Code(s): I48.91 - Unspecified atrial fibrillation Status: Acute (5) Hydronephrosis, left: Code(s): N13.30 - Unspecified hydronephrosis Status: Acute (6) Chronic obstructive pulmonary disease: Code(s): J44.9 - Chronic obstructive pulmonary disease, unspecified Status: Acute (7) Diverticulitis: Code(s): K57.92 - Diverticulitis of intestine, part unspecified, without perforation or a bscess without bleeding Status: Acute Plan (1) Atrial fibrillation with rapid ventricular response: ?Code(s): I48.91 - Unspecified atrial fibrillation ?Status:?Acute ?Assessment and Plan: Converted to normal sinus rhythm on diltiazem drip. * Cardiology consulted and they recommend transitioning from metoprolol to sotalol. * Patient currently being loaded on sotalol with close tele monitoring * Currently received 5 doses of sotalol * Follow-up closely as per Cardiology * Patient restarted on apixaban as urology do not intend to do cystoscopy * Now patient has sinus rhythm, denies palpitation, dizziness, chest pain. (2) Acute kidney injury: ?Code(s): N17.9 - Acute kidney failure, unspecified ?Status:?Acute ?Assessment and Plan: Baseline creatinine is around 0.70. * Likely due to a combination of factors (dehydration, possible obstruction, Bactrim). * Continued on judicious IV fluid rehydration. * Avoid nephrotoxic agents and renally dose all medications * Renal functions are now at baseline * DC IV fluids (3) Diverticulitis: ?Code(s): K57.92 - Diverticulitis of intestine, part unspecified, without perforation or abscess without bleeding ?Status:?Acute ?Assessment and Plan: CT scan shows mild acute sigmoid diverticulitis. * Received metronidazole and ceftriaxone. Change Augmentin for total 10 days of antibiotics (4) Hydronephrosis, left: ?Code(s): N13.30 - Unspecified hydronephrosis ?Status:?Acute ?Assessment and Plan: Cystoscopy this past Monday which showed possible obstruction. May also be due to inflammation from diverticulitis as well. * Urology consulted, do not plan to do any intervention during this visit * She has a planned nephrostomy tube placement next month (5) Type 2 diabetes mellitus: ?Code(s): E11.9 - Type 2 diabetes mellitus without complications ?Status:?Acute ?Assessment and Plan: Recent hemoglobin A1c was 6.3%. * Hold metformin during hospitalization * Initiate sliding scale insulin, Accu-Cheks, and hypoglycemic protocol. * Resume home medication at discharge (6) Chronic obstructive pulmonary disease: ?Code(s): J44.9 - Chronic obstructive pulmonary disease, unspecified ?Status:?Acute ?Assessment and Plan: No acute issues. Continue maintenance inhalers. Subjective Date/time seen: 06/29/23 10:25 Interval history: I saw and examined patient today, patient feels comfortable. Patient denies chest pain, palpitation abdomen pain, nausea vomiting. Patient afebrile, hemodynamically stable.
--- NOTE | 2023-06-29 10:25 | PM.IMPN ---
Progress Note: A&P Assessment and Plan (1) Paroxysmal atrial fibrillation: Code(s): I48.0 - Paroxysmal atrial fibrillation Status: Acute (2) KARINA (acute kidney injury): Code(s): N17.9 - Acute kidney failure, unspecified Status: Acute (3) Diverticulitis: Code(s): K57.92 - Diverticulitis of intestine, part unspecified, without perforation or abscess without bleeding Status: Acute (4) Atrial fibrillation with RVR: Code(s): I48.91 - Unspecified atrial fibrillation Status: Acute (5) Hydronephrosis, left: Code(s): N13.30 - Unspecified hydronephrosis Status: Acute (6) Chronic obstructive pulmonary disease: Code(s): J44.9 - Chronic obstructive pulmonary disease, unspecified Status: Acute (7) Diverticulitis: Code(s): K57.92 - Diverticulitis of intestine, part unspecified, without perforation or abscess without bleeding Status: Acute Plan (1) Atrial fibrillation with rapid ventricular response: ?Code(s): I48.91 - Unspecified atrial fibrillation ?Status:?Acute ?Assessment and Plan: Converted to normal sinus rhythm on diltiazem drip. Cardiology consulted and they recommend transitioning from metoprolol to sotalol. Patient currently being loaded on sotalol with close tele monitoring Currently received 5 doses of sotalol Follow-up closely as per Cardiology Patient restarted on apixaban as urology do not intend to do cystoscopy Now patient has sinus rhythm, denies palpitation, dizziness, chest pain. (2) Acute kidney injury: ?Code(s): N17.9 - Acute kidney failure, unspecified ?Status:?Acute ?Assessment and Plan: Baseline creatinine is around 0.70. Likely due to a combination of factors (dehydration, possible obstruction, Bactrim). Continued on judicious IV fluid rehydration. Avoid nephrotoxic agents and renally dose all medications Renal functions are now at baseline DC IV fluids (3) Diverticulitis: ?Code(s): K57.92 - Diverticulitis of intestine, part unspecified, without perforation or abscess without bleeding ?Status:?Acute ?Assessment and Plan: CT scan shows mild acute sigmoid diverticulitis. Received metronidazole and ceftriaxone. Change Augmentin for total 10 days of antibiotics (4) Hydronephrosis, left: ?Code(s): N13.30 - Unspecified hydronephrosis ?Status:?Acute ?Assessment and Plan: Cystoscopy this past Monday which showed possible obstruction. May also be due to inflammation from diverticulitis as well. Urology consulted, do not plan to do any intervention during this visit She has a planned nephrostomy tube placement next month (5) Type 2 diabetes mellitus: ?Code(s): E11.9 - Type 2 diabetes mellitus without complications ?Status:?Acute ?Assessment and Plan: Recent hemoglobin A1c was 6.3%. Hold metformin during hospitalization Initiate sliding scale insulin, Accu-Cheks, and hypoglycemic protocol. Resume home medication at discharge (6) Chronic obstructive pulmonary disease: ?Code(s): J44.9 - Chronic obstructive pulmonary disease, unspecified ?Status:?Acute ?Assessment and Plan: No acute issues. Continue maintenance inhalers. Subjective Date/time seen: 06/29/23 10:25 Interval history: I saw and examined patient today, patient feels comfortable. Patient denies chest pain, palpitation abdomen pain, nausea vomiting. Patient afebrile, hemodynamically stable. Patient has sinus rhythm on telemetry monitoring Exam Narrative: General: Mildly ill-appearing female sitting up in bed. Weight: 80.5 kg. BMI: 31.4. HEENT: PERRL, EOMI. Sclera anicteric. Tacky mucous membranes. Neck: Supple. Respiratory: Lungs are clear to auscultation bilaterally. Cardiovascular: Regular rate and rhythm. Gastrointestinal: Abdomen is soft and nondistended with positive bowel sounds. left mid to lower quadrant. No guarding
--- NOTE | 2023-06-29 10:40 | ECG_ITS ---
Measurements Intervals [place] Rate: 59 P: 40 OR: 156 QRS: 20 QRSD: 98 T: 5 QT: 432 QTc: 430 Interpretive Statements SINUS BRADYCARDIA POSSIBLE LATERAL MYOCARDIAL INFARCTION , PROBABLY OLD [30 ms Q WAVE IN I/aVL/V5/V6] ABNORMAL ECG COMPARED TO ECG 06/28/2023 22:49:05 NO SIGNIFICANT CHANGES Electronically Signed On 06-29-2023 14:07:12 INVESTIGATION CLERK by hCaparro Osullivan M.D.
[2023-06-29] MEDS: ACETAMINOPHEN 325 MG TABLET 650 MG PO (12:49)
[2023-06-29 13:26] LABS: Glucose Point of Care 176 mg/dl (65-105)
--- NOTE | 2023-06-29 13:56 | PM.DS ---
DS: Admitting Diagnosis Discharge Date 06/29/23 Admitting Diagnosis (1) Paroxysmal atrial fibrillation: ?Code(s): I48.0 - Paroxysmal atrial fibrillation ?Status:?Acute (2) KARINA (acute kidney injury): ?Code(s): N17.9 - Acute kidney failure, unspecified ?Status:?Acute (3) Diverticulitis: ?Code(s): K57.92 - Diverticulitis of intestine, part unspecified, without perforation or abscess without bleeding ?Status:?Acute (4) Atrial fibrillation with RVR: ?Code(s): I48.91 - Unspecified atrial fibrillation ?Status:?Acute (5) Hydronephrosis, left: ?Code(s): N13.30 - Unspecified hydronephrosis ?Status:?Acute (6) Chronic obstructive pulmonary disease: ?Code(s): J44.9 - Chronic obstructive pulmonary disease, unspecified ?Status:?Acute (7) Diverticulitis: ?Code(s): K57.92 - Diverticulitis of intestine, part unspecified, without perforation or abscess without bleeding ?Status:?Acute BiPAP DS: Discharge Diagnosis Discharge Diagnosis (1) Paroxysmal atrial fibrillation: Code(s): I48.0 - Paroxysmal atrial fibrillation Status: Acute (2) KARINA (acute kidney injury): Code(s): N17.9 - Acute kidney failure, unspecified Status: Acute (3) Diverticulitis: Code(s): K57.92 - Diverticulitis of intestine, part unspecified, without perforation or abscess without bleeding Status: Acute (4) Atrial fibrillation with RVR: Code(s): I48.91 - Unspecified atrial fibrillation Status: Acute (5) Hydronephrosis, left: Code(s): N13.30 - Unspecified hydronephrosis Status: Acute (6) Chronic obstructive pulmonary disease: Code(s): J44.9 - Chronic obstructive pulmonary disease, unspecified Status: Acute DS: Summary Hospital Course Hospital Course: Per H&P, this is a pleasant 62-year-old female smoker with history of diverticulitis, bladder cancer, gastroesophageal reflux disease, chronic obstructive pulmonary disease, paroxysmal atrial fibrillation, hypertension, hyperlipidemia, peripheral arterial disease, and type 2 diabetes mellitus who presented to the emergency department via EMS from home for evaluation of abdominal pains. The patient provides the following history. She was recently treated for a urinary tract infection and she had a cystoscopy this past Monday with her urologist, Dr. Julio Ramirez at [facility], which according to the patient showed an area of redness in the bladder for which she is supposed to have a bladder biopsy upcoming. She was also told that there may be some sort of blockage but she cannot provide specifics. Since that procedure she has noticed a decrease in urine output and she continues to have dysuria when she is able to urinate. She also endorses pain in the left flank radiating to the left groin in addition to nausea and vomiting. She had a normal bowel movement yesterday and she denies having notice blood or mucus in the stool. She has not had fever, chills, or sweats.? She has not noticed blood in the urine. In the ED: She was afebrile on arrival.? Blood pressures have been running high, likely due to pain. She was found to be in atrial fibrillation with rapid ventricular response of which she was asymptomatic. Labs were significant for a WBC count of 11.8, hemoglobin 15.4, BUN 30, creatinine 1.20, glucose 193, troponin less than 0.012. UA showed 2+ protein, 1+ glucose, 1+ ketones, 3+ blood, trace leukocyte esterase, greater than 100 RBC, and [address] of the abdomen pelvis showed very mild acute sigmoid diverticulitis and mild left hydronephrosis with questionable minimal right hydronephrosis. She received a g of ceftriaxone was started on a diltiazem drip and she is being admitted in this setting for further treatment and evaluation. The following medical issues have been addressed during hospitalization (1) Atrial fibrillation with rapid ventricular response: ?Code(s): I48.91 -
== END 2023-06-29 16:22 | disposition home or self-care (01) | DRG 201 ==
LOC: ANHED 09:33 → ANHIMU 11:16
PROVIDERS: Physician Assistant; Preventive Medicine Aerospace Medicine; Urology; Admitting Provider Family Medicine; Emergency Provider Emergency Medicine; PCP Family Medicine; Visit Provider Hospitalist
DX: I48.0 Paroxysmal atrial fibrillation (principal); N17.9 Acute kidney failure, unspecified; K57.32 Diverticulitis of large intestine without perforation or abscess without bleeding; N13.30 Unspecified hydronephrosis; J44.9 Chronic obstructive pulmonary disease, unspecified; C67.9 Malignant neoplasm of bladder, unspecified; I25.10 Atherosclerotic heart disease of native coronary artery without angina pectoris; I10 Essential (primary) hypertension; E78.5 Hyperlipidemia, unspecified; E11.51 Type 2 diabetes mellitus with diabetic peripheral angiopathy without gangrene; K21.9 Gastro-esophageal reflux disease without esophagitis; R13.10 Dysphagia, unspecified; M19.90 Unspecified osteoarthritis, unspecified site; G47.33 Obstructive sleep apnea (adult) (pediatric); H35.30 Unspecified macular degeneration; F41.9 Anxiety disorder, unspecified; F31.9 Bipolar disorder, unspecified; F17.210 Nicotine dependence, cigarettes, uncomplicated; Z79.01 Long term (current) use of anticoagulants; Z79.02 Long term (current) use of antithrombotics/antiplatelets; Z86.73 Personal history of transient ischemic attack (TIA), and cerebral infarction without residual deficits; Z95.820 Peripheral vascular angioplasty status with implants and grafts
CPT/HCPCS: 36415; 74176; 80048; 80053; 81001; 82948; 83690; 83735; 84100; 84484; 85025; 85027; 87086; 93005; 96361; 96365; 96375; 96376; 99285; A9270; C9113; J0696; J1170; J1836; J2270; J2405; J2550; J7030

== ENCOUNTER 2023-07-19 16:03 | Emergency (ER) | payer OTHER, SELFPAY ==
--- NOTE | ~2023-07-19 | XR_ITS ---
EXAMINATION: XR chest 2V DATE: 07/19/2023 16:49 INDICATION: Chest pain. TECHNIQUE: Frontal and lateral views of the chest were obtained. COMPARISON: Chest single view 05/10/2023 FINDINGS: A calcified left lung nodule is consistent with old granulomatous disease. There is mild at electasis at right lung base. No pleural effusion or pneumothorax. The heart size is normal. IMPRESSION: 1. Mild atelectasis at right lung base. Reviewed, dictated and finalized at location [facility]
--- NOTE | 2023-07-19 16:13 | ECG_ITS ---
Measurements Intervals [place] Rate: 110 P: [place]: 0 QRS: 19 QRSD: 88 T: 33 QT: 344 QTc: 467 Interpretive Statements ATRIAL FIBRILLATION WITH RAPID VENTRICULAR RESPONSE NONSPECIFIC ST & T-WAVE ABNORMALITY- ANTEROLAT/INF LEADS BASELINE ARTIFACT- II, III, AVF ABNORMAL ECG COMPARED TO ECG 06/29/2023 11:04:00 ATRIAL FIBRILLATION NOW PRESENT ST-T WAVE ABNORMALITY NOW PRESENT Electronically Signed On 07-19-2023 16:19:19 ALL SOURCE ANALYST by Sonido Henry D.O.
--- NOTE | 2023-07-19 16:54 | ED.GENADULT ---
HPI - General Adult General Chief complaint: Recheck/Abnormal Lab/Rx Stated complaint: sent by cards Time Seen by Provider: 07/19/23 16:13 History of Present Illness HPI narrative: Patient is a 62-year-old female who presents ER with AFib RVR. She went to clinic today to have her heart rate checked and it was irregular and fast and she was referred to the ED. No chest pain or dyspnea. Patient reports chronic pain in her back. She is taking sotalol 80 mg twice a day to control her heart rate. She is also anticoagulated with Eliquis. Cannot identify any aggravating or alleviating factors. Patient recently was admitted for diverticulitis and an obstructed ureter. She has recovered from the diverticulitis. Related Data Home Medications Medication Instructions Recorded Confirmed losartan 100 mg tablet 100 mg PO DAILY 05/14/20 06/26/23 clopidogrel 75 mg tablet 75 mg PO DAILY 01/19/21 06/26/23 trazodone 50 mg tablet 50 mg PO HS PRN Insomnia 04/08/23 06/26/23 fluoxetine 60 mg tablet 20 mg PO DAILY 04/27/23 06/26/23 lorazepam 0.5 mg tablet 0.5 mg PO TID 04/27/23 06/26/23 metformin 500 mg tablet 500 mg PO BID 04/27/23 06/26/23 ezetimibe 10 mg tablet 10 mg PO DAILY 05/25/23 06/26/23 budesonide-formoterol HFA 160 See Rx Instructions .Route .COMPLEX 06/26/23 06/26/23 mcg-4.5 mcg/actuation aerosol inhaler (Symbicort) cyclobenzaprine 10 mg tablet 10 mg PO PRN muscle spasm 06/26/23 06/26/23 ergocalciferol (vitamin D2) 1,250 50,000 unit PO WEEKLY 06/26/23 06/26/23 mcg (50,000 unit) capsule Allergies Allergy/AdvReac Type Severity Reaction Status Date / Time haloperidol Allergy Unknown Other Verified 06/26/23 13:30 risperidone Allergy Unknown MY MOUTH Verified 06/26/23 13:30 TIGHTENS UP -TD simvastatin Allergy Unknown Other Verified 06/26/23 13:30 [id number]-ACY-[id number] Reductase Allergy Other Verified 06/26/23 13:30 Inhibitor codeine AdvReac Unknown NAUSEA AND Verified 06/26/23 13:30 VOMITING triazolam AdvReac Unknown N/V Verified 06/26/23 13:30 Wasp Allergy Unknown WASP Uncoded 06/26/23 13:30 STING- CLOSES MY THROAT Review of Systems Review of Systems: All systems reviewed & are unremarkable except as noted in HPI and below Constitutional: Constitutional: Reports no additional constitutional complaints ENT: Reports system reviewed and no additional complaints, except as documented Cardiovascular: Cardiovascular: Denies chest pain, Reports rapid heart rate and Denies radiating jaw, neck or arm pain Respiratory: Respiratory: Reports no additional respiratory complaints Gastrointestinal: Gastrointestinal: Reports no additional gastrointestinal complaints Musculoskeletal: Musculoskeletal: Reports no additional musculoskeletal complaints [facility] Past Medical History Medical History (Updated 07/19/23 @ 18:13 by Riley Martinez MD) Anxiety Bipolar disorder Bladder cancer Cerebrovascular accident Chronic obstructive pulmonary disease Coronary artery disease Gastroesophageal reflux disease History of diverticulitis Hyperlipidemia Hypertension Macular degeneration Obstructive sleep apnea Osteoarthritis Paroxysmal atrial fibrillation Peripheral arterial disease Tobacco dependence Type 2 diabetes mellitus Surgical History Surgical History History of cardiac catheterization History of carpal tunnel release History of section History of cholecystectomy History of colonoscopy History of esophagogastroduodenoscopy (EGD) History of left-sided carotid endarterectomy History of transurethral resection of bladder tumor (TURBT) History of vascular surgery Bilateral iliac stent. Family History Family History Sibling Diabetes mellitus Family history of malignant neoplasm Social History Social History
[2023-07-19 17:00] LABS: Basophils Absolute Auto 0.1 K/mm3 (0.0-0.1); Basophils Percent Auto 0.7 % (0.2-1.2); Eosinophils Absolute Auto 0.5 K/mm3 (0-0.3); Hematocrit 48.1 % (37.0-47.0); Hemoglobin 14.9 g/dL (12.0-15.0); Immature Granulocyte Absolute 0.07 K/mm3 (0.00-0.031); Immature Granulocyte Percent A 0.5 % (0-0.5); Lymphocytes Absolute Auto 3.78 K/mm3 (0.9-3.2); Lymphocytes Percent Auto 29.4 % (18.3-44.2); Mean Corpuscular Hemoglobin 26.8 pg (26-34); Mean Corpuscular Volume 86.7 fl (80-100); Mean Platelet Volume 10.1 fl (7.4-10.4); Monocytes Absolute Auto 1.5 K/mm3 (0.1-0.6); Monocytes Percent Auto 11.4 % (2.6-8.5); Neutrophils Absolute Auto 6.9 K/mm3 (1.3-6.7); Platelet Count Result 312 k/mm3 (150-375); Red Blood Count 5.55 M/mm3 (4.2-5.4); Red Cell Distribution Width 14.4 % (11.5-14.5); White Blood Count 12.9 K/mm3 (4.5-10.0)
[2023-07-19 17:11] LABS: INR 1.1; Prothrombin Time 14.3 Seconds (11.1-14.7)
[2023-07-19 17:12] LABS: Partial Thromboplastin Time 29.8 SECONDS (22.3-36.8)
[2023-07-19] MEDS: dilTIAZem HCl INJ 25 MG/5 ML VIAL 10 MG IV PUSH (17:24)
[2023-07-19 17:39] LABS: Alanine Aminotransferase 15 U/L (6-35); Albumin Level 4.3 g/dL (3.5-5.1); Alkaline Phosphatase 105 U/L (38-126); Anion Gap 12 mmol/L (8-16); Aspartate Amino Transferase 19 U/L (14-36); Bilirubin,Total 0.5 mg/dL (0.2-1.3); Blood Urea Nitrogen 22 mg/dL (7-17); Calcium 9.6 mg/dL (8.4-10.2); Carbon Dioxide 22 mmol/L (22-30); Chloride 107 mmol/L (98-107); Estimated CRCL calculation 63 ml/min; Estimated Glomerular Filt Rate > 60; Glucose 129 mg/dL (65-110); Lipase 180 U/L (23-300); Potassium 4.1 mmol/L (3.4-5.0); Sodium 141 mmol/L (137-145)
--- NOTE | 2023-07-19 17:43 | ECG_ITS ---
Measurements Intervals [place] Rate: 87 P: 19 [place]: 138 QRS: 17 QRSD: 87 T: 29 QT: 374 QTc: 452 Interpretive Statements SINUS RHYTHM BORDERLINE ST-T WAVE ABNORMALITY- INFERIOR LEADS BORDERLINE ECG COMPARED TO ECG 07/19/2023 16:19:04 SINUS RHYTHM NOW PRESENT Electronically Signed On 07-19-2023 18:53:48 FUNCTIONAL ARCHITECT by Sonido Henry D.O.
[2023-07-19 17:50] LABS: Troponin I < 0.012 ng/mL (0.000-0.034)
[2023-07-19 17:57] VITALS: BP 99/73; PULSE 88; RESP 16; O2SAT 98
[2023-07-19] MEDS: HYDROcodone/acetaminophen (*CRX) 5-325 MG TABLET 1 TAB PO (18:10)
[2023-07-19] MEDS: SODIUM CHLORIDE 0.9% IV 1,000 ML 999 ML IV CONT (18:10)
[2023-07-19 19:27] VITALS: BP 120/105; PULSE 84; RESP 20; O2SAT 97
[2023-07-19 20:03] VITALS: BP 103/67; PULSE 87; RESP 21
== END 2023-07-19 20:03 | disposition home or self-care (01) ==
PROVIDERS: Emergency Provider Emergency Medicine; PCP Family Medicine
DX: I48.91 Unspecified atrial fibrillation (principal); I10 Essential (primary) hypertension; I25.10 Atherosclerotic heart disease of native coronary artery without angina pectoris; J44.9 Chronic obstructive pulmonary disease, unspecified; F31.9 Bipolar disorder, unspecified; F41.9 Anxiety disorder, unspecified; K21.9 Gastro-esophageal reflux disease without esophagitis; E78.5 Hyperlipidemia, unspecified; G47.33 Obstructive sleep apnea (adult) (pediatric); E11.51 Type 2 diabetes mellitus with diabetic peripheral angiopathy without gangrene; F17.210 Nicotine dependence, cigarettes, uncomplicated; F12.90 Cannabis use, unspecified, uncomplicated; Z79.01 Long term (current) use of anticoagulants; Z79.02 Long term (current) use of antithrombotics/antiplatelets; Z79.51 Long term (current) use of inhaled steroids; Z79.84 Long term (current) use of oral hypoglycemic drugs
CPT/HCPCS: 36415; 71046; 80053; 83690; 84484; 85025; 85610; 85730; 93005; 96361; 96374; 99284; A9270; J7030

== ENCOUNTER 2023-11-02 11:39 | Emergency (ER) | payer OTHER, SELFPAY ==
[2023-11-02 11:50] VITALS: BP 116/84; PULSE 74; RESP 22; TEMP 36.4; O2SAT 98
--- NOTE | 2023-11-02 11:54 | ED.EAR ---
HPI - Ear Problem General Chief complaint: Ear Stated complaint: Dizziness/Ears Irritation Time Seen by Provider: 11/02/23 11:54 Source: patient, RN notes reviewed and old records reviewed Mode of arrival: ambulatory Limitations: no limitations History of Present Illness HPI Narrative: 63-year-old female presents to the [facility] with feeling of fullness in her ears and states that the room feels like it is spinning when she moves her head in certain positions. History of a tube in the left ear Reports discomfort Location: left ear Related Data Home Medications Medication Instructions Recorded Confirmed losartan 100 mg tablet 100 mg PO DAILY 05/14/20 11/02/23 clopidogrel 75 mg tablet 75 mg PO DAILY 01/19/21 11/02/23 trazodone 50 mg tablet 50 mg PO HS PRN Insomnia 04/08/23 11/02/23 fluoxetine 60 mg tablet 20 mg PO DAILY 04/27/23 11/02/23 lorazepam 0.5 mg tablet 0.5 mg PO TID 04/27/23 11/02/23 metformin 500 mg tablet 500 mg PO BID 04/27/23 11/02/23 ezetimibe 10 mg tablet 10 mg PO DAILY 05/25/23 11/02/23 budesonide-formoterol HFA 160 See Rx Instructions .Route .COMPLEX 06/26/23 11/02/23 mcg-4.5 mcg/actuation aerosol inhaler (Symbicort) cyclobenzaprine 10 mg tablet 10 mg PO PRN muscle spasm 06/26/23 11/02/23 ergocalciferol (vitamin D2) 1,250 50,000 unit PO WEEKLY 06/26/23 11/02/23 mcg (50,000 unit) capsule Zyrtec 11/02/23 cromolyn 4 % eye drops drp 11/02/23 evolocumab 140 mg/mL subcutaneous mg subcut 11/02/23 pen injector (Sheng Ceballos) fluticasone propionate 50 intranasal 11/02/23 mcg/actuation nasal spray,suspension prednisone 10 mg tablet mg 11/02/23 Allergies Allergy/AdvReac Type Severity Reaction Status Date / Time haloperidol Allergy Unknown Other Verified 11/02/23 11:51 risperidone Allergy Unknown MY MOUTH Verified 11/02/23 11:51 TIGHTENS UP -TD simvastatin Allergy Unknown Other Verified 11/02/23 11:51 Itxmtme-VUS-ZkV Reductase Allergy Other Verified 11/02/23 11:51 Inhibitor codeine AdvReac Unknown NAUSEA AND Verified 11/02/23 11:51 VOMITING triazolam AdvReac Unknown N/V Verified 11/02/23 11:51 Wasp Allergy Unknown WASP Uncoded 11/02/23 11:51 STING- CLOSES MY THROAT Review of Systems Review of Systems: All systems reviewed & are unremarkable except as noted in HPI and below Constitutional: Constitutional: Reports no additional constitutional complaints Eyes: Eyes: Reports no additional eye complaints ENT: Reports as per HPI Cardiovascular: Cardiovascular: Reports no additional cardiovascular complaints, Denies chest pain and Denies dyspnea Respiratory: Respiratory: Reports no additional respiratory complaints, Denies chest congestion, Denies cough and Denies dyspnea Gastrointestinal: Gastrointestinal: Reports no additional gastrointestinal complaints, Denies nausea and Denies vomiting Musculoskeletal: Musculoskeletal: Reports no additional musculoskeletal complaints Integumentary/Breasts: Skin/Breast: Reports system reviewed and no additional complaints, except as docu Neurologic: Reports system reviewed and no additional complaints, except as documented Psychiatric: Psychiatric: Reports no additional psychiatric complaints Allergic/Immunologic: Allergic/Immunologic: Reports no additional allergic/immunologic complaints [facility] Past Medical History Medical History Anxiety Bipolar disorder Bladder cancer Cerebrovascular accident Chronic obstructive pulmonary disease Coronary artery disease Gastroesophageal reflux disease History of diverticulitis Hyperlipidemia Hypertension Macular degeneration Obstructive sleep apnea Osteoarthritis Paroxysmal atrial fibrillation Peripheral arterial disease Tobacco dependence Type 2 diabetes mellitus Surgical History Surgical History History of cardiac catheterization History of ca
== END 2023-11-02 12:25 | disposition home or self-care (01) ==
PROVIDERS: Emergency Provider Nurse Practitioner; PCP Family Medicine
DX: H65.01 Acute serous otitis media, right ear (principal); H92.02 Otalgia, left ear; R42 Dizziness and giddiness; F17.210 Nicotine dependence, cigarettes, uncomplicated; J44.9 Chronic obstructive pulmonary disease, unspecified; I25.10 Atherosclerotic heart disease of native coronary artery without angina pectoris; K21.9 Gastro-esophageal reflux disease without esophagitis; E78.5 Hyperlipidemia, unspecified; I10 Essential (primary) hypertension; H35.30 Unspecified macular degeneration; M19.90 Unspecified osteoarthritis, unspecified site; I48.0 Paroxysmal atrial fibrillation; E11.9 Type 2 diabetes mellitus without complications; Z79.84 Long term (current) use of oral hypoglycemic drugs; Z86.73 Personal history of transient ischemic attack (TIA), and cerebral infarction without residual deficits; F41.9 Anxiety disorder, unspecified; Z79.01 Long term (current) use of anticoagulants; Z85.51 Personal history of malignant neoplasm of bladder
CPT/HCPCS: 99211; G0463

== ENCOUNTER 2024-02-22 09:09 | Emergency (ER) | payer OTHER, SELFPAY ==
[2024-02-22] VITALS (20 sets, daily range): BP systolic 120–155; BP diastolic 72–105; PULSE 60–99; RESP 10–38; TEMP 36.8; O2SAT 94–100
--- NOTE | ~2024-02-22 | CT_ITS ---
EXAMINATION: CT brain wo con DATE: 02/22/2024 09:50 INDICATION: Headache. TECHNIQUE: Computed tomography (CT) of the head was performed without intravenous contrast. The mA wa s adjusted according to patient size. Iterative reconstruction technique was employed. The dose-lengt h product was 605.33 mGy-cm. COMPARISON: Head CT 07/24/2018 FINDINGS: There are old infarcts in the bilateral basal ganglia. There are scattered areas of low att enuation in the cerebral white matter, which is within normal limits for the patient's age. There is no intracranial hemorrhage, acute infarction, or abnormal intracranial mass lesion. The ventricles ar e normal in size. There is an old blowout fracture of medial wall of left orbit. There is mild mucosa l thickening in the paranasal sinuses. There is a small left mastoid effusion. IMPRESSION: 1. Old infarcts in the bilateral basal ganglia. Reviewed, dictated and finalized at location A.
--- NOTE | ~2024-02-22 | XR_ITS ---
EXAMINATION: XR chest 1V portable 02/22/2024 10:34 INDICATION: Chest tightness PROCEDURE: AP portable chest COMPARISON: Comparison to multiple prior studies sequentially, with oldest reviewed study dated 04/08. FINDINGS: The lungs are clear. The cardiomediastinal silhouette is within normal limits. There are no pleural effusions. There is no pneumothorax suspected. There are calcified granulomas bilaterall y. IMPRESSION: 1: NO ACUTE CARDIOPULMONARY DISEASE. Reviewed, dictated and finalized at location B.
--- NOTE | 2024-02-22 09:35 | ECG_ITS ---
Test Date: 2024-02-22 09:59:09 Measurements Intervals [place] Rate: 61 P: 24 NC: 151 QRS: 21 QRSD: 94 T: 13 QT: 421 QTc: 427 Interpretive Statements SINUS RHYTHM NORMAL ELECTROCARDIOGRAM No previous ECG available for comparison Electronically Signed On 02-23-2024 13:27:15 CDT by Nilay Mancuso M.D.
--- NOTE | 2024-02-22 09:46 | ED.GENADULT ---
HPI - General Adult General Chief complaint: Headache Stated complaint: headache Time Seen by Provider: 02/22/24 09:19 History of Present Illness HPI narrative: 63-year-old female With a history anxiety, CVA, COPD, CAD, GERD, HTN, AFib, type 2 DM, presents to the emergency room with multiple medical complaints. Patient states couple of days ago. Began experiencing left ear pain, bleeding there was an ear infection. States the pain moved into her frontal sinuses. Patient also complaining of headache that she has had for 3 days. Has taken Tylenol a couple of occasions with some temporary resolution of her symptoms. Patient also complains of dizziness and lightheadedness. reports headache is exacerbated with lytes and loud sound. Complain with occasional nausea. States he has not had a headache like this since she had her CVA in 2013. Patient is also complaining of chest tightness that is relieved with her rescue inhaler. Denies any worsening shortness of breath or difficulty breathing. Denies chest pain or palpitations. Related Data Home Medications Medication Instructions Recorded Confirmed losartan 100 mg tablet 100 mg PO DAILY 05/14/20 11/02/23 clopidogrel 75 mg tablet 75 mg PO DAILY 01/19/21 11/02/23 trazodone 50 mg tablet 50 mg PO HS PRN Insomnia 04/08/23 11/02/23 fluoxetine 60 mg tablet 20 mg PO DAILY 04/27/23 11/02/23 lorazepam 0.5 mg tablet 0.5 mg PO TID 04/27/23 11/02/23 metformin 500 mg tablet 500 mg PO BID 04/27/23 11/02/23 ezetimibe 10 mg tablet 10 mg PO DAILY 05/25/23 11/02/23 budesonide-formoterol HFA 160 See Rx Instructions .Route .COMPLEX 06/26/23 11/02/23 mcg-4.5 mcg/actuation aerosol inhaler (Symbicort) cyclobenzaprine 10 mg tablet 10 mg PO PRN muscle spasm 06/26/23 11/02/23 ergocalciferol (vitamin D2) 1,250 50,000 unit PO WEEKLY 06/26/23 11/02/23 mcg (50,000 unit) capsule Zyrtec 11/02/23 cromolyn 4 % eye drops drp 11/02/23 evolocumab 140 mg/mL subcutaneous mg subcut 11/02/23 pen injector (Sheng Ceballos) fluticasone propionate 50 intranasal 11/02/23 mcg/actuation nasal spray,suspension prednisone 10 mg tablet mg 11/02/23 Allergies Allergy/AdvReac Type Severity Reaction Status Date / Time haloperidol Allergy Unknown Other Verified 02/22/24 10:19 risperidone Allergy Unknown MY MOUTH Verified 02/22/24 10:19 TIGHTENS UP -TD simvastatin Allergy Unknown Other Verified 02/22/24 10:19 [id number]-SOR-AbC Reductase Allergy Other Verified 02/22/24 10:19 Inhibitor codeine AdvReac Unknown NAUSEA AND Verified 02/22/24 10:19 VOMITING triazolam AdvReac Unknown N/V Verified 02/22/24 10:19 Wasp Allergy Unknown WASP Uncoded 02/22/24 10:19 STING- CLOSES MY THROAT PMFSH Past Medical History Medical History Anxiety Bipolar disorder Bladder cancer Cerebrovascular accident Chronic obstructive pulmonary disease Coronary artery disease Gastroesophageal reflux disease History of diverticulitis Hyperlipidemia Hypertension Macular degeneration Obstructive sleep apnea Osteoarthritis Paroxysmal atrial fibrillation Peripheral arterial disease Tobacco dependence Type 2 diabetes mellitus Surgical History Surgical History History of cardiac catheterization History of carpal tunnel release History of section History of cholecystectomy History of colonoscopy History of esophagogastroduodenoscopy (EGD) History of left-sided carotid endarterectomy History of transurethral resection of bladder tumor (TURBT) History of vascular surgery Bilateral iliac stent. Family History Family History Sibling Diabetes mellitus Family history of malignant neoplasm Social History Social History Social History: Surrogate medical decision make
[2024-02-22] MEDS: IPRATROPIUM 0.5 MG/ALBUTEROL SULFATE 2.5 MG AMPUL.NEB 3 ML INHALATION ×3 (09:52→09:53)
[2024-02-22] MEDS: dexAMETHasone SOD PHOS INJ 10 MG/ML 1 ML VIAL IV PUSH (10:09)
[2024-02-22] MEDS: METOCLOPRAMIDE HCL INJ 10 MG/2 ML VIAL IV PUSH (10:09)
[2024-02-22] MEDS: diphenhydrAMINE HCl INJ 50 MG/ML VIAL 25 MG IV PUSH (10:11)
[2024-02-22] MEDS: KETOROLAC 30 MG/ML VIAL (*BKC) IV PUSH (10:11)
[2024-02-22] MEDS: SODIUM CHLORIDE 0.9% IV 1,000 ML 999 ML IV CONT (10:11)
[2024-02-22 10:13] LABS: Basophils Absolute Auto 0.1 K/mm3 (0.0-0.1); Basophils Percent Auto 0.4 % (0.2-1.2); Eosinophils Absolute Auto 0.4 K/mm3 (0-0.3); Eosinophils Percent Auto 3.3 % (0-4.4); Hematocrit 50.8 % (37.0-47.0); Hemoglobin 16.7 g/dL (12.0-15.0); Immature Granulocyte Absolute 0.04 K/mm3 (0.00-0.031); Immature Granulocyte Percent A 0.4 % (0-0.5); Lymphocytes Absolute Auto 2.46 K/mm3 (0.9-3.2); Lymphocytes Percent Auto 21.6 % (18.3-44.2); Mean Corpuscular HGB Conc 32.9 g/dl (32-36); Mean Corpuscular Hemoglobin 28.6 pg (26-34); Mean Corpuscular Volume 87.1 fl (80-100); Mean Platelet Volume 9.8 fl (7.4-10.4); Monocytes Absolute Auto 0.8 K/mm3 (0.1-0.6); Monocytes Percent Auto 7.4 % (2.6-8.5); Neutrophils Absolute Auto 7.6 K/mm3 (1.3-6.7); Neutrophils Percent Auto 66.9 % (45.5-73.1); Platelet Count Result 236 k/mm3 (150-375); Red Blood Count 5.83 M/mm3 (4.2-5.4); White Blood Count 11.4 K/mm3 (4.5-10.0)
[2024-02-22 10:23] LABS: INR 1.2
[2024-02-22 10:24] LABS: Partial Thromboplastin Time 28.2 Seconds (22.3-36.8)
[2024-02-22 10:25] LABS: Alanine Aminotransferase 16 U/L (6-35); Albumin Level 4.6 g/dL (3.5-5.1); Alkaline Phosphatase 98 U/L (38-126); Anion Gap 11 mmol/L (4-12); Aspartate Amino Transferase 21 U/L (14-36); Bilirubin,Total 0.6 mg/dL (0.2-1.3); Blood Urea Nitrogen 22 mg/dL (7-17); Calcium 9.5 mg/dL (8.4-10.2); Carbon Dioxide 27 mmol/L (22-30); Chloride 100 mmol/L (98-107); Estimated CRCL calculation 66 ml/min; Estimated Glomerular Filt Rate > 60; Glucose 136 mg/dL (65-110); Potassium 3.7 mmol/L (3.4-5.0); Sodium 138 mmol/L (137-145)
[2024-02-22 10:31] LABS: D Dimer 0.49 ug/mL (<0.48)
[2024-02-22 10:31] LABS: Add Urine Microscopic? YES; Appearance Urine Cloudy (Clear); Bacteria Urine None Seen /hpf; Bilirubin Urine Negative (Negative); Blood Urine 3+ (Negative); Color Urine Dark Yellow (Yellow); Glucose Urine UA Negative (Negative); Ketones Urine Trace mg/dL (Negative); Leukocyte Esterase Ur 1+ LEU/UL (Negative); Nitrate Urine Negative (Negative); Protein Urine 2+ mg/dL (Negative); RBC Urine >100 /hpf (0-2); Squamous Epithelial Cell Urine Occasional /hpf (Few); WBC Urine 51-100 /hpf (0-3); pH Urine 5.5 (5.0-9.0)
[2024-02-22 10:36] LABS: Troponin I < 0.012 ng/mL (0.000-0.034)
== END 2024-02-22 11:31 | disposition home or self-care (01) ==
PROVIDERS: Emergency Provider Nurse Practitioner Family; PCP Family Medicine
DX: R51.9 Headache, unspecified (principal); J06.9 Acute upper respiratory infection, unspecified; N39.0 Urinary tract infection, site not specified; I25.10 Atherosclerotic heart disease of native coronary artery without angina pectoris; I48.0 Paroxysmal atrial fibrillation; E11.51 Type 2 diabetes mellitus with diabetic peripheral angiopathy without gangrene; I73.9 Peripheral vascular disease, unspecified; E78.5 Hyperlipidemia, unspecified; J44.9 Chronic obstructive pulmonary disease, unspecified; G47.33 Obstructive sleep apnea (adult) (pediatric); H35.30 Unspecified macular degeneration; K21.9 Gastro-esophageal reflux disease without esophagitis; M19.90 Unspecified osteoarthritis, unspecified site; F17.210 Nicotine dependence, cigarettes, uncomplicated; Z86.73 Personal history of transient ischemic attack (TIA), and cerebral infarction without residual deficits; Z85.51 Personal history of malignant neoplasm of bladder; Z90.49 Acquired absence of other specified parts of digestive tract; Z79.01 Long term (current) use of anticoagulants; Z79.899 Other long term (current) drug therapy; Z79.84 Long term (current) use of oral hypoglycemic drugs
CPT/HCPCS: 36415; 70450; 71045; 80053; 81001; 84484; 85025; 85380; 85610; 85730; 87086; 93005; 94640; 96361; 96374; 96375; 99284; J1100; J1200; J1885; J2765; J7030

== ENCOUNTER 2024-02-27 10:21 | Outpatient (CLI) | payer OTHER, SELFPAY ==
--- NOTE | ~2024-02-27 | XR_ITS ---
EXAMINATION: XR knee LT min 4V DATE: 02/27/2024 10:38 INDICATION: Bilateral primary osteoarthritis of knee. TECHNIQUE: 4 views of left knee including standing views were obtained. COMPARISON: Left knee radiographs 04/04/2019 FINDINGS: There is varus angulation at the knee. No fracture. There is severe osteoarthritis of media l and lateral compartments and mild osteoarthritis of patellofemoral compartment. There is a small kn ee joint effusion. IMPRESSION: 1. Severe left knee osteoarthritis. Reviewed, dictated and finalized at location A.
--- NOTE | ~2024-02-27 | XR_ITS ---
EXAMINATION: XR knee RT min 4V DATE: 02/27/2024 10:38 INDICATION: Bilateral primary osteoarthritis of knee. TECHNIQUE: 4 views of right knee including standing views were obtained. COMPARISON: Right knee radiographs 04/04/2019 FINDINGS: There is varus angulation at the knee. No fracture. There is severe osteoarthritis of media l and lateral compartments and moderate osteoarthritis of patellofemoral compartment. There is a smal l knee joint effusion. IMPRESSION: 1. Severe right knee osteoarthritis. 2. Small right knee joint effusion. Reviewed, dictated and finalized at location A.
== END 2024-02-27 10:22 | disposition home or self-care (01) ==
LOC: ANHIMG 10:25
PROVIDERS: PCP Family Medicine; Visit Provider Physician Assistant Surgical
DX: M17.0 Bilateral primary osteoarthritis of knee (principal); M25.461 Effusion, right knee
CPT/HCPCS: 73564

== ENCOUNTER 2024-02-28 08:25 | Emergency (ER) | payer OTHER, SELFPAY ==
--- NOTE | ~2024-02-28 | CT_ITS ---
CT abdomen pelvis w con Ordering provider: Alex Kinney PA-C History: 63 years Female with . LLQ pain, hematuria . Comparison: June 26, 2023 Technique: CT abdomen and pelvis with IV and without oral contrast. Automated exposure control and it erative reconstruction technique were employed. The dose-length product was 932.86 mGy-cm. 100 ML Omn ipaque 350 was given IV. Findings: VISUALIZED LOWER CHEST: Normal. UPPER ABDOMINAL ORGANS: Liver: Mild fat infiltration. Benign calcifications. Gallbladder: Status post cholecystectomy. Spleen: Normal. Benign calcifications. Stomach/duodenum: Slightly thickened wall of the duodenum. Clinical correlation advised. Pancreas: Normal. Adrenals: Prominent left adrenal with an adenoma measuring 2 cm. Calcifications are seen in both adre nal glands. Tiny fat-containing area seen in the right adrenal measuring 6.5 mm may be a myolipoma. Kidneys: Normal. PELVIC ORGANS: The bladder shows thickened wall posteriorly and superiorly. Evaluation for cystitis a dvised. Cystoscopy also is advised to exclude infiltrative process . Uterus: Normal. BOWEL AND MESENTERY: Colon: No evidence of diverticulitis. Appendix is normal. Slightly thickened wall of the sigmoid colo n may indicate colitis. Clinical correlation advised. Small Bowel: Normal. No obstruction. Peritoneum/mesentery: No free air or free fluid. No mesenteric lymphadenopathy. RETROPERITONEUM: Mild atheromatous disease of the abdominal aorta. Iliac stents are seen bilaterally . No retroperitoneal lymphadenopathy. MUSCULOSKELETAL: Superficial soft tissues: The superficial soft tissues are normal. Bones: Age appropriate degenerative changes of the spine. IMPRESSION: 1. Mild fat infiltration. 2. Left adrenal adenoma. Unchanged from previous examination. 3. Thickened wall of the urinary bladder posteriorly and superiorly which may be due to infection or infiltrative process. Cystoscopy and evaluation for cystitis is advised. 4. No evidence of appendicitis, diverticulitis or intestinal obstruction. Slightly thickened wall of the sigmoid colon is seen may indicate colitis. 5. Thickened wall of the duodenum. Clinical correlation advised. Reviewed, dictated and finalized at location A. IMPRESSION: 1. Mild fat infiltration. 2. Left adrenal adenoma. Unchanged from previous examination. 3. Thickened wall of the urinary bladder posteriorly and superiorly which may be due to infection or infiltrative process. Cystoscopy and evaluation for cyst itis is advised. 4. No evidence of appendicitis, diverticulitis or intestinal obstruction. Slig htly thickened wall of the sigmoid colon is seen may indicate colitis. 5. Thickened wall of the duodenum. Clinical correlation advised.
[2024-02-28 09:13] LABS: Basophils Absolute Auto 0.1 K/mm3 (0.0-0.1); Basophils Percent Auto 0.6 % (0.2-1.2); Eosinophils Absolute Auto 0.3 K/mm3 (0-0.3); Eosinophils Percent Auto 3.8 % (0-4.4); Hemoglobin 15.3 g/dL (12.0-15.0); Immature Granulocyte Absolute 0.04 K/mm3 (0.00-0.031); Immature Granulocyte Percent A 0.5 % (0-0.5); Lymphocytes Absolute Auto 2.01 K/mm3 (0.9-3.2); Lymphocytes Percent Auto 22.9 % (18.3-44.2); Mean Corpuscular HGB Conc 33.3 g/dl (32-36); Mean Corpuscular Hemoglobin 28.9 pg (26-34); Mean Corpuscular Volume 86.8 fl (80-100); Mean Platelet Volume 9.8 fl (7.4-10.4); Monocytes Absolute Auto 0.6 K/mm3 (0.1-0.6); Monocytes Percent Auto 7.1 % (2.6-8.5); Neutrophils Absolute Auto 5.7 K/mm3 (1.3-6.7); Neutrophils Percent Auto 65.1 % (45.5-73.1); Platelet Count Result 190 k/mm3 (150-375); Red Cell Distribution Width 12.9 % (11.5-14.5); White Blood Count 8.8 K/mm3 (4.5-10.0)
[2024-02-28 09:27] LABS: Alanine Aminotransferase 14 U/L (6-35); Albumin Level 4.1 g/dL (3.5-5.1); Alkaline Phosphatase 86 U/L (38-126); Anion Gap 9 mmol/L (4-12); Aspartate Amino Transferase 25 U/L (14-36); Bilirubin,Total 0.5 mg/dL (0.2-1.3); Blood Urea Nitrogen 19 mg/dL (7-17); Carbon Dioxide 25 mmol/L (22-30); Chloride 103 mmol/L (98-107); Estimated Glomerular Filt Rate > 60; Glucose 134 mg/dL (65-110); Potassium 4.1 mmol/L (3.4-5.0); Sodium 137 mmol/L (137-145)
--- NOTE | 2024-02-28 09:33 | ED.FEMALEGU ---
HPI - Female Genitourinary General Chief complaint: Urogenital-Female Stated complaint: hematuria Time Seen by Provider: 02/28/24 09:01 Source: patient Mode of arrival: ambulatory Limitations: no limitations History of Present Illness HPI Narrative: this is a 63-year-old female with PMH of bladder carcinoma the, AFib, T2 dm who presents to the ED with chief complaint of hematuria x1 week and worse today. she is s/p x1 week TURP with [facility]. states that she was told to couple of days ago that there is some active cancer based on the sample they took last week. Patient reports that she has noticed occasional clots and gross hematuria worsening since the procedure. She is on Eliquis and Plavix. Reports Some mild left lower quadrant abdominal pain that radiates towards left flank. States last week she was seen and had a urinalysis drawn that showed possible UTI. She has been taking her antibiotics as prescribed. Additionally notes some recent loose stools with some bloody stools yesterday. Denies melena. Denies fevers, chills, nausea, vomiting, chest pain, back pain, dysuria. Related Data Home Medications Medication Instructions Recorded Confirmed losartan 100 mg tablet 100 mg PO DAILY 05/14/20 11/02/23 clopidogrel 75 mg tablet 75 mg PO DAILY 01/19/21 11/02/23 trazodone 50 mg tablet 50 mg PO HS PRN Insomnia 04/08/23 11/02/23 fluoxetine 60 mg tablet 20 mg PO DAILY 04/27/23 11/02/23 lorazepam 0.5 mg tablet 0.5 mg PO TID 04/27/23 11/02/23 metformin 500 mg tablet 500 mg PO BID 04/27/23 11/02/23 ezetimibe 10 mg tablet 10 mg PO DAILY 05/25/23 11/02/23 budesonide-formoterol HFA 160 See Rx Instructions .Route .COMPLEX 06/26/23 11/02/23 mcg-4.5 mcg/actuation aerosol inhaler (Symbicort) cyclobenzaprine 10 mg tablet 10 mg PO PRN muscle spasm 06/26/23 11/02/23 ergocalciferol (vitamin D2) 1,250 50,000 unit PO WEEKLY 06/26/23 11/02/23 mcg (50,000 unit) capsule Zyrtec 11/02/23 cromolyn 4 % eye drops drp 11/02/23 evolocumab 140 mg/mL subcutaneous mg subcut 11/02/23 pen injector (Sheng Ceballos) fluticasone propionate 50 intranasal 11/02/23 mcg/actuation nasal spray,suspension prednisone 10 mg tablet mg 11/02/23 Allergies Allergy/AdvReac Type Severity Reaction Status Date / Time haloperidol Allergy Unknown Other Verified 02/22/24 10:19 risperidone Allergy Unknown MY MOUTH Verified 02/22/24 10:19 TIGHTENS UP -TD simvastatin Allergy Unknown Other Verified 02/22/24 10:19 [id number] Reductase Allergy Other Verified 02/22/24 10:19 Inhibitor codeine AdvReac Unknown NAUSEA AND Verified 02/22/24 10:19 VOMITING triazolam AdvReac Unknown N/V Verified 02/22/24 10:19 Wasp Allergy Unknown WASP Uncoded 02/22/24 10:19 STING- CLOSES MY THROAT Review of Systems Review of Systems: All systems as dictated in [facility] Past Medical History Medical History Anxiety Bipolar disorder Bladder cancer Cerebrovascular accident Chronic obstructive pulmonary disease Coronary artery disease Gastroesophageal reflux disease History of diverticulitis Hyperlipidemia Hypertension Macular degeneration Obstructive sleep apnea Osteoarthritis Paroxysmal atrial fibrillation Peripheral arterial disease Tobacco dependence Type 2 diabetes mellitus Surgical History Surgical History History of cardiac catheterization History of carpal tunnel release History of section History of cholecystectomy History of colonoscopy History of esophagogastroduodenoscopy (EGD) History of left-sided carotid endarterectomy History of transurethral resection of bladder tumor (TURBT) History of vascular surgery Bilateral iliac stent. Family History Family History Sibling Diabetes mellitus Family history of malignant neoplas
[2024-02-28 10:01] LABS: Add Urine Microscopic? YES
[2024-02-28 10:02] LABS: Appearance Urine Turbid (Clear); Blood Urine 3+ (Negative); Color Urine Red (Yellow); Glucose Urine UA Negative (Negative); Ketones Urine Negative (Negative); Protein Urine 3+ mg/dL (Negative); Specific Grav Ur > 1.030 (1.001-1.035)
[2024-02-28 10:03] LABS: Bilirubin Urine Negative (Negative); Leukocyte Esterase Ur Negative LEU/UL (Negative); Nitrate Urine Negative (Negative); Urobilinogen Urine 0.2 mg/dL (<2.0)
[2024-02-28 10:04] LABS: Bacteria Urine Rare /hpf; RBC Urine >100 /hpf (0-2); Squamous Epithelial Cell Urine Occasional /hpf (Few)
[2024-02-28] MEDS: MORPHINE SULFATE (*CRX) 4 MG/ML INJ IV PUSH (11:25)
[2024-02-28] MEDS: ONDANSETRON INJ 4 MG/2 ML VIAL IV PUSH ×2 (11:26→13:34)
[2024-02-28] MEDS: ACETAMINOPHEN 500 MG TABLET 1000 MG PO (13:34)
[2024-02-28 17:35] LABS: Toxigenic C. Diff POSITIVE (NEGATIVE)
== END 2024-02-28 13:40 | disposition short-term general hospital (02) ==
PROVIDERS: Emergency Medicine; Emergency Provider Physician Assistant; PCP Family Medicine
DX: R31.9 Hematuria, unspecified (principal); K52.9 Noninfective gastroenteritis and colitis, unspecified; K92.2 Gastrointestinal hemorrhage, unspecified; F41.9 Anxiety disorder, unspecified; F31.9 Bipolar disorder, unspecified; Z85.51 Personal history of malignant neoplasm of bladder; Z86.73 Personal history of transient ischemic attack (TIA), and cerebral infarction without residual deficits; J44.9 Chronic obstructive pulmonary disease, unspecified; E78.5 Hyperlipidemia, unspecified; I10 Essential (primary) hypertension; G47.30 Sleep apnea, unspecified; I48.91 Unspecified atrial fibrillation; E11.9 Type 2 diabetes mellitus without complications; Z79.84 Long term (current) use of oral hypoglycemic drugs
CPT/HCPCS: 36415; 74177; 80053; 81001; 85025; 87045; 87427; 87449; 87493; 96374; 96375; 96376; 99285; A9270; J2270; J2405; Q9967

== ENCOUNTER 2024-05-15 13:51 | Emergency (ER) | payer OTHER, SELFPAY ==
--- NOTE | ~2024-05-15 | XR_ITS ---
EXAMINATION: XR hand RT min 3V DATE: 05/15/2024 14:20 INDICATION: Right hand second digit pain and swelling. TECHNIQUE: 3 views of right hand were obtained. COMPARISON: Right hand radiographs 08/02/2018 FINDINGS: Alignment is normal. No fracture. There is mild osteoarthritis of first carpometacarpal mihai nt, first-third metacarpophalangeal joints, and some of the interphalangeal joints. IMPRESSION: 1. Mild polyarticular osteoarthritis. Reviewed, dictated and finalized at location B.
[2024-05-15 14:00] VITALS: BP 123/96; PULSE 87; RESP 20; TEMP 36.6; O2SAT 98
[2024-05-15 14:01] VITALS: BP 123/96; PULSE 87; RESP 20; TEMP 36.6; O2SAT 98
--- NOTE | 2024-05-15 14:04 | ED.EXTPRO ---
HPI - Extremity Problem General Chief complaint: Extremity Problem,Nontraumatic Stated complaint: Right Hand Swollen Time Seen by Provider: 05/15/24 14:04 Source: patient, RN notes reviewed and old records reviewed Mode of arrival: ambulatory Limitations: no limitations History of Present Illness HPI Narrative: 63-year-old female presents to the [facility] with swelling to the right 2nd finger. States that she woke up with that. No injury. No redness, no bruising. Sensation intact. Full range of motion. Onset (ago): hour(s) Related Data Home Medications Medication Instructions Recorded Confirmed losartan 100 mg tablet 100 mg PO DAILY 05/14/20 05/15/24 clopidogrel 75 mg tablet 75 mg PO DAILY 01/19/21 05/15/24 trazodone 50 mg tablet 50 mg PO HS PRN Insomnia 04/08/23 05/15/24 fluoxetine 60 mg tablet 20 mg PO DAILY 04/27/23 05/15/24 lorazepam 0.5 mg tablet 0.5 mg PO TID 04/27/23 05/15/24 metformin 500 mg tablet 500 mg PO BID 04/27/23 05/15/24 ezetimibe 10 mg tablet 10 mg PO DAILY 05/25/23 05/15/24 budesonide-formoterol HFA 160 See Rx Instructions .Route .COMPLEX 06/26/23 05/15/24 mcg-4.5 mcg/actuation aerosol inhaler (Symbicort) cyclobenzaprine 10 mg tablet 10 mg PO PRN muscle spasm 06/26/23 05/15/24 ergocalciferol (vitamin D2) 1,250 50,000 unit PO WEEKLY 06/26/23 05/15/24 mcg (50,000 unit) capsule Zyrtec 1 tab-cap PO DAILY 11/02/23 05/15/24 cromolyn 4 % eye drops 1 drp EACH EYE DAILY 11/02/23 05/15/24 evolocumab 140 mg/mL subcutaneous 140 mg subcut MONTHLY 11/02/23 05/15/24 pen injector (Sheng Ceballos) fluticasone propionate 50 1 spray intranasal DAILY 11/02/23 05/15/24 mcg/actuation nasal spray,suspension Allergies Allergy/AdvReac Type Severity Reaction Status Date / Time haloperidol Allergy Unknown Other Verified 05/15/24 13:52 risperidone Allergy Unknown MY MOUTH Verified 05/15/24 13:52 TIGHTENS UP -TD simvastatin Allergy Unknown Other Verified 05/15/24 13:52 [id number] Reductase Allergy Other Verified 05/15/24 13:52 Inhibitor codeine AdvReac Unknown NAUSEA AND Verified 05/15/24 13:52 VOMITING triazolam AdvReac Unknown N/V Verified 05/15/24 13:52 Wasp Allergy Unknown WASP Uncoded 05/15/24 13:52 STING- CLOSES MY THROAT Review of Systems Review of Systems: All systems reviewed & are unremarkable except as noted in HPI and below Constitutional: Constitutional: Reports no additional constitutional complaints ENT: Reports system reviewed and no additional complaints, except as documented Cardiovascular: Cardiovascular: Reports no additional cardiovascular complaints, Denies chest pain and Denies dyspnea Respiratory: Respiratory: Reports no additional respiratory complaints, Denies chest congestion, Denies cough and Denies dyspnea Gastrointestinal: Gastrointestinal: Reports no additional gastrointestinal complaints, Denies abdominal pain, Denies nausea and Denies vomiting Musculoskeletal: Musculoskeletal: Reports as per HPI Integumentary/Breasts: Skin/Breast: Reports system reviewed and no additional complaints, except as docu PMFSH Past Medical History Medical History Anxiety Bipolar disorder Bladder cancer Cerebrovascular accident Chronic obstructive pulmonary disease Coronary artery disease Gastroesophageal reflux disease History of diverticulitis Hyperlipidemia Hypertension Macular degeneration Obstructive sleep apnea Osteoarthritis Paroxysmal atrial fibrillation Peripheral arterial disease Tobacco dependence Type 2 diabetes mellitus Surgical History Surgical History History of cardiac catheterization History of carpal tunnel release History of section History of cholecystectomy History of colonoscopy History of esophagogastroduodenoscopy (EGD) History of left-sided carotid endarterectomy History of transurethral resection of bladder tumor (TURBT) History of vascular surgery Bilateral iliac stent. Family History Family History Sibling Diabetes mellitus Family history of malignant neoplasm Social History Social History Social History: Surrogate medical decision maker: Fartun Naraaynan (sister) or Christina Goodman (daughter). Code status: Full code. Smoking packs per day: 1.5 Smoking cigarettes per day: 30.0 Years smoked: 50 Smoking pack-years: 75.00 Smoking status: Current every day smoker Tobacco type: cigarettes Second hand tobacco smoke exposure: No Additional smoking assessment comments: pt. was smoking 3 packs a day and has cut down to half a pack daily Alcohol intake: never Substance use: current Substance use type: marijuana Last use: 05/24/23 Do You Feel Safe in your Home?: Yes Lack of Transportation: No Lack of Food: Never True Current Housing: I Have Housing Concerned About Future Housing: No Difficulty Paying Gas/Electric Bills: No Difficulty Paying for Meds: No Currently Unemployed: No Education: High School Diploma/GED Difficulty w/ Childcare or Family Care: No Living arrangements: alone Additional living arrangements comments: Lives alone in [place]. 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 Spiritual care concerns: No Comments At the time of my signature, I reviewed and agree with the nursing past medical, surgical, social, and family history. There is no relevant family history pertinent to the patient complaint. Exam Const: General: cooperative, comfortable, no acute distress, well developed, alert and well nourished Nutritional Appearance: well nourished Orientation/consciousness: patient oriented x3 Limitations: no limitations HENMT: Head: normal to inspection Ears: hearing grossly normal bilaterally and external ears normal Face/Nose/Sinus: Normal external nose present, normal facial exam and face symmetric Face and sinus: normal facial exam and face symmetric Eyes: General: appearance normal, both eyes and all related structures Alignment and Position: alignment normal Periorbital: periorbital findings normal Neck: Neck: normal visual inspection, full ROM, no lymphadenopathy and no meningeal signs Chest: Chest palpation & inspection: normal inspection of the chest Resp: Effort & Inspection: normal respiratory effort and able to speak in complete sentences Cardio: Rate: regular rate Skin: General skin exam: normal color and no rashes or lesions noted Lesions: no lesions Rashes: no rashes Wounds: no wounds Neuro: General: patient oriented x3, gait normal, tone normal, moves all extremities and no meningeal signs Cognition (Neuro): normal cognition Speech: normal speech Gait exam (Neuro): Normal gait present Extrem: General: normal to inspection, full ROM, capillary refill normal and normal gait Right upper extremity: Extremity exam: right hand normal ROM of fingers and swelling of the 2nd digit at the MCP joint, at the proximal phalanx and at the middle phalanx; no tenderness, no unusual warmth, no ecchymosis, no foreign bodies and no puncture wound Psych: Appearance: grossly normal and well kempt Mental Status: mental status grossly normal Speech and movement: Normal speech and movement present and Clear speech present Affect: normal affect Attitude: cooperative Course Course Level of Care: Express Care Visit Vital Signs Vital signs: Vital Signs Temperature 97.9 F 05/15/24 14:00 Pulse Rate 87 05/15/24 14:00 Respiratory Rate 20 05/15/24 14:00 Blood Pressure 123/96 H 05/15/24 14:00 Pulse Oximetry 98 05/15/24 14:00 Oxygen Delivery Room Air 05/15/24 14:00 Temperature 97.9 F 05/15/24 14:01 Pulse Rate 87 05/15/24 14:01 Respiratory Rate 20 05/15/24 14:01 Blood Pressure 123/96 H 05/15/24 14:01 Pulse Oximetry 98 05/15/24 14:01 Oxygen Delivery Room Air 05/15/24 14:01 Reviewed MDM - Extremity (Nontraumatic) MDM Narrative Medical decision making narrative: Patient sitting comfortably in exam room. Nontoxic, vitals stable. Patient in no acute distress Patient presents with swelling for several hours without any injury, redness, ecchymosis. X-ray shows arthritis. No other acute fractures Discussed signs and symptoms go the emergency room and the importance of following up with primary care provider. Patient verbalized understand Discharge instructions reviewed with patient, as well as provided in writing per nursing staff. The instructions also include specific and strict return/GO TO THE ER as well as f/u information. All questions have been answered, and the patient deny any further questions with discharge and discharge plan. Some parts of this dictation were generated by voice recognition software and may contain typographical and/or grammatical inaccuracies. Differential Diagnosis Differential diagnosis: Likely gout, cellulitis and other (Arthritis, injury, sprain) Imaging Data Radiologist's impression: EXAMINATION: XR hand RT min 3V DATE: 05/15/2024 14:20 INDICATION: Right hand second digit pain and swelling. TECHNIQUE: 3 views of right hand were obtained. COMPARISON: Right hand radiographs 08/02/2018 FINDINGS: Alignment is normal. No fracture. There is mild osteoarthritis of first carpometacarpal joint, first-third metacarpophalangeal joints, and some of the interphalangeal joints. IMPRESSION: 1. Mild polyarticular osteoarthritis. Critical Care Time Critical Care Time Critical Care Time: No Discharge Plan Discharge Clinical Impression: Polyarticular osteoarthritis, Arthralgia of hand, right Patient Disposition: Home, Self-Care Condition: Stable Instructions: Antibiotic Form, Osteoarthritis (DC), Arthritis (ED) Additional Instructions: You can take Tylenol as needed for pain. Per package instructions on Tylenol arthritis While on Eliquis it is not recommended that you do take ibuprofen Alternating ice and heat can help with the pain and inflammation Follow-up with your primary care provider this week if symptoms are not improving For worsening symptoms go directly to the emergency room Patient Language: Mongolian Prescriptions: No Action (DME) Aerochamber MV Spacer See Rx Instructions .Route Qty: 1 0RF Rx Instructions: As directed albuterol sulfate 90 mcg/actuation HFA aerosol inhaler 2 puff inhalation QID PRN (Reason: shortness of breath or wheezing) Qty: 6.7 0RF cromolyn 4 % drops 1 drp EACH EYE DAILY Repatha SureClick 140 mg/mL pen injector 140 mg SUBCUT MONTHLY Zyrtec 1 tab-cap PO DAILY fluticasone propionate [Flonase] 50 mcg/actuation [place],Suspension 1 spray INTRANASAL DAILY ciprofloxacin HCl 0.3 % drops See Rx Instructions .Route .COMPLEX 7 Days Qty: 5 0RF Rx Instructions: Place 4 drops in left ear twice daily for 7 days clopidogrel 75 mg tablet 75 mg PO DAILY fluoxetine 60 mg tablet 20 mg PO DAILY lorazepam 0.5 mg tablet 0.5 mg PO TID metformin 500 mg tablet 500 mg PO BID metoclopramide HCl [Reglan] 10 mg tablet 10 mg PO BID PRN (Reason: nausea and vomiting) Qty: 60 11RF trazodone 50 mg tablet 50 mg PO HS PRN (Reason: Insomnia) Eliquis 5 mg Tablet 5 mg PO Q12HR Qty: 60 2RF ezetimibe 10 mg tablet 10 mg PO DAILY losartan 100 mg tablet 100 mg PO DAILY ergocalciferol (vitamin D2) 1,250 mcg (50,000 unit) capsule 50,000 unit PO WEEKLY Rx Instructions: takes weekly on Monday cyclobenzaprine 10 mg tablet 10 mg PO PRN budesonide-formoterol [Symbicort] 160-4.5 mcg/actuation HFA aerosol inhaler See Rx Instructions .ROUTE .COMPLEX Rx Instructions: 2 puff inhaled AM AND HS sotalol 80 mg Tablet 80 mg PO Q12HR Qty: 60 0RF Eliquis 5 mg Tablet 5 mg PO Q12HR Qty: 60 0RF hydrocodone-acetaminophen 5-325 mg Tablet 1 tablet PO Q8H PRN (Reason: Pain Rated 4-6) Qty: 15 0RF oxybutynin chloride 5 mg Tablet 5 mg PO TID Qty: 90 0RF dexlansoprazole 30 mg capsule,biphase delayed releas See Rx Instructions .ROUTE .COMPLEX Qty: 30 11RF Dose Instruction: TAKE 1 CAPSULE BY MOUTH DAILY Rx Instructions: TAKE 1 CAPSULE BY MOUTH DAILY Follow-up/Referrals: Andi,Carito Gaitan [employer] WORKER [Primary Care Provider] - [facility] Week ([facility] ) Time of Disposition: 14:28
== END 2024-05-15 14:35 | disposition home or self-care (01) ==
PROVIDERS: Emergency Provider Nurse Practitioner; PCP Nurse Practitioner Family
DX: M19.041 Primary osteoarthritis, right hand (principal); F17.210 Nicotine dependence, cigarettes, uncomplicated; J44.9 Chronic obstructive pulmonary disease, unspecified; I25.10 Atherosclerotic heart disease of native coronary artery without angina pectoris; I10 Essential (primary) hypertension; E78.5 Hyperlipidemia, unspecified; I48.0 Paroxysmal atrial fibrillation; I73.9 Peripheral vascular disease, unspecified; E11.9 Type 2 diabetes mellitus without complications; Z79.84 Long term (current) use of oral hypoglycemic drugs; F41.9 Anxiety disorder, unspecified; K21.9 Gastro-esophageal reflux disease without esophagitis; Z85.51 Personal history of malignant neoplasm of bladder
CPT/HCPCS: 73130; 99213; G0463